=== PATIENT | female | born 1940 | race Caucasian/White ===

== ENCOUNTER 2016-09-09 12:39 | Inpatient (IN) | payer OTHER, MEDICARE ==
[~2016-09-09] VITALS: Ht 152.4 cm; Wt 80.2 kg
[~2016-09-09 12:39] MED LIST changes: -CARV25TA PO; -DEPA500T PO; -HYDR-3801 PO; -LABE200T2 PO; -LEVE500 PO; -MACR100C2 PO; -MEDR4PAK PO
[2016-09-09] MEDS ORDERED: DEPA500T PO (15:34)
[2016-09-09] MEDS ORDERED: LABE200T2 PO (15:34)
[2016-09-09] MEDS ORDERED: MEDR4PAK PO (20:55)
[2016-09-09] MEDS ORDERED: MACR100C2 PO (20:55)
[2016-09-11] VITALS (7 sets, daily range): BP systolic 98–167; BP diastolic 52–89; PULSE 62–70; RESP 17–18; TEMP 87.5–97.9; O2SAT 97–100
[2016-09-11] MEDS ORDERED: ceFAZolin 1,000 MG/NS 100 ML IV SCH ×2 (06:30)
[2016-09-11] MEDS ORDERED: METOPROLOL TARTRATE 25 MG TAB PO PRN (06:30)
[2016-09-11] MEDS ORDERED: POVIDONE IODINE 5% (ANTISEPSIS KIT) 4 APPLICATIONS EACH NARE PRN (06:30)
[2016-09-11] MEDS ORDERED: INSULIN HUMAN REGULAR 1,000 UNITS/10 ML VIAL SQ PRN (06:30)
[2016-09-11] MEDS ORDERED: CHLORHEXIDINE GLUCONATE 2 % 1 PACK (2 CLOTHS) TOPICAL PRN (06:30)
[2016-09-11] MEDS ORDERED: LACTATED RINGER'S 1000 ML IV PRN (06:30)
[2016-09-11] MEDS ORDERED: SODIUM CHLORID 0.9% 500 ML IV PRN (06:30)
[2016-09-11] MEDS ORDERED: LACTATED RINGER'S 1000 ML INJ 1,000 ML IV SCH (06:30)
[2016-09-11] MEDS ORDERED: CARV25TA PO (06:52)
[2016-09-11] MEDS ORDERED: GELFOAM SIZE 100 ONE ×3 (07:23→11:09)
[2016-09-11] MEDS ORDERED: THROMBIN (TOPICAL) 5,000 UNIT VIAL ONE ×3 (07:23→12:24)
[2016-09-11] MEDS ORDERED: LIDOCAINE 1%/EPINEPHrine 1:100,000 SOLN 20 ML VIAL ONE (07:23)
[2016-09-11] MEDS ORDERED: GENTAMICIN SULFATE 80 MG/2 ML VIAL ONE (07:23)
[2016-09-11] MEDS ORDERED: FUROSEMIDE 40 MG/4 ML VIAL ONE (07:31)
[2016-09-11] MEDS ORDERED: ALBUMIN HUMAN 5% 12.5 GM/250 ML BOTTLE IV ONE (07:32)
[2016-09-11] MEDS ORDERED: MANNITOL INJ 50 ML ONE (07:32)
[2016-09-11] MEDS ORDERED: NITROGLYCERIN-D5W 50 MG/250 ML 250 ML ONE (07:32)
[2016-09-11] MEDS ORDERED: GADODIAMIDE PF 287 MG/ML 5 ML VIAL (for RAD MRI) IV ONE (08:35)
--- NOTE | 2016-09-11 09:01 | RADRPT ---
EXAM DATE/TIME: 09/11/2016 08:13 [facility] COMPARISON: MRI BRAIN STEALTH W CONTRAST, March 08, 2012, 11:58. INDICATIONS : Brain mass. Preop. CONTRAST: 14 cc Omniscan (gadodiamide) IV MEDICAL HISTORY : Hypertension. Lupus SURGICAL HISTORY : Cholecystectomy. Tonsillectomy. lt ankle, rt hip, 5 brain surgeries. ENCOUNTER: [facility] ACUITY: > 1 year PAIN SCORE: 3/10 LOCATION: cranial TECHNIQUE: An MRI brain stealth procedure was performed. The information will be used in the OR for localizatio n. FINDINGS: There is chronic encephalomalacia in the frontal lobes bilaterally. Ventricles are normal in size. There is a left parafalcine lobulated enhancing mass measuring approximately 4.6 x 2.8 cm. This was i n a location of the previously seen mass measuring 8 x 5 mm. There is an adjacent dural based extra-a xial mass in the left frontotemporal mid convexity adjacent to area of prior surgery. This mass measu res 2.0 x 1.6 cm. It is not clear if this represents a portion of the previously described bilobed ma ss or represents a new mass. There is no significant midline shift or downward herniation. CONCLUSION: 1. 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 This mass has increased in size from the prior study. 2. There is a second extra-axial lateral dural based mass on the left measuring 2.0 x 1.6 cm. Minh Bell MD on September 11, 2016 at 8:50 Board Certified Radiologist. This report was verified electronically.
[2016-09-11] MEDS ORDERED: RESP: ALBUTEROL CONC 2.5 MG/0.5 ML NEB ONE (09:03)
[2016-09-11 10:15] LABS: BLOOD, URINE NEG (NEG); GLUCOSE,URINE NEG (NEG); KETONE, URINE NEG (NEG); NITRITE,URINE NEG (NEG); PH, URINE 6.5 (5.0-8.5); URINE COLOR YELLOW (YELLW/STRAW)
[2016-09-11 10:17] LABS: COMMENT (UR) CATH-CULT NOT IND; CULTURE IF INDICATED CATH CULTURE NOT IND
[2016-09-11] MEDS ORDERED: SODIUM CHLOR 0.9% 1000 ML INJ 2,000 ML IV ONE (12:00)
[2016-09-11] MEDS ORDERED: LACTATED RINGER'S 1000 ML INJ 2,000 ML IV ONE (12:00)
[2016-09-11] MEDS ORDERED: ceFAZolin INJ 1,000 MG VIAL IV ONE ×2 (12:00→13:00)
[2016-09-11] MEDS ORDERED: ONDANSETRON HCL 4 MG/2 ML VIAL IV PUSH ONE (12:00)
[2016-09-11] MEDS ORDERED: ePHEDrine/NS 25 MG/5 ML SYR IV ONE (12:00)
[2016-09-11] MEDS ORDERED: PROPOFOL 200 MG/20 ML AMP IV ONE (12:00)
[2016-09-11] MEDS ORDERED: PHENYLEPH/NS 1000 MCG/10 ML SYR IV ONE (12:00)
[2016-09-11] MEDS ORDERED: CALCIUM CHLORIDE 10% SOLN 1 GRAM/10 ML SYR IV ONE (12:00)
[2016-09-11 12:14] LABS: BLOOD GAS BASE EXCESS -1.9 mmol/L (-2-2); BLOOD GAS CARBOXYHEMOGLOBIN 1.5 % (0-4); BLOOD GAS HCO3 22 mmol/L (22-26); BLOOD GAS METHEMOGLOBIN 1.1 % (0-2); BLOOD GAS O2 HGB SATURATION 97 % (90-100); BLOOD GAS OXYGEN CONTENT 16.4 Vol % (12.0-20.0); BLOOD GAS PCO2 31 mmHg (38-42); BLOOD GAS PO2 257 mmHg (61-120); BLOOD GAS TOTAL HGB 11.6 G/DL (12.0-16.0); TEMP CORR TO 98.6
[2016-09-11 12:15] LABS: CRITICAL VALUE NO; OXYGEN DEVICE VENTILATOR
[2016-09-11 12:16] LABS: DRAW SITE CENTRAL LINE; FIO2 50 %; STAT YES; ULNAR PULSE Y; VENT SETTINGS AC/VT500/R8/P5
[2016-09-11 12:51] LABS: BLOOD GAS BASE EXCESS -3.2 mmol/L (-2-2); BLOOD GAS CARBOXYHEMOGLOBIN 1.3 % (0-4); BLOOD GAS HCO3 20 mmol/L (22-26); BLOOD GAS O2 HGB SATURATION 98 % (90-100); BLOOD GAS OXYGEN CONTENT 17.1 Vol % (12.0-20.0); BLOOD GAS PCO2 31 mmHg (38-42); BLOOD GAS PO2 275 mmHg (61-120); TEMP CORR TO 98.6
[2016-09-11 12:52] LABS: CRITICAL VALUE NO; DRAW SITE CL; OXYGEN DEVICE VENTILATOR; STAT YES; VENT SETTINGS AC/500/R8/P6
[2016-09-11] MEDS ORDERED: *RESP: ALBUTEROL 2.5 MG/3 ML NEB (PRN) PERIprocedural Use ONLY NEB ONE (14:57)
[2016-09-11] MEDS ORDERED: *LABETALOL HCL 100 MG/20 ML VIAL PERIprocedural Use ONLY ONE (14:59)
[2016-09-11] MEDS ORDERED: fentaNYL CITRATE 250 MCG/5 ML AMP ONE (15:13)
[2016-09-11] MEDS ORDERED: MORPHINE SULFATE 4 MG/ML INJ ONE (15:13)
[2016-09-11] MEDS ORDERED: LABETALOL HCL 100 MG/20 ML VIAL IV PRN (15:15)
[2016-09-11] MEDS ORDERED: BISACODYL 10 MG SUPP RECTAL PRN (15:15)
[2016-09-11] MEDS ORDERED: SODIUM CHLORIDE 0.9% FLUSH 10 ML FLUSH IV FLUSH PRN (15:15)
[2016-09-11] MEDS: DEXT 5%-NACL 0.9% 1000 ML INJ 1,000 ML IV SCH ×2 (15:15→20:02)
[2016-09-11] MEDS ORDERED: ONDANSETRON HCL 4 MG/2 ML VIAL IV PRN (15:15)
[2016-09-11] MEDS ORDERED: LORazepam 2 MG/ML VIAL ONE (15:39)
[2016-09-11] MEDS: LORazepam 2 MG/ML VIAL IV PRN (15:40)
[2016-09-11] MEDS ORDERED: FOSPHENYTOIN INJ 1,000 MGPE in SODIUM CHLORIDE 0.9% INJ 50 ML IV ONE (16:00)
--- NOTE | 2016-09-11 16:02 | PD.OP ---
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 Procedure: 1. Left frontotemporoparietal craniotomy, resection of recurrent left frontal parietal neoplasm and 2. Resection of recurrent left temporal neoplasm 3. Left frontotemporoparietal duraplasty Anesthesia: Gen. Surgeon: Michele Galeano Icu Rn(s): Sho Baxter Operation and Findings: Procedure in detail: The patient was brought into the operating room and general endotracheal anesthesia induced without difficulty. Lines were established by anesthesia MARY CARMEN hose and sequential compression devices were in place Guzman catheter was in place Appropriate timeout procedure was performed with all personal present and in agreement The patient was positioned in semilateral position with all extremities appropriately padded. The head was placed in the 3-point fixation device and secured to the operating room table with the neck slightly flexed and the head mildly rotated. The BrainLab system was registered with the laser facial registration system and landmarks verified. The BrainLab system was used to yudy the initial scalp flap and craniotomy opening, and was further used extensively during the procedure to guide the resection of the neoplasm. The hair overlying the scalp incision was shaved with clippers, and the operative site was sterilely prepped and draped. 1% Xylocaine with epinephrine was used for local infiltration over the incision site which was made in a curvilinear fashion over the previous left frontotemporoparietal incision and carried sharply down to the cranium. The scalp flap was elevated with the periosteal elevator and retracted with large scalp hooks. The previous titanium maxillofacial plates and screws were removed. The craniotome was used to re-incise the previous left frontotemporoparietal bone flap which was removed. 4-0 Nurolon dural tack up sutures placed through wire passing holes made along the edge of the craniotomy site were used as needed. The dura was mostly absent at the craniotomy site, with a small amount of residual dura densely adherent to the bone flap with dural tack up sutures in place. There was no significant brain edema noted upon opening the dura. The left temporal and the separate left frontoparietal neoplasms were delineated based on anatomic landmarks and the use of the intraoperative BrainLab navigation system. The left temporal neoplasm was resected first. This neoplasm came directly to the surface. It was moderately adherent to the surrounding brain parenchyma and extended down to the arachnoid covering the sylvian fissure. The neoplasm was circumferentially from the surrounding ring parenchyma and arachnoid using the microdissectors and the bipolar forceps. Care was taken to preserve any of the surrounding vascular structures. A enhancing portion of the dura extending towards the floor of the middle fossa from the main neoplasm and seen on the preoperative MRI imaging was carefully traced out and resected along with the neoplasm. Next attention was turned to resection of the left frontoparietal parafalcine neoplasm. The resection was started at the anterior portion of the neoplasm where there was no parenchyma covering the capsule over the neoplasm. The neoplasm was circumferentially from the surrounding tissue with the Edwards dissectors and the bipolar forceps with any bridging vessels coagulated with the bipolar forceps and incised with the microscissors. Any major vascular structures were carefully preserved. Cottonoid patties were used as needed to maintain the resection plane surrounding the tumor. Once the periphery of the tumor was delineated, the central portion was gradually debulked using the tissue biopsy forceps and the suction with bleeding controlled with bipolar forceps. The periphery of the tumor was then removed. A portion of the neoplasm invading the falx just above the corpus callosum was resected along with the involved portion of the falx. Great care was taken to avoid any injury to the corpus callosum or surrounding parenchyma. The tumor resection site was carefully examined and bleeding carefully controlled. There was no significant bleeding at the time of closure. The brain was soft and pulsatile at the time of closure The closure was performed a 7 mm Durepair graft which was used to perform the duraplasty with the dura graft secured through holes to the cranium made with the wire-passing drill. Titanium maxillofacial plates and screws were used to secure the bone flap, 2-0 Vicryl for the galeal closure, [place] for the skin closure. A dressing of sterile Telfa, 4 x 4's, and a head stockinette were placed. The patient was turned back into supine position on the operating room table The 3-point head fixation device was removed The patient was taken to recovery room in stable condition All counts were correct at the end of the case Estimated blood loss was 600 cc. Specimen of the neoplasm was sent to pathology for permanent section Michele Galeano MD Sep 11, 2016 16:02
[2016-09-11] MEDS ORDERED: DO NOT ADM ANY ANTICOAGULANT DRUGS PRN (16:15)
[2016-09-11] MEDS ORDERED: DIVALPROEX DR 500 MG TABEC PO SCH (18:00)
--- NOTE | 2016-09-11 19:04 | RADRPT ---
EXAM DATE/TIME: 09/11/2016 18:11 [facility] COMPARISON: MRI BRAIN STEALTH W CONTRAST, September 11, 2016, 8:13. CT BRAIN W/O CONTRAST, March 11, 2012, 4:20. INDICATIONS : Post operation craniotomy for neoplasm. RADIATION DOSE: 54.38 CTDIvol (mGy) ; Tabletop CT Head MEDICAL HISTORY : Seizures. Hypertension. SURGICAL HISTORY : Craniotomy. ENCOUNTER: Initial ACUITY: 1 day PAIN SCALE: Non-responsive LOCATION: cranial TECHNIQUE: Multiple contiguous axial images were obtained of the head. Using automated exposure control and adj ustment of the mA and/or kV according to patient size, radiation dose was kept as low as reasonably a chievable to obtain optimal diagnostic quality images. DICOM format image data is available electro nically for review and comparison. FINDINGS: Postoperative changes from craniotomy in the left frontal and parietal mid to high convexity. There is an extra cranial drain present, multiple skin musa, and multifocal areas of pneumocephalus pres ent both anterior and lateral and in both tumor sites. No evidence of midline shift. There is ex vacuo enlargement of the left frontal horn. No hemorrhage or extra-axial fluid in the right hemisphere are in the posterior fossa.. Multiple craniotomy defects from both the present and prior surgical procedures with good approximati on of all of the osseous fragments. CONCLUSION: Expected postoperative changes from surgical removal of left frontal and parietal tumors. There is s ome residual gas and hyperdensity at the surgical resection sites. No evidence of midline shift. No acute findings in the right supratentorial brain. Chris Douglas MD on September 11, 2016 at 18:54 Board Certified Radiologist. This report was verified electronically.
[2016-09-11] MEDS: MORPHINE SULFATE 4 MG/ML INJ IV PRN (19:58)
[2016-09-11] MEDS: SODIUM CHLORIDE 0.9% FLUSH 10 ML FLUSH IV FLUSH SCH (20:01)
[2016-09-11] MEDS ORDERED: NON-FORMULARY DRUG (Fluticasone-Salmeterol Inh (Advair Diskus Inh) 1 PUFF) INH SCH (21:00)
[2016-09-11] MEDS: CARVEDILOL 12.5 MG TAB PO SCH (21:00)
[2016-09-11] MEDS ORDERED: carBAMazepine 200 MG TAB PO SCH (21:00)
[2016-09-11] MEDS: DOCUSATE SODIUM 100 MG CAP PO SCH (21:00)
[2016-09-11] MEDS: BUDESONIDE-FORMOTEROL 160/4.5 MCG INHALER INH SCH (21:00)
[2016-09-11] MEDS ORDERED: SODIUM CHLOR 0.9% 250 ML INJ 250 ML ONE (22:47)
[2016-09-11] MEDS: FOSPHENYTOIN SODIUM 100 MG PE/2 ML VIAL IV SCH (22:50)
[2016-09-11] MEDS: RESP: ALBUTEROL 2.5 MG/IPRATROPIUM 0.5 MG NEB (SCH) INH (23:21)
[2016-09-12] VITALS (15 sets, daily range): BP systolic 112–178; BP diastolic 71–100; PULSE 62–83; RESP 14–18; TEMP 97.3–98.9; O2SAT 98–100
[2016-09-12 03:31] LABS: AUTOMATED NEUTROPHIL # 11.2 TH/MM3 (1.8-7.7); BASOPHIL # 0.1 TH/MM3 (0-0.2); BASOPHIL % 0.7 % (0.0-2.0); HEMATOCRIT 30.3 % (35.0-46.0); HEMO FLAGS DIFF FINAL; LYMPH % 13.8 % (9.0-44.0); MEAN CELL VOLUME 89.2 FL (80.0-100.0); MEAN CORPUSCULAR HEMOGLOBIN 29.8 PG (27.0-34.0); MEAN CORPUSCULAR HGB CONC 33.5 % (32.0-36.0); MONO % 6.6 % (0.0-8.0); NEUT % 78.9 % (16.0-70.0); PLATELET COUNT 246 TH/MM3 (150-450); WHITE BLOOD COUNT 14.2 TH/MM3 (4.0-11.0)
[2016-09-12 04:12] LABS: BICARBONATE 25.2 MEQ/L (21.0-32.0); POTASSIUM 4.6 MEQ/L (3.5-5.1)
[2016-09-12] MEDS: FOSPHENYTOIN SODIUM 100 MG PE/2 ML VIAL IV SCH ×2 (05:19→17:36)
[2016-09-12] MEDS: LORazepam 2 MG/ML VIAL IV PRN ×2 (05:48→23:55)
[2016-09-12] MEDS ORDERED: VALPROIC ACID SYRUP 250 MG/5 ML UDC NG SCH (06:34)
--- NOTE | 2016-09-12 07:27 | PD.CONS ---
[facility] Service Critical Care Medicine Consult Requested By Neurosurgical Service Reason for Consult Seizure, Encephalopathy Primary Care Physician Sharon Rogers MD History of Present Illness 76 y/o woman 1 day following left craniotomy and resection of temporal lobe tumor. Generalized seizure this morning at 0530 which ceased after ativan 1 mg iv. Initially very somnolent and concern about her ability to protect her airway. She is more alert now and will perform left hand grasp to command.No snoring or obstruction. No subsequent seizures. She has a history of seizures and has undergone several previous craniotomies for tumors. She takes tegretol and depakote chronically. In addition, she was loaded with cerebyx 1000 mg at 1600 yesterday and dilantin level is subsequesntly 7.9. Review of Systems ROS No chest pain or SOB. Quite lethargic, reliability is questionable. No family. Past Family Social History Allergies: Coded Allergies: Codeine (Verified Allergy, Severe, 09/09/16) nausea Lipitor (Verified Allergy, Severe, MUSCLE WEAKNESS, 09/09/16) Uncoded Allergies: NSAIDS (Allergy, Unknown, 03/09/12) Past Medical History Past Medical History Narrative Medical List of her past medical, surgical, social and family history was reviewed from the nursing note. Arthritis: Yes Asthma: Yes Autoimmune Disease: Yes (lupus) Cancer: Yes (skin, brain) Cardiovascular Problems: Yes High Cholesterol: Yes COPD: Yes Diabetes: No Endocrine: No Genitourinary: No Hepatitis: No Hiatal Hernia: No Immune Disorder: No Musculoskeletal: Yes (ARTHRITIS IN HANDS) Neurologic: Yes (PREVIOUS BRAIN TUMORS) Psychiatric: No Reproductive: No Respiratory: Yes (COPD) Seizures: Yes Sleep Apnea: Yes Thyroid Disease: No Past Surgical History Abdominal Surgery: Yes (cholecystectomy) Body Medical Devices: left ankle and right upper leg Joint Replacement: No Oral Surgery: Yes (t and a) Pacemaker: No Thoracic Surgery: Yes (bronch) Social History Substance Use: No Allergies-Medications Allergies-Medications (Allergen,Severity, Reaction): Coded Allergies: Codeine (Verified Allergy, Severe, 09/09/16) nausea Lipitor (Verified Allergy, Severe, MUSCLE WEAKNESS, 09/09/16) Uncoded Allergies: NSAIDS (Allergy, Unknown, 03/09/12) Comments List of her allergies reviewed from the nursing note. Reported Meds & Prescriptions Reported Meds & Active Scripts Active Reported Labetalol (Labetalol HCl) 200 Mg Tab 200 Mg PO BID Depakote DR (Divalproex Sodium) 500 Mg Tabdr 500 Mg PO TID Amlodipine (Amlodipine Besylate) 5 Mg Tab 5 Mg PO DAILY Carbamazepine 200 Mg Tab 200 Mg PO BID Carvedilol 12.5 Mg Tab 12.5 Mg PO BID Duoneb (Ipratropium-Albuterol Neb) 0.5-2.5 Mg/3 Ml Neb 1 Nebule INH Q8HR NEB Advair Diskus Inh (Fluticasone-Salmeterol Inh) 250-50 Mcg/Blist Aer 1 Puff INH BID Rinse mouth after use. Physical Exam Vital Signs Vital Signs Date Time Temp Pulse Resp B/P Pulse Ox O2 Delivery O2 Flow Rate FiO2 09/12/16 06:00 68 09/12/16 04:00 97.6 66 16 123/92 100 09/12/16 04:00 76 09/12/16 02:00 62 09/12/16 00:30 124/72 09/12/16 00:00 82 09/12/16 00:00 97.5 82 16 142/98 100 09/11/16 22:00 70 09/11/16 21:02 100 Nasal Cannula 2.00 09/11/16 20:30 98/52 09/11/16 20:00 97.6 70 18 154/76 97 09/11/16 20:00 70 09/11/16 19:00 100 Nasal Cannula 2.00 09/11/16 18:00 64 09/11/16 16:00 62 09/11/16 16:00 99 Nasal Cannula 3.00 09/11/16 16:00 96.4 65 17 111/72 97 09/11/16 15:45 97.6 60 16 115/56 98 Nasal Cannula 4 09/11/16 15:30 66 17 129/58 98 Nasal Cannula 4 09/11/16 15:15 61 17 222/101 100 Nasal Cannula 4 09/11/16 15:00 75 17 184/88 100 Simple Mask 6 09/11/16 14:53 97.6 86 16 202/90 100 Simple Mask 6 Physical Exam P 77, BP 124/80, R 13, Sats 97% Head: Wrapped in dry dressing. Neck: Supple, airway widely patent. No obstructive noises. Lungs: Clear, no wheezes or crackles. Heart: NL S1S2, no m,r.No JVD. Abdomen: Soft, no guarding, non-distended, BS present. Extremities: Warm, well perfused. Swelling and discoloration left great toe. Neuro: Pupils 3 mm, react to light. Sqeezes left hand to command. Withdraws both feet to stimulation. Positive gag reflex. Laboratory Laboratory Tests Test 09/11/16 09/11/16 09/11/16 09/11/16 09:45 10:05 11:55 12:35 Urine Color YELLOW Urine Turbidity CLEAR Urine pH 6.5 Urine Specific [place] 1.008 Urine Protein NEG Urine Glucose (UA) NEG Urine Ketones NEG Urine Occult Blood NEG Urine Nitrite NEG Urine Bilirubin NEG Urine Urobilinogen LESS THAN 2.0 Urine Leukocyte Esterase NEG Urine RBC LESS THAN 1 Microscopic Urinalysis Comment CATH-CULT NOT IND Blood Type A POSITIVE Antibody Screen NEGATIVE Crossmatch Leukocyte-Reduced Red Blood Cells Blood Bank Comment Blood Gas Puncture Site CENTRAL LINE CL Blood Gas Patient Temperature 98.6 98.6 Blood Gas HCO3 22 20 Blood Gas Base Excess -1.9 -3.2 Blood Gas Oxygen Saturation 97 98 Arterial Blood pH 7.45 7.44 Arterial Blood Partial 31 31 Pressure CO2 Arterial Blood Partial 257 275 Pressure O2 Arterial Blood Oxygen Content 16.4 17.1 Arterial Blood 1.5 1.3 Carboxyhemoglobin Arterial Blood Methemoglobin 1.1 1.0 Blood Gas Hemoglobin 11.6 12.0 Oxygen Delivery Device VENTILATOR VENTILATOR Blood Gas Ventilator Setting AC/VT500/R8/P5 AC/500/R8/P6 Blood Gas Inspired Oxygen 50 Test 09/11/16 09/12/16 16:20 03:20 Nasal Screen MRSA (PCR) MRSA NOT DETECTED White Blood Count 14.2 Red Blood Count 3.40 Hemoglobin 10.1 Hematocrit 30.3 Mean Corpuscular Volume 89.2 Mean Corpuscular Hemoglobin 29.8 Mean Corpuscular Hemoglobin 33.5 Concent Red Cell Distribution Width 15.0 Platelet Count 246 Mean Platelet Volume 8.3 Neutrophils (%) (Auto) 78.9 Lymphocytes (%) (Auto) 13.8 Monocytes (%) (Auto) 6.6 Eosinophils (%) (Auto) 0.0 Basophils (%) (Auto) 0.7 Neutrophils # (Auto) 11.2 Lymphocytes # (Auto) 2.0 Monocytes # (Auto) 0.9 Eosinophils # (Auto) 0.0 Basophils # (Auto) 0.1 CBC Comment DIFF FINAL Differential Comment Sodium Level 143 Potassium Level 4.6 Chloride Level 109 Carbon Dioxide Level 25.2 Anion Gap 9 Blood Urea Nitrogen 19 Creatinine 1.07 Estimat Glomerular Filtration 50 Rate Random Glucose 152 Calcium Level 7.8 Phenytoin (Dilantin) Level 7.8 Result Diagram: 09/12/16 03209/12/16 032 Assessment and Plan Assessment and Plan Assessment: 1. Seizures, active. 2. Encephalopathy. 3. s/p left craniotomy and temporal lobe tumor resection. Plan: 1. NG for oral AEDs. 2. Additional bolus cerebyx. 3. Strict NPO. 4. Ativan prn sustained seizures. 5. SCDs. 6. Hold chemical DVT prophylaxis. Overall impression: Moderately increased somnolence following 4 minute seizure. Protects airway well, moving air well. Continue AEDs as ordered, watch airway closely. Manny Keys MD Sep 12, 2016 07:27
[2016-09-12] MEDS ORDERED: POTASSIUM PHOSPHATE MONOBASIC 500 MG TAB PO/TUBE PRN (07:51)
[2016-09-12] MEDS ORDERED: POTASSIUM PHOSPHATE INJ 30 MMOL in SODIUM CHLOR 0.9% 250 ML INJ 250 ML IV PRN (07:51)
[2016-09-12] MEDS ORDERED: SODIUM PHOSPHATE INJ 30 MMOL in SODIUM CHLOR 0.9% 250 ML INJ 240 ML IV PRN (08:00)
[2016-09-12] MEDS ORDERED: POTASSIUM CHLORIDE 25 MEQ EFFERVESCENT TAB PO PRN (08:00)
[2016-09-12] MEDS ORDERED: FOSPHENYTOIN SODIUM 100 MG PE/2 ML VIAL IV ONE (08:00)
[2016-09-12] MEDS ORDERED: POTASSIUM CHLOR 20 MEQ PREMIX 100 ML IV PRN (08:00)
[2016-09-12] MEDS ORDERED: MAGNESIUM SULFATE INJ 4 GM in SODIUM CHLORIDE 0.9% INJ 92 ML IV PRN (08:00)
[2016-09-12] MEDS ORDERED: GLUCAGON 1 MG/ML VIAL OTHER PRN (08:00)
[2016-09-12] MEDS ORDERED: DEXTROSE 50% IN WATER 50 ML VIAL(D50) IV PRN (08:00)
[2016-09-12] MEDS ORDERED: POTASSIUM PHOSPHATE MONOBASIC 500 MG TAB PO PRN (08:00)
[2016-09-12] MEDS ORDERED: MAGNESIUM OXIDE 400 MG TAB PO PRN (08:00)
[2016-09-12] MEDS ORDERED: MAGNESIUM SULFATE INJ 2 GM in SODIUM CHLORIDE 0.9% INJ 96 ML IV PRN (08:00)
[2016-09-12] MEDS ORDERED: POTASSIUM CHLOR 40 MEQ PREMIX 100 ML IV PRN ×2 (08:00)
[2016-09-12] MEDS: SODIUM CHLORIDE 0.9% FLUSH 10 ML FLUSH IV FLUSH SCH ×2 (09:00→21:00)
[2016-09-12] MEDS ORDERED: carBAMazepine SUSP 200 MG/10 ML UDC NG SCH (09:00)
[2016-09-12] MEDS: BUDESONIDE-FORMOTEROL 160/4.5 MCG INHALER INH SCH ×2 (09:00→21:00)
--- NOTE | 2016-09-12 10:53 | RADRPT ---
EXAM DATE/TIME: 09/12/2016 09:25 [place] Corrected on: September 26, 2016; Removed Physician from Copy to section [facility] COMPARISON: MRI BRAIN STEALTH W CONTRAST, September 11, 2016, 8:13. CT BRAIN W/O CONTRAST, September 11, 2016, 18:11. INDICATIONS : Seizure post brain tumor surgery RADIATION DOSE: 56.45 CTDIvol (mGy) MEDICAL HISTORY : Hypertension. Chronic obstructive pulmonary disease. Asthma, Lupus SURGICAL HISTORY : Appendectomy. Cholecystectomy. ENCOUNTER: Subsequent ACUITY: 1 day PAIN SCALE: Non-responsive LOCATION: cranial TECHNIQUE: Multiple contiguous axial images were obtained of the head. Using automated exposure control and adj ustment of the mA and/or kV according to patient size, radiation dose was kept as low as reasonably a chievable to obtain optimal diagnostic quality images. DICOM format image data is available electro nically for review and comparison. FINDINGS: Overall relatively stable appearance when compared to the prior study. There has been a slight increa se in the subdural hemorrhage tracking along the falx near the vertex. The remaining subdural hemorrh age on the left is stable. Pneumocephaly is stable. A chronic appearing subdural fluid collection is seen on the right. Ventricles are unchanged in size. Overlying craniotomy defect is observed. No midl ine shift or herniation. CSF continues to fill the suprasellar cistern. CONCLUSION: 1. The only change relative to the prior study from yesterday has been a slight increase in the subdu ral blood along the falx near the vertex. Chris Hercules Jr., MD on September 12, 2016 at 10:26
[2016-09-12] MEDS: INSULIN ASPART SUPPLEMENTAL SCALE SQ SCH ×3 (11:00→23:00)
[2016-09-12] MEDS: VALPROIC ACID SYRUP 250 MG/5 ML UDC NG SCH ×3 (11:18→23:52)
[2016-09-12] MEDS: PANTOPRAZOLE SODIUM 40 MG VIAL IVP SCH (11:19)
[2016-09-12] MEDS: carBAMazepine SUSP 200 MG/10 ML UDC NG SCH ×2 (11:19→20:49)
[2016-09-12] MEDS: CARVEDILOL 12.5 MG TAB PO SCH ×2 (11:20→20:53)
[2016-09-12] MEDS: amLODIPine BESYLATE 5 MG TAB PO SCH (11:20)
[2016-09-12] MEDS: DOCUSATE SODIUM 100 MG CAP PO SCH ×2 (11:20→20:53)
[2016-09-12] MEDS: DEXT 5%-NACL 0.9% 1000 ML INJ 1,000 ML IV SCH ×2 (14:19→22:00)
[2016-09-12] MEDS: RESP: ALBUTEROL 2.5 MG/IPRATROPIUM 0.5 MG NEB (SCH) INH ×2 (15:38→15:39)
[2016-09-12] MEDS ORDERED: FOSPHENYTOIN SODIUM 500 MG PE/10 ML VIAL IV ONE (20:45)
--- NOTE | 2016-09-12 20:56 | HHI.NSPN ---
History Chief Complaint: no complaint Interval History 76-year-old female with history of multiple recurrent meningiomas. 09/11/2016: Left craniotomy for recurrent left temporal and left frontoparietal convexity meningiomas. 09/12/16: Positive seizure. Cerebyx started in addition to patient's usual Depakote and Tegretol Exam Results Vital Signs Date Time Temp Pulse Resp B/P Pulse Ox O2 Delivery O2 Flow Rate FiO2 09/12/16 19:38 100 Nasal Cannula 2.00 09/12/16 18:00 67 09/12/16 16:00 97.3 16 122/71 Intake and Output 09/11/16 09/11/16 09/12/16 08:00 16:00 00:00 Intake Total 3800 ml 484 ml Output Total 1480 ml 1090 ml Balance 2320 ml -606 ml Physical Examination A dressing in place dry and intact Moderate mostly CSF drain output Respirations clear Cardiac regular Abdomen soft nontender Moderate lethargy Moderate eye opening to voice Grasps left hand and his left leg moderate to command. Mild movement right lower extremity to command Withdraws right upper extremity mild to deep pain Lab, Micro, Other Results 09/12/2016 CT scan head images reviewed. Edema versus ischemia left frontotemporal region. Mild subcortical hemorrhage left temporal lobe without significant mass effect. Head CT 09/12/16 0800 Signed Impressions: Service Date/Time: Monday, September 12, 2016 09:25 - CONCLUSION: 1. The only change relative to the prior study from yesterday has been a slight increase in the subdural blood along the falx near the vertex. Chris Hercules Jr., MD Brain MRI 09/11/16 0717 Signed Impressions: Service Date/Time: September 08:13 - CONCLUSION: 1. 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 This mass has increased in size from the prior study. 2. There is a second extra-axial lateral dural based mass on the left measuring 2.0 x 1.6 cm. Minh Bell MD Laboratory Tests Test 09/12/16 03:20 White Blood Count 14.2 TH/MM3 Red Blood Count 3.40 MIL/MM3 Hemoglobin 10.1 GM/DL Hematocrit 30.3 % Mean Corpuscular Volume 89.2 FL Mean Corpuscular Hemoglobin 29.8 PG Mean Corpuscular Hemoglobin 33.5 % Concent Red Cell Distribution Width 15.0 % Platelet Count 246 TH/MM3 Mean Platelet Volume 8.3 FL Neutrophils (%) (Auto) 78.9 % Lymphocytes (%) (Auto) 13.8 % Monocytes (%) (Auto) 6.6 % Eosinophils (%) (Auto) 0.0 % Basophils (%) (Auto) 0.7 % Neutrophils # (Auto) 11.2 TH/MM3 Lymphocytes # (Auto) 2.0 TH/MM3 Monocytes # (Auto) 0.9 TH/MM3 Eosinophils # (Auto) 0.0 TH/MM3 Basophils # (Auto) 0.1 TH/MM3 CBC Comment DIFF FINAL Differential Comment Sodium Level 143 MEQ/L Potassium Level 4.6 MEQ/L Chloride Level 109 MEQ/L Carbon Dioxide Level 25.2 MEQ/L Anion Gap 9 MEQ/L Blood Urea Nitrogen 19 MG/DL Creatinine 1.07 MG/DL Estimat Glomerular Filtration 50 ML/MIN Rate Random Glucose 152 MG/DL Calcium Level 7.8 MG/DL Phenytoin (Dilantin) Level 7.8 MCG/ML Medical Decision Making Impression and Plan Impression: 1. Postoperative craniotomy resection of recurrent meningioma 2 on 09/11/16. 2. Positive postoperative seizure 3. Possible left frontoparietal region ischemia versus postoperative edema on CT scan head 09/12/16 Plan: Continue intensive surgical care unit where checks and vital signs Continue scalp drain Continue antiepileptic drugs. EEG Non-chemical DVT prophylaxis Ulcer prophylaxis Follow-up labs Speech therapy, PT evaluations Michele Galeano MD Sep 12, 2016 20:56
[2016-09-12] MEDS ORDERED: FOSPHENYTOIN INJ 500 MGPE in SODIUM CHLORIDE 0.9% INJ 50 ML IV ONE (21:30)
[2016-09-13] VITALS (14 sets, daily range): BP systolic 113–157; BP diastolic 53–68; PULSE 64–85; RESP 12–20; TEMP 97.6–98.6; O2SAT 94–99
[2016-09-13] MEDS: FOSPHENYTOIN SODIUM 100 MG PE/2 ML VIAL IV SCH ×4 (00:12→22:07)
[2016-09-13] MEDS: niCARdipine INJ 25 MG in SODIUM CHLOR 0.9% 250 ML INJ 250 ML IV SCH ×5 (01:48→12:17)
[2016-09-13] MEDS: MORPHINE SULFATE 4 MG/ML INJ IV PRN ×2 (03:01→12:30)
[2016-09-13] MEDS: INSULIN ASPART SUPPLEMENTAL SCALE SQ SCH ×4 (05:00→22:41)
[2016-09-13 06:45] LABS: HEMATOCRIT 27.3 % (35.0-46.0); MEAN CELL VOLUME 89.5 FL (80.0-100.0); MEAN CORPUSCULAR HEMOGLOBIN 29.6 PG (27.0-34.0); MEAN CORPUSCULAR HGB CONC 33.1 % (32.0-36.0); PLATELET COUNT 206 TH/MM3 (150-450); RED BLOOD COUNT 3.06 MIL/MM3 (4.00-5.30); RED CELL DISTRIBUTION WIDTH 14.6 % (11.6-17.2); REVIEW FLAG FINAL; WHITE BLOOD COUNT 11.9 TH/MM3 (4.0-11.0)
[2016-09-13 07:16] LABS: BICARBONATE 25.9 MEQ/L (21.0-32.0); POTASSIUM 3.4 MEQ/L (3.5-5.1)
[2016-09-13 07:36] LABS: CALCIUM-PROTEIN CORRECTED 8.5 MG/DL (8.5-10.1)
[2016-09-13] MEDS: RESP: ALBUTEROL 2.5 MG/IPRATROPIUM 0.5 MG NEB (SCH) INH ×2 (08:20→16:56)
[2016-09-13] MEDS: amLODIPine BESYLATE 5 MG TAB PO SCH (08:45)
[2016-09-13] MEDS: CARVEDILOL 12.5 MG TAB PO SCH ×2 (08:45→20:49)
[2016-09-13] MEDS: DOCUSATE SODIUM 100 MG CAP PO SCH ×2 (08:45→20:49)
[2016-09-13] MEDS: VALPROIC ACID SYRUP 250 MG/5 ML UDC NG SCH ×3 (08:45→23:21)
[2016-09-13] MEDS: SODIUM CHLORIDE 0.9% FLUSH 10 ML FLUSH IV FLUSH SCH ×2 (08:46→22:17)
[2016-09-13] MEDS: carBAMazepine SUSP 200 MG/10 ML UDC NG SCH ×2 (08:46→20:49)
[2016-09-13] MEDS: PANTOPRAZOLE SODIUM 40 MG VIAL IVP SCH (08:46)
[2016-09-13] MEDS: DEXT 5%-NACL 0.9% 1000 ML INJ 1,000 ML IV SCH (08:47)
[2016-09-13] MEDS: BUDESONIDE-FORMOTEROL 160/4.5 MCG INHALER INH SCH ×2 (09:00→20:49)
--- NOTE | 2016-09-13 10:13 | HHI.NSPN ---
(Nora Rankin) Note Status Status: Progress Note (Nora Rankin) Interval History Interval History 76-year-old female with history of multiple recurrent meningiomas. 09/11/2016: Left craniotomy for recurrent left temporal and left frontoparietal convexity meningiomas. 09/12/16: Positive seizure. Cerebyx started in addition to patient's usual Depakote and Tegretol 09/13/16: following commands, nonverbal. bp elevated, currently on max dose of Cardene (Nora Rankin) Labs, Micro, & Vital Signs Results Date Time Temp Pulse Resp B/P Pulse Ox O2 Delivery O2 Flow Rate FiO2 09/13/16 09:15 98 Room Air 09/13/16 08:20 98 21 09/13/16 07:00 97 Nasal Cannula 2.00 09/13/16 06:00 70 09/13/16 04:00 78 09/13/16 04:00 98.0 85 16 140/53 94 09/13/16 03:26 18 09/13/16 02:00 78 09/13/16 00:00 68 09/13/16 00:00 97.8 76 15 133/59 96 Arterial Line 09/12/16 22:00 76 09/12/16 20:00 98.0 72 18 178/100 100 09/12/16 20:00 82 09/12/16 19:38 100 Nasal Cannula 2.00 09/12/16 19:00 100 Nasal Cannula 2.00 09/12/16 18:00 67 09/12/16 16:00 73 09/12/16 16:00 97.3 73 16 122/71 100 09/12/16 15:42 100 Nasal Cannula 2.00 09/12/16 14:00 74 09/12/16 12:00 70 09/12/16 12:00 97.6 70 14 112/76 100 09/13/16 07:00 Intake Total 3084 ml Output Total 3790 ml Balance -706 ml Constitutional Vital Signs Date Time Temp Pulse Resp B/P Pulse Ox O2 Delivery O2 Flow Rate FiO2 09/13/16 09:15 98 Room Air 09/13/16 08:20 98 21 09/13/16 07:00 97 Nasal Cannula 2.00 09/13/16 06:00 70 09/13/16 04:00 78 09/13/16 04:00 98.0 85 16 140/53 94 09/13/16 03:26 18 09/13/16 02:00 78 09/13/16 00:00 68 09/13/16 00:00 97.8 76 15 133/59 96 Arterial Line 09/12/16 22:00 76 09/12/16 20:00 98.0 72 18 178/100 100 09/12/16 20:00 82 09/12/16 19:38 100 Nasal Cannula 2.00 09/12/16 19:00 100 Nasal Cannula 2.00 09/12/16 18:00 67 09/12/16 16:00 73 09/12/16 16:00 97.3 73 16 122/71 100 09/12/16 15:42 100 Nasal Cannula 2.00 09/12/16 14:00 74 09/12/16 12:00 70 09/12/16 12:00 97.6 70 14 112/76 100 09/13/16 07:00 Intake Total 3084 ml Output Total 3790 ml Balance -706 ml (Nora Rankin) Review of Systems/Exam Exam Opens eyes, focuses. Aphasic Followss simple commands Wound healing well. MARTINA drain in place with moderate serosanguineous drainage CN: pupils equal, facial motor symmetric at rest Neck; soft, supple Motor: moves x 4 extremities off bed to commands, weaker on the right (Nora Rankin) Medications Current Medications Current Medications Medications (Trade) Dose Ordered Sig/Gen Route PRN Reason Start Time Stop Time Status Last Admin Dose Admin Lactated Ringer's 1,000 ml @ 30 mls/hr Q24H PRN IV SEE LABEL COMMENTS 09/11/16 06:30 09/14/16 06:29 Sodium Chloride (NS 500 ml Inj) 500 ml @ 30 mls/hr [id number] PRN IV SEE LABEL COMMENTS 09/11/16 06:30 09/14/16 06:29 Sodium Chloride (NS Flush) 2 ml UNSCH PRN IV FLUSH FLUSH AFTER USING IV ACCESS 09/11/16 15:15 Sodium Chloride (NS Flush) 2 ml BID IV FLUSH 09/11/16 21:00 09/13/16 08:46 Bisacodyl (Dulcolax Supp) 10 mg DAILY PRN RECTAL CONSTIPATION 09/11/16 15:15 Docusate Sodium (Colace) 100 mg BID PO 09/11/16 21:00 09/13/16 08:45 Pantoprazole Sodium (Protonix Inj) 40 mg DAILY IVP 09/12/16 09:00 09/13/16 08:46 Ondansetron HCl (Zofran Inj) 4 mg Q6H PRN IV NAUSEA OR VOMITING 09/11/16 15:15 Morphine Sulfate (Morphine Inj) 2 mg Q2H PRN IV PAIN SCALE 1 TO 6 09/11/16 15:15 09/13/16 03:01 Morphine Sulfate (Morphine Inj) 4 mg Q2H PRN IV PAIN SCALE 7 TO 10 09/11/16 15:15 09/11/16 19:58 Labetalol HCl 10 mg 10 mg Q1H PRN IV SYS BP GREATER THAN 150 MMHG 09/11/16 15:15 09/13/16 03:00 Nicardipine HCl/ Sodium Chloride (Cardene Inj/NS 250 ml Inj) 260 ml @ 0 mls/hr TITRATE IV 09/11/16 15:15 09/13/16 09:17 Amlodipine Besylate (Norvasc) 5 mg DAILY PO 09/12/16 09:00 09/13/16 08:45 Carvedilol (Coreg) 25 mg BID PO 09/11/16 21:00 09/13/16 08:45 Nitrofurantoin Macrocrystals 100 mg 100 mg BID PO 09/11/16 21:00 UNV Dextrose/Sodium Chloride (D5W-NS 1000 ml Inj) 1,000 ml @ 100 mls/hr Q10H IV 09/11/16 16:00 09/13/16 08:47 Lorazepam (Ativan Inj) 1 mg Q6H PRN IV SEIZURES 09/11/16 15:45 09/12/16 23:55 Fosphenytoin Sodium (Cerebyx Inj) 100 mgpe Q8HR IV 09/11/16 22:00 09/13/16 05:29 Budesonide/ Formoterol Fumarate (Symbicort 160-4.5 Inh) 2 puff BID INH 09/11/16 21:00 Valproic Acid (Depakene Liq) 500 mg Q8H NG 09/12/16 08:00 09/13/16 08:45 Carbamazepine (TEGretol LIQ) 200 mg BID NG 09/12/16 09:00 09/13/16 08:46 Dextrose (D50w (Vial) Inj) 50 ml UNSCH PRN IV HYPOGLYCEMIA-SEE COMMENTS 09/12/16 08:00 Glucagon (Glucagon Inj) 1 mg UNSCH PRN OTHER HYPOGLYCEMIA-SEE COMMENTS 09/12/16 08:00 Insulin Aspart 1 1 Q6H SQ 09/12/16 11:00 09/12/16 23:00 Potassium Chloride 100 ml @ 50 mls/hr Q2H PRN IV For Potassium 2.8 - 3.2 mEq/L 09/12/16 08:00 Potassium Chloride (KCl 20 Meq Premix Inj) 100 ml @ 50 mls/hr Q2H PRN IV For Potassium 2.8 - 3.2 mEq/L 09/12/16 08:00 Potassium Bicarb/ Potassium Chloride 50 meq 50 meq UNSCH PRN PO For Potassium 3.3 - 3.5 mEq/L 09/12/16 08:00 09/13/16 08:46 Potassium Chloride 100 ml @ 25 mls/hr UNSCH PRN IV For Potassium 3.3 - 3.5 mEq/L 09/12/16 08:00 Potassium Chloride 100 ml @ 50 mls/hr Q2H PRN IV For Potassium 3.3 - 3.5 mEq/L 09/12/16 08:00 Magnesium Sulfate/ Sodium Chloride (Magnesium Sulfate Inj/NS Inj) 100 ml @ 50 mls/hr UNSCH PRN IV For Magnesium 0.9 - 1.1 mg/dL 09/12/16 08:00 Magnesium Oxide 800 mg 800 mg UNSCH PRN PO For Magnesium 1.2 - 1.6 mg/dL 09/12/16 08:00 Magnesium Sulfate/ Sodium Chloride (Magnesium Sulfate Inj/NS Inj) 100 ml @ 50 mls/hr UNSCH PRN IV For Magnesium 1.2 - 1.6 mg/dL 09/12/16 08:00 Potassium Phosphate 2000 mg 2,000 mg Q4H PRN PO For Phosphorus < 2.5 mg/dL 09/12/16 08:00 Sodium Phosphate/ Sodium Chloride (Sodium Phosphate Inj/NS 250 ml Inj) 250 ml @ 42 mls/hr UNSCH PRN IV For Phosphorus < 2.5 mg/dL 09/12/16 08:00 Potassium Phosphate 2000 mg 2,000 mg UNSCH PRN PO/TUBE SEE LABEL COMMENTS 09/12/16 07:51 Potassium Phosphate/Sodium Chloride (Potassium Phosphate Inj/NS 250 ml Inj) 260 ml @ 42 mls/hr UNSCH PRN IV SEE LABEL COMMENTS 09/12/16 07:51 (Nora Rankin) Medical Decision Making MDM Remarks 76-year-old female with history of multiple recurrent meningiomas, s/p craniotomy for recurrent left temporal meningioma 09/11/16 Seizures, controlled uncontrolled hypertension, currently controlled on Cardene drip (Nora Rankin) Plan Plan Remarks cont serial neuro checks, cont Cardene, will defer to critical care for further BP mgt, cont AED, Cerebyx, Depakote and Tegretol cont MARTINA draining (Nora Rankin) Attending Statement The exam, history, and the medical decision-making described in the above note were completed with the assistance of the mid-level provider. I reviewed and agree with the findings presented. I attest that I had a [id number] encounter with the patient on the same day, and personally performed and documented my assessment and findings in the medical record. (Jayy Watts MD) Nora Rankin Sep 13, 2016 10:13 Jayy Watts MD Sep 16, 2016 19:06
[2016-09-13] MEDS ORDERED: amLODIPine BESYLATE 5 MG TAB PO ONE (11:15)
--- NOTE | 2016-09-13 11:19 | HHI.CCPN ---
Subjective Remarks/Hospital Course Hospital Course: 76 y/o woman 1 day following left craniotomy and resection of temporal lobe tumor. Generalized seizure this morning at 0530 which ceased after ativan 1 mg iv. Initially very somnolent and concern about her ability to protect her airway. She is more alert now and will perform left hand grasp to command.No snoring or obstruction. No subsequent seizures. She has a history of seizures and has undergone several previous craniotomies for tumors. She takes tegretol and depakote chronically. In addition, she was loaded with cerebyx 1000 mg at 1600 yesterday and dilantin level is subsequesntly 7.9. Subjective: 09/13: mental status improved. remains hypertensive on nicardipine infusion. MELY resolving. no complaints. Objective Vital Signs Date Time Temp Pulse Resp B/P Pulse Ox O2 Delivery O2 Flow Rate FiO2 09/13/16 10:00 66 09/13/16 09:15 98 Room Air 09/13/16 08:20 21 09/13/16 08:00 98.6 15 138/54 Automatic Cuff 09/13/16 07:00 2.00 Intake and Output 09/12/16 09/12/16 09/13/16 08:00 16:00 00:00 Intake Total 792 ml 650 ml 1609 ml Output Total 1175 ml 740 ml 2050 ml Balance -383 ml -90 ml -441 ml Result Diagram: 09/13/1643909/13/16439 Objective Remarks Head: Wrapped in dry dressing. Neck: Supple, airway widely patent. No obstructive noises. Lungs: Clear, no wheezes or crackles. Heart: NL S1S2, no m,r.No JVD. Abdomen: Soft, no guarding, non-distended Extremities: Warm, well perfused. Swelling and discoloration left great toe. Neuro: Pupils 3 mm, react to light. Sqeezes left hand to command. Withdraws both feet to stimulation. Positive gag reflex. A/P Assessment and Plan Assessment: 76yF s/p left temporal crani for meningioma and s/p igor-op seizures , now mental status slowly improving. remains severely hypertensive. 1. Seizures, active. 2. Encephalopathy. 3. s/p left craniotomy and temporal lobe tumor resection. 4. Hypertensive Urgency Plan: 1. NG for oral AEDs. start TFs. 3. Strict NPO. Speech consult. 4. Ativan prn sustained seizures. 5. SCDs. 6. Hold chemical DVT prophylaxis. 7. increase amlodipine to 10mg daily 8. add hydralazine 100mg po q8h 9. continue carvedilol 25mg po bid 10. increase prn labetalol to 20mg iv q30min prn 11. wean nicardipine infusion Overall impression: Moderately increased somnolence following 4 minute seizure. Protects airway well, moving air well. Continue AEDs as ordered, watch airway closely. if weans off nicardipine, could transfer to floor. Lauri Gallo MD Sep 13, 2016 11:19
[2016-09-13] MEDS: hydrALAZINE HCL 100 MG TAB PO SCH ×2 (11:59→20:14)
[2016-09-13] MEDS: LABETALOL HCL 100 MG/20 ML VIAL IV PRN ×2 (16:45→18:32)
[2016-09-13] MEDS: LABETALOL HCL 200 MG TAB PO SCH ×2 (19:11→22:06)
[2016-09-13] MEDS: NITROFURANTOIN MONOHYD MACROCR 100 MG CAP PO SCH (22:57)
[2016-09-14] VITALS (11 sets, daily range): BP systolic 103–150; BP diastolic 54–68; PULSE 57–88; RESP 13–25; TEMP 97.7–100.8; O2SAT 97–99
[2016-09-14] MEDS: RESP: ALBUTEROL 2.5 MG/IPRATROPIUM 0.5 MG NEB (SCH) INH ×4 (00:15→22:44)
[2016-09-14] MEDS: MORPHINE SULFATE 4 MG/ML INJ IV PRN (03:00)
[2016-09-14] MEDS: hydrALAZINE HCL 100 MG TAB PO SCH ×3 (04:10→19:29)
--- NOTE | 2016-09-14 04:47 | RADRPT ---
EXAM DATE/TIME: 09/14/2016 04:23 [facility] COMPARISON: MRI BRAIN STEALTH W CONTRAST, September 11, 2016, 8:13. CT BRAIN W/O CONTRAST, September 12, 2016, 9:25. INDICATIONS : Follow up brain tumor; post craniotomy. RADIATION DOSE: 31.41 CTDIvol (mGy) MEDICAL HISTORY : Hypertension. Gastroesophageal reflux disease. Chronic obstructive pulmonary disease.seizures, lupus SURGICAL HISTORY : Craniotomy. ENCOUNTER: Subsequent ACUITY: 4 - 6 days PAIN SCALE: Non-responsive LOCATION: cranial TECHNIQUE: Multiple contiguous axial images were obtained of the head. Using automated exposure control and adj ustment of the mA and/or kV according to patient size, radiation dose was kept as low as reasonably a chievable to obtain optimal diagnostic quality images. DICOM format image data is available electro nically for review and comparison. FINDINGS: Expected postoperative changes are present. No acute hematoma is identified. 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 No extra-axial fluid collections are identified. Posterior fossa structures are unremarkable. CONCLUSION: 1. Expected postoperative changes following craniotomy. Quincy Pandya MD on September 14, 2016 at 4:43 Board Certified Radiologist. This report was verified electronically.
[2016-09-14] MEDS: INSULIN ASPART SUPPLEMENTAL SCALE SQ SCH ×4 (05:00→23:07)
[2016-09-14] MEDS: LABETALOL HCL 200 MG TAB PO SCH ×3 (06:00→21:39)
[2016-09-14] MEDS: FOSPHENYTOIN SODIUM 100 MG PE/2 ML VIAL IV SCH ×3 (06:06→21:39)
[2016-09-14 06:19] LABS: HEMATOCRIT 25.6 % (35.0-46.0); MEAN CELL VOLUME 90.7 FL (80.0-100.0); MEAN CORPUSCULAR HEMOGLOBIN 29.6 PG (27.0-34.0); MEAN CORPUSCULAR HGB CONC 32.7 % (32.0-36.0); PLATELET COUNT 213 TH/MM3 (150-450); RED BLOOD COUNT 2.83 MIL/MM3 (4.00-5.30); RED CELL DISTRIBUTION WIDTH 14.8 % (11.6-17.2); REVIEW FLAG FINAL; WHITE BLOOD COUNT 11.9 TH/MM3 (4.0-11.0)
[2016-09-14 06:32] LABS: POTASSIUM 4.2 MEQ/L (3.5-5.1)
[2016-09-14] MEDS: CARVEDILOL 12.5 MG TAB PO SCH ×2 (08:05→20:32)
[2016-09-14] MEDS: carBAMazepine SUSP 200 MG/10 ML UDC NG SCH ×2 (08:06→20:32)
[2016-09-14] MEDS: PANTOPRAZOLE SODIUM 40 MG VIAL IVP SCH (08:06)
[2016-09-14] MEDS: SODIUM CHLORIDE 0.9% FLUSH 10 ML FLUSH IV FLUSH SCH ×2 (08:06→20:32)
[2016-09-14] MEDS: DOCUSATE SODIUM 100 MG CAP PO SCH ×2 (08:06→20:32)
[2016-09-14] MEDS: NITROFURANTOIN MONOHYD MACROCR 100 MG CAP PO SCH ×2 (08:06→20:33)
[2016-09-14] MEDS: BUDESONIDE-FORMOTEROL 160/4.5 MCG INHALER INH SCH ×2 (08:07→20:32)
[2016-09-14] MEDS: VALPROIC ACID SYRUP 250 MG/5 ML UDC NG SCH ×2 (08:14→15:41)
--- NOTE | 2016-09-14 09:24 | HHI.CCPN ---
Subjective Remarks/Hospital Course Hospital Course: 76 y/o woman 1 day following left craniotomy and resection of temporal lobe tumor. Generalized seizure this morning at 0530 which ceased after ativan 1 mg iv. Initially very somnolent and concern about her ability to protect her airway. She is more alert now and will perform left hand grasp to command.No snoring or obstruction. No subsequent seizures. She has a history of seizures and has undergone several previous craniotomies for tumors. She takes tegretol and depakote chronically. In addition, she was loaded with cerebyx 1000 mg at 1600 yesterday and dilantin level is subsequesntly 7.9. Subjective: 09/13: mental status improved. remains hypertensive on nicardipine infusion. MELY resolving. no complaints. 09/14: mental status continues to improve. bp better. off cardene. mely improved. no complaints. Objective Vital Signs Date Time Temp Pulse Resp B/P Pulse Ox O2 Delivery O2 Flow Rate FiO2 09/14/16 08:00 67 09/14/16 08:00 99.0 17 132/60 99 09/14/16 07:00 Room Air 09/13/16 20:24 21 09/13/16 07:00 2.00 Intake and Output 09/13/16 09/13/16 09/13/16 07:59 15:59 23:59 Intake Total 825 ml 1894 ml 400 ml Output Total 1000 ml 625 ml 15 ml Balance -175 ml 1269 ml 385 ml Result Diagram: 09/14/16 0504 09/14/16 0504 Objective Remarks Head: Wrapped in dry dressing. Neck: Supple, airway widely patent. No obstructive noises. Lungs: Clear, no wheezes or crackles. Heart: NL S1S2, no m,r.No JVD. Abdomen: Soft, no guarding, non-distended Extremities: Warm, well perfused. Swelling and discoloration left great toe. Neuro: Pupils 3 mm, react to light. Sqeezes left hand to command. Withdraws both feet to stimulation. Positive gag reflex. A/P Assessment and Plan Assessment: 76yF s/p left temporal crani for meningioma and s/p igor-op seizures , now mental status improving. bp under better control. stable for transfer to floor. 1. Seizures, resolved. history of home seizures 2. Encephalopathy. 3. s/p left craniotomy and temporal lobe tumor resection. 4. Hypertensive Urgency- resolved. Plan: 1. NG for oral AEDs. start TFs. 3. Strict NPO. Speech consult. 4. Ativan prn sustained seizures. 5. SCDs. 6. will discuss with neurosurgery possibility of restarting DVT prophylaxis. 7. amlodipine 10mg daily 8. hydralazine 100mg po q8h 9. carvedilol 25mg po bid 10. labetalol 200mg po q8h. Overall impression: Clinically improving. stable for transfer to floor. Critical care medicine will sign off. Lauri Gallo MD Sep 14, 2016 09:24
--- NOTE | 2016-09-14 11:19 | HHI.NSPN ---
(Nora Rankin) Note Status Status: Progress Note (Nora Rankin) Interval History Interval History 76-year-old female with history of multiple recurrent meningiomas. 09/11/2016: Left craniotomy for recurrent left temporal and left frontoparietal convexity meningiomas. 09/12/16: Positive seizure. Cerebyx started in addition to patient's usual Depakote and Tegretol 09/13/16: following commands, nonverbal. bp elevated, currently on max dose of Cardene 09/14/16: no seizures overnight, bp improved off cardene. remains aphasic but follows commands. f/u CT Head this am completed (Nora Rankin) Labs, Micro, & Vital Signs Results Date Time Temp Pulse Resp B/P Pulse Ox O2 Delivery O2 Flow Rate FiO2 09/14/16 08:00 67 09/14/16 08:00 99.0 78 17 132/60 99 09/14/16 07:00 99 Room Air 09/14/16 06:00 68 09/14/16 04:00 57 09/14/16 04:00 97.7 57 18 141/65 98 09/14/16 02:00 68 09/14/16 00:00 67 09/14/16 00:00 99.1 67 21 103/54 98 Arterial Line 09/13/16 22:00 80 09/13/16 20:24 99 21 09/13/16 20:00 79 09/13/16 20:00 97.8 78 20 141/68 98 09/13/16 19:00 98 Room Air 09/13/16 18:00 71 09/13/16 16:00 64 09/13/16 16:00 97.7 64 12 113/57 98 09/13/16 14:00 66 09/13/16 12:00 97.6 82 17 157/60 99 09/13/16 12:00 82 09/14/16 07:00 Intake Total 2944 ml Output Total 655.0 ml Balance 2289.0 ml Constitutional Vital Signs Date Time Temp Pulse Resp B/P Pulse Ox O2 Delivery O2 Flow Rate FiO2 09/14/16 08:00 67 09/14/16 08:00 99.0 78 17 132/60 99 09/14/16 07:00 99 Room Air 09/14/16 06:00 68 09/14/16 04:00 57 09/14/16 04:00 97.7 57 18 141/65 98 09/14/16 02:00 68 09/14/16 00:00 67 09/14/16 00:00 99.1 67 21 103/54 98 Arterial Line 09/13/16 22:00 80 09/13/16 20:24 99 21 09/13/16 20:00 79 09/13/16 20:00 97.8 78 20 141/68 98 09/13/16 19:00 98 Room Air 09/13/16 18:00 71 09/13/16 16:00 64 09/13/16 16:00 97.7 64 12 113/57 98 09/13/16 14:00 66 09/13/16 12:00 97.6 82 17 157/60 99 09/13/16 12:00 82 09/14/16 07:00 Intake Total 2944 ml Output Total 655.0 ml Balance 2289.0 ml (Nora Rankin) Review of Systems/Exam Exam Opens eyes, focuses. Aphasic Follows commands CN: pupils equal, facial motor, protrude tongue to commands and is midline Neck; soft, supple Motor: moves x 4 extremities off bed to commands, weaker on the right NG tube feed in place Surgical wound healing well. MARTINA drain with minimal drainage. (Nora Rankin) Medications Current Medications Current Medications Medications (Trade) Dose Ordered Sig/Gen Route PRN Reason Start Time Stop Time Status Last Admin Dose Admin Sodium Chloride (NS Flush) 2 ml UNSCH PRN IV FLUSH FLUSH AFTER USING IV ACCESS 09/11/16 15:15 Sodium Chloride (NS Flush) 2 ml BID IV FLUSH 09/11/16 21:00 09/14/16 08:06 Bisacodyl (Dulcolax Supp) 10 mg DAILY PRN RECTAL CONSTIPATION 09/11/16 15:15 Docusate Sodium (Colace) 100 mg BID PO 09/11/16 21:00 09/14/16 08:06 Pantoprazole Sodium (Protonix Inj) 40 mg DAILY IVP 09/12/16 09:00 09/14/16 08:06 Ondansetron HCl (Zofran Inj) 4 mg Q6H PRN IV NAUSEA OR VOMITING 09/11/16 15:15 Morphine Sulfate (Morphine Inj) 2 mg Q2H PRN IV PAIN SCALE 1 TO 6 09/11/16 15:15 09/14/16 03:00 Morphine Sulfate (Morphine Inj) 4 mg Q2H PRN IV PAIN SCALE 7 TO 10 09/11/16 15:15 09/11/16 19:58 Carvedilol (Coreg) 25 mg BID PO 09/11/16 21:00 09/14/16 08:05 Nitrofurantoin Macrocrystals (Macrobid) 100 mg BID PO 09/11/16 21:00 09/14/16 08:06 Lorazepam (Ativan Inj) 1 mg Q6H PRN IV SEIZURES 09/11/16 15:45 09/12/16 23:55 Fosphenytoin Sodium (Cerebyx Inj) 100 mgpe Q8HR IV 09/11/16 22:00 09/14/16 06:06 Budesonide/ Formoterol Fumarate (Symbicort 160-4.5 Inh) 2 puff BID INH 09/11/16 21:00 Valproic Acid (Depakene Liq) 500 mg Q8H NG 09/12/16 08:00 09/14/16 08:14 Carbamazepine (TEGretol LIQ) 200 mg BID NG 09/12/16 09:00 09/14/16 08:06 Dextrose (D50w (Vial) Inj) 50 ml UNSCH PRN IV HYPOGLYCEMIA-SEE COMMENTS 09/12/16 08:00 Glucagon (Glucagon Inj) 1 mg UNSCH PRN OTHER HYPOGLYCEMIA-SEE COMMENTS 09/12/16 08:00 Insulin Aspart 1 1 Q6H SQ 09/12/16 11:00 09/12/16 23:00 Potassium Chloride 100 ml @ 50 mls/hr Q2H PRN IV For Potassium 2.8 - 3.2 mEq/L 09/12/16 08:00 Potassium Chloride (KCl 20 Meq Premix Inj) 100 ml @ 50 mls/hr Q2H PRN IV For Potassium 2.8 - 3.2 mEq/L 09/12/16 08:00 Potassium Bicarb/ Potassium Chloride 50 meq 50 meq UNSCH PRN PO For Potassium 3.3 - 3.5 mEq/L 09/12/16 08:00 09/13/16 08:46 Potassium Chloride 100 ml @ 25 mls/hr UNSCH PRN IV For Potassium 3.3 - 3.5 mEq/L 09/12/16 08:00 Potassium Chloride 100 ml @ 50 mls/hr Q2H PRN IV For Potassium 3.3 - 3.5 mEq/L 09/12/16 08:00 Magnesium Sulfate/ Sodium Chloride (Magnesium Sulfate Inj/NS Inj) 100 ml @ 50 mls/hr UNSCH PRN IV For Magnesium 0.9 - 1.1 mg/dL 09/12/16 08:00 Magnesium Oxide 800 mg 800 mg UNSCH PRN PO For Magnesium 1.2 - 1.6 mg/dL 09/12/16 08:00 Magnesium Sulfate/ Sodium Chloride (Magnesium Sulfate Inj/NS Inj) 100 ml @ 50 mls/hr UNSCH PRN IV For Magnesium 1.2 - 1.6 mg/dL 09/12/16 08:00 Potassium Phosphate 2000 mg 2,000 mg Q4H PRN PO For Phosphorus < 2.5 mg/dL 09/12/16 08:00 Sodium Phosphate/ Sodium Chloride (Sodium Phosphate Inj/NS 250 ml Inj) 250 ml @ 42 mls/hr UNSCH PRN IV For Phosphorus < 2.5 mg/dL 09/12/16 08:00 Potassium Phosphate 2000 mg 2,000 mg UNSCH PRN PO/TUBE SEE LABEL COMMENTS 09/12/16 07:51 Potassium Phosphate/Sodium Chloride (Potassium Phosphate Inj/NS 250 ml Inj) 260 ml @ 42 mls/hr UNSCH PRN IV SEE LABEL COMMENTS 09/12/16 07:51 Amlodipine Besylate (Norvasc) 10 mg DAILY PO 09/14/16 09:00 09/14/16 08:06 Hydralazine HCl (Apresoline) 100 mg Q8H PO 09/13/16 12:00 09/14/16 04:10 Hydralazine HCl (Apresoline Inj) 20 mg Q2H PRN IV PUSH sbp > 150 09/13/16 19:15 Labetalol HCl (Trandate) 200 mg Q8HR PO 09/13/16 19:11 09/13/16 22:06 (Nora Rankin) Medical Decision Making MDM Remarks 76-year-old female with history of multiple recurrent meningiomas, s/p craniotomy for recurrent left temporal meningioma 09/11/16 Seizures, controlled uncontrolled hypertension, improved aphasic f/u CT head 09/14/16 stable post-op changes, no acute pathology, no acute areas of ischemia seen (Nora Rankin) Plan Plan Remarks f/u CT Head reviewed, appreciate critical care mgt assistance, cont AED, Cerebyx, Depakote and Tegretol MARTINA drain dc'ed ok for lovenox cont neuro checks in [facility] cont therapy ST following, cont tube feeds and advance per ST recs (Nora Rankin) Attending Statement The exam, history, and the medical decision-making described in the above note were completed with the assistance of the mid-level provider. I reviewed and agree with the findings presented. I attest that I had a [id number] encounter with the patient on the same day, and personally performed and documented my assessment and findings in the medical record. (Jayy Watts MD) Nora Rankin Sep 14, 2016 11:19 Jayy Watts MD Sep 16, 2016 19:15
[2016-09-14] MEDS ORDERED: DEXAMETHASONE SOD PHOS 4 MG/ML VIAL ONE (23:18)
[2016-09-14] MEDS ORDERED: RESP: RACEPINEPHRINE 2.25% 0.5 ML NEB ONE ×3 (23:19→23:22)
--- NOTE | 2016-09-14 23:31 | RADRPT ---
EXAM DATE/TIME: 09/14/2016 23:21 [facility] COMPARISON: CHEST SINGLE AP, September 09, 2016, 15:38. INDICATIONS : Shortness of breath MEDICAL HISTORY : Hypertension. Gastroesophageal reflux disease. Chronic obstructive pulmonary disease. Lupus SURGICAL HISTORY : Craniotomy. ENCOUNTER: Subsequent ACUITY: 4 - 6 days PAIN SCORE: Non-responsive. LOCATION: Bilateral chest FINDINGS: Enteric tube is noted and the distal tip overlies the stomach. A single view of the chest demonstrates the lungs to be symmetrically aerated without evidence of mas s, infiltrate or effusion. The cardiomediastinal contours are unremarkable. Osseous structures are intact. CONCLUSION: No acute disease. Jose Torres MD on September 14, 2016 at 23:29 Board Certified Radiologist. This report was verified electronically.
[2016-09-14] MEDS ORDERED: RESP: RACEPINEPHRINE 2.25% 0.5 ML NEB NEB SCH ×2 (23:45)
[2016-09-14] MEDS ORDERED: DEXAMETHASONE SOD PHOS 4 MG/ML VIAL IV SCH (23:45)
[2016-09-15] VITALS (10 sets, daily range): BP systolic 97–164; BP diastolic 46–79; PULSE 0–77; RESP 22–28; TEMP 97.9–99.4; O2SAT 94–98
[2016-09-15] MEDS: VALPROIC ACID SYRUP 250 MG/5 ML UDC NG SCH ×4 (00:24→23:38)
--- NOTE | 2016-09-15 00:29 | HHI.CCPN ---
Subjective Remarks/Hospital Course Hospital Course: 76 y/o woman 1 day following left craniotomy and resection of temporal lobe tumor. Generalized seizure this morning at 0530 which ceased after ativan 1 mg iv. Initially very somnolent and concern about her ability to protect her airway. She is more alert now and will perform left hand grasp to command.No snoring or obstruction. No subsequent seizures. She has a history of seizures and has undergone several previous craniotomies for tumors. She takes tegretol and depakote chronically. In addition, she was loaded with cerebyx 1000 mg at 1600 yesterday and dilantin level is subsequesntly 7.9. Subjective: 09/13: mental status improved. remains hypertensive on nicardipine infusion. MELY resolving. no complaints. 09/14: mental status continues to improve. bp better. off cardene. mely improved. no complaints. 09/15: Called to bedside at 1115 PM for respiratory distress. On my evaluation patient has significant inspiratory stridor. Also difficulty clearing oral secretions which uptake. Chest x-ray is unremarkable. Stat racemic epinephrine 2 given, and Decadron 8 mg IV 1. Scheduled Decadron and when necessary racemic epi ordered. Reevaluation in one hour shows some improvement in inspiratory stridor, still unable to clear secretions. I have ordered removal of NG tube. We'll continue racemic epi. If there is no significant improvement in the next 2-3 hours patient may need endotracheal intubation Objective Vital Signs Date Time Temp Pulse Resp B/P Pulse Ox O2 Delivery O2 Flow Rate FiO2 09/14/16 22:40 97 21 09/14/16 20:00 98.5 88 25 150/68 09/14/16 19:00 Room Air 09/13/16 07:00 2.00 Intake and Output 09/14/16 09/14/16 09/15/16 08:00 16:00 00:00 Intake Total 650 ml 787 ml 630 ml Output Total 15 ml 15 ml Balance 635 ml 772 ml 630 ml Result Diagram: 09/14/16 0504 09/14/16 0504 Objective Remarks Head: Wrapped in dry dressing. Neck: Loud inspiratory stridor. Thick oral secretions Lungs: Conducted stridor, no wheezes or crackles. Heart: NL S1S2, no m,r.No JVD. Abdomen: Soft, no guarding, non-distended Extremities: Warm, well perfused. Swelling and discoloration left great toe. Neuro: Awake and shows spontaneously open, Pupils 3 mm, react to light. Sqeezes left hand to command. Withdraws both feet to stimulation. Positive gag reflex. Urinary Catheter: Yes Assessment to: Continue A/P Assessment and Plan Assessment: 76yF s/p left temporal crani for meningioma and s/p igor-op seizures , mental status improving. but developed inspiratory stridor acutely Assessment: Inspiratory stridor Respiratory insufficiency Seizures, resolved. history of seizures Encephalopathy. s/p left craniotomy and temporal lobe tumor resection. Hypertensive Urgency- resolved. Plan: - Stat racemic epinephrine neb x2 and q 2 hours PRN - Decadron 8 mg IV x1 and 4mg IV q6. If not improving will need endotracheal intubation - DC NGT for now to nasal breathing - May reinsert NG for oral AEDs, and other meds once stridor resolves - Keep nothing by mouth except meds - Ativan prn sustained seizures. - SCDs. - Defer to neurosurgery restarting of DVT prophylaxis. - PO meds amlodipine 10mg daily, hydralazine 100mg po q8h, carvedilol 25mg po bid, labetalol 200mg po q8h. on hold for now - Use Cardene if needed. Use PRN hydralazine and CCT 32 min. Continue ICU care, cancel transfer to floor. Patient has potential to decompensate, may need endotracheal intubation and mechanical ventilation Heather Wilkinson MD Sep 15, 2016 00:29
[2016-09-15] MEDS ORDERED: RESP: RACEPINEPHRINE 2.25% 0.5 ML NEB NEB PRN (00:30)
[2016-09-15] MEDS ORDERED: LABETALOL HCL 100 MG/20 ML VIAL IV PUSH PRN (00:45)
[2016-09-15] MEDS: hydrALAZINE HCL 20 MG/ML VIAL IV PUSH PRN (00:52)
[2016-09-15] MEDS: DEXAMETHASONE SOD PHOS 4 MG/ML VIAL IV PUSH SCH ×5 (01:54→23:39)
[2016-09-15] MEDS: hydrALAZINE HCL 100 MG TAB PO SCH ×3 (04:00→21:50)
[2016-09-15] MEDS: INSULIN ASPART SUPPLEMENTAL SCALE SQ SCH ×4 (04:44→23:00)
[2016-09-15 04:46] LABS: HEMATOCRIT 27.7 % (35.0-46.0); MEAN CELL VOLUME 89.4 FL (80.0-100.0); MEAN CORPUSCULAR HEMOGLOBIN 29.7 PG (27.0-34.0); MEAN CORPUSCULAR HGB CONC 33.2 % (32.0-36.0); PLATELET COUNT 206 TH/MM3 (150-450); RED BLOOD COUNT 3.09 MIL/MM3 (4.00-5.30); REVIEW FLAG FINAL; WHITE BLOOD COUNT 17.1 TH/MM3 (4.0-11.0)
[2016-09-15 05:32] LABS: BICARBONATE 25.3 MEQ/L (21.0-32.0)
[2016-09-15] MEDS: LABETALOL HCL 200 MG TAB PO SCH ×3 (05:50→22:00)
[2016-09-15] MEDS: FOSPHENYTOIN SODIUM 100 MG PE/2 ML VIAL IV SCH ×3 (06:03→21:54)
[2016-09-15] MEDS: RESP: ALBUTEROL 2.5 MG/IPRATROPIUM 0.5 MG NEB (SCH) INH ×2 (08:05→14:48)
[2016-09-15] MEDS: SODIUM CHLORIDE 0.9% FLUSH 10 ML FLUSH IV FLUSH SCH ×2 (09:00→21:51)
[2016-09-15] MEDS: BUDESONIDE-FORMOTEROL 160/4.5 MCG INHALER INH SCH ×2 (09:00→23:49)
--- NOTE | 2016-09-15 10:21 | HHI.NSPN ---
(Tyrell Shaw) History Chief Complaint: Unable to obtain due to patient's clinical condition. (Tyrell Shaw) Interval History 76-year-old female with history of multiple recurrent meningiomas. 09/11/2016: Left craniotomy for recurrent left temporal and left frontoparietal convexity meningiomas. 09/12/16: Positive seizure. Cerebyx started in addition to patient's usual Depakote and Tegretol 09/13/16: following commands, nonverbal. bp elevated, currently on max dose of Cardene 09/14/16: no seizures overnight, bp improved off cardene. remains aphasic but follows commands. f/u CT Head this am completed 09/15: The patient is awake & alert when seen this morning. She is breathing through her mouth with audible adventitious sounds. She is not in any distress. Nursing reports that she did move the toes of both feet to command. (Tyrell Shaw) System Review Comments Unable to obtain due to patient's clinical condition. (Tyrell Shaw) Exam Results Vital Signs Date Time Temp Pulse Resp B/P Pulse Ox O2 Delivery O2 Flow Rate FiO2 09/15/16 08:06 98 21 09/15/16 07:00 Room Air 09/15/16 04:00 98.7 68 22 97/46 09/13/16 07:00 2.00 Intake and Output 09/14/16 09/14/16 09/14/16 07:59 15:59 23:59 Intake Total 650 ml 787 ml 630 ml Output Total 15 ml 15 ml Balance 635 ml 772 ml 630 ml (Tyrell Shaw) Physical Examination General: Awake & alert, no apparent distress, interacts. Skin: Warm, dry & intact except for left craniotomy surgical incision which is well approximated w/musa & MARTINA drain insertion site, no evident drainage, erythema or streaking noted at either. Swelling and discoloration left great toe. HEENT: Normocephalic, atraumatic except for left craniotomy surgical incision & MARTINA drain insertion site. PERRLA. Tongue midline to protrusion. Neck: No JVD, trachea midline. With adventitious sounds from upper airway which are more likely due to her airway being dry due to mouth breathing. Respiratory: Slight adventitious referred breath sounds from upper airway, otherwise clear, equal excursion, appears slightly tachypneic, on RA. Cardiovascular: S1S2 w/RRR w/o M/G/R, cap refill < 2 sec, radial & pedal pulses 2+ bilaterally, cap refill < 2 sec, pedal edema 1+ bilaterally. Monitor is sinus rhythm w/o any ectopy noted. Gastrointestinal: Abdomen soft, nontender, positive bowel sounds. Musculoskeletal: Swelling and discoloration left great toe. Spontaneously moves LUE. Neuro: Awake & alert, limited verbalisation that is garbled, follows commands, GCS 13 ( E4 V3 M6). PERRLA, 3 mm brisk, symmetrical smile, tongue midline to protrusion. Will squeeze with left hand to command, no response to localised stimuli W/RUE but w/BLE she does moan and have facial grimacing. Nursing did report movement of toes to command earlier. It did appear that she did have slight movement of the toes to the left foot at one point during her evaluation. (Tyrell Shaw) Lab, Micro, Other Results Allergies Coded Allergies Type Severity Reaction Last Updated Verified Codeine Allergy Severe 09/09/16 Yes Lipitor Allergy Severe MUSCLE WEAKNESS 09/09/16 Yes Uncoded Allergies Type Severity Reaction Last Updated Verified NSAIDS Allergy Unknown 03/09/[address] 09/14/16 0000 Signed Impressions: Service Date/Time: Wednesday, September 14, 2016 04:23 - CONCLUSION: 1. Expected postoperative changes following craniotomy. Quincy Pandya MD Chest X-Ray 09/14/16 0000 Signed Impressions: Service Date/Time: Wednesday, September 14, 2016 23:21 - CONCLUSION: No acute disease. Jose Torres MD // 05:59 17:59 05:59 17:59 05:59 17:59 Intake Total 1609 ml 2719 ml 400 ml 1437 ml 630 ml 200 ml Output Total 2050 ml 1625 ml 15.0 ml 30 ml Balance -441 ml 1094 ml 385.0 ml 1407 ml 630 ml 200 ml Intake Oral 0 ml IV Total 1409 ml 2409 ml 66 ml 30 ml 30 ml Tube Feeding 200 ml 771 ml 400 ml 70 ml Tube Irrigant 250 ml Other 200 ml 60 ml 200 ml 600 ml 200 ml 100 ml Output Urine Total 2000 ml 1500 ml Stool Total 0 ml 0 ml Tube Feeding Residual Discard 0 ml Drainage Total 50 ml 125 ml 15 ml 30 ml # Voids 2 7 2 4 # Bowel Movements 0 0 0 0 Laboratory Tests Test 09/13/16 09/14/16 09/15/16 04:40 05:04 04:17 White Blood Count 11.9 TH/MM3 11.9 TH/MM3 17.1 TH/MM3 Red Blood Count 3.06 MIL/MM3 2.83 MIL/MM3 3.09 MIL/MM3 Hemoglobin 9.1 GM/DL 8.4 GM/DL 9.2 GM/DL Hematocrit 27.3 % 25.6 % 27.7 % Mean Corpuscular Volume 89.5 FL 90.7 FL 89.4 FL Mean Corpuscular Hemoglobin 29.6 PG 29.6 PG 29.7 PG Mean Corpuscular Hemoglobin 33.1 % 32.7 % 33.2 % Concent Red Cell Distribution Width 14.6 % 14.8 % 15.0 % Platelet Count 206 TH/MM3 213 TH/MM3 206 TH/MM3 Mean Platelet Volume 8.6 FL 9.1 FL 8.7 FL Sodium Level 144 MEQ/L 139 MEQ/L 137 MEQ/L Potassium Level 3.4 MEQ/L 4.2 MEQ/L 4.0 MEQ/L Chloride Level 111 MEQ/L 107 MEQ/L 103 MEQ/L Carbon Dioxide Level 25.9 MEQ/L 25.0 MEQ/L 25.3 MEQ/L Anion Gap 7 MEQ/L 7 MEQ/L 9 MEQ/L Blood Urea Nitrogen 9 MG/DL 12 MG/DL 18 MG/DL Creatinine 0.83 MG/DL 0.89 MG/DL 1.03 MG/DL Estimat Glomerular Filtration 67 ML/MIN 62 ML/MIN 52 ML/MIN Rate Random Glucose 123 MG/DL 118 MG/DL 128 MG/DL Calcium Level 7.4 MG/DL 7.6 MG/DL 8.4 MG/DL Protein Corrected Calcium 8.5 MG/DL Total Protein 5.1 GM/DL Phenytoin (Dilantin) Level 6.9 MCG/ML Vital Signs Date Time Temp Pulse Resp B/P Pulse Ox O2 Delivery O2 Flow Rate FiO2 09/15/16 08:06 98 21 09/15/16 07:00 93 Room Air 09/15/16 04:00 98.7 68 22 97/46 96 09/15/16 04:00 68 09/15/16 00:00 76 09/15/16 00:00 99.4 76 28 164/72 98 09/14/16 22:40 97 21 09/14/16 22:00 76 09/14/16 20:00 98.5 88 25 150/68 98 09/14/16 20:00 81 09/14/16 19:00 98 Room Air 09/14/16 16:30 147/66 09/14/16 16:00 100.8 74 13 109/58 99 09/14/16 16:00 74 09/14/16 12:00 98.6 68 13 109/58 98 09/14/16 12:00 68 09/14/16 08:00 67 09/14/16 08:00 99.0 78 17 132/60 99 09/14/16 07:00 99 Room Air 09/14/16 06:00 68 09/14/16 04:00 57 09/14/16 04:00 97.7 57 18 141/65 98 09/14/16 02:00 68 09/14/16 00:00 67 09/14/16 00:00 99.1 67 21 103/54 98 Arterial Line 09/13/16 22:00 80 09/13/16 20:24 99 21 09/13/16 20:00 79 09/13/16 20:00 97.8 78 20 141/68 98 09/13/16 19:00 98 Room Air 09/13/16 18:00 71 09/13/16 16:00 64 09/13/16 16:00 97.7 64 12 113/57 98 09/13/16 14:00 66 09/13/16 12:00 97.6 82 17 157/60 99 09/13/16 12:00 82 09/13/16 10:00 66 09/13/16 09:15 98 Room Air 09/13/16 08:20 98 21 09/13/16 08:00 68 09/13/16 08:00 98.6 68 15 138/54 95 Automatic Cuff 09/13/16 07:00 97 Nasal Cannula 2.00 09/13/16 06:00 70 09/13/16 04:00 78 09/13/16 04:00 98.0 85 16 140/53 94 09/13/16 03:26 18 09/13/16 02:00 78 09/13/16 00:00 68 09/13/16 00:00 97.8 76 15 133/59 96 Arterial Line 09/12/16 22:00 76 09/12/16 20:00 98.0 72 18 178/100 100 09/12/16 20:00 82 09/12/16 19:38 100 Nasal Cannula 2.00 09/12/16 19:00 100 Nasal Cannula 2.00 09/12/16 18:00 67 09/12/16 16:00 73 09/12/16 16:00 97.3 73 16 122/71 100 09/12/16 15:42 100 Nasal Cannula 2.00 09/12/16 14:00 74 09/12/16 12:00 70 09/12/16 12:00 97.6 70 14 112/76 100 (Tyrell Shaw) Medical Decision Making Impression and Plan Impression: (1) 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 1. Postoperative craniotomy resection of recurrent meningioma 2 on 09/11/16. 2. Positive postoperative seizure 3. Possible left frontoparietal region ischemia versus postoperative edema on CT scan head [facility]12[facility] demonstrated left parafalcine mass which had increased in size and a left extra-axial lateral dural mass. CT brain demonstrated expected postoperative changes s/p tumor resection w/o evidence of midline shift, some residual gas & hyperdensity at resection sites, no acute finding to the right supratentorial brain. CT brain demonstrated slight increase in subdural blood along the falx near the vertex. CT brain demonstrated expected postoperative changes. Essentially stable neurological exam today. POD #4 () s/p: 1. Left frontotemporoparietal craniotomy, resection of recurrent left frontal parietal neoplasm and 2. Resection of recurrent left temporal neoplasm 3. Left frontotemporoparietal duraplasty Plan: Critical care management per Surgical Instrument Mechanic. Frequent neuro checks. Continue antiepileptic drugs. Non-chemical DVT prophylaxis. Ulcer prophylaxis. Mobilise patient w/assistance. PT eval & tx. ST eval & tx. Okay for Lovenox. (Tyrell Shaw) Attending Statement I have personally seen and examined the patient on the date of this note. Pertinent documentation and study results have been reviewed by the undersigned. I have personally developed the treatment plan and performed medical decision making. Agree with findings, exam, and treatment plan as noted above. Patient more alert today versus 2-3 days ago. Now trying to verbalize and following some commands. Remains with moderate right hemiparesis. Significant difficulty clearing her secretions. NG tube removed per intensivists. Speech therapy following. Although her neurologic function appears to be slowly improving, she may require a tracheostomy and PEG tube if significant swallowing problems persist. (Michele Galeano MD) Tyrell Shaw Sep 15, 2016 10:21 Michele Galeano MD Sep 15, 2016 23:35
[2016-09-15] MEDS: NITROFURANTOIN MONOHYD MACROCR 100 MG CAP PO SCH ×2 (10:33→21:52)
[2016-09-15] MEDS: CARVEDILOL 12.5 MG TAB PO SCH ×2 (10:33→21:00)
[2016-09-15] MEDS: DOCUSATE SODIUM 100 MG CAP PO SCH ×2 (10:33→21:51)
[2016-09-15] MEDS: carBAMazepine SUSP 200 MG/10 ML UDC NG SCH ×2 (10:33→21:51)
[2016-09-15] MEDS: PANTOPRAZOLE SODIUM 40 MG VIAL IVP SCH (10:34)
--- NOTE | 2016-09-15 12:20 | RADRPT ---
EXAM DATE/TIME: 09/15/2016 11:33 [facility] COMPARISON: No previous studies available for comparison. INDICATIONS : Post Dobhoff placement. MEDICAL HISTORY : Chronic obstructive pulmonary disease. Lupus. Hypertension. Gastroesophageal reflux disease. SURGICAL HISTORY : Craniotomy. ENCOUNTER: Subsequent ACUITY: 4 - 6 days PAIN SCORE: 0/10 LOCATION: Abdomen. FINDINGS: Examination of the abdomen demonstrates a normal bowel gas pattern. Tip of the Dobbhoff catheter is i n the fundus of the stomach. No free air is identified. No organomegaly is evident. Osseous struct ures are intact. CONCLUSION: Tip of Dobbhoff is in the fundus of the stomach. Antoni Acevedo MD on September 15, 2016 at 12:18 Board Certified Radiologist. This report was verified electronically.
--- NOTE | 2016-09-15 12:21 | RADRPT ---
EXAM DATE/TIME: 09/15/2016 11:33 [facility] COMPARISON: ABDOMEN SINGLE VIEW, September 15, 2016, 11:33. INDICATIONS : Dobhoff adjustment. MEDICAL HISTORY : Chronic obstructive pulmonary disease. Hypertension Lupus. GERD. SURGICAL HISTORY : Craniotomy. ENCOUNTER: Subsequent ACUITY: 4 - 6 days PAIN SCORE: 0/10 LOCATION: Abdomen. FINDINGS: Dobbhoff catheter has been advanced and now is at the gastroduodenal junction. CONCLUSION: Dobbhoff catheter has been advanced into the distal antrum and proximal duodenum. Antoni Acevedo MD on September 15, 2016 at 12:19 Board Certified Radiologist. This report was verified electronically.
--- NOTE | 2016-09-15 13:47 | RADRPT ---
EXAM DATE/TIME: 09/15/2016 13:33 [facility] COMPARISON: ABDOMEN SINGLE VIEW, September 15, 2016, 11:33. INDICATIONS : NG tube placement. MEDICAL HISTORY : Chronic obstructive pulmonary disease. Hypertension Lupus. GERD. SURGICAL HISTORY : Craniotomy. ENCOUNTER: Subsequent ACUITY: 1 day PAIN SCORE: 0/10 LOCATION: Abdomen. FINDINGS: Tip of Dobbhoff catheter be within either the distal antrum or the duodenal bulb. CONCLUSION: Tip of Dobbhoff catheter is in either the antrum or the duodenal bulb. Antoni Acevedo MD on September 15, 2016 at 13:44 Board Certified Radiologist. This report was verified electronically.
[2016-09-16] VITALS (14 sets, daily range): BP systolic 122–204; BP diastolic 60–81; PULSE 0–78; RESP 15–24; TEMP 97.8–98.7; O2SAT 95–100
[2016-09-16] MEDS: INSULIN ASPART SUPPLEMENTAL SCALE SQ SCH ×4 (05:00→23:00)
[2016-09-16] MEDS: DEXAMETHASONE SOD PHOS 4 MG/ML VIAL IV PUSH SCH ×4 (05:04→23:33)
[2016-09-16] MEDS: hydrALAZINE HCL 100 MG TAB PO SCH ×3 (05:04→20:12)
[2016-09-16 05:05] LABS: HEMATOCRIT 24.4 % (35.0-46.0); MEAN CELL VOLUME 89.1 FL (80.0-100.0); MEAN CORPUSCULAR HEMOGLOBIN 30.9 PG (27.0-34.0); MEAN CORPUSCULAR HGB CONC 34.7 % (32.0-36.0); PLATELET COUNT 218 TH/MM3 (150-450); RED BLOOD COUNT 2.74 MIL/MM3 (4.00-5.30); RED CELL DISTRIBUTION WIDTH 14.9 % (11.6-17.2); REVIEW FLAG FINAL; WHITE BLOOD COUNT 10.6 TH/MM3 (4.0-11.0)
[2016-09-16 05:36] LABS: ANION GAP 7 MEQ/L (5-15); BICARBONATE 26.7 MEQ/L (21.0-32.0); BLOOD UREA NITROGEN 20 MG/DL (7-18); CHLORIDE 103 MEQ/L (98-107); GLOMERULAR FILTRATION RATE 52 ML/MIN (>89); POTASSIUM 3.6 MEQ/L (3.5-5.1); SODIUM (NA) 137 MEQ/L (136-145)
[2016-09-16 05:59] LABS: CREATINE KINASE 24 U/L (26-192)
[2016-09-16] MEDS: DOCUSATE SODIUM 100 MG CAP PO SCH ×2 (08:24→20:12)
[2016-09-16] MEDS: PANTOPRAZOLE SODIUM 40 MG VIAL IVP SCH (08:24)
[2016-09-16] MEDS: VALPROIC ACID SYRUP 250 MG/5 ML UDC NG SCH (08:24)
[2016-09-16] MEDS: SODIUM CHLORIDE 0.9% FLUSH 10 ML FLUSH IV FLUSH SCH ×2 (09:00→20:12)
[2016-09-16] MEDS: BUDESONIDE-FORMOTEROL 160/4.5 MCG INHALER INH SCH ×2 (09:00→20:12)
--- NOTE | 2016-09-16 12:01 | HHI.CCPN ---
Subjective Remarks/Hospital Course Hospital Course: 76 y/o woman 1 day following left craniotomy and resection of temporal lobe tumor. Generalized seizure this morning at 0530 which ceased after ativan 1 mg iv. Initially very somnolent and concern about her ability to protect her airway. She is more alert now and will perform left hand grasp to command.No snoring or obstruction. No subsequent seizures. She has a history of seizures and has undergone several previous craniotomies for tumors. She takes tegretol and depakote chronically. In addition, she was loaded with cerebyx 1000 mg at 1600 yesterday and dilantin level is subsequesntly 7.9. Subjective: 09/13: mental status improved. remains hypertensive on nicardipine infusion. MELY resolving. no complaints. 09/14: mental status continues to improve. bp better. off cardene. mely improved. no complaints. 09/15: Called to bedside at 1115 PM for respiratory distress. On my evaluation patient has significant inspiratory stridor. Also difficulty clearing oral secretions which uptake. Chest x-ray is unremarkable. Stat racemic epinephrine 2 given, and Decadron 8 mg IV 1. Scheduled Decadron and when necessary racemic epi ordered. Reevaluation in one hour shows some improvement in inspiratory stridor, still unable to clear secretions. I have ordered removal of NG tube. We'll continue racemic epi. If there is no significant improvement in the next 2-3 hours patient may need endotracheal intubation 09/16: multiple episodes of sinus pauses and sinus bradycardia overnight. phenytoin held. mental status stable, still somnolent but arousable. Objective Vital Signs Date Time Temp Pulse Resp B/P Pulse Ox O2 Delivery O2 Flow Rate FiO2 09/16/16 10:00 62 09/16/16 08:00 98.0 22 154/72 100 09/16/16 07:45 21 09/15/16 19:00 Room Air 09/13/16 07:00 2.00 Intake and Output 09/15/16 09/15/16 09/16/16 08:00 16:00 00:00 Intake Total 200 ml 260 ml 140 ml Balance 200 ml 260 ml 140 ml Result Diagram: 09/16/16 0402 09/16/16401 Objective Remarks Head: Wrapped in dry dressing. Neck: Loud inspiratory stridor. Thick oral secretions Lungs: improved upper airway sounds, no wheezes or crackles. Heart: NL S1S2, no m,r.No JVD. sinus bradycardia Abdomen: Soft, no guarding, non-distended Extremities: Warm, well perfused. Swelling and discoloration left great toe. Neuro: Awake and shows spontaneously open, Pupils 3 mm, react to light. Sqeezes left hand to command. Withdraws both feet to stimulation. Positive gag reflex. A/P Assessment and Plan Assessment: 76yF s/p left temporal crani for meningioma and s/p igor-op seizures , mental status improving. however, now with sinus pauses, sinus bradycardia Assessment: Inspiratory stridor- improved. Respiratory insufficiency- improved. Seizures, resolved. history of seizures Encephalopathy. s/p left craniotomy and temporal lobe tumor resection. Hypertensive Urgency- resolved. Sinus pause, sinus bradycardia Plan: - cardiology consult for the bradycardia, unclear etiology, could be the anti- epileptics, or possibly new hydrocephalus, although unlikely given area of surgery. - repeat head CT - hold valproate, consult neurology to see if there are alternatives with less cardiac activity. - Keep nothing by mouth except meds - Ativan prn sustained seizures. - SCDs. - Defer to neurosurgery restarting of DVT prophylaxis. - Use Cardene if needed. Use PRN hydralazine and Lauri Gallo MD Sep 16, 2016 12:01
--- NOTE | 2016-09-16 12:37 | RADRPT ---
EXAM DATE/TIME: 09/16/2016 12:04 [facility] COMPARISON: CT BRAIN W/O CONTRAST, September 14, 2016, 4:23. INDICATIONS : Altered mental status. Bradycardia post-op, evaluate for hydrocephalus. RADIATION DOSE: 56.35 CTDIvol (mGy) MEDICAL HISTORY : Seizures. Cardiovascular disease Hypertension.Brain tumors. Lupus. SURGICAL HISTORY : Brain tumors removed. ENCOUNTER: Initial ACUITY: 1 day PAIN SCALE: 0/10 LOCATION: cranial TECHNIQUE: Multiple contiguous axial images were obtained of the head. Using automated exposure control and adj ustment of the mA and/or kV according to patient size, radiation dose was kept as low as reasonably a chievable to obtain optimal diagnostic quality images. DICOM format image data is available electro nically for review and comparison. FINDINGS: Today's exam is compared to the prior study. There continues to be stable postoperative changes shoaib cteristic of a craniotomy. The focal areas of hemorrhage in the high left cerebral vertex is stable. The ventricles are stable. There continues to be some intracranial air which is improving. No change in the small left-sided temporal subdural collection measuring about 5 mm. No evidence of midline jyoti ft. The edema in the white matter tracts are stable. There is good position of the craniotomy flap. CONCLUSION: Stable followup CT scan of the brain compared to the prior examination. No new or significant changes . Hilario Vargas MD on September 16, 2016 at 12:32 Board Certified Radiologist. This report was verified electronically.
[2016-09-16] MEDS: levETIRAcetam INJ 500 MG in SODIUM CHLORIDE 0.9% INJ 100 ML IV SCH (14:39)
--- NOTE | 2016-09-16 15:00 | EKG ---
Date Performed: 09/16/2016 Time Performed: 07:13:44 PTAGE: 76 years EKG: Sinus bradycardia. Normal ECG except for rate PREVIOUS TRACING : 09/15/2016 16.49 DOCTOR: Peterson Mendoza Interpretating Date/Time 09/16/2016 14:55:35
--- NOTE | 2016-09-16 15:45 | EKG ---
Date Performed: 09/15/2016 Time Performed: 16:49:58 PTAGE: 76 years EKG: Sinus rhythm . Normal ECG PREVIOUS TRACING : 09/09/2016 16.00 DOCTOR: Peterson Mendoza Interpretating Date/Time 09/16/2016 15:41:01
--- NOTE | 2016-09-16 16:20 | MB ---
cc: YESI POTTER M.D. DATE OF CONSULTATION: 09/16/2016 REASON FOR CONSULTATION: Evaluation of multiple sinus pauses. HISTORY OF PRESENT ILLNESS Dorothy Ledesma is a 76-year-old female who underwent a craniotomy on September 11 for meningioma resection. She started developing profound intermittent bradycardia and pauses yesterday evening. She has a background history of hypertension, has been on carvedilol 25 mg p.o. b.i.d. and amlodipine 10 mg daily and was previously on carbamazepine prior to this admission. Postoperatively had some seizure issues. She was placed on Dilantin, currently is on Valproic acid 500 mg q.8 hours. Her last dose of carvedilol was yesterday morning. She got a dose of labetalol yesterday afternoon. She has had profound pauses always proceeded by a drop in sinus rate during the pauses, she has complete block and then she comes back, pauses last up to 12 seconds. She has had some lightheadedness. She had one pause apparently while I was rounding this morning and got a little fuzzy and then came right back out of it. I have just spoken to the er nurse, we are placing her beta-aminata and valproic acid on hold and getting a neuro consult to get their opinion as to the optimum medication strategy to use for seizures. If the bradycardia continues she may need a pacemaker. The patient has no previous history of heart disease that I could elicit. She is somewhat sleepy and her answers are short. PAST MEDICAL HISTORY Her chart lists a background history of: 1. COPD. 2. Sleep apnea. 3. Hypertension. 4. Hypercholesterolemia. 5. Lupus. 6. Gastroesophageal reflux disease. I cannot tell whether she has had a history of coronary artery disease or not. SOCIAL HISTORY She smoked very little as a child. PAST SURGICAL HISTORY 1. Appendectomy. 2. Cholecystectomy. 3. Recent craniotomy. PHYSICAL EXAMINATION GENERAL: A well-developed, well-nourished female. She is awake but sleepy. VITAL SIGNS: Vitals are charted. Her blood pressure is 149/63 at 04:00 a.m. HEENT: Exam notable for the craniotomy wound. NECK: Negative for bruits. CHEST: Her chest is clear anteriorly. CARDIAC: S1-S2. Regular rate and rhythm. Perhaps a 1/6 early systolic ejection murmur. ABDOMEN: Soft. EXTREMITIES: Show no peripheral edema. Peripheral pulses are intact. EKG Today is normal, previous EKG was normal as well. IMAGING STUDIES Her last chest x-ray was September 14 and showed no acute disease. MEDICATION Her medication list includes: 1. Codeine. 2. Lipitor. 3. Nonsteroidal anti-inflammatory drugs. IMPRESSION Recurrent pauses due to marked drop in sinus rate with transient complete block. This is probably related to a combination of factors. Her beta-blockers are contributing, the valproic acid is probably contributing, the recent brain surgery. I have spoken to Dr. Hercules and wants to do a scan to make sure she does not have hydrocephalous that could be contributing. So we are placing her beta-aminata and valproic acid on hold. If the pauses continue she may end up needing a pacemaker but I want to see how she does with medication adjustment first. Further therapy to be determined. MD ISHAN Green/JACKIE /7:38 AM /3:43 PM
--- NOTE | 2016-09-16 16:52 | HHI.NSPN ---
(Tyrell Shaw) History Chief Complaint: Unable to obtain due to patient's clinical condition. (Tyrell Shaw) Interval History 76-year-old female with history of multiple recurrent meningiomas. 09/11/2016: Left craniotomy for recurrent left temporal and left frontoparietal convexity meningiomas. 09/12/16: Positive seizure. Cerebyx started in addition to patient's usual Depakote and Tegretol 09/13/16: following commands, nonverbal. bp elevated, currently on max dose of Cardene 09/14/16: no seizures overnight, bp improved off cardene. remains aphasic but follows commands. f/u CT Head this am completed 09/15: The patient is awake & alert when seen this morning. She is breathing through her mouth with audible adventitious sounds. She is not in any distress. Nursing reports that she did move the toes of both feet to command. 09/16: This afternoon the patient is awake and alert. She attempts to ask a question but is unable to find the words to express her question. She does become slightly flustered by this. Nursing and the Technology Training Associate report that the patient has been having pauses on her EKG. A CT brain, EEG and Neurology consult were ordered by the Technology Training Associate. The CT brain was w/o any new or significant change. The EEG was done this afternoon when the patient was first seen and her evaluation was deferred until this time. (Tyrell Shaw) System Review Comments Unable to obtain due to patient's clinical condition. (Tyrell Shaw) Exam Results Vital Signs Date Time Temp Pulse Resp B/P Pulse Ox O2 Delivery O2 Flow Rate FiO2 09/16/16 16:00 69 09/16/16 16:00 98.0 15 159/70 95 09/16/16 07:45 21 09/15/16 19:00 Room Air 09/13/16 07:00 2.00 Intake and Output 09/15/16 09/15/16 09/15/16 07:59 15:59 23:59 Intake Total 200 ml 260 ml 140 ml Balance 200 ml 260 ml 140 ml (Tyrell Shaw) Physical Examination General: Awake & alert, no apparent distress, readily interacts. She does become frustrated when attempting to speak due to expressive aphasia. Skin: Warm, dry & intact except for left craniotomy surgical incision which is well approximated w/musa & MARTINA drain insertion site, no evident drainage, erythema or streaking noted at either. HEENT: Normocephalic, atraumatic except for left craniotomy surgical incision & MARTINA drain insertion site. PERRLA. Tongue midline to protrusion. Left nare feeding tube. Neck: No JVD, trachea midline. Respiratory: Slightly coarse breath sounds bilaterally, equal excursion, appears slightly tachypneic, on RA. Cardiovascular: S1S2 w/RRR w/o M/G/R, cap refill < 2 sec, radial & pedal pulses 2+ bilaterally, cap refill < 2 sec, pedal edema 1+ bilaterally. Monitor is sinus rhythm w/o any ectopy or pauses noted. Gastrointestinal: Abdomen soft, nontender, positive bowel sounds, left nare feeding tube clamped. Musculoskeletal: Spontaneously moves all extremities to varying degree. Neuro: Awake & alert, expressive aphasia, follows commands, GCS 14 (E4 V4 M6). PERRLA, 3 mm brisk, symmetrical smile, tongue midline to protrusion. Motor strength LUE 4 to 4+/5, LLE 4/5, RUE 3+ to 4/5 except hand squeeze 3/5, RLE 3 to 3+/5. (Tyrell Shaw) Lab, Micro, Other Results Allergies Coded Allergies Type Severity Reaction Last Updated Verified Codeine Allergy Severe 09/09/16 Yes Lipitor Allergy Severe MUSCLE WEAKNESS 09/09/16 Yes Uncoded Allergies Type Severity Reaction Last Updated Verified NSAIDS Allergy Unknown 03/09/[address] 09/16/16 0000 Signed Impressions: Service Date/Time: Friday, September 16, 2016 12:04 - CONCLUSION: Stable followup CT scan of the brain compared to the prior examination. No new or significant changes. Hilario Vargas MD Abdomen X-Ray 09/15/16 1320 Signed Impressions: Service Date/Time: Thursday, September 15, 2016 13:33 - CONCLUSION: Tip of Dobbhoff catheter is in either the antrum or the duodenal bulb. Antoni Acevedo MD Abdomen X-Ray 09/15/16 1130 Signed Impressions: Service Date/Time: Thursday, September 15, 2016 11:33 - CONCLUSION: Dobbhoff catheter has been advanced into the distal antrum and proximal duodenum. Antoni Acevedo MD Abdomen X-Ray 09/15/16 1117 Signed Impressions: Service Date/Time: Thursday, September 15, 2016 11:33 - CONCLUSION: Tip of Dobbhoff is in the fundus of the stomach. Antoni Acevedo MD Head CT 09/14/16 0000 Signed Impressions: Service Date/Time: Wednesday, September 14, 2016 04:23 - CONCLUSION: 1. Expected postoperative changes following craniotomy. Quincy Pandya MD Chest X-Ray 09/14/16 0000 Signed Impressions: Service Date/Time: Wednesday, September 14, 2016 23:21 - CONCLUSION: No acute disease. Jose Torres MD //// 05:59 17:59 05:59 17:59 05:59 17:59 Intake Total 400 ml 1437 ml 630 ml 460 ml 140 ml 80 ml Output Total 15.0 ml 30 ml Balance 385.0 ml 1407 ml 630 ml 460 ml 140 ml 80 ml IV Total 66 ml 30 ml 50 ml 20 ml 20 ml Tube Feeding 200 ml 771 ml 400 ml 70 ml Other 200 ml 600 ml 200 ml 340 ml 120 ml 60 ml Tube Feeding Residual Discard 0 ml Drainage Total 15 ml 30 ml # Voids 2 7 2 6 2 8 # Bowel Movements 0 0 0 0 0 5 Laboratory Tests Test 09/14/16 09/15/16 09/16/16 05:04 04:17 04:02 White Blood Count 11.9 TH/MM3 17.1 TH/MM3 10.6 TH/MM3 Red Blood Count 2.83 MIL/MM3 3.09 MIL/MM3 2.74 MIL/MM3 Hemoglobin 8.4 GM/DL 9.2 GM/DL 8.5 GM/DL Hematocrit 25.6 % 27.7 % 24.4 % Mean Corpuscular Volume 90.7 FL 89.4 FL 89.1 FL Mean Corpuscular Hemoglobin 29.6 PG 29.7 PG 30.9 PG Mean Corpuscular Hemoglobin 32.7 % 33.2 % 34.7 % Concent Red Cell Distribution Width 14.8 % 15.0 % 14.9 % Platelet Count 213 TH/MM3 206 TH/MM3 218 TH/MM3 Mean Platelet Volume 9.1 FL 8.7 FL 9.8 FL Sodium Level 139 MEQ/L 137 MEQ/L 137 MEQ/L Potassium Level 4.2 MEQ/L 4.0 MEQ/L 3.6 MEQ/L Chloride Level 107 MEQ/L 103 MEQ/L 103 MEQ/L Carbon Dioxide Level 25.0 MEQ/L 25.3 MEQ/L 26.7 MEQ/L Anion Gap 7 MEQ/L 9 MEQ/L 7 MEQ/L Blood Urea Nitrogen 12 MG/DL 18 MG/DL 20 MG/DL Creatinine 0.89 MG/DL 1.03 MG/DL 1.03 MG/DL Estimat Glomerular Filtration 62 ML/MIN 52 ML/MIN 52 ML/MIN Rate Random Glucose 118 MG/DL 128 MG/DL 117 MG/DL Calcium Level 7.6 MG/DL 8.4 MG/DL 8.1 MG/DL Phosphorus Level 3.3 MG/DL Magnesium Level 2.0 MG/DL Total Creatine Kinase 24 U/L Troponin I LESS THAN 0.02 NG/ML Thyroid Stimulating Hormone 1.160 uIU/ML 3rd Gen Vital Signs Date Time Temp Pulse Resp B/P Pulse Ox O2 Delivery O2 Flow Rate FiO2 09/16/16 16:00 69 09/16/16 16:00 98.0 78 15 159/70 95 09/16/16 14:00 57 09/16/16 12:00 98.0 69 20 139/64 98 09/16/16 12:00 68 09/16/16 10:00 62 09/16/16 08:00 6 09/16/16 08:00 98.0 62 22 154/72 100 09/16/16 07:45 97 21 09/16/16 06:00 66 09/16/16 04:58 97 09/16/16 04:00 97.9 58 18 149/63 95 09/16/16 04:00 51 09/16/16 00:20 0 09/16/16 00:00 98.7 70 22 122/60 96 09/15/16 21:11 94 09/15/16 20:00 74 09/15/16 20:00 98.0 74 26 136/64 94 09/15/16 19:00 94 Room Air 09/15/16 17:33 30 09/15/16 16:40 0 09/15/16 16:00 98.6 66 22 117/54 94 09/15/16 16:00 66 09/15/16 12:00 75 09/15/16 12:00 97.9 75 24 147/63 96 09/15/16 08:06 98 21 09/15/16 08:00 98.9 72 25 150/79 94 09/15/16 08:00 77 09/15/16 07:00 93 Room Air 09/15/16 04:00 98.7 68 22 97/46 96 09/15/16 04:00 68 09/15/16 00:00 76 09/15/16 00:00 99.4 76 28 164/72 98 09/14/16 22:40 97 21 09/14/16 22:00 76 09/14/16 20:00 98.5 88 25 150/68 98 09/14/16 20:00 81 09/14/16 19:00 98 Room Air 09/14/16 16:30 147/66 09/14/16 16:00 100.8 74 13 109/58 99 09/14/16 16:00 74 09/14/16 12:00 98.6 68 13 109/58 98 09/14/16 12:00 68 09/14/16 08:00 67 09/14/16 08:00 99.0 78 17 132/60 99 09/14/16 07:00 99 Room Air 09/14/16 06:00 68 09/14/16 04:00 57 09/14/16 04:00 97.7 57 18 141/65 98 09/14/16 02:00 68 09/14/16 00:00 67 09/14/16 00:00 99.1 67 21 103/54 98 Arterial Line 09/13/16 22:00 80 09/13/16 20:24 99 21 09/13/16 20:00 79 09/13/16 20:00 97.8 78 20 141/68 98 09/13/16 19:00 98 Room Air 09/13/16 18:00 71 (Tyrell Shaw) Medical Decision Making Impression and Plan Impression: (1) 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 1. Postoperative craniotomy resection of recurrent meningioma 2 on 09/11/16. 2. Positive postoperative seizure 3. Possible left frontoparietal region ischemia versus postoperative edema on CT scan head 09/12/16 MRI brain stealth (pre-op) demonstrated left parafalcine mass which had increased in size and a left extra-axial lateral dural mass. CT brain demonstrated expected postoperative changes s/p tumor resection w/o evidence of midline shift, some residual gas & hyperdensity at resection sites, no acute finding to the right supratentorial brain. CT brain demonstrated slight increase in subdural blood along the falx near the vertex. CT brain demonstrated expected postoperative changes. Patient doing well with improved neurological exam, with expressive aphasia, still with right-sided weakness. POD #5 () s/p: 1. Left frontotemporoparietal craniotomy, resection of recurrent left frontal parietal neoplasm and 2. Resection of recurrent left temporal neoplasm 3. Left frontotemporoparietal duraplasty Plan: Critical care management per Technology Training Associate. Frequent neuro checks. Continue antiepileptic drugs. Non-chemical DVT prophylaxis. Ulcer prophylaxis. Mobilise patient w/assistance. PT eval & tx. ST eval & tx. Okay for Lovenox. (Tyrell Shaw) Attending Statement I have personally seen and examined the patient on 09/16/16. Pertinent documentation and study results have been reviewed by the undersigned. I have personally developed the treatment plan and performed medical decision making. Agree with findings, exam, and treatment plan as noted above. Patient with less respiratory distress this evening. While coarse upper airway sounds. Secretions improved compared to 09/15/16. She had a couple episodes of bradycardia with several second asystole. Anticonvulsant medications temporarily suspended. She has also been on increased beta blockers for control of hypertension postoperatively. Neurology recommendations noted. She is now being maintained on Keppra and Depakote will be restarted per neurology recommendations. Cardiology notes reviewed. 09/16/16 CT scan head images reviewed. Stable study without evidence of significant new edema, hydrocephalus, mass effect. Remains on Decadron per intensivists. Continue ISC monitoring of vital signs and cardiac monitoring. (Michele Galeano MD) Tyrell Shaw Sep 16, 2016 16:52 Michele Galeano MD Sep 16, 2016 21:21
--- NOTE | 2016-09-16 16:53 | ECHRPT ---
Indication: sinus pause CONCLUSIONS BP: / HR: Rhythm: MEASUREMENTS (Male / Female) Normal Values Technical Quality:Technically difficult study 2D ECHO LV Diastolic Diameter PLAX 4.1 cm 4.2 - 5.9 / 3.9 - 5.3 cm LV Systolic Diameter PLAX 2.9 cm IVS Diastolic Thickness 1.5 cm 0.6 - 1.0 / 0.6 - 0.9 cm LVPW Diastolic Thickness 1.3 cm 0.6 - 1.0 / 0.6 - 0.9 cm LV Relative Wall Thickness 0.7 RV Internal Dim ED PLAX 2.5 cm M-MODE Aortic Root Diameter MM 2.9 cm LA Systolic Diameter MM 3.5 cm LA Ao Ratio MM 1.2 AV Cusp Separation MM 1.7 cm DOPPLER LV E' Lateral Velocity 5.4 cm/s LV E' Septal Velocity 5.1 cm/s FINDINGS LEFT VENTRICLE The left ventricular systolic function is normal with an estimated ejection fraction in the range of 60-65%. Mild concentric left ventricular hypertrophy. Normal left ventricular size. No regional wall motion abnormalities are present. RIGHT VENTRICLE Normal right ventricular size and systolic function. LEFT ATRIUM The left atrial size is normal. RIGHT ATRIUM The right atrial size is normal. ATRIAL SEPTUM Normal atrial septal thickness without atrial level shunting by limited color doppler interrogation. AORTA The aortic root and proximal ascending aorta are normal in size on limited imaging. MITRAL VALVE Structurally normal mitral valve. Mild mitral valve regurgitation. AORTIC VALVE Trileaflet aortic valve. No aortic valve regurgitation. No aortic valve stenosis. TRICUSPID VALVE Structurally normal tricuspid valve. There is trace tricuspid valve regurgitation. PULMONARY VALVE The pulmonary valve is not well visualized. VESSELS The inferior vena cava is normal in size. PERICARDIUM No pericardial effusion. Morro Pascal MD, FACC (Electronically Signed) Final Date:16 September 2016 16:53
--- NOTE | 2016-09-16 19:39 | MB ---
cc: URBANO LEONG M.D. DATE OF CONSULTATION 09/16/2016 DATE OF 1940, 76 REASON FOR CONSULTATION The patient is status post a meningioma resection, postoperative seizures now with bradycardia, want assistance in finding an alternate antiepileptic with less likelihood to foster bradycardia. The patient now is postop day number three or four. She had some seizures. She came in to have the left craniotomy for recurrent left temporal and frontal parietal meningiomas. Apparently on 09/12 she developed a seizure episode on Cerebyx and her usual Depakote and Tegretol that she had been on. She was on some Cardene as well. Then apparently had some bradycardic episodes. Antiepileptics have been stopped. PHYSICAL EXAMINATION VITAL SIGNS: On exam her vitals currently temperature is 98, heart rates , pulse of 69, respiratory rate 20, blood pressure 139/64. NEUROLOGIC: She is awake and alert. Is somewhat dysarthric. Follows commands. Squeezes with her left hand. Wiggles her toes on commands. Gait cannot be assessed. LABORATORY DATA Labs are reviewed. Her white count today is 10.6, hemoglobin 8.5, platelets are 218,000. Her chemistries, BUN 20, creatinine 1.03, GFR 52, glucose 117, calcium 8.1. CK 24. Toxicology, her last Dilantin on 09/13 was 6.9. Urine was unremarkable. IMAGING Head CT on 09/16 shows stable followup suspected, postoperative followup no new changes. She not had an EEG. Her echo was ordered on 09/16 so that is still pending. IMPRESSION A 76-year-old woman with multiple meningioma resections with a history of epilepsy, unable now to tolerate her Depakote, Tegretol and loaded with Cerebyx due to bradycardia. I am not sure which drug it might have been. Certainly the Cerebyx that caused the bradycardia. However, I think at this point in time instead of her being off all of her medications, go ahead and put her on Keppra 500 mg q.12, can be either NG or IV and does not cause any cardiac dysrhythmia. Her Depakote should not be causing her any issues as well. Now Tegretol can cause arrhythmia so most definitely would stay off of Tegretol. But her home Depakote dose can be reinitiated. I will go ahead and put an order for an EEG and start her on Keppra here. Further recommendations will be made accordingly. MD YANDY Mariano/JADE /2:04 PM /7:22 PM
--- NOTE | 2016-09-16 21:30 | MG ---
cc: ANDRESSA THOMPSON M.D. Lab No: Date: 09/16/2016 Age: Sex: F Race: REQUESTING PHYSICIAN Dr. Mcintyre. An EEG was obtained on this 76-year-old patient being evaluated for possible seizures. MEDICATIONS 1. Decadron. 2. Protonix. 3. Valproate. DESCRIPTION The EEG is showing continuous left hemisphere slower activity with some frequent sharp discharges in the left temporal occipital head region. There are beta rhythms bilaterally and overall lack of alpha activity. There is artifact eventually. INTERPRETATION Abnormal EEG because of continuous left hemisphere slowing maximum posteriorly with associated frequent sharp / epileptiform discharge. These discharges at times are almost rhythmic but not a definitive ictal pattern and they remain focal throughout. Clinical correlation. Andressa Thompson MD OFC/KK /8:00 PM /9:20 PM
[2016-09-16] MEDS: hydrALAZINE HCL 20 MG/ML VIAL IV PUSH PRN (23:33)
[2016-09-17] VITALS (14 sets, daily range): BP systolic 110–170; BP diastolic 63–75; PULSE 55–100; RESP 16–30; TEMP 97.9–98.5; O2SAT 95–100
[2016-09-17] MEDS: hydrALAZINE HCL 100 MG TAB PO SCH ×3 (03:27→20:08)
[2016-09-17] MEDS: levETIRAcetam INJ 500 MG in SODIUM CHLORIDE 0.9% INJ 100 ML IV SCH ×2 (03:27→15:58)
[2016-09-17 04:41] LABS: HEMATOCRIT 28.5 % (35.0-46.0); MEAN CELL VOLUME 90.4 FL (80.0-100.0); MEAN CORPUSCULAR HEMOGLOBIN 29.9 PG (27.0-34.0); MEAN CORPUSCULAR HGB CONC 33.1 % (32.0-36.0); PLATELET COUNT 287 TH/MM3 (150-450); RED BLOOD COUNT 3.15 MIL/MM3 (4.00-5.30); RED CELL DISTRIBUTION WIDTH 14.9 % (11.6-17.2); REVIEW FLAG FINAL
[2016-09-17] MEDS: INSULIN ASPART SUPPLEMENTAL SCALE SQ SCH ×4 (05:00→23:00)
[2016-09-17 05:06] LABS: BICARBONATE 24.9 MEQ/L (21.0-32.0); POTASSIUM 3.7 MEQ/L (3.5-5.1)
[2016-09-17] MEDS: hydrALAZINE HCL 20 MG/ML VIAL IV PUSH PRN ×2 (08:01→18:10)
[2016-09-17] MEDS: SODIUM CHLORIDE 0.9% FLUSH 10 ML FLUSH IV FLUSH SCH ×2 (08:03→20:08)
[2016-09-17] MEDS: PANTOPRAZOLE SODIUM 40 MG VIAL IVP SCH (08:03)
[2016-09-17] MEDS: DOCUSATE SODIUM 100 MG CAP PO SCH ×2 (08:03→20:08)
[2016-09-17] MEDS: VALPROIC ACID SYRUP 250 MG/5 ML UDC NG SCH ×3 (08:11→23:07)
[2016-09-17] MEDS: BUDESONIDE-FORMOTEROL 160/4.5 MCG INHALER INH SCH ×2 (08:13→21:00)
--- NOTE | 2016-09-17 08:51 | PD.CARD.PN ---
Subjective Subjective Remarks No CV complaints Objective Medications Current Medications Medications (Trade) Dose Ordered Sig/Gen Route Start Time Stop Time Status Last Admin (NS Flush) 2 ml UNSCH PRN IV FLUSH 09/11/16 15:15 (NS Flush) 2 ml BID IV FLUSH 09/11/16 21:00 09/17/16 08:03 (Dulcolax Supp) 10 mg DAILY PRN RECTAL 09/11/16 15:15 09/16/16 05:23 (Colace) 100 mg BID PO 09/11/16 21:00 09/16/16 20:12 (Protonix Inj) 40 mg DAILY IVP 09/12/16 09:00 09/17/16 08:03 (Zofran Inj) 4 mg Q6H PRN IV 09/11/16 15:15 (Morphine Inj) 2 mg Q2H PRN IV 09/11/16 15:15 09/14/16 03:00 (Morphine Inj) 4 mg Q2H PRN IV 09/11/16 15:15 09/11/16 19:58 (Ativan Inj) 1 mg Q6H PRN IV 09/11/16 15:45 09/12/16 23:55 (Cerebyx Inj) 100 mgpe Q8HR IV 09/11/16 22:00 Hold 09/15/16 21:54 (Symbicort 160-4.5 Inh) 2 puff BID INH 09/11/16 21:00 09/17/16 08:13 (Depakene Liq) 500 mg Q8H NG 09/12/16 08:00 09/17/16 08:11 (TEGretol LIQ) 200 mg BID NG 09/12/16 09:00 Hold 09/15/16 21:51 (D50w (Vial) Inj) 50 ml UNSCH PRN IV 09/12/16 08:00 (Glucagon Inj) 1 mg UNSCH PRN OTHER 09/12/16 08:00 Insulin Aspart 1 1 Q6H SQ 09/12/16 11:00 09/14/16 23:07 Potassium Chloride 100 ml @ 50 mls/hr Q2H PRN IV 09/12/16 08:00 (KCl 20 Meq Premix Inj) 100 ml @ 50 mls/hr Q2H PRN IV 09/12/16 08:00 Potassium Bicarb/ Potassium Chloride 50 meq 50 meq UNSCH PRN PO 09/12/16 08:00 09/13/16 08:46 Potassium Chloride 100 ml @ 25 mls/hr UNSCH PRN IV 09/12/16 08:00 Potassium Chloride 100 ml @ 50 mls/hr Q2H PRN IV 09/12/16 08:00 (Magnesium Sulfate Inj/NS Inj) 100 ml @ 50 mls/hr UNSCH PRN IV 09/12/16 08:00 Magnesium Oxide 800 mg 800 mg UNSCH PRN PO 09/12/16 08:00 (Magnesium Sulfate Inj/NS Inj) 100 ml @ 50 mls/hr UNSCH PRN IV 09/12/16 08:00 Potassium Phosphate 2000 mg 2,000 mg Q4H PRN PO 09/12/16 08:00 (Sodium Phosphate Inj/NS 250 ml Inj) 250 ml @ 42 mls/hr UNSCH PRN IV 09/12/16 08:00 Potassium Phosphate 2000 mg 2,000 mg UNSCH PRN PO/TUBE 09/12/16 07:51 (Potassium Phosphate Inj/NS 250 ml Inj) 260 ml @ 42 mls/hr UNSCH PRN IV 09/12/16 07:51 (Norvasc) 10 mg DAILY PO 09/14/16 09:00 09/17/16 08:03 (Apresoline) 100 mg Q8H PO 09/13/16 12:00 09/17/16 03:27 (Apresoline Inj) 20 mg Q2H PRN IV PUSH 09/13/16 19:15 09/17/16 08:01 (Trandate) 200 mg Q8HR PO 09/13/16 19:11 Hold 09/15/16 15:30 Labetalol HCl 20 mg 20 mg Q4H PRN IV PUSH 09/15/16 00:45 (Keppra Inj/NS Inj) 105 ml @ 420 mls/hr Q12H IV 09/16/16 15:00 09/17/16 03:27 Vital Signs / I&O Vital Signs Date Time Temp Pulse Resp B/P Pulse Ox O2 Delivery O2 Flow Rate FiO2 09/17/16 07:34 98 21 09/17/16 06:00 56 09/17/16 04:00 98.4 68 18 144/66 97 09/17/16 04:00 68 09/17/16 02:00 60 09/17/16 00:00 97.9 81 21 143/63 97 09/17/16 00:00 66 09/16/16 22:00 56 09/16/16 20:00 97.8 72 24 204/81 96 09/16/16 18:00 54 09/16/16 16:00 69 09/16/16 16:00 98.0 78 15 159/70 95 09/16/16 14:00 57 09/16/16 12:00 98.0 69 20 139/64 98 09/16/16 12:00 68 09/16/16 10:00 62 I/O 09/16/16 09/16/16 09/16/16 09/17/16 09/17/16 09/17/16 07:00 15:00 23:00 07:00 15:00 23:00 Intake Total 80 ml 159 ml 176 ml Balance 80 ml 159 ml 176 ml IV Total 20 ml 159 ml 176 ml Other 60 ml # Voids 2 6 2 1 # Bowel Movements 1 4 0 0 Physical Exam Awake Chest clear CV S1 S2 regular, No further asystole with med changes. Mehdi into 40's during sleep. no edema Laboratory Laboratory Tests Test 09/17/16 03:52 White Blood Count 9.0 TH/MM3 Red Blood Count 3.15 MIL/MM3 Hemoglobin 9.4 GM/DL Hematocrit 28.5 % Mean Corpuscular Volume 90.4 FL Mean Corpuscular Hemoglobin 29.9 PG Mean Corpuscular Hemoglobin 33.1 % Concent Red Cell Distribution Width 14.9 % Platelet Count 287 TH/MM3 Mean Platelet Volume 9.1 FL Sodium Level 138 MEQ/L Potassium Level 3.7 MEQ/L Chloride Level 104 MEQ/L Carbon Dioxide Level 24.9 MEQ/L Anion Gap 9 MEQ/L Blood Urea Nitrogen 23 MG/DL Creatinine 1.03 MG/DL Estimat Glomerular Filtration 52 ML/MIN Rate Random Glucose 102 MG/DL Calcium Level 8.6 MG/DL Assessment and Plan Problem List: (1) Asystole Assessment and Plan: No further occurrences. Appears to be combination of meds , vagal. Ferny Arauz MD Sep 17, 2016 08:51
--- NOTE | 2016-09-17 09:50 | HHI.CCPN ---
Subjective Remarks/Hospital Course Hospital Course: 76 y/o woman 1 day following left craniotomy and resection of temporal lobe tumor. Generalized seizure this morning at 0530 which ceased after ativan 1 mg iv. Initially very somnolent and concern about her ability to protect her airway. She is more alert now and will perform left hand grasp to command.No snoring or obstruction. No subsequent seizures. She has a history of seizures and has undergone several previous craniotomies for tumors. She takes tegretol and depakote chronically. In addition, she was loaded with cerebyx 1000 mg at 1600 yesterday and dilantin level is subsequesntly 7.9. Subjective: 09/13: mental status improved. remains hypertensive on nicardipine infusion. MELY resolving. no complaints. 09/14: mental status continues to improve. bp better. off cardene. mely improved. no complaints. 09/15: Called to bedside at 1115 PM for respiratory distress. On my evaluation patient has significant inspiratory stridor. Also difficulty clearing oral secretions which uptake. Chest x-ray is unremarkable. Stat racemic epinephrine 2 given, and Decadron 8 mg IV 1. Scheduled Decadron and when necessary racemic epi ordered. Reevaluation in one hour shows some improvement in inspiratory stridor, still unable to clear secretions. I have ordered removal of NG tube. We'll continue racemic epi. If there is no significant improvement in the next 2-3 hours patient may need endotracheal intubation 09/16: multiple episodes of sinus pauses and sinus bradycardia overnight. phenytoin held. mental status stable, still somnolent but arousable. 09/17: Bradycardia episodes improved after beta blockers stopped. No seizures overnight. Objective Vital Signs Date Time Temp Pulse Resp B/P Pulse Ox O2 Delivery O2 Flow Rate FiO2 09/17/16 07:34 98 21 09/17/16 06:00 56 09/17/16 04:00 98.4 18 144/66 09/15/16 19:00 Room Air 09/13/16 07:00 2.00 Intake and Output 09/16/16 09/16/16 09/16/16 07:59 15:59 23:59 Intake Total 80 ml 159 ml Balance 80 ml 159 ml Result Diagram: 09/17/16 0352 09/17/16 0352 Objective Remarks Head: Wrapped in dry dressing. Neck: Loud inspiratory stridor. Thick oral secretions Lungs: improved upper airway sounds, no wheezes or crackles. Heart: NL S1S2, no m,r.No JVD. sinus bradycardia Abdomen: Soft, no guarding, non-distended Extremities: Warm, well perfused. Swelling and discoloration left great toe. Neuro: Awake and shows spontaneously open, Pupils 3 mm, react to light. Sqeezes left hand to command. Withdraws both feet to stimulation. Positive gag reflex. A/P Assessment and Plan Assessment: 76yF s/p left temporal crani for meningioma and s/p igor-op seizures , mental status improving. however, now with sinus pauses, sinus bradycardia Assessment: Inspiratory stridor- improved. Respiratory insufficiency- improved. Seizures, resolved. history of seizures Encephalopathy. s/p left craniotomy and temporal lobe tumor resection. Hypertensive Urgency- resolved. Sinus pause, sinus bradycardia Plan: - cardiology consult for the bradycardia, unclear etiology, could be the anti- epileptics, or possibly new hydrocephalus, although unlikely given area of surgery. - repeat head CT - hold valproate, consult neurology to see if there are alternatives with less cardiac activity. - Keep nothing by mouth except meds - Ativan prn sustained seizures. - SCDs. - Defer to neurosurgery restarting of DVT prophylaxis. - Use Cardene if needed. Use PRN hydralazine. Overall impression: Improving hemodynamics. Manny Keys MD Sep 17, 2016 09:50
--- NOTE | 2016-09-17 13:36 | HHI.NSPN ---
(Tyrell Shaw) History Chief Complaint: The feeding tube is bothering her. (Tyrell Shaw) Interval History 76-year-old female with history of multiple recurrent meningiomas. 09/11/2016: Left craniotomy for recurrent left temporal and left frontoparietal convexity meningiomas. 09/12/16: Positive seizure. Cerebyx started in addition to patient's usual Depakote and Tegretol 09/13/16: following commands, nonverbal. bp elevated, currently on max dose of Cardene 09/14/16: no seizures overnight, bp improved off cardene. remains aphasic but follows commands. f/u CT Head this am completed 09/15: The patient is awake & alert when seen this morning. She is breathing through her mouth with audible adventitious sounds. She is not in any distress. Nursing reports that she did move the toes of both feet to command. 09/16: This afternoon the patient is awake and alert. She attempts to ask a question but is unable to find the words to express her question. She does become slightly flustered by this. Nursing and the Child Psychologist report that the patient has been having pauses on her EKG. A CT brain, EEG and Neurology consult were ordered by the Child Psychologist. The CT brain was w/o any new or significant change. The EEG was done this afternoon when the patient was first seen and her evaluation was deferred until this time. 09/17: The patient is awake and alert when seen this afternoon. She had difficulty but was finally able to say that the feeding tube was bothering her. She was evaluated by Cardiology yesterday who felt that her pauses/bradycardia was medication induced with a vagal component. Neurology also evaluated her and made adjustments/recommendations to the patients antiepileptic medications. The EEG demonstrated some continuous left hemisphere slowing with associated frequent sharp/epileptiform discharge which were almost rhythmic but not a definitive ictal pattern and remained focal throughout. (Tyrell Shaw) System Review Comments ROS difficulty to obtain due to patient's expressive aphasia but she did deny any headache, dizziness, numbness, chest pain or shortness of breath. She did complain of the nasally inserted feeding tube bothering her. (Tyrell Shaw) Exam Results Vital Signs Date Time Temp Pulse Resp B/P Pulse Ox O2 Delivery O2 Flow Rate FiO2 09/17/16 13:00 98.1 62 22 143/66 97 09/17/16 07:34 21 09/15/16 19:00 Room Air 09/13/16 07:00 2.00 Intake and Output 09/16/16 09/16/16 09/17/16 08:00 16:00 00:00 Intake Total 80 ml 159 ml Balance 80 ml 159 ml (Tyrell Shaw) Physical Examination General: Awake & alert, no apparent distress, readily interacts. She is frustrated with finding words due to her expressive aphasia. Skin: Warm, dry & intact except for left craniotomy surgical incision which is well approximated w/musa & MARTINA drain insertion site, no evident drainage, erythema or streaking noted at either. HEENT: Normocephalic, atraumatic except for left craniotomy surgical incision & MARTINA drain insertion site. PERRLA. Tongue midline to protrusion. Left nare feeding tube. Neck: No JVD, trachea midline. Respiratory: Slightly coarse breath sounds bilaterally, equal excursion, appears slightly tachypneic, on RA. Cardiovascular: S1S2 w/RRR w/o M/G/R, cap refill < 2 sec, radial & pedal pulses 2+ bilaterally, cap refill < 2 sec, pedal edema 1+ bilaterally. Monitor is sinus rhythm w/o any ectopy or pauses noted. Gastrointestinal: Abdomen soft, nontender, positive bowel sounds, left nare feeding tube clamped. Musculoskeletal: Spontaneously moves all extremities to varying degree. Neuro: Awake & alert, expressive aphasia, follows commands, GCS 14 (E4 V4 M6). The patient has difficulty finding some words but is able to complete some thoughts and verbally express them appropriately. PERRLA, 3 mm brisk, symmetrical smile, tongue midline to protrusion. Motor strength LUE 4 to 5/5, LLE 4 to 4+/5, RUE 3+ to 4+/5 except hand squeeze 3 /5, RLE 4 to 4+/5. (Tyrell Shaw) Lab, Micro, Other Results Allergies Coded Allergies Type Severity Reaction Last Updated Verified Codeine Allergy Severe 09/09/16 Yes Lipitor Allergy Severe MUSCLE WEAKNESS 09/09/16 Yes Uncoded Allergies Type Severity Reaction Last Updated Verified NSAIDS Allergy Unknown 03/09/[address] 09/16/16 0000 Signed Impressions: Service Date/Time: Friday, September 16, 2016 12:04 - CONCLUSION: Stable followup CT scan of the brain compared to the prior examination. No new or significant changes. Hilario Vargas MD Abdomen X-Ray 09/15/16 1320 Signed Impressions: Service Date/Time: Thursday, September 15, 2016 13:33 - CONCLUSION: Tip of Dobbhoff catheter is in either the antrum or the duodenal bulb. Antoni Acevedo MD Abdomen X-Ray 09/15/16 1130 Signed Impressions: Service Date/Time: Thursday, September 15, 2016 11:33 - CONCLUSION: Dobbhoff catheter has been advanced into the distal antrum and proximal duodenum. Antoni Acevedo MD Abdomen X-Ray 09/15/16 1117 Signed Impressions: Service Date/Time: Thursday, September 15, 2016 11:33 - CONCLUSION: Tip of Dobbhoff is in the fundus of the stomach. Antoni Acevedo MD // 06:00 18:00 06:00 18:00 06:00 18:00 Intake Total 830 ml 260 ml 220 ml 335 ml Balance 830 ml 260 ml 220 ml 335 ml IV Total 60 ml 20 ml 40 ml 335 ml Tube Feeding 470 ml Other 300 ml 240 ml 180 ml # Voids 6 2 4 6 3 # Bowel Movements 0 0 1 4 0 Laboratory Tests Test 09/15/16 09/16/16 09/17/16 04:17 04:02 03:52 White Blood Count 17.1 TH/MM3 10.6 TH/MM3 9.0 TH/MM3 Red Blood Count 3.09 MIL/MM3 2.74 MIL/MM3 3.15 MIL/MM3 Hemoglobin 9.2 GM/DL 8.5 GM/DL 9.4 GM/DL Hematocrit 27.7 % 24.4 % 28.5 % Mean Corpuscular Volume 89.4 FL 89.1 FL 90.4 FL Mean Corpuscular Hemoglobin 29.7 PG 30.9 PG 29.9 PG Mean Corpuscular Hemoglobin 33.2 % 34.7 % 33.1 % Concent Red Cell Distribution Width 15.0 % 14.9 % 14.9 % Platelet Count 206 TH/MM3 218 TH/MM3 287 TH/MM3 Mean Platelet Volume 8.7 FL 9.8 FL 9.1 FL Sodium Level 137 MEQ/L 137 MEQ/L 138 MEQ/L Potassium Level 4.0 MEQ/L 3.6 MEQ/L 3.7 MEQ/L Chloride Level 103 MEQ/L 103 MEQ/L 104 MEQ/L Carbon Dioxide Level 25.3 MEQ/L 26.7 MEQ/L 24.9 MEQ/L Anion Gap 9 MEQ/L 7 MEQ/L 9 MEQ/L Blood Urea Nitrogen 18 MG/DL 20 MG/DL 23 MG/DL Creatinine 1.03 MG/DL 1.03 MG/DL 1.03 MG/DL Estimat Glomerular Filtration 52 ML/MIN 52 ML/MIN 52 ML/MIN Rate Random Glucose 128 MG/DL 117 MG/DL 102 MG/DL Calcium Level 8.4 MG/DL 8.1 MG/DL 8.6 MG/DL Phosphorus Level 3.3 MG/DL Magnesium Level 2.0 MG/DL Total Creatine Kinase 24 U/L Troponin I LESS THAN 0.02 NG/ML Thyroid Stimulating Hormone 1.160 uIU/ML 3rd Gen Vital Signs Date Time Temp Pulse Resp B/P Pulse Ox O2 Delivery O2 Flow Rate FiO2 09/17/16 13:00 98.1 62 22 143/66 97 09/17/16 12:00 67 09/17/16 10:00 69 09/17/16 08:00 98.0 68 16 110/64 100 09/17/16 08:00 68 09/17/16 07:34 98 21 09/17/16 06:00 56 09/17/16 04:00 98.4 68 18 144/66 97 09/17/16 04:00 68 09/17/16 02:00 60 09/17/16 00:00 97.9 81 21 143/63 97 09/17/16 00:00 66 09/16/16 22:00 56 09/16/16 20:00 97.8 72 24 204/81 96 8/8/17 18:00 54 09/16/16 16:00 69 09/16/16 16:00 98.0 78 15 159/70 95 09/16/16 14:00 57 09/16/16 12:00 98.0 69 20 139/64 98 09/16/16 12:00 68 09/16/16 10:00 62 09/16/16 08:00 6 09/16/16 08:00 98.0 62 22 154/72 100 09/16/16 07:45 97 21 09/16/16 06:00 66 09/16/16 04:58 97 09/16/16 04:00 97.9 58 18 149/63 95 09/16/16 04:00 51 09/16/16 00:20 0 09/16/16 00:00 98.7 70 22 122/60 96 09/15/16 21:11 94 09/15/16 20:00 74 09/15/16 20:00 98.0 74 26 136/64 94 09/15/16 19:00 94 Room Air 09/15/16 17:33 30 09/15/16 16:40 0 09/15/16 16:00 98.6 66 22 117/54 94 09/15/16 16:00 66 09/15/16 12:00 75 09/15/16 12:00 97.9 75 24 147/63 96 09/15/16 08:06 98 21 09/15/16 08:00 98.9 72 25 150/79 94 09/15/16 08:00 77 09/15/16 07:00 93 Room Air 09/15/16 04:00 98.7 68 22 97/46 96 09/15/16 04:00 68 09/15/16 00:00 76 09/15/16 00:00 99.4 76 28 164/72 98 09/14/16 22:40 97 21 09/14/16 22:00 76 09/14/16 20:00 98.5 88 25 150/68 98 09/14/16 20:00 81 09/14/16 19:00 98 Room Air 09/14/16 16:30 147/66 09/14/16 16:00 100.8 74 13 109/58 99 09/14/16 16:00 74 (Tyrell Shaw) Medical Decision Making Impression and Plan Impression: (1) 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 1. Postoperative craniotomy resection of recurrent meningioma 2 on 09/11/16. 2. Positive postoperative seizure 3. Possible left frontoparietal region ischemia versus postoperative edema on CT scan [facility] demonstrated left parafalcine mass which had increased in size and a left extra-axial lateral dural mass. CT brain demonstrated expected postoperative changes s/p tumor resection w/o evidence of midline shift, some residual gas & hyperdensity at resection sites, no acute finding to the right supratentorial brain. CT brain demonstrated slight increase in subdural blood along the falx near the vertex. CT brain demonstrated expected postoperative changes. CT brain stable exam compared to w/o new or significant changes. EEG demonstrated some continuous left hemisphere slowing with associated frequent sharp/epileptiform discharge which were almost rhythmic but not a definitive ictal pattern and remained focal throughout. Patient continues to do well with improved neurological exam, improving expressive aphasia & right-sided weakness. POD #6 () s/p: 1. Left frontotemporoparietal craniotomy, resection of recurrent left frontal parietal neoplasm and 2. Resection of recurrent left temporal neoplasm 3. Left frontotemporoparietal duraplasty Plan: Critical care management per Child Psychologist. Frequent neuro checks. Antiepileptic drugs per Neurology. Non-chemical DVT prophylaxis. Ulcer prophylaxis. Mobilise patient w/assistance. PT eval & tx. ST eval & tx. Okay for Lovenox. (Tyrell Shaw) Attending Statement I have personally seen and examined the patient on the date of this note. Pertinent documentation and study results have been reviewed by the undersigned. I have personally developed the treatment plan and performed medical decision making. Agree with findings, exam, and treatment plan as noted above. On examination today, the patient is actually having a little more expressive speech deficit than she did on 09/16/16. She is able to say a few words with hesitation. She indicates that she can think of the words that she wants to say, but cannot perform the words. She has moderate upper lung congestion with wheezing on exam. Frequent cough with difficulty clearing her secretions. Cardiac exam reveals regular rhythm without murmur. However she is reported to have another several second cardiac pause earlier today despite being off of the beta blockers. Her right upper extremity motor function continues to improve, now mostly 4/5. No facial paresis. I discussed the findings with the patient and her family in the room today. Continue speech therapy Continue feeding tube She may require a pacemaker placement and I discussed this at length with the patient. (Michele Galeano MD) Tyrell Shaw Sep 17, 2016 13:36 Michele Galeano MD Sep 17, 2016 19:32
[2016-09-17] MEDS: RESP: ALBUTEROL 2.5 MG/IPRATROPIUM 0.5 MG NEB (PRN) NEB (21:59)
[2016-09-18] VITALS (14 sets, daily range): BP systolic 129–188; BP diastolic 60–86; PULSE 56–106; RESP 14–24; TEMP 97.6–98.4; O2SAT 95–98
[2016-09-18] MEDS: levETIRAcetam INJ 500 MG in SODIUM CHLORIDE 0.9% INJ 100 ML IV SCH ×2 (03:50→15:45)
[2016-09-18] MEDS: hydrALAZINE HCL 100 MG TAB PO SCH ×3 (03:50→20:37)
[2016-09-18] MEDS: INSULIN ASPART SUPPLEMENTAL SCALE SQ SCH ×4 (05:00→23:00)
[2016-09-18] MEDS: hydrALAZINE HCL 20 MG/ML VIAL IV PUSH PRN ×2 (05:10→18:00)
[2016-09-18 07:17] LABS: BICARBONATE 24.6 MEQ/L (21.0-32.0); POTASSIUM 3.3 MEQ/L (3.5-5.1)
[2016-09-18 07:28] LABS: HEMATOCRIT 29.5 % (35.0-46.0); MEAN CELL VOLUME 89.2 FL (80.0-100.0); MEAN CORPUSCULAR HEMOGLOBIN 30.8 PG (27.0-34.0); MEAN CORPUSCULAR HGB CONC 34.5 % (32.0-36.0); PLATELET COUNT 273 TH/MM3 (150-450); RED BLOOD COUNT 3.31 MIL/MM3 (4.00-5.30); RED CELL DISTRIBUTION WIDTH 14.8 % (11.6-17.2); REVIEW FLAG FINAL; WHITE BLOOD COUNT 9.1 TH/MM3 (4.0-11.0)
[2016-09-18] MEDS ORDERED: SODIUM BICARBONATE 8.4% INJ 50 MEQ/50 ML SYR ONE (08:17)
[2016-09-18] MEDS: DOCUSATE SODIUM 100 MG CAP PO SCH ×2 (09:00→20:37)
[2016-09-18] MEDS: BUDESONIDE-FORMOTEROL 160/4.5 MCG INHALER INH SCH ×2 (09:14→20:38)
[2016-09-18] MEDS: VALPROIC ACID SYRUP 250 MG/5 ML UDC NG SCH ×3 (09:14→23:45)
[2016-09-18] MEDS: SODIUM CHLORIDE 0.9% FLUSH 10 ML FLUSH IV FLUSH SCH ×2 (09:15→20:38)
[2016-09-18] MEDS: PANTOPRAZOLE SODIUM 40 MG VIAL IVP SCH (09:15)
--- NOTE | 2016-09-18 09:53 | HHI.NSPN ---
(ColinTyrell) History Chief Complaint: Unable to express herself and feeding tube is bothering her. (Abiodun Shawjermaine SHAHID) Interval History 76-year-old female with history of multiple recurrent meningiomas. 09/11/2016: Left craniotomy for recurrent left temporal and left frontoparietal convexity meningiomas. 09/12/16: Positive seizure. Cerebyx started in addition to patient's usual Depakote and Tegretol 09/13/16: following commands, nonverbal. bp elevated, currently on max dose of Cardene 09/14/16: no seizures overnight, bp improved off cardene. remains aphasic but follows commands. f/u CT Head this am completed 09/15: The patient is awake & alert when seen this morning. She is breathing through her mouth with audible adventitious sounds. She is not in any distress. Nursing reports that she did move the toes of both feet to command. 09/16: This afternoon the patient is awake and alert. She attempts to ask a question but is unable to find the words to express her question. She does become slightly flustered by this. Nursing and the Pilot Plant Technician report that the patient has been having pauses on her EKG. A CT brain, EEG and Neurology consult were ordered by the Pilot Plant Technician. The CT brain was w/o any new or significant change. The EEG was done this afternoon when the patient was first seen and her evaluation was deferred until this time. 09/17: The patient is awake and alert when seen this afternoon. She had difficulty but was finally able to say that the feeding tube was bothering her. She was evaluated by Cardiology yesterday who felt that her pauses/bradycardia was medication induced with a vagal component. Neurology also evaluated her and made adjustments/recommendations to the patients antiepileptic medications. The EEG demonstrated some continuous left hemisphere slowing with associated frequent sharp/epileptiform discharge which were almost rhythmic but not a definitive ictal pattern and remained focal throughout. 09/18: This morning the patient is awake and alert. It is evident she is frustrated when attempting to ask something and then says "Never mind." Physical Therapy was at the bedside to evaluate the patient. (Tyrell hSaw) System Review Comments ROS difficulty to obtain due to patient's expressive aphasia but she did deny any headache, dizziness, numbness, chest pain or shortness of breath. She was able to indicate the nasal feeding tube was bothering her but couldn't verbalise it. (Tyrell Shaw) Exam Results Vital Signs Date Time Temp Pulse Resp B/P Pulse Ox O2 Delivery O2 Flow Rate FiO2 09/18/16 08:58 98 21 09/18/16 08:00 65 09/18/16 04:00 98.4 18 188/86 09/15/16 19:00 Room Air Intake and Output 09/17/16 09/17/16 09/18/16 08:00 16:00 00:00 Intake Total 176 ml 90 ml 176 ml Balance 176 ml 90 ml 176 ml (Tyrell Shaw) Physical Examination General: Awake & alert, readily interacts, no apparent distress but she is visibly frustrated with finding words due to her expressive aphasia. Skin: Warm, dry & intact except for left craniotomy surgical incision which is well approximated w/musa & MARTINA drain insertion site, no evident drainage, erythema or streaking noted at either. HEENT: Normocephalic, atraumatic except for left craniotomy surgical incision & MARTINA drain insertion site. PERRLA. Tongue midline to protrusion. Left nare feeding tube. Neck: No JVD, trachea midline. Respiratory: Slightly coarse breath sounds bilaterally, equal excursion, nonlaboured, with cough but feeding tube was being manipulated, on RA. Cardiovascular: S1S2 w/RRR w/o M/G/R, cap refill < 2 sec, radial & pedal pulses 2+ bilaterally, cap refill < 2 sec, pedal edema 1+ bilaterally. Monitor is sinus rhythm w/o any ectopy or pauses noted. Gastrointestinal: Abdomen soft, nontender, positive bowel sounds, left nare feeding tube initially clamped but enteral feeds resumed while being examined. Musculoskeletal: Spontaneously moves all extremities to varying degree. Neuro: Awake & alert, expressive aphasia, follows commands, GCS 14 (E4 V4 M6). The patient has difficulty finding some words but is able to complete some thoughts and verbally express them appropriately. PERRLA, 3 mm brisk, symmetrical smile, tongue midline to protrusion. Motor strength LUE 4 to 5/5, LLE 4 to 4+/5, RUE 3+ to 4+/5 except hand squeeze 3 /5, RLE 4 to 4+/5. (Tyrell Shaw) Lab, Micro, Other Results Allergies Coded Allergies Type Severity Reaction Last Updated Verified Codeine Allergy Severe 09/09/16 Yes Lipitor Allergy Severe MUSCLE WEAKNESS 09/09/16 Yes Uncoded Allergies Type Severity Reaction Last Updated Verified NSAIDS Allergy Unknown 03/09/[address] 09/16/16 0000 Signed Impressions: Service Date/Time: Friday, September 16, 2016 12:04 - CONCLUSION: Stable followup CT scan of the brain compared to the prior examination. No new or significant changes. Hilario Vargas MD Abdomen X-Ray 09/15/16 1320 Signed Impressions: Service Date/Time: Thursday, September 15, 2016 13:33 - CONCLUSION: Tip of Dobbhoff catheter is in either the antrum or the duodenal bulb. Antoni Acevedo MD Abdomen X-Ray 09/15/16 1130 Signed Impressions: Service Date/Time: Thursday, September 15, 2016 11:33 - CONCLUSION: Dobbhoff catheter has been advanced into the distal antrum and proximal duodenum. Antoni Acevedo MD Abdomen X-Ray 09/15/16 1117 Signed Impressions: Service Date/Time: Thursday, September 15, 2016 11:33 - CONCLUSION: Tip of Dobbhoff is in the fundus of the stomach. Antoni Acevedo MD 06:00 18:00 06:00 18:00 06:00 18:00 Intake Total 220 ml 335 ml 90 ml 355 ml Balance 220 ml 335 ml 90 ml 355 ml Intake Oral 0 ml 0 ml IV Total 40 ml 335 ml 90 ml 355 ml Other 180 ml # Voids 4 6 3 3 5 # Bowel Movements 1 4 0 0 1 Laboratory Tests Test 09/16/16 09/17/16 09/18/16 04:02 03:52 04:42 White Blood Count 10.6 TH/MM3 9.0 TH/MM3 9.1 TH/MM3 Red Blood Count 2.74 MIL/MM3 3.15 MIL/MM3 3.31 MIL/MM3 Hemoglobin 8.5 GM/DL 9.4 GM/DL 10.2 GM/DL Hematocrit 24.4 % 28.5 % 29.5 % Mean Corpuscular Volume 89.1 FL 90.4 FL 89.2 FL Mean Corpuscular Hemoglobin 30.9 PG 29.9 PG 30.8 PG Mean Corpuscular Hemoglobin 34.7 % 33.1 % 34.5 % Concent Red Cell Distribution Width 14.9 % 14.9 % 14.8 % Platelet Count 218 TH/MM3 287 TH/MM3 273 TH/MM3 Mean Platelet Volume 9.8 FL 9.1 FL 9.6 FL Sodium Level 137 MEQ/L 138 MEQ/L 140 MEQ/L Potassium Level 3.6 MEQ/L 3.7 MEQ/L 3.3 MEQ/L Chloride Level 103 MEQ/L 104 MEQ/L 105 MEQ/L Carbon Dioxide Level 26.7 MEQ/L 24.9 MEQ/L 24.6 MEQ/L Anion Gap 7 MEQ/L 9 MEQ/L 10 MEQ/L Blood Urea Nitrogen 20 MG/DL 23 MG/DL 20 MG/DL Creatinine 1.03 MG/DL 1.03 MG/DL 1.03 MG/DL Estimat Glomerular Filtration 52 ML/MIN 52 ML/MIN 52 ML/MIN Rate Random Glucose 117 MG/DL 102 MG/DL 77 MG/DL Calcium Level 8.1 MG/DL 8.6 MG/DL 8.4 MG/DL Phosphorus Level 3.3 MG/DL Magnesium Level 2.0 MG/DL Total Creatine Kinase 24 U/L Troponin I LESS THAN 0.02 NG/ML Thyroid Stimulating Hormone 1.160 uIU/ML 3rd Gen Vital Signs Date Time Temp Pulse Resp B/P Pulse Ox O2 Delivery O2 Flow Rate FiO2 09/18/16 08:58 98 21 09/18/16 08:00 65 09/18/16 06:00 70 09/18/16 04:00 68 09/18/16 04:00 98.4 68 18 188/86 98 09/18/16 02:00 56 09/18/16 01:09 95 09/18/16 00:00 97.6 60 14 129/60 95 09/18/16 00:00 60 09/17/16 22:00 60 09/17/16 20:00 98.5 68 24 170/75 95 09/17/16 20:00 55 09/17/16 18:00 70 09/17/16 16:00 98.1 64 30 167/74 96 09/17/16 16:00 100 09/17/16 14:00 80 09/17/16 13:00 98.1 62 22 143/66 97 09/17/16 12:00 67 09/17/16 10:00 69 09/17/16 08:00 98.0 68 16 110/64 100 09/17/16 08:00 68 09/17/16 07:34 98 21 09/17/16 06:00 56 09/17/16 04:00 98.4 68 18 144/66 97 09/17/16 04:00 68 09/17/16 02:00 60 09/17/16 00:00 97.9 81 21 143/63 97 09/17/16 00:00 66 09/16/16 22:00 56 09/16/16 20:00 97.8 72 24 204/81 96 09/16/16 18:00 54 09/16/16 16:00 69 09/16/16 16:00 98.0 78 15 159/70 95 09/16/16 14:00 57 09/16/16 12:00 98.0 69 20 139/64 98 09/16/16 12:00 68 09/16/16 10:00 62 09/16/16 08:00 6 09/16/16 08:00 98.0 62 22 154/72 100 09/16/16 07:45 97 21 09/16/16 06:00 66 09/16/16 04:58 97 09/16/16 04:00 97.9 58 18 149/63 95 09/16/16 04:00 51 09/16/16 00:20 0 09/16/16 00:00 98.7 70 22 122/60 96 09/15/16 21:11 94 09/15/16 20:00 74 09/15/16 20:00 98.0 74 26 136/64 94 09/15/16 19:00 94 Room Air 09/15/16 17:33 30 09/15/16 16:40 0 09/15/16 16:00 98.6 66 22 117/54 94 09/15/16 16:00 66 09/15/16 12:00 75 09/15/16 12:00 97.9 75 24 147/63 96 (Tyrell Shaw) Medical Decision Making Impression and Plan Impression: (1) 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 1. Postoperative craniotomy resection of recurrent meningioma 2 on 09/11/16. 2. Positive postoperative seizure 3. Possible left frontoparietal region ischemia versus postoperative edema on CT [facility] demonstrated left parafalcine mass which had increased in size and a left extra-axial lateral dural mass. CT brain demonstrated expected postoperative changes s/p tumor resection w/o evidence of midline shift, some residual gas & hyperdensity at resection sites, no acute finding to the right supratentorial brain. CT brain demonstrated slight increase in subdural blood along the falx near the vertex. CT brain demonstrated expected postoperative changes. CT brain stable exam compared to w/o new or significant changes. EEG demonstrated some continuous left hemisphere slowing with associated frequent sharp/epileptiform discharge which were almost rhythmic but not a definitive ictal pattern and remained focal throughout. Patient is doing well and her neurological exam is stable, expressive aphasia & right-sided weakness continue. POD #7 () s/p: 1. Left frontotemporoparietal craniotomy, resection of recurrent left frontal parietal neoplasm and 2. Resection of recurrent left temporal neoplasm 3. Left frontotemporoparietal duraplasty Plan: Critical care management per Pilot Plant Technician. Frequent neuro checks. Antiepileptic drugs per Neurology. Non-chemical DVT prophylaxis. Ulcer prophylaxis. Mobilise patient w/assistance. PT eval & tx. ST eval & tx. Okay for Lovenox. (Tyrell Shaw) Attending Statement The exam, history, and the medical decision-making described in the above note were completed with the assistance of the mid-level provider. I reviewed and agree with the findings presented. I attest that I had a [id number] encounter with the patient on the same day, and personally performed and documented my assessment and findings in the medical record. On my examination today, respirations auscultation reveal minimal left ventricular wheeze. Mild upper congestion. Frequent nonproductive cough. Cardiac regular without murmur Abdomen soft nontender awake and alert Speech is improved today compared to 09/17/16. She is now on thickened liquids per speech therapy. Remains with significant aspiration risk Continue intensive surgical care observation. She will need inpatient rehabilitation when her swallowing and respiratory function improves sufficiently. (Michele Galeano MD) Tyrell ShawP Sep 18, 2016 09:53 Michele Galeano MD Sep 18, 2016 13:58
--- NOTE | 2016-09-18 12:18 | HHI.CCPN ---
Subjective Remarks/Hospital Course Hospital Course: 76 y/o woman 1 day following left craniotomy and resection of temporal lobe tumor. Generalized seizure this morning at 0530 which ceased after ativan 1 mg iv. Initially very somnolent and concern about her ability to protect her airway. She is more alert now and will perform left hand grasp to command.No snoring or obstruction. No subsequent seizures. She has a history of seizures and has undergone several previous craniotomies for tumors. She takes tegretol and depakote chronically. In addition, she was loaded with cerebyx 1000 mg at 1600 yesterday and dilantin level is subsequesntly 7.9. Subjective: 09/13: mental status improved. remains hypertensive on nicardipine infusion. MELY resolving. no complaints. 09/14: mental status continues to improve. bp better. off cardene. mely improved. no complaints. 09/15: Called to bedside at 1115 PM for respiratory distress. On my evaluation patient has significant inspiratory stridor. Also difficulty clearing oral secretions which uptake. Chest x-ray is unremarkable. Stat racemic epinephrine 2 given, and Decadron 8 mg IV 1. Scheduled Decadron and when necessary racemic epi ordered. Reevaluation in one hour shows some improvement in inspiratory stridor, still unable to clear secretions. I have ordered removal of NG tube. We'll continue racemic epi. If there is no significant improvement in the next 2-3 hours patient may need endotracheal intubation 09/16: multiple episodes of sinus pauses and sinus bradycardia overnight. phenytoin held. mental status stable, still somnolent but arousable. 09/17: Bradycardia episodes improved after beta blockers stopped. No seizures overnight. 09/18: Heart rate acceptable now. Objective Vital Signs Date Time Temp Pulse Resp B/P Pulse Ox O2 Delivery O2 Flow Rate FiO2 09/18/16 10:00 60 09/18/16 08:58 98 21 09/18/16 08:00 98.1 18 173/73 09/15/16 19:00 Room Air Intake and Output 09/17/16 09/17/16 09/17/16 07:59 15:59 23:59 Intake Total 176 ml 90 ml 176 ml Balance 176 ml 90 ml 176 ml Result Diagram: 09/18/16 0442 09/18/16 0442 Objective Remarks Head: Wrapped in dry dressing. Neck: Thick oral secretions Lungs: improved upper airway sounds, no wheezes or crackles. Heart: NL S1S2, no m,r.No JVD. sinus bradycardia Abdomen: Soft, no guarding, non-distended Extremities: Warm, well perfused. Swelling and discoloration left great toe. Neuro: Awake and shows spontaneously open, Pupils 3 mm, react to light. Squeezes left hand to command. Withdraws both feet to stimulation. Positive gag reflex. A/P Assessment and Plan Assessment: 76yF s/p left temporal crani for meningioma and s/p igor-op seizures , mental status improving. however, now with sinus pauses, sinus bradycardia Assessment: Inspiratory stridor- improved. Respiratory insufficiency- improved. Seizures, resolved. history of seizures Encephalopathy. s/p left craniotomy and temporal lobe tumor resection. Hypertensive Urgency- resolved. Sinus pause, sinus bradycardia Plan: - cardiology consult for the bradycardia, unclear etiology, could be the anti- epileptics, or possibly new hydrocephalus, although unlikely given area of surgery. - repeat head CT - hold valproate, consult neurology to see if there are alternatives with less cardiac activity. - Keep nothing by mouth except meds - Ativan prn sustained seizures. - SCDs. - Defer to neurosurgery restarting of DVT prophylaxis. - Use Cardene if needed. Use PRN hydralazine. Overall impression: Improving hemodynamics. Respiratory status acceptable. Manny Keys MD Sep 18, 2016 12:18
--- NOTE | 2016-09-18 15:15 | HHI.PR ---
Subjective Remarks oK Objective Vital Signs Date Time Temp Pulse Resp B/P Pulse Ox O2 Delivery O2 Flow Rate FiO2 09/18/16 12:00 68 09/18/16 12:00 98.0 68 24 172/77 96 09/18/16 10:00 60 09/18/16 08:58 98 21 09/18/16 08:00 98.1 56 18 173/73 96 09/18/16 08:00 65 09/18/16 06:00 70 09/18/16 04:00 68 09/18/16 04:00 98.4 68 18 188/86 98 09/18/16 02:00 56 09/18/16 01:09 95 09/18/16 00:00 97.6 60 14 129/60 95 09/18/16 00:00 60 09/17/16 22:00 60 09/17/16 20:00 98.5 68 24 170/75 95 09/17/16 20:00 55 09/17/16 18:00 70 09/17/16 16:00 98.1 64 30 167/74 96 09/17/16 16:00 100 I/O 09/17/16 09/17/16 09/17/16 09/18/16 09/18/16 09/18/16 07:00 15:00 23:00 07:00 15:00 23:00 Intake Total 176 ml 90 ml 176 ml 179 ml Balance 176 ml 90 ml 176 ml 179 ml Intake Oral 0 ml 0 ml IV Total 176 ml 90 ml 176 ml 179 ml # Voids 1 3 4 1 # Bowel Movements 0 0 1 0 Result Diagram: 09/18/16 0442 09/18/16 0442 Imaging Alert, oriented Lungs: ventilated Heart: s1, S2 regular, no gallop Abdomen: soft, no mass Ext: no edema Last Impressions Head CT 09/16/16 0000 Signed Impressions: Service Date/Time: Friday, September 16, 2016 12:04 - CONCLUSION: Stable followup CT scan of the brain compared to the prior examination. No new or significant changes. Hilario Vargas MD Abdomen X-Ray 09/15/16 1320 Signed Impressions: Service Date/Time: Thursday, September 15, 2016 13:33 - CONCLUSION: Tip of Dobbhoff catheter is in either the antrum or the duodenal bulb. Antoni Acevedo MD Chest X-Ray 09/14/16 0000 Signed Impressions: Service Date/Time: Wednesday, September 14, 2016 23:21 - CONCLUSION: No acute disease. Jose Torres MD Brain MRI 09/11/16 0717 Signed Impressions: Service Date/Time: September 08:13 - CONCLUSION: 1. 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 This mass has increased in size from the prior study. 2. There is a second extra-axial lateral dural based mass on the left measuring 2.0 x 1.6 cm. Minh Bell MD Current Medications Medications (Trade) Dose Ordered Sig/Gen Route Start Time Stop Time Status Last Admin (NS Flush) 2 ml UNSCH PRN IV FLUSH 09/11/16 15:15 (NS Flush) 2 ml BID IV FLUSH 09/11/16 21:00 09/18/16 09:15 (Dulcolax Supp) 10 mg DAILY PRN RECTAL 09/11/16 15:15 09/16/16 05:23 (Colace) 100 mg BID PO 09/11/16 21:00 09/17/16 20:08 (Protonix Inj) 40 mg DAILY IVP 09/12/16 09:00 09/18/16 09:15 (Zofran Inj) 4 mg Q6H PRN IV 09/11/16 15:15 (Morphine Inj) 2 mg Q2H PRN IV 09/11/16 15:15 09/14/16 03:00 (Morphine Inj) 4 mg Q2H PRN IV 09/11/16 15:15 09/11/16 19:58 (Ativan Inj) 1 mg Q6H PRN IV 09/11/16 15:45 09/12/16 23:55 (Cerebyx Inj) 100 mgpe Q8HR IV 09/11/16 22:00 Hold 09/15/16 21:54 (Symbicort 160-4.5 Inh) 2 puff BID INH 09/11/16 21:00 09/18/16 09:14 (Depakene Liq) 500 mg Q8H NG 09/12/16 08:00 09/18/16 09:14 (TEGretol LIQ) 200 mg BID NG 09/12/16 09:00 Hold 09/15/16 21:51 (D50w (Vial) Inj) 50 ml UNSCH PRN IV 09/12/16 08:00 (Glucagon Inj) 1 mg UNSCH PRN OTHER 09/12/16 08:00 Insulin Aspart 1 1 Q6H SQ 09/12/16 11:00 09/14/16 23:07 Potassium Chloride 100 ml @ 50 mls/hr Q2H PRN IV 09/12/16 08:00 (KCl 20 Meq Premix Inj) 100 ml @ 50 mls/hr Q2H PRN IV 09/12/16 08:00 Potassium Bicarb/ Potassium Chloride 50 meq 50 meq UNSCH PRN PO 09/12/16 08:00 09/13/16 08:46 Potassium Chloride 100 ml @ 25 mls/hr UNSCH PRN IV 09/12/16 08:00 09/18/16 09:19 Potassium Chloride 100 ml @ 50 mls/hr Q2H PRN IV 09/12/16 08:00 (Magnesium Sulfate Inj/NS Inj) 100 ml @ 50 mls/hr UNSCH PRN IV 09/12/16 08:00 Magnesium Oxide 800 mg 800 mg UNSCH PRN PO 09/12/16 08:00 (Magnesium Sulfate Inj/NS Inj) 100 ml @ 50 mls/hr UNSCH PRN IV 09/12/16 08:00 Potassium Phosphate 2000 mg 2,000 mg Q4H PRN PO 09/12/16 08:00 (Sodium Phosphate Inj/NS 250 ml Inj) 250 ml @ 42 mls/hr UNSCH PRN IV 09/12/16 08:00 Potassium Phosphate 2000 mg 2,000 mg UNSCH PRN PO/TUBE 09/12/16 07:51 (Potassium Phosphate Inj/NS 250 ml Inj) 260 ml @ 42 mls/hr UNSCH PRN IV 09/12/16 07:51 (Norvasc) 10 mg DAILY PO 09/14/16 09:00 09/18/16 09:15 (Apresoline) 100 mg Q8H PO 09/13/16 12:00 09/18/16 12:01 (Apresoline Inj) 20 mg Q2H PRN IV PUSH 09/13/16 19:15 09/18/16 05:10 (Trandate) 200 mg Q8HR PO 09/13/16 19:11 Hold 09/15/16 15:30 Labetalol HCl 20 mg 20 mg Q4H PRN IV PUSH 09/15/16 00:45 (Keppra Inj/NS Inj) 105 ml @ 420 mls/hr Q12H IV 09/16/16 15:00 09/18/16 03:50 Assessment and Plan Problem List: (1) Asystole Status: Acute Plan: No new episode observed since BB DC No need for pacer for now Continue with current management. I will be available on a PRN basis Peterson Mendoza MD Sep 18, 2016 15:15
[2016-09-18] MEDS: POTASSIUM CHLOR 20 MEQ PREMIX 100 ML IV PRN (23:46)
[2016-09-18] MEDS: RESP: ALBUTEROL 2.5 MG/IPRATROPIUM 0.5 MG NEB (PRN) NEB (23:59)
[2016-09-19] VITALS (12 sets, daily range): BP systolic 131–196; BP diastolic 62–84; PULSE 60–101; RESP 19–25; TEMP 97.8–98.9; O2SAT 96–98
[2016-09-19] MEDS: levETIRAcetam INJ 500 MG in SODIUM CHLORIDE 0.9% INJ 100 ML IV SCH ×2 (04:06→15:27)
[2016-09-19] MEDS: hydrALAZINE HCL 100 MG TAB PO SCH ×3 (04:06→21:07)
[2016-09-19] MEDS: POTASSIUM CHLOR 20 MEQ PREMIX 100 ML IV PRN (04:18)
[2016-09-19] MEDS: INSULIN ASPART SUPPLEMENTAL SCALE SQ SCH ×4 (05:00→23:00)
[2016-09-19 05:24] LABS: BICARBONATE 24.6 MEQ/L (21.0-32.0); POTASSIUM 4.2 MEQ/L (3.5-5.1)
[2016-09-19 05:38] LABS: HEMATOCRIT 28.1 % (35.0-46.0); MEAN CELL VOLUME 89.5 FL (80.0-100.0); MEAN CORPUSCULAR HEMOGLOBIN 30.6 PG (27.0-34.0); MEAN CORPUSCULAR HGB CONC 34.2 % (32.0-36.0); PLATELET COUNT 297 TH/MM3 (150-450); RED BLOOD COUNT 3.15 MIL/MM3 (4.00-5.30); RED CELL DISTRIBUTION WIDTH 14.7 % (11.6-17.2); REVIEW FLAG FINAL; WHITE BLOOD COUNT 11.6 TH/MM3 (4.0-11.0)
[2016-09-19] MEDS: VALPROIC ACID SYRUP 250 MG/5 ML UDC NG SCH ×3 (08:42→23:31)
[2016-09-19] MEDS: BUDESONIDE-FORMOTEROL 160/4.5 MCG INHALER INH SCH ×2 (08:43→23:31)
[2016-09-19] MEDS: SODIUM CHLORIDE 0.9% FLUSH 10 ML FLUSH IV FLUSH SCH ×2 (08:43→21:00)
[2016-09-19] MEDS: PANTOPRAZOLE SODIUM 40 MG VIAL IVP SCH (08:43)
[2016-09-19] MEDS: DOCUSATE SODIUM 100 MG CAP PO SCH ×2 (08:43→21:07)
--- NOTE | 2016-09-19 09:00 | HHI.CCPN ---
Subjective Remarks/Hospital Course Hospital Course: 76 y/o woman 1 day following left craniotomy and resection of temporal lobe tumor. Generalized seizure this morning at 0530 which ceased after ativan 1 mg iv. Initially very somnolent and concern about her ability to protect her airway. She is more alert now and will perform left hand grasp to command.No snoring or obstruction. No subsequent seizures. She has a history of seizures and has undergone several previous craniotomies for tumors. She takes tegretol and depakote chronically. In addition, she was loaded with cerebyx 1000 mg at 1600 yesterday and dilantin level is subsequesntly 7.9. Subjective: 09/13: mental status improved. remains hypertensive on nicardipine infusion. MELY resolving. no complaints. 09/14: mental status continues to improve. bp better. off cardene. mely improved. no complaints. 09/15: Called to bedside at 1115 PM for respiratory distress. On my evaluation patient has significant inspiratory stridor. Also difficulty clearing oral secretions which uptake. Chest x-ray is unremarkable. Stat racemic epinephrine 2 given, and Decadron 8 mg IV 1. Scheduled Decadron and when necessary racemic epi ordered. Reevaluation in one hour shows some improvement in inspiratory stridor, still unable to clear secretions. I have ordered removal of NG tube. We'll continue racemic epi. If there is no significant improvement in the next 2-3 hours patient may need endotracheal intubation 09/16: multiple episodes of sinus pauses and sinus bradycardia overnight. phenytoin held. mental status stable, still somnolent but arousable. 09/17: Bradycardia episodes improved after beta blockers stopped. No seizures overnight. 09/18: Heart rate acceptable now. 09/19: Stable hemodynamics. To floor with telemetry. Objective Vital Signs Date Time Temp Pulse Resp B/P Pulse Ox O2 Delivery O2 Flow Rate FiO2 09/19/16 08:00 60 09/19/16 04:00 98.9 19 157/70 98 09/18/16 08:58 21 09/15/16 19:00 Room Air Intake and Output 09/18/16 09/18/16 09/19/16 08:00 16:00 00:00 Intake Total 179 ml 242 ml 503 ml Balance 179 ml 242 ml 503 ml Result Diagram: 09/19/16 0455 09/19/16 0455 Objective Remarks Head: Wrapped in dry dressing. Neck: Airway widely patent. Lungs: improved upper airway sounds, no wheezes or crackles. Heart: NL S1S2, no m,r.No JVD. sinus bradycardia Abdomen: Soft, no guarding, non-distended Extremities: Warm, well perfused. Swelling and discoloration left great toe. Neuro: Awake and spontaneously open, Pupils 2 mm, react to light. Squeezes left hand to command. Withdraws both feet to stimulation. Positive gag reflex. A/P Assessment and Plan Assessment: 76yF s/p left temporal crani for meningioma and s/p igor-op seizures , mental status improving. however, now with sinus pauses, sinus bradycardia Assessment: Inspiratory stridor- improved. Respiratory insufficiency- improved. Seizures, resolved. history of seizures Encephalopathy. s/p left craniotomy and temporal lobe tumor resection. Hypertensive Urgency- resolved. Sinus pause, sinus bradycardia Plan: - cardiology consult for the bradycardia, unclear etiology, could be the anti- epileptics, or possibly new hydrocephalus, although unlikely given area of surgery. - repeat head CT - hold valproate, consult neurology to see if there are alternatives with less cardiac activity. - Keep nothing by mouth except meds - Ativan prn sustained seizures. - SCDs. - Defer to neurosurgery restarting of DVT prophylaxis. - Use Cardene if needed. Use PRN hydralazine. Overall impression: Stable hemodynamics. Respiratory status acceptable. Manny Keys MD Sep 19, 2016 09:00
[2016-09-19] MEDS: RESP: ALBUTEROL 2.5 MG/IPRATROPIUM 0.5 MG NEB (PRN) NEB (09:01)
--- NOTE | 2016-09-19 11:14 | MB ---
cc: CHANEL ENCARNACION M.D. DATE OF CONSULTATION 09/17/2016 REASON FOR CONSULTATION Severe pause and bradycardia at 13 beats per minute, pause over six to eight seconds. Mrs. Ledesma is a 76 year-old female status post meningioma resection, seizure, bradycardia. There was some pause about 8-10 seconds. The patient previously seen by Dr. Arauz. I was consulted for further evaluation and management. The chart was reviewed. The patient was evaluated. Most of the information obtained from the medical record and talking to the nurse. ALLERGIES CODEINE, LIPITOR AND NSAID's. SOCIAL HISTORY Negative for smoking and drinking. FAMILY HISTORY Noncontributory to her current medical condition. MEDICATIONS Currently the patient is on: 1. Keppra 500 mg 2. magnesium 3. Potassium 4. Amlodipine 10 mg daily 5. Tegretol 200 mg twice a day 6. Colace 100 mg twice a day 7. Apresoline 100 mg q8h 8. Labetalol 200 mg q8h 9. Magnesium sulfa 10. Protonix 11. IV potassium 12. Valproic acid 500 mg q8h via NG tube REVIEW OF SYSTEMS The patient refers no dizziness. PHYSICAL EXAMINATION GENERAL: Alert with breaking in speech with an NG tube. LUNGS: Ventilated. CARDIOVASCULAR: S1, S2 regular. HEAD: The left parietal area is shaved. ABDOMEN: Soft. No mass, no bruit. EXTREMITIES: No edema. Electrocardiogram indicated sinus talisha. No acute ST and T-wave changes. LABS Hemoglobin 9.4, white blood cells 9.0. Potassium 3.3, creatinine 1.03. ASSESSMENT AND RECOMMENDATION Mrs. Ledesma is stable. She was on multiple medications. She was on beta blockers. She is on Depakote. She is on Tegretol. Altogether can lead to severe bradycardia and pauses. At this point, my recommendation is DC beta aminata. Observe the patient. We could establish anti-seizure medication. If despite beta aminata she is still having pauses and symptomatic, then permanent pacemaker will be considered. The case discussed with the patient. I will follow the patient in the morning. MD KAMRAN Hernandez/KENROY /3:08 PM /10:59 AM
--- NOTE | 2016-09-19 17:05 | HHI.NSPN ---
(Tyrell Shaw) History Chief Complaint: Frustration with not being able to express herself. (Tyrell Shaw) Interval History 76-year-old female with history of multiple recurrent meningiomas. 09/11/2016: Left craniotomy for recurrent left temporal and left frontoparietal convexity meningiomas. 09/12/16: Positive seizure. Cerebyx started in addition to patient's usual Depakote and Tegretol 09/13/16: following commands, nonverbal. bp elevated, currently on max dose of Cardene 09/14/16: no seizures overnight, bp improved off cardene. remains aphasic but follows commands. f/u CT Head this am completed 09/15: The patient is awake & alert when seen this morning. She is breathing through her mouth with audible adventitious sounds. She is not in any distress. Nursing reports that she did move the toes of both feet to command. 09/16: This afternoon the patient is awake and alert. She attempts to ask a question but is unable to find the words to express her question. She does become slightly flustered by this. Nursing and the Cleaning Crew Member report that the patient has been having pauses on her EKG. A CT brain, EEG and Neurology consult were ordered by the Cleaning Crew Member. The CT brain was w/o any new or significant change. The EEG was done this afternoon when the patient was first seen and her evaluation was deferred until this time. 09/17: The patient is awake and alert when seen this afternoon. She had difficulty but was finally able to say that the feeding tube was bothering her. She was evaluated by Cardiology yesterday who felt that her pauses/bradycardia was medication induced with a vagal component. Neurology also evaluated her and made adjustments/recommendations to the patients antiepileptic medications. The EEG demonstrated some continuous left hemisphere slowing with associated frequent sharp/epileptiform discharge which were almost rhythmic but not a definitive ictal pattern and remained focal throughout. 09/18: This morning the patient is awake and alert. It is evident she is frustrated when attempting to ask something and then says "Never mind." Physical Therapy was at the bedside to evaluate the patient. 09/19: The patient is awake and alert this afternoon when seen. She readily interacts and works at saying she sat up in the chair, but was unable to find the word chair. Her sister reports she was up for from about 10 AM to 4 PM. She still has enteral feeds through the feeding tube but has been started on thickened liquids. (Tyrell Shaw) System Review Comments ROS difficulty to obtain due to patient's expressive aphasia but she did deny any headache, dizziness, numbness, chest pain, shortness of breath, abdominal pain, nausea or extremity pain. (Tyrell Shaw) Exam Results Vital Signs Date Time Temp Pulse Resp B/P Pulse Ox O2 Delivery O2 Flow Rate FiO2 09/19/16 16:00 98.2 88 24 150/67 98 09/18/16 08:58 21 09/15/16 19:00 Room Air Intake and Output 09/18/16 09/18/16 09/19/16 08:00 16:00 00:00 Intake Total 179 ml 242 ml 503 ml Balance 179 ml 242 ml 503 ml (Tyrell Shaw) Physical Examination General: Awake & alert, readily interacts, no apparent distress, evident frustration at times with trying to find a word due to her expressive aphasia. Skin: Warm, dry & intact except for left craniotomy surgical incision which is well approximated w/musa & MARTINA drain insertion site, no evident drainage, erythema or streaking noted at either. HEENT: Normocephalic, atraumatic except for left craniotomy surgical incision & MARTINA drain insertion site. PERRLA. Tongue midline to protrusion. Left nare feeding tube. She is still having trouble handling her secretions. Neck: No JVD, trachea midline. Respiratory: Slightly coarse breath sounds bilaterally with scattered wheeze, equal excursion, nonlaboured but slightly fast respiratory rate, with cough, on RA. Cardiovascular: S1S2 w/RRR w/o M/G/R, cap refill < 2 sec, radial & pedal pulses 2+ bilaterally, cap refill < 2 sec, pedal edema 1+ bilaterally. Monitor is sinus rhythm w/o any ectopy or pauses noted. Gastrointestinal: Abdomen soft, nontender, positive bowel sounds, left nare feeding tube with enteral feeds. Musculoskeletal: Spontaneously moves all extremities to varying degree. Neuro: Awake & alert, expressive aphasia, follows commands, GCS 14 (E4 V4 M6). The patient has difficulty finding some words but is able to complete some thoughts and verbally express them appropriately. PERRLA, 3 mm brisk, symmetrical smile, tongue midline to protrusion. Motor strength LUE 4+ to 5/5, LLE 4+ to 5/5, RUE 4 to 4+/5 except hand squeeze 3 /5, RLE 4+ to 5/5. (Tyrell Shaw) Lab, Micro, Other Results Allergies Coded Allergies Type Severity Reaction Last Updated Verified Codeine Allergy Severe 09/09/16 Yes Lipitor Allergy Severe MUSCLE WEAKNESS 09/09/16 Yes Uncoded Allergies Type Severity Reaction Last Updated Verified NSAIDS Allergy Unknown 03/09/12 / 06:00 18:00 06:00 18:00 06:00 18:00 Intake Total 335 ml 90 ml 355 ml 242 ml 503 ml 1402 ml Output Total 10 ml Balance 335 ml 90 ml 355 ml 242 ml 503 ml 1392 ml Intake Oral 0 ml 0 ml 50 ml 50 ml IV Total 335 ml 90 ml 355 ml 192 ml 184 ml 688 ml Tube Feeding 319 ml 639 ml Tube Irrigant 25 ml Stool Total 10 ml # Voids 3 3 5 4 4 8 # Bowel Movements 0 0 1 1 3 1 Laboratory Tests Test 09/17/16 09/18/16 09/18/16 09/19/16 03:52 04:42 21:17 04:55 White Blood Count 9.0 TH/MM3 9.1 TH/MM3 11.6 TH/MM3 Red Blood Count 3.15 MIL/MM3 3.31 MIL/MM3 3.15 MIL/MM3 Hemoglobin 9.4 GM/DL 10.2 GM/DL 9.6 GM/DL Hematocrit 28.5 % 29.5 % 28.1 % Mean Corpuscular Volume 90.4 FL 89.2 FL 89.5 FL Mean Corpuscular Hemoglobin 29.9 PG 30.8 PG 30.6 PG Mean Corpuscular Hemoglobin 33.1 % 34.5 % 34.2 % Concent Red Cell Distribution Width 14.9 % 14.8 % 14.7 % Platelet Count 287 TH/MM3 273 TH/MM3 297 TH/MM3 Mean Platelet Volume 9.1 FL 9.6 FL 9.2 FL Sodium Level 138 MEQ/L 140 MEQ/L 140 MEQ/L Potassium Level 3.7 MEQ/L 3.3 MEQ/L 3.5 MEQ/L 4.2 MEQ/L Chloride Level 104 MEQ/L 105 MEQ/L 107 MEQ/L Carbon Dioxide Level 24.9 MEQ/L 24.6 MEQ/L 24.6 MEQ/L Anion Gap 9 MEQ/L 10 MEQ/L 8 MEQ/L Blood Urea Nitrogen 23 MG/DL 20 MG/DL 19 MG/DL Creatinine 1.03 MG/DL 1.03 MG/DL 1.12 MG/DL Estimat Glomerular Filtration 52 ML/MIN 52 ML/MIN 47 ML/MIN Rate Random Glucose 102 MG/DL 77 MG/DL 123 MG/DL Calcium Level 8.6 MG/DL 8.4 MG/DL 8.0 MG/DL Vital Signs Date Time Temp Pulse Resp B/P Pulse Ox O2 Delivery O2 Flow Rate FiO2 09/19/16 16:00 98.2 88 24 150/67 98 09/19/16 16:00 67 09/19/16 14:00 85 09/19/16 12:00 72 09/19/16 12:00 98.2 72 25 131/62 97 09/19/16 10:00 75 09/19/16 08:00 60 09/19/16 08:00 98.0 74 22 163/70 96 09/19/16 06:00 78 09/19/16 04:00 98.9 66 19 157/70 98 09/19/16 04:00 78 09/19/16 02:00 78 09/19/16 00:00 78 09/19/16 00:00 98.6 66 25 144/65 97 09/18/16 22:00 78 09/18/16 20:00 98.3 80 22 141/66 97 09/18/16 20:00 82 09/18/16 18:00 106 09/18/16 16:00 98.4 68 24 164/74 98 09/18/16 16:00 78 09/18/16 14:00 66 09/18/16 12:00 68 09/18/16 12:00 98.0 68 24 172/77 96 09/18/16 10:00 60 8/10/17 08:58 98 21 09/18/16 08:00 98.1 56 18 173/73 96 09/18/16 08:00 65 09/18/16 06:00 70 09/18/16 04:00 68 09/18/16 04:00 98.4 68 18 188/86 98 09/18/16 02:00 56 09/18/16 01:09 95 09/18/16 00:00 97.6 60 14 129/60 95 09/18/16 00:00 60 09/17/16 22:00 60 09/17/16 20:00 98.5 68 24 170/75 95 09/17/16 20:00 55 09/17/16 18:00 70 09/17/16 16:00 98.1 64 30 167/74 96 09/17/16 16:00 100 09/17/16 14:00 80 09/17/16 13:00 98.1 62 22 143/66 97 09/17/16 12:00 67 09/17/16 10:00 69 09/17/16 08:00 98.0 68 16 110/64 100 09/17/16 08:00 68 09/17/16 07:34 98 21 09/17/16 06:00 56 09/17/16 04:00 98.4 68 18 144/66 97 09/17/16 04:00 68 09/17/16 02:00 60 09/17/16 00:00 97.9 81 21 143/63 97 09/17/16 00:00 66 09/16/16 22:00 56 09/16/16 20:00 97.8 72 24 204/81 96 09/16/16 18:00 54 (Tyrell Shaw) Medical Decision Making Impression and Plan Impression: (1) 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 1. Postoperative craniotomy resection of recurrent meningioma 2 on 09/11/16. 2. Positive postoperative seizure 3. Possible left frontoparietal region ischemia versus postoperative edema on CT scan head 09/12/16 MRI brain [facility] (pre-op) demonstrated left parafalcine mass which had increased in size and a left extra-axial lateral dural mass. CT brain demonstrated expected postoperative changes s/p tumor resection w/o evidence of midline shift, some residual gas & hyperdensity at resection sites, no acute finding to the right supratentorial brain. CT brain demonstrated slight increase in subdural blood along the falx near the vertex. CT brain demonstrated expected postoperative changes. CT brain stable exam compared to w/o new or significant changes. EEG demonstrated some continuous left hemisphere slowing with associated frequent sharp/epileptiform discharge which were almost rhythmic but not a definitive ictal pattern and remained focal throughout. Mild leukocytosis (11.6) Patient is doing well and her neurological exam is stable, appears to have slight improvement in weakness, expressive aphasia persists but improved. POD #8 () s/p: 1. Left frontotemporoparietal craniotomy, resection of recurrent left frontal parietal neoplasm and 2. Resection of recurrent left temporal neoplasm 3. Left frontotemporoparietal duraplasty Plan: Critical care management per Cleaning Crew Member. Frequent neuro checks. Antiepileptic drugs per Neurology. Non-chemical DVT prophylaxis. Ulcer prophylaxis. Mobilise patient w/assistance. PT eval & tx. ST eval & tx. Okay for Lovenox. (Tyrell Shaw) Attending Statement I have personally seen and examined the patient on the date of this note. Pertinent documentation and study results have been reviewed by the undersigned. I have personally developed the treatment plan and performed medical decision making. Agree with findings, exam, and treatment plan as noted above. Patient remains awake and alert on my examination today Still a significant expressive speech deficit. Quite a bit of coughing but seems to be able to clear her secretions. She has a suction at bedside for her to use. Right upper and lower extremity strength, mostly 4/5 Speech therapy notes reviewed. She is doing better with her speech and sentence completion. Also seems to be improving with swallowing capability despite persistent cough, now advanced to. Diet with honey thickened liquids. Continuing physical and speech therapy. The benefit from inpatient rehabilitation Stable for floor with telemetry from neurosurgery standpoint (Michele Galeano MD ) Tyrell Shaw Sep 19, 2016 17:05 Michele Galeano MD Sep 19, 2016 20:14
[2016-09-19] MEDS: ENOXAPARIN SODIUM 30 MG/0.3 ML SYRINGE SQ SCH (21:08)
[2016-09-20] VITALS (8 sets, daily range): BP systolic 134–174; BP diastolic 70–80; PULSE 80–100; RESP 20–28; TEMP 97.7–99.8; O2SAT 93–96
[2016-09-20] MEDS: hydrALAZINE HCL 100 MG TAB PO SCH ×3 (03:00→21:18)
[2016-09-20] MEDS: levETIRAcetam INJ 500 MG in SODIUM CHLORIDE 0.9% INJ 100 ML IV SCH ×2 (03:01→15:35)
[2016-09-20 04:34] LABS: MEAN CELL VOLUME 91.6 FL (80.0-100.0); MEAN CORPUSCULAR HEMOGLOBIN 30.1 PG (27.0-34.0); MEAN CORPUSCULAR HGB CONC 32.8 % (32.0-36.0); PLATELET COUNT 301 TH/MM3 (150-450); RED BLOOD COUNT 2.95 MIL/MM3 (4.00-5.30); RED CELL DISTRIBUTION WIDTH 15.3 % (11.6-17.2); REVIEW FLAG FINAL; WHITE BLOOD COUNT 11.3 TH/MM3 (4.0-11.0)
[2016-09-20] MEDS: INSULIN ASPART SUPPLEMENTAL SCALE SQ SCH ×4 (05:00→23:00)
[2016-09-20 05:03] LABS: BICARBONATE 24.7 MEQ/L (21.0-32.0); POTASSIUM 3.9 MEQ/L (3.5-5.1)
[2016-09-20] MEDS: VALPROIC ACID SYRUP 250 MG/5 ML UDC NG SCH ×3 (09:30→23:29)
[2016-09-20] MEDS: ENOXAPARIN SODIUM 30 MG/0.3 ML SYRINGE SQ SCH ×2 (09:31→21:17)
[2016-09-20] MEDS: DOCUSATE SODIUM 100 MG CAP PO SCH ×2 (09:31→21:17)
[2016-09-20] MEDS: PANTOPRAZOLE SODIUM 40 MG VIAL IVP SCH (09:31)
[2016-09-20] MEDS: BUDESONIDE-FORMOTEROL 160/4.5 MCG INHALER INH SCH ×2 (09:31→21:18)
[2016-09-20] MEDS: SODIUM CHLORIDE 0.9% FLUSH 10 ML FLUSH IV FLUSH SCH ×2 (09:31→21:21)
--- NOTE | 2016-09-20 13:12 | HHI.PR ---
Subjective Remarks Patient reports she is feeling okay. Reports the nasogastric feeding tube is uncomfortable. Not eating much. Pain is controlled. Still has a productive cough, she is using the suction at bedside. Objective Vitals Vital Signs Date Time Temp Pulse Resp B/P Pulse Ox O2 Delivery O2 Flow Rate FiO2 09/20/16 12:00 99.8 84 28 151/70 95 09/20/16 08:00 98.3 89 28 134/80 96 09/20/16 06:05 96 09/20/16 04:00 98.2 86 20 163/72 96 09/20/16 00:00 98.2 98 20 172/78 96 09/19/16 21:07 79 09/19/16 20:00 98.7 101 20 175/76 96 09/19/16 18:15 97.8 88 22 196/84 96 09/19/16 16:00 98.2 88 24 150/67 98 09/19/16 16:00 67 09/19/16 14:00 85 I/O 09/19/16 09/19/16 09/19/16 09/20/16 09/20/16 09/20/16 07:00 15:00 23:00 07:00 15:00 23:00 Intake Total 1000 ml 402 ml Output Total 10 ml 0 ml Balance 990 ml 402 ml 0 ml Intake Oral 50 ml IV Total 616 ml 72 ml Tube Feeding 384 ml 255 ml Tube Irrigant 25 ml Stool Total 10 ml Tube Feeding Residual Discard 0 ml # Voids 5 3 # Bowel Movements 1 Result Diagram: 09/20/16 0412 09/20/16 0412 Imaging Last Impressions Head CT 09/16/16 0000 Signed Impressions: Service Date/Time: Friday, September 16, 2016 12:04 - CONCLUSION: Stable followup CT scan of the brain compared to the prior examination. No new or significant changes. Hilario Vargas MD Abdomen X-Ray 09/15/16 1320 Signed Impressions: Service Date/Time: Thursday, September 15, 2016 13:33 - CONCLUSION: Tip of Dobbhoff catheter is in either the antrum or the duodenal bulb. Antoni Acevedo MD Chest X-Ray 09/14/16 0000 Signed Impressions: Service Date/Time: Wednesday, September 14, 2016 23:21 - CONCLUSION: No acute disease. Jose A. Brian, MD Brain MRI 09/11/16 0717 Signed Impressions: Service Date/Time: September 08:13 - CONCLUSION: 1. 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 This mass has increased in size from the prior study. 2. There is a second extra-axial lateral dural based mass on the left measuring 2.0 x 1.6 cm. Minh Bell MD Objective Remarks GENERAL: Patient is status post craniotomy. In no acute distress.. CARDIOVASCULAR: Normal rate and regular rhythm without murmurs, gallops, or rubs. RESPIRATORY: Some upper airway transmission sound. Good respiratory efforts. Breath sounds equal and clear to auscultation bilaterally. GASTROINTESTINAL: Abdomen soft, non-tender, non-distended. Normal active bowel sounds MUSCULOSKELETAL: Extremities without cyanosis, or edema. NEURO: Alert & Oriented x4 to person, place, time, situation. Moves all ext x4 PSYCH: Appropriate mood and affect. A/P Assessment and Plan 76-year-old female status post left temporal craniotomy for meningioma. Patient had perioperative seizures. Some episodes of sinus pauses and bradycardia. She is clinically improving status post ICU course. s/p left craniotomy and temporal lobe tumor resection. Seizures, resolved. history of seizures -Patient is currently on Keppra and valproic acid. Tegretol discontinued. No new seizure activities. Neurosurgery following. Ativan as needed. - Patient has some expressive aphasia. Speech therapy following. Diet advanced. If she starts eating more, consider discontinuing the Dobbhoff. Advance diet per speech as tolerated. Sinus bradycardia and pause: Patient seen by cardiology. Likely related to medication side effect. Her beta blockers discontinued. Anti-seizure medications being adjusted. Rate is now normal. Continue to monitor on telemetry. Hypertension: Continue amlodipine COPD: Continue Symbicort and breathing treatments. Supplemental oxygen as needed. GI prophylaxis: Stool softener PRN constipation. DVT PPx: Lovenox Discharge Planning DC planning per neurosurgery/primary. Sayra Linda MD Sep 20, 2016 13:12
--- NOTE | 2016-09-20 15:20 | HHI.NSPN ---
History Chief Complaint: Frustration with not being able to express herself. Interval History 76-year-old female with history of multiple recurrent meningiomas. 09/11/2016: Left craniotomy for recurrent left temporal and left frontoparietal convexity meningiomas. 09/12/16: Positive seizure. Cerebyx started in addition to patient's usual Depakote and Tegretol Exam Results Vital Signs Date Time Temp Pulse Resp B/P Pulse Ox O2 Delivery O2 Flow Rate FiO2 09/20/16 14:06 90 09/20/16 12:00 99.8 28 151/70 95 09/18/16 08:58 21 Intake and Output 09/19/16 09/19/16 09/20/16 08:00 16:00 00:00 Intake Total 1000 ml 402 ml Output Total 10 ml 0 ml Balance 990 ml 402 ml 0 ml Physical Examination General: Awake & alert, readily interacts, no apparent distress, evident frustration at times with trying to find a word due to her expressive aphasia. Skin: Warm, dry & intact except for left craniotomy surgical incision which is well approximated w/musa & MARTINA drain insertion site, no evident drainage, erythema or streaking noted at either. HEENT: Normocephalic, atraumatic except for left craniotomy surgical incision & MARTINA drain insertion site. PERRLA. Tongue midline to protrusion. Left nare feeding tube. She is still having trouble handling her secretions. Neck: No JVD, trachea midline. Respiratory: Slightly coarse breath sounds bilaterally . Continued frequent cough with at least moderate increased secretions. No significant wheezing Cardiovascular: S1S2 w/RRR w/o M/G/R, cap refill < 2 sec, radial & pedal pulses 2+ bilaterally, cap refill < 2 sec, pedal edema 1+ bilaterally. Monitor is sinus rhythm w/o any ectopy or pauses noted. Gastrointestinal: Abdomen soft, nontender, positive bowel sounds, left nare feeding tube with enteral feeds. Musculoskeletal: Spontaneously moves all extremities to varying degree. Neuro: Awake & alert, expressive aphasia, follows commands, GCS 14 (E4 V4 M6). The patient has difficulty finding some words but is able to complete some thoughts and verbally express them appropriately. PERRLA, 3 mm brisk, symmetrical smile, tongue midline to protrusion. Motor strength LUE 4+ to 5/5, LLE 4+ to 5/5, RUE 4 to 4+/5 except hand squeeze 3 /5, RLE 4+ to 5/5. Lab, Micro, Other Results Laboratory Tests Test 09/20/16 04:12 White Blood Count 11.3 TH/MM3 Red Blood Count 2.95 MIL/MM3 Hemoglobin 8.9 GM/DL Hematocrit 27.0 % Mean Corpuscular Volume 91.6 FL Mean Corpuscular Hemoglobin 30.1 PG Mean Corpuscular Hemoglobin 32.8 % Concent Red Cell Distribution Width 15.3 % Platelet Count 301 TH/MM3 Mean Platelet Volume 8.2 FL Sodium Level 141 MEQ/L Potassium Level 3.9 MEQ/L Chloride Level 106 MEQ/L Carbon Dioxide Level 24.7 MEQ/L Anion Gap 10 MEQ/L Blood Urea Nitrogen 20 MG/DL Creatinine 1.07 MG/DL Estimat Glomerular Filtration 50 ML/MIN Rate Random Glucose 124 MG/DL Calcium Level 8.1 MG/DL Medical Decision Making Impression and Plan Impression: 1. Postoperative craniotomy resection of recurrent meningioma 2 on 09/11/16. 2. Positive postoperative seizure 3. Possible left frontoparietal region ischemia versus postoperative edema on CT scan head 09/12/16 Plan: Findings were discussed with the patient and her family. Add Levsin for increased fixation. Continue frequent suctioning as needed. Continue speech therapy. She may have a tracheoesophageal injury contributing to her speech deficit. May need to have ENT evaluate next week if swallowing deficit persists. Continuing tube feedings Continuing antiepileptic medications. On Lovenox for DVT prophylaxis Michele Galeano MD Sep 20, 2016 15:20
[2016-09-20] MEDS: HYOSCYAMINE 0.125 MG TAB PO PRN ×2 (16:54→21:17)
[2016-09-21] VITALS (9 sets, daily range): BP systolic 133–188; BP diastolic 61–90; PULSE 68–97; RESP 20–28; TEMP 98.1–98.9; O2SAT 94–97
[2016-09-21] MEDS: RESP: ALBUTEROL 2.5 MG/IPRATROPIUM 0.5 MG NEB (PRN) NEB ×2 (01:23→17:01)
[2016-09-21] MEDS: hydrALAZINE HCL 100 MG TAB PO SCH ×3 (04:25→22:49)
[2016-09-21] MEDS: levETIRAcetam INJ 500 MG in SODIUM CHLORIDE 0.9% INJ 100 ML IV SCH ×2 (04:26→15:53)
[2016-09-21] MEDS: INSULIN ASPART SUPPLEMENTAL SCALE SQ SCH ×4 (04:27→22:50)
[2016-09-21] MEDS: HYOSCYAMINE 0.125 MG TAB PO PRN ×2 (05:46→15:52)
[2016-09-21] MEDS: VALPROIC ACID SYRUP 250 MG/5 ML UDC NG SCH ×2 (08:50→16:44)
[2016-09-21] MEDS: ENOXAPARIN SODIUM 30 MG/0.3 ML SYRINGE SQ SCH ×2 (08:50→22:50)
[2016-09-21] MEDS: SODIUM CHLORIDE 0.9% FLUSH 10 ML FLUSH IV FLUSH SCH ×2 (08:51→22:50)
[2016-09-21] MEDS: DOCUSATE SODIUM 100 MG CAP PO SCH ×2 (08:51→21:00)
[2016-09-21] MEDS: PANTOPRAZOLE SODIUM 40 MG VIAL IVP SCH (08:51)
[2016-09-21] MEDS: BUDESONIDE-FORMOTEROL 160/4.5 MCG INHALER INH SCH ×2 (08:54→22:51)
[2016-09-21 09:09] LABS: HEMATOCRIT 25.1 % (35.0-46.0); MEAN CELL VOLUME 91.4 FL (80.0-100.0); MEAN CORPUSCULAR HEMOGLOBIN 30.4 PG (27.0-34.0); MEAN CORPUSCULAR HGB CONC 33.2 % (32.0-36.0); PLATELET COUNT 244 TH/MM3 (150-450); RED BLOOD COUNT 2.74 MIL/MM3 (4.00-5.30); RED CELL DISTRIBUTION WIDTH 14.9 % (11.6-17.2); REVIEW FLAG FINAL
[2016-09-21 09:25] LABS: BICARBONATE 28.2 MEQ/L (21.0-32.0); POTASSIUM 3.8 MEQ/L (3.5-5.1)
--- NOTE | 2016-09-21 11:18 | HHI.PR ---
Subjective Remarks No acute events overnight. Hypertensive to 188/90. Denies headache or pain. Continues to have chronic productive cough and aphasia. States her by mouth intake is poor. Request Dobbhoff tube be removed. Objective Vitals Vital Signs Date Time Temp Pulse Resp B/P Pulse Ox O2 Delivery O2 Flow Rate FiO2 09/21/16 08:00 98.1 81 28 159/67 96 09/21/16 05:30 98.9 84 22 188/90 96 09/21/16 01:23 95 09/21/16 00:15 98.1 80 21 146/80 96 09/20/16 21:30 97.7 80 21 174/73 95 09/20/16 16:00 98.6 100 24 159/77 93 09/20/16 14:06 90 09/20/16 12:00 99.8 84 28 151/70 95 I/O 09/20/16 09/20/16 09/20/16 09/21/16 09/21/16 09/21/16 06:59 14:59 22:59 06:59 14:59 22:59 Intake Total 440 ml 205 ml 577 ml Balance 440 ml 205 ml 577 ml Intake Oral 0 ml 0 ml IV Total 111 ml Tube Feeding 400 ml 150 ml 466 ml Tube Irrigant 40 ml 55 ml # Voids 1 2 # Bowel Movements 2 0 1 Result Diagram: 09/21/1671609/21/16716 Objective Remarks GENERAL: Patient is status post craniotomy. In no acute distress.. CARDIOVASCULAR: Normal rate and regular rhythm without murmurs, gallops, or rubs. RESPIRATORY: Some upper airway transmission sound. Good respiratory efforts. Breath sounds equal and clear to auscultation bilaterally. GASTROINTESTINAL: Abdomen soft, non-tender, non-distended. Normal active bowel sounds MUSCULOSKELETAL: Extremities without cyanosis, or edema. NEURO: Alert & Oriented x4 to person, place, time, situation. Moves all ext x4 PSYCH: Appropriate mood and affect. A/P Assessment and Plan 76-year-old female status post left temporal craniotomy for meningioma. Patient had perioperative seizures. Some episodes of sinus pauses and bradycardia. She is clinically improving status post ICU course. s/p left craniotomy and temporal lobe tumor resection. Seizures, resolved. history of seizures -Patient is currently on Keppra and valproic acid. Tegretol discontinued. No new seizure activities. Neurosurgery following. - Ativan as needed. - Patient has some expressive aphasia. Speech therapy following. Diet advanced. - If she starts eating more, consider discontinuing the Dobbhoff. Advance diet per speech as tolerated. Swallowing deficit - May need ENT evaluation, per neurosurgery if deficit persists - Poor by mouth intake, continue Dobbhoff at this time Sinus bradycardia and pause: Patient seen by cardiology. Likely related to medication side effect. Her beta blockers discontinued. Anti-seizure medications being adjusted. Rate is now normal. Continue to monitor on telemetry. Hypertension: Continue amlodipine. BP is labile. If remains persistently hypertensive may need to add second agent. COPD: Continue Symbicort and breathing treatments. Supplemental oxygen as needed. GI prophylaxis: Stool softener PRN constipation. DVT PPx: Lovenox Discharge Planning DC planning per neurosurgery Josephine Calvillo MD R3 Sep 21, 2016 11:18
--- NOTE | 2016-09-21 13:06 | HHI.NSPN ---
(Tyrell Shaw) History Chief Complaint: No complaints. (Tyrell Shaw) Interval History 76-year-old female with history of multiple recurrent meningiomas. 09/11/2016: Left craniotomy for recurrent left temporal and left frontoparietal convexity meningiomas. 09/12/16: Positive seizure. Cerebyx started in addition to patient's usual Depakote and Tegretol 09/13/16: following commands, nonverbal. bp elevated, currently on max dose of Cardene 09/14/16: no seizures overnight, bp improved off cardene. remains aphasic but follows commands. f/u CT Head this am completed 09/15: The patient is awake & alert when seen this morning. She is breathing through her mouth with audible adventitious sounds. She is not in any distress. Nursing reports that she did move the toes of both feet to command. 09/16: This afternoon the patient is awake and alert. She attempts to ask a question but is unable to find the words to express her question. She does become slightly flustered by this. Nursing and the Marketing Information Analyst report that the patient has been having pauses on her EKG. A CT brain, EEG and Neurology consult were ordered by the Marketing Information Analyst. The CT brain was w/o any new or significant change. The EEG was done this afternoon when the patient was first seen and her evaluation was deferred until this time. 09/17: The patient is awake and alert when seen this afternoon. She had difficulty but was finally able to say that the feeding tube was bothering her. She was evaluated by Cardiology yesterday who felt that her pauses/bradycardia was medication induced with a vagal component. Neurology also evaluated her and made adjustments/recommendations to the patients antiepileptic medications. The EEG demonstrated some continuous left hemisphere slowing with associated frequent sharp/epileptiform discharge which were almost rhythmic but not a definitive ictal pattern and remained focal throughout. 09/18: This morning the patient is awake and alert. It is evident she is frustrated when attempting to ask something and then says "Never mind." Physical Therapy was at the bedside to evaluate the patient. 8/11: The patient is awake and alert this afternoon when seen. She readily interacts and works at saying she sat up in the chair, but was unable to find the word chair. Her sister reports she was up for from about 10 AM to 4 PM. She still has enteral feeds through the feeding tube but has been started on thickened liquids. 09/21: This morning when seen the patient was doing well. She had no complaints. She was noted to have the gown off and a towel over her chest and was able to state that she was getting ready to be cleaned up. (Tyrell Shaw) System Review Comments ROS difficulty to obtain due to patient's expressive aphasia but she did deny any headache, dizziness, numbness, chest pain, shortness of breath, abdominal pain, nausea or extremity pain. (Tyrell Shaw) Exam Results Vital Signs Date Time Temp Pulse Resp B/P Pulse Ox O2 Delivery O2 Flow Rate FiO2 09/21/16 12:00 98.8 86 26 171/74 94 09/18/16 08:58 21 Intake and Output 09/20/16 09/20/16 09/20/16 07:59 15:59 23:59 Intake Total 50 ml 465 ml 130 ml Balance 50 ml 465 ml 130 ml (Tyrell Shaw) Physical Examination General: Awake & alert, readily interacts, no apparent distress, some frustration at times with trying to find a word due to her expressive aphasia. Skin: Warm, dry & intact except for left craniotomy surgical incision which is well approximated w/musa & MARTINA drain insertion site, no evident drainage, erythema or streaking noted at either. HEENT: Normocephalic, atraumatic except for left craniotomy surgical incision & MARTINA drain insertion site. PERRLA. Tongue midline to protrusion. Left nare feeding tube. She is still having trouble handling her secretions. Neck: No JVD, trachea midline. Respiratory: Slightly coarse breath sounds bilaterally . Continued frequent cough with at least moderate increased secretions. No significant wheezing Cardiovascular: S1S2 w/RRR w/o M/G/R, cap refill < 2 sec, radial & pedal pulses 2+ bilaterally, cap refill < 2 sec, pedal edema 1+ bilaterally. Gastrointestinal: Abdomen soft, nontender, positive bowel sounds, left nare feeding tube clamped. Musculoskeletal: Spontaneously moves all extremities to varying degree. Neuro: Awake & alert, expressive aphasia, follows commands, GCS 14 (E4 V4 M6). The patient has difficulty finding some words but is able to complete some thoughts and verbally express them appropriately. She calls a pen a pencil and is able to state it is for writing. PERRLA, 3 mm brisk, symmetrical smile, tongue midline to protrusion. Motor strength LUE 4+ to 5/5, LLE 4+ to 5/5, RUE 4 to 4+/5 except hand squeeze 3 /5, RLE 4+ to 5/5. (Tyrell Shaw) Lab, Micro, Other Results Allergies Coded Allergies Type Severity Reaction Last Updated Verified Codeine Allergy Severe 09/09/16 Yes Lipitor Allergy Severe MUSCLE WEAKNESS 09/09/16 Yes Uncoded Allergies Type Severity Reaction Last Updated Verified NSAIDS Allergy Unknown 03/09/12 / 05:59 17:59 05:59 17:59 05:59 17:59 Intake Total 503 ml 1402 ml 645 ml 577 ml Output Total 10 ml 0 ml Balance 503 ml 1392 ml 0 ml 645 ml 577 ml Intake Oral 50 ml 0 ml IV Total 184 ml 688 ml 111 ml Tube Feeding 319 ml 639 ml 550 ml 466 ml Tube Irrigant 25 ml 95 ml Stool Total 10 ml Tube Feeding Residual Discard 0 ml # Voids 4 8 3 # Bowel Movements 3 1 2 1 Laboratory Tests Test 09/18/16 09/19/16 09/20/16 09/21/16 21:17 04:55 04:12 07:17 Potassium Level 3.5 MEQ/L 4.2 MEQ/L 3.9 MEQ/L 3.8 MEQ/L White Blood Count 11.6 TH/MM3 11.3 TH/MM3 9.0 TH/MM3 Red Blood Count 3.15 MIL/MM3 2.95 MIL/MM3 2.74 MIL/MM3 Hemoglobin 9.6 GM/DL 8.9 GM/DL 8.3 GM/DL Hematocrit 28.1 % 27.0 % 25.1 % Mean Corpuscular Volume 89.5 FL 91.6 FL 91.4 FL Mean Corpuscular Hemoglobin 30.6 PG 30.1 PG 30.4 PG Mean Corpuscular Hemoglobin 34.2 % 32.8 % 33.2 % Concent Red Cell Distribution Width 14.7 % 15.3 % 14.9 % Platelet Count 297 TH/MM3 301 TH/MM3 244 TH/MM3 Mean Platelet Volume 9.2 FL 8.2 FL 8.5 FL Sodium Level 140 MEQ/L 141 MEQ/L 142 MEQ/L Chloride Level 107 MEQ/L 106 MEQ/L 106 MEQ/L Carbon Dioxide Level 24.6 MEQ/L 24.7 MEQ/L 28.2 MEQ/L Anion Gap 8 MEQ/L 10 MEQ/L 8 MEQ/L Blood Urea Nitrogen 19 MG/DL 20 MG/DL 22 MG/DL Creatinine 1.12 MG/DL 1.07 MG/DL 0.93 MG/DL Estimat Glomerular Filtration 47 ML/MIN 50 ML/MIN 59 ML/MIN Rate Random Glucose 123 MG/DL 124 MG/DL 115 MG/DL Calcium Level 8.0 MG/DL 8.1 MG/DL 7.6 MG/DL Vital Signs Date Time Temp Pulse Resp B/P Pulse Ox O2 Delivery O2 Flow Rate FiO2 09/21/16 12:00 98.8 86 26 171/74 94 09/21/16 08:00 98.1 81 28 159/67 96 09/21/16 05:30 98.9 84 22 188/90 96 09/21/16 01:23 95 09/21/16 00:15 98.1 80 21 146/80 96 09/20/16 21:30 97.7 80 21 174/73 95 09/20/16 16:00 98.6 100 24 159/77 93 09/20/16 14:06 90 09/20/16 12:00 99.8 84 28 151/70 95 09/20/16 08:00 98.3 89 28 134/80 96 09/20/16 06:05 96 09/20/16 04:00 98.2 86 20 163/72 96 09/20/16 00:00 98.2 98 20 172/78 96 09/19/16 21:07 79 09/19/16 20:00 98.7 101 20 175/76 96 09/19/16 18:15 97.8 88 22 196/84 96 09/19/16 16:00 98.2 88 24 150/67 98 09/19/16 16:00 67 09/19/16 14:00 85 09/19/16 12:00 72 09/19/16 12:00 98.2 72 25 131/62 97 09/19/16 10:00 75 09/19/16 08:00 60 09/19/16 08:00 98.0 74 22 163/70 96 09/19/16 06:00 78 09/19/16 04:00 98.9 66 19 157/70 98 09/19/16 04:00 78 09/19/16 02:00 78 09/19/16 00:00 78 09/19/16 00:00 98.6 66 25 144/65 97 09/18/16 22:00 78 09/18/16 20:00 98.3 80 22 141/66 97 09/18/16 20:00 82 09/18/16 18:00 106 09/18/16 16:00 98.4 68 24 164/74 98 09/18/16 16:00 78 09/18/16 14:00 66 (Tyrell Shaw) Medical Decision Making Impression and Plan Impression: (1) 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 1. Postoperative craniotomy resection of recurrent meningioma 2 on 09/11/16. 2. Positive postoperative seizure 3. Possible left frontoparietal region ischemia versus postoperative edema on CT scan head 09/12/16 [facility] (pre[facility] demonstrated left parafalcine mass which had increased in size and a left extra-axial lateral dural mass. CT brain demonstrated expected postoperative changes s/p tumor resection w/o evidence of midline shift, some residual gas & hyperdensity at resection sites, no acute finding to the right supratentorial brain. CT brain demonstrated slight increase in subdural blood along the falx near the vertex. CT brain demonstrated expected postoperative changes. CT brain stable exam compared to w/o new or significant changes. EEG demonstrated some continuous left hemisphere slowing with associated frequent sharp/epileptiform discharge which were almost rhythmic but not a definitive ictal pattern and remained focal throughout. Leukocytosis resolved. Slow downward drift in haemoglobin level. Patient continues to do well and exhibits slowly improving neurological function. POD #10 () s/p: 1. Left frontotemporoparietal craniotomy, resection of recurrent left frontal parietal neoplasm and 2. Resection of recurrent left temporal neoplasm 3. Left frontotemporoparietal duraplasty Plan: Continue neuro checks. Antiepileptic drugs per Neurology. Non-chemical DVT prophylaxis. Ulcer prophylaxis. Mobilise patient w/assistance. PT eval & tx. ST eval & tx. Okay for Lovenox. CBC in AM. D/C musa to craniotomy incision. Consider ENT for persistent difficulty w/throat. (Tyrell Shaw) Attending Statement I have personally seen and examined the patient on the date of this note. Pertinent documentation and study results have been reviewed by the undersigned. I have personally developed the treatment plan and performed medical decision making. Agree with findings, exam, and treatment plan as noted above. Patient continues to be awake and alert. She is able to name objects relatively well today. Still moderate expressive speech deficit. Incision is healing well without significant erythema, edema or tenderness. Motor function on the right upper and lower extremity is nearly back to normal. Continues to have significant difficulty with swallowing and managing upper airway secretions, although seems somewhat better today on Levsin. Question whether she has a tracheoesophageal injury, given that her motor function otherwise is intact and the swallowing deficit would be rather unusual as a result of cerebral injury in this situation. May need ENT evaluation. Continuing speech therapy. (Michele Galeano MD) Tyrell Shaw Sep 21, 2016 13:06 Michele Galeano MD Sep 21, 2016 13:22
[2016-09-21] MEDS: MORPHINE SULFATE 4 MG/ML INJ IV PRN (18:33)
[2016-09-22] VITALS (7 sets, daily range): BP systolic 128–145; BP diastolic 62–76; PULSE 83–98; RESP 16–21; TEMP 97–99.3; O2SAT 94–98
[2016-09-22] MEDS: VALPROIC ACID SYRUP 250 MG/5 ML UDC NG SCH ×3 (00:26→16:40)
[2016-09-22] MEDS: RESP: ALBUTEROL 2.5 MG/IPRATROPIUM 0.5 MG NEB (PRN) NEB ×3 (00:28→15:39)
[2016-09-22] MEDS: INSULIN ASPART SUPPLEMENTAL SCALE SQ SCH ×4 (05:00→22:45)
[2016-09-22] MEDS: levETIRAcetam INJ 500 MG in SODIUM CHLORIDE 0.9% INJ 100 ML IV SCH ×2 (05:14→15:19)
[2016-09-22] MEDS: hydrALAZINE HCL 100 MG TAB PO SCH ×3 (05:16→20:39)
[2016-09-22] MEDS: BUDESONIDE-FORMOTEROL 160/4.5 MCG INHALER INH SCH ×2 (08:11→20:36)
[2016-09-22] MEDS: PANTOPRAZOLE SODIUM 40 MG VIAL IVP SCH (08:11)
[2016-09-22] MEDS: DOCUSATE SODIUM 100 MG CAP PO SCH ×2 (08:11→20:38)
[2016-09-22] MEDS: ENOXAPARIN SODIUM 30 MG/0.3 ML SYRINGE SQ SCH ×2 (08:11→20:38)
[2016-09-22] MEDS: SODIUM CHLORIDE 0.9% FLUSH 10 ML FLUSH IV FLUSH SCH ×2 (08:11→20:37)
--- NOTE | 2016-09-22 09:16 | HHI.PR ---
Subjective Remarks Still has Dobbhoff tube in place Having lots of coughing while in the room Denies any pain or shortness of breath Objective Vitals Vital Signs Date Time Temp Pulse Resp B/P Pulse Ox O2 Delivery O2 Flow Rate FiO2 09/22/16 05:15 97.0 89 20 128/62 96 09/22/16 00:30 97.7 89 21 135/65 96 09/21/16 23:00 92 09/21/16 20:30 98.9 96 20 133/63 97 09/21/16 16:00 98.7 97 26 141/61 96 09/21/16 14:42 68 09/21/16 12:00 98.8 86 26 171/74 94 I/O 09/21/16 09/21/16 09/21/16 09/22/16 09/22/16 09/22/16 07:00 15:00 23:00 07:00 15:00 23:00 Intake Total 577 ml 440 ml 738 ml 0 ml 1060 ml Balance 577 ml 440 ml 738 ml 0 ml 1060 ml Intake Oral 0 ml 240 ml 0 ml 0 ml IV Total 111 ml 100 ml 100 ml Tube Feeding 466 ml 538 ml 660 ml Other 200 ml 100 ml 300 ml # Voids 2 1 1 2 # Bowel Movements 0 2 0 0 Result Diagram: [id number]/21/1671609/21/16716 Imaging Last Impressions Head CT 09/16/16 0000 Signed Impressions: Service Date/Time: Friday, September 16, 2016 12:04 - CONCLUSION: Stable followup CT scan of the brain compared to the prior examination. No new or significant changes. Hilario Vargas MD Abdomen X-Ray 09/15/16 1320 Signed Impressions: Service Date/Time: Thursday, September 15, 2016 13:33 - CONCLUSION: Tip of Dobbhoff catheter is in either the antrum or the duodenal bulb. Antoni Acevedo MD Chest X-Ray 09/14/16 0000 Signed Impressions: Service Date/Time: Wednesday, September 14, 2016 23:21 - CONCLUSION: No acute disease. Jose Torres MD Brain MRI 09/11/16 0717 Signed Impressions: Service Date/Time: September 08:13 - CONCLUSION: 1. 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 This mass has increased in size from the prior study. 2. There is a second extra-axial lateral dural based mass on the left measuring 2.0 x 1.6 cm. Minh Bell MD Objective Remarks GENERAL: As Dobbhoff tube in place is aphasic to some degree SKIN: Warm and dry. HEAD: Atraumatic. Normocephalic. EYES: Pupils equal and round. No scleral icterus. No injection or drainage. extraocular muscles intact ENT: No nasal bleeding or discharge. Mucous membranes pink and moist. Has Dobbhoff tube in place tongue protrudes midline NECK: Trachea midline. No JVD. CARDIOVASCULAR: Regular rate and rhythm. S1-S2 no S3 or S4 no heave or thrill or rub or gallop RESPIRATORY: No accessory muscle use. Breath sounds equal bilaterally. Few scattered rhonchi and coarse GASTROINTESTINAL: Abdomen soft, non-tender, nondistended. Hepatic and splenic margins not palpable. MUSCULOSKELETAL: Extremities without clubbing, cyanosis, or edema. No obvious deformities. NEUROLOGICAL: Awake and alert. Aphasic.No obvious cranial nerve deficits. Motor grossly within normal limits. Five out of 5 muscle strength in the arms and legs. Aphasic speech. PSYCHIATRIC: Appropriate mood and affect; insight and judgment normal. Hard to assess completely due to aphasia Procedures 76-year-old female with history of multiple recurrent meningiomas. 09/11/2016: Left craniotomy for recurrent left temporal and left frontoparietal convexity meningiomas. Medications and IVs Current Medications Lactated Ringer's 1,000 ml @ 0 mls/hr Q24H IV Last administered on 09/11/16 06 :30; Start 09/11/16 at 06:30; Stop 09/11/16 at 15:38; Status DC Cefazolin Sodium 1000 mg/Sodium Chloride 100 ml @ 200 mls/hr [employer]IST IV Last administered on 09/11/16 08:55; Start 09/11/16 at 06:30; Stop 09/14/16 at 06:29; Status DC Lactated Ringer's 1,000 ml @ 30 mls/hr Q24H PRN IV SEE LABEL COMMENTS; Start at 06:30; Stop 09/14/16 at 06:29; Status DC Sodium Chloride (NS 500 ml Inj) 500 ml @ 30 mls/hr [id number] PRN IV SEE LABEL COMMENTS; Start 09/11/16 at 06:30; Stop 09/14/16 at 06:29; Status DC Metoprolol Tartrate (Lopressor) 25 mg [employer] SCI[employer]IST PRN PO SEE LABEL COMMENTS; Start 09/11/16 at 06:30; Stop 09/14/16 at 06:29; Status DC Povidone Iodine (Betadine 5% Antisepsis Kit) 1 applic [employer] SCI[employer]IST PRN EACH NARE SEE LABEL COMMENTS Last administered on 09/11/16 06:30; Start 09/11/16 at 06:30; Stop 09/14/16 at 06:29; Status DC Chlorhexidine Gluconate (Chlorhexidine 2% Cloth) 3 pack [employer] SCI[employer]IST PRN TOPICAL SEE LABEL COMMENTS Last administered on 09/11/16 06:20; Start 09/11/16 at 06:30; Stop 09/14/16 at 06:29; Status DC Insulin Human Regular (NovoLIN R INJ) See Protocol Table ... WE[employer] SCIENTIST PRN SQ SEE PROTOCOL TABLE; Start 09/11/16 at 06:30; Stop 09/14/16 at 06:29; Status DC Thrombin (Thrombin Top Soln) 10,000 units STK-MED ONCE .ROUTE Last administered on 09/11/16 10:47; Start 09/11/16 at 07:23; Stop 09/11/16 at 07:24; Status DC Gelatin (Gelfoam 100 Top) 1 foam STK-MED ONCE .ROUTE ; Start 09/11/16 at 07:23; Stop 09/11/16 at 07:24; Status DC Gentamicin Sulfate (Gentamicin Inj) 240 mg STK-MED ONCE .ROUTE Last administered on 09/11/16 10:47; Start 09/11/16 at 07:23; Stop 09/11/16 at 07:24; Status DC Lidocaine/ Epinephrine (Xylocaine-Epi 1%-1:100,000 Inj) 40 ml STK-MED ONCE .ROUTE Last administered on 09/11/16 10:47; Start 09/11/16 at 07:23; Stop at 07:24; Status DC Furosemide (Lasix Inj) 40 mg STK-MED ONCE .ROUTE ; Start 09/11/16 at 07:31; Stop 09/11/16 at 07:32; Status DC Albumin Human 12.5 gm 12.5 gm STK-MED ONCE IV ; Start 09/11/16 at 07:32; Stop 09/11/16 at 07:33; Status DC Nitroglycerin/ Dextrose 250 ml @ As Directed STK-MED ONCE .ROUTE ; Start at 07:32; Stop 09/11/16 at 07:33; Status DC Mannitol (Mannitol Inj) 50 ml @ As Directed STK-MED ONCE .ROUTE ; Start 09/11/16 at 07:32; Stop 09/11/16 at 07:33; Status DC Gadodiamide (Omniscan Pf Inj) 14 ml STK-MED ONCE IV Last administered on 08:35; Start 09/11/16 at 08:35; Stop 09/11/16 at 08:36; Status DC Albuterol Sulfate (Albuterol Concentrated Neb) 2.5 mg STK-MED ONCE .ROUTE ; Start 09/11/16 at 09:03; Stop 09/11/16 at 09:04; Status DC Gelatin (Gelfoam 100 Top) 1 foam STK-MED ONCE .ROUTE Last administered on 10:47; Start 09/11/16 at 09:14; Stop 09/11/16 at 09:15; Status DC Thrombin (Thrombin Top Soln) 10,000 units STK-MED ONCE .ROUTE Last administered on 09/11/16 11:10; Start 09/11/16 at 11:09; Stop 09/11/16 at 11:10; Status DC Gelatin (Gelfoam 100 Top) 1 foam STK-MED ONCE .ROUTE Last administered on 11:10; Start 09/11/16 at 11:09; Stop 09/11/16 at 11:10; Status DC Thrombin (Thrombin Top Soln) 10,000 units STK-MED ONCE .ROUTE Last administered on 09/11/16 12:26; Start 09/11/16 at 12:24; Stop 09/11/16 at 12:25; Status DC Cefazolin Sodium (Ancef Inj) 1,000 mg STK-MED ONCE IV Last administered on 13:00; Start 09/11/16 at 13:00; Stop 09/11/16 at 13:13; Status DC Albuterol Sulfate (*ALBUTEROL NEB PERIprocedure ONLY) 2.5 mg STK-MED ONCE NEB Last administered on 09/11/16 14:57; Start 09/11/16 at 14:57; Stop 09/11/16 at 14: 58; Status DC Labetalol HCl (*TRANDATE INJ PERIprocedural Use ONLY) 100 mg STK-MED ONCE .ROUTE Last administered on 09/11/16 14:59; Start 09/11/16 at 14:59; Stop at 15:00; Status DC Nicardipine HCl (Cardene Inj) 25 mg STK-MED ONCE .ROUTE Last administered on 15:15; Start 09/11/16 at 15:07; Stop 09/11/16 at 15:08; Status DC Fentanyl Citrate (fentaNYL INJ) 250 mcg STK-MED ONCE .ROUTE ; Start 09/11/16 at 15:13; Stop 09/11/16 at 15:14; Status DC Morphine Sulfate (Morphine Inj) 4 mg STK-MED ONCE .ROUTE ; Start 09/11/16 at 15: 13; Stop 09/11/16 at 15:14; Status DC Sodium Chloride (NS Flush) 2 ml UNSCH PRN IV FLUSH FLUSH AFTER USING IV ACCESS ; Start 09/11/16 at 15:15 Sodium Chloride (NS Flush) 2 ml BID IV FLUSH Last administered on 09/22/16 08: 11; Start 09/11/16 at 21:00 Bisacodyl (Dulcolax Supp) 10 mg DAILY PRN RECTAL CONSTIPATION Last administered on 09/16/16 05:23; Start 09/11/16 at 15:15 Docusate Sodium (Colace) 100 mg BID PO Last administered on 09/20/16 21:17; Start 09/11/16 at 21:00 Pantoprazole Sodium (Protonix Inj) 40 mg DAILY IVP Last administered on 08:11; Start 09/12/16 at 09:00 Ondansetron HCl (Zofran Inj) 4 mg Q6H PRN IV NAUSEA OR VOMITING; Start 09/11/16 at 15:15 Morphine Sulfate (Morphine Inj) 2 mg Q2H PRN IV PAIN SCALE 1 TO 6 Last administered on 09/14/16 03:00; Start 09/11/16 at 15:15 Morphine Sulfate (Morphine Inj) 4 mg Q2H PRN IV PAIN SCALE 7 TO 10 Last administered on 09/21/16 18:33; Start 09/11/16 at 15:15 Labetalol HCl 10 mg 10 mg Q1H PRN IV SYS BP GREATER THAN 150 MMHG Last administered on 09/13/16 03:00; Start 09/11/16 at 15:15; Stop 09/13/16 at 11:16; Status DC Nicardipine HCl/ Sodium Chloride (Cardene Inj/NS 250 ml Inj) 260 ml @ 0 mls/hr TITRATE IV Last administered on 09/13/16 12:17; Start 09/11/16 at 15:15; Stop at 09:21; Status DC Amlodipine Besylate (Norvasc) 5 mg DAILY PO Last administered on 09/13/16 08:45 ; Start 09/12/16 at 09:00; Stop 09/13/16 at 11:16; Status DC Carbamazepine (TEGretol) 200 mg BID PO ; Start 09/11/16 at 21:00; Stop 09/12/16 at 06:36; Status DC Carvedilol (Coreg) 25 mg BID PO Last administered on 09/15/16 10:33; Start 09/11 at 21:00; Stop 09/16/16 at 07:20; Status DC Divalproex Sodium (Depakote Dr) 500 mg TID PO ; Start 09/11/16 at 18:00; Stop 09/12/16 at 06:34; Status DC Albuterol/ Ipratropium (Duoneb Neb) 1 ampule Q8HR NEB INH Last administered on 09/15/16 14:48; Start 09/11/16 at 16:00; Stop 09/15/16 at 16:00; Status DC Nitrofurantoin Macrocrystals (Macrobid) 100 mg BID PO Last administered on 10:33; Start 09/11/16 at 21:00; Stop 09/15/16 at 22:33; Status DC Non-Formulary Medication 1 puff 1 puff BID INH ; Start 09/11/16 at 21:00; Status UNV Dextrose/Sodium Chloride (D5W-NS 1000 ml Inj) 1,000 ml @ 100 mls/hr Q10H IV Last administered on 09/13/16 08:47; Start 09/11/16 at 16:00; Stop 09/13/16 at 11: 19; Status DC Lorazepam (Ativan Inj) 2 mg STK-MED ONCE .ROUTE ; Start 09/11/16 at 15:39; Stop 09/11/16 at 15:40; Status DC Lorazepam 1 mg 1 mg Q6H PRN IV SEIZURES Last administered on 09/12/16 23:55; Start 09/11/16 at 15:45 Fosphenytoin Sodium/Sodium Chloride (Cerebyx Inj/NS Inj) 70 ml @ 280 mls/hr ONCE ONCE IV Last administered on 09/11/16 16:59; Start 09/11/16 at 16:00; Stop 09/11/16 at 16:14; Status DC Fosphenytoin Sodium (Cerebyx Inj) 100 mgpe Q8HR IV Last administered on 21:54; Start 09/11/16 at 22:00; Status Hold Budesonide/ Formoterol Fumarate (Symbicort 160-4.5 Inh) 2 puff BID INH Last administered on 09/22/16 08:11; Start 09/11/16 at 21:00 Miscellaneous Information ALL NURSING DEPARTME... UNSCH PRN .XX SEE LABEL COMMENTS; Start 09/11/16 at 16:15; Stop 09/12/16 at 16:29; Status DC Nicardipine HCl 25 mg 25 mg STK-MED ONCE .ROUTE ; Start 09/11/16 at 22:47; Stop 09/11/16 at 22:48; Status DC Sodium Chloride (NS 250 ml Inj) 250 ml @ As Directed STK-MED ONCE .ROUTE ; Start 09/11/16 at 22:47; Stop 09/11/16 at 22:48; Status DC Valproic Acid (Depakene Liq) 500 mg Q8H NG ; Start 09/12/16 at 06:34; Stop at 06:35; Status DC Valproic Acid (Depakene Liq) 500 mg Q8H NG Last administered on 09/22/16 08:10 ; Start 09/12/16 at 08:00 Carbamazepine (TEGretol LIQ) 200 mg BID NG ; Start 09/12/16 at 09:00; Stop at 09:00; Status DC Carbamazepine (TEGretol LIQ) 200 mg BID NG Last administered on 09/15/16 21:51 ; Start 09/12/16 at 09:00; Status Hold Fosphenytoin Sodium (Cerebyx Inj) 200 mgpe ONCE ONCE IV Last administered on 11:17; Start 09/12/16 at 08:00; Stop 09/12/16 at 08:03; Status DC Dextrose (D50w (Vial) Inj) 50 ml UNSCH PRN IV HYPOGLYCEMIA-SEE COMMENTS; Start 09/12/16 at 08:00 Glucagon (Glucagon Inj) 1 mg UNSCH PRN OTHER HYPOGLYCEMIA-SEE COMMENTS; Start 09/12/16 at 08:00 Insulin Aspart 1 1 Q6H SQ Last administered on 09/14/16 23:07; Start 09/12/16 at 11:00 Potassium Chloride 100 ml @ 50 mls/hr Q2H PRN IV For Potassium 2.8 - 3.2 mEq/L ; Start 09/12/16 at 08:00; Stop 09/20/16 at 07:24; Status DC Potassium Chloride (KCl 20 Meq Premix Inj) 100 ml @ 50 mls/hr Q2H PRN IV For Potassium 2.8 - 3.2 mEq/L; Start 09/12/16 at 08:00; Stop 09/20/16 at 07:24; Status DC Potassium Bicarb/ Potassium Chloride 50 meq 50 meq UNSCH PRN PO For Potassium 3.3 - 3.5 mEq/L Last administered on 09/13/16 08:46; Start 09/12/16 at 08:00; Stop 09/20/16 at 07:24; Status DC Potassium Chloride 100 ml @ 25 mls/hr UNSCH PRN IV For Potassium 3.3 - 3.5 mEq /L Last administered on 09/18/16 09:19; Start 09/12/16 at 08:00; Stop 09/20/16 at 07:24; Status DC Potassium Chloride 100 ml @ 50 mls/hr Q2H PRN IV For Potassium 3.3 - 3.5 mEq/ L Last administered on 09/19/16t 04:18; Start 09/12/16 at 08:00; Stop 09/20/16 at 07:24; Status DC Magnesium Sulfate/ Sodium Chloride (Magnesium Sulfate Inj/NS Inj) 100 ml @ 50 mls/hr UNSCH PRN IV For Magnesium 0.9 - 1.1 mg/dL; Start 09/12/16 at 08:00; Stop 09/20/16 at 07:24; Status DC Magnesium Oxide 800 mg 800 mg UNSCH PRN PO For Magnesium 1.2 - 1.6 mg/dL; Start 09/12/16 at 08:00; Stop 09/20/16 at 07:24; Status DC Magnesium Sulfate/ Sodium Chloride (Magnesium Sulfate Inj/NS Inj) 100 ml @ 50 mls/hr UNSCH PRN IV For Magnesium 1.2 - 1.6 mg/dL; Start 09/12/16 at 08:00; Stop 09/20/16 at 07:23; Status DC Potassium Phosphate 2000 mg 2,000 mg Q4H PRN PO For Phosphorus < 2.5 mg/dL; Start 09/12/16 at 08:00; Stop 09/20/16 at 07:24; Status DC Sodium Phosphate/ Sodium Chloride (Sodium Phosphate Inj/NS 250 ml Inj) 250 ml @ 42 mls/hr UNSCH PRN IV For Phosphorus < 2.5 mg/dL; Start 09/12/16 at 08:00; Stop 09/20/16 at 07:24; Status DC Potassium Phosphate 2000 mg 2,000 mg UNSCH PRN PO/TUBE SEE LABEL COMMENTS; Start 09/12/16 at 07:51; Stop 09/20/16 at 07:24; Status DC Potassium Phosphate/Sodium Chloride (Potassium Phosphate Inj/NS 250 ml Inj) 260 ml @ 42 mls/hr UNSCH PRN IV SEE LABEL COMMENTS; Start 09/12/16 at 07:51; Stop 09/20/16 at 07:24; Status DC Fosphenytoin Sodium 500 mgpe 500 mgpe ONCE ONCE IV ; Start 09/12/16 at 20:45; Stop 09/12/16 at 20:46; Status UNV Fosphenytoin Sodium/Sodium Chloride (Cerebyx Inj/NS Inj) 60 ml @ 240 mls/hr ONCE ONCE IV Last administered on 09/13/16 00:29; Start 09/12/16 at 21:30; Stop 09/12/16 at 21:44; Status DC Amlodipine Besylate (Norvasc) 10 mg DAILY PO Last administered on 09/22/16 08: 11; Start 09/14/16 at 09:00 Labetalol HCl (Trandate Inj) 20 mg Q1H PRN IV SYS BP GREATER THAN 150 MMHG Last administered on 09/13/16 18:32; Start 09/13/16 at 12:15; Stop 09/14/16 at 09: 21; Status DC Amlodipine Besylate (Norvasc) 5 mg ONCE ONCE PO Last administered on 09/13/16 11:59; Start 09/13/16 at 11:15; Stop 09/13/16 at 11:43; Status DC Hydralazine HCl (Apresoline) 100 mg Q8H PO Last administered on 09/22/16 05:16 ; Start 09/13/16 at 12:00 Hydralazine HCl (Apresoline Inj) 20 mg Q2H PRN IV PUSH sbp > 150 Last administered on 09/18/16 18:00; Start 09/13/16 at 19:15 Labetalol HCl (Trandate) 200 mg Q8HR PO Last administered on 09/15/16 15:30; Start 09/13/16 at 19:11; Status Hold Dexamethasone Sodium Phosphate (Decadron Inj) 8 mg STK-MED ONCE .ROUTE Last administered on 09/14/16 23:20; Start 09/14/16 at 23:18; Stop 09/14/16 at 23:19; Status DC Racepinephrine (Racepinephrine 2.25% Neb) 0.5 ml STK-MED ONCE .ROUTE Last administered on 09/14/16 23:28; Start 09/14/16 at 23:19; Stop 09/14/16 at 23:20; Status DC Racepinephrine (Racepinephrine 2.25% Neb) 0.5 ml STK-MED ONCE .ROUTE ; Start 09/14/16 at 23:21; Stop 09/14/16 at 23:22; Status DC Racepinephrine (Racepinephrine 2.25% Neb) 0.5 ml STK-MED ONCE .ROUTE ; Start 09/14/16 at 23:22; Stop 09/14/16 at 23:23; Status DC Dexamethasone Sodium Phosphate (Decadron Inj) 8 mg STAT IV ; Start 09/14/16 at 23 :45; Stop 09/15/16 at 02:00; Status DC Racepinephrine (Racepinephrine 2.25% Neb) 0.5 ml UNSCH X1 NEB ; Start 09/14/16 at 23:45; Stop 09/15/16 at 02:00; Status DC Racepinephrine (Racepinephrine 2.25% Neb) 0.5 ml UNSCH X1 NEB ; Start 09/14/16 at 23:45; Stop 09/15/16 at 02:00; Status DC Dexamethasone Sodium Phosphate (Decadron Inj) 4 mg Q6HR IV PUSH Last administered on 09/16/16 23:33; Start 09/15/16 at 02:00; Stop 09/17/16 at 01:59; Status DC Racepinephrine (Racepinephrine 2.25% Neb) 0.5 ml Q2HR NEB PRN NEB stridor; Start 09/15/16 at 00:30 Labetalol HCl 20 mg 20 mg Q4H PRN IV PUSH SYS BP GREATER THAN 160 MMHG; Start 09/15/16 at 00:45 Levetriacetam/ Sodium Chloride (Keppra Inj/NS Inj) 105 ml @ 420 mls/hr Q12H IV Last administered on 09/22/16 05:14; Start 09/16/16 at 15:00 Albuterol/ Ipratropium (Duoneb Neb) 1 ampule Q8HR NEB PRN NEB WHEEZING Last administered on 09/22/16 00:28; Start 09/17/16 at 20:00 Sodium Bicarbonate (Sodium Bicarbonate 8.4% Inj) 50 meq STK-MED ONCE .ROUTE ; Start 09/18/16 at 08:17; Stop 09/18/16 at 08:18; Status DC Enoxaparin Sodium (Lovenox Inj) 30 mg Q12H SQ Last administered on 09/22/16 08 :11; Start 09/19/16 at 21:00 Hyoscyamine Sulfate (Levsin) 0.125 mg Q4H PRN PO SECRETIONS Last administered on 09/21/16 15:52; Start 09/20/16 at 15:15 Vascular Central Line Catheter: No A/P Problem List: (1) COPD exacerbation ICD Code: J44.1 Status: Acute (2) Urinary tract infection ICD Code: N39.0 Status: Acute (3) 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 Patient had perioperative seizures. Some episodes of sinus pauses and bradycardia. She is clinically improving status post ICU course. s/p left craniotomy and temporal lobe tumor resection. Seizures, resolved. history of seizures -Patient is currently on Keppra and valproic acid. Tegretol discontinued. No new seizure activities. Neurosurgery following. - Ativan as needed. - Patient has some expressive aphasia. Speech therapy following. Diet advanced. - If she starts eating more, consider discontinuing the Dobbhoff. Advance diet per speech as tolerated. Swallowing deficit - May need ENT evaluation, per neurosurgery if deficit persists - Poor by mouth intake, continue Dobbhoff at this time Sinus bradycardia and pause: Patient seen by cardiology. Likely related to medication side effect. Her beta blockers discontinued. Anti-seizure medications being adjusted. Rate is now normal. Continue to monitor on telemetry. Hypertension: Continue amlodipine. BP is labile. If remains persistently hypertensive may need to add second agent. COPD: Continue Symbicort and breathing treatments. Supplemental oxygen as needed. GI prophylaxis: Stool softener PRN constipation. DVT PPx: Lovenox Discharge Planning DC planning per neurosurgery Discharge Planning Will need SNF at discharge Yinka Walsh DO Sep 22, 2016 09:16
[2016-09-22 10:55] LABS: HEMATOCRIT 24.9 % (35.0-46.0); MEAN CELL VOLUME 90.9 FL (80.0-100.0); MEAN CORPUSCULAR HEMOGLOBIN 31.2 PG (27.0-34.0); MEAN CORPUSCULAR HGB CONC 34.3 % (32.0-36.0); PLATELET COUNT 248 TH/MM3 (150-450); RED BLOOD COUNT 2.74 MIL/MM3 (4.00-5.30); RED CELL DISTRIBUTION WIDTH 15.5 % (11.6-17.2); REVIEW FLAG FINAL; WHITE BLOOD COUNT 10.9 TH/MM3 (4.0-11.0)
--- NOTE | 2016-09-22 11:40 | HHI.NSPN ---
(Tyrell Shaw) History Chief Complaint: No complaints. (Tyrell Shaw) Interval History 76-year-old female with history of multiple recurrent meningiomas. 09/11/2016: Left craniotomy for recurrent left temporal and left frontoparietal convexity meningiomas. 09/12/16: Positive seizure. Cerebyx started in addition to patient's usual Depakote and Tegretol 09/13/16: following commands, nonverbal. bp elevated, currently on max dose of Cardene 09/14/16: no seizures overnight, bp improved off cardene. remains aphasic but follows commands. f/u CT Head this am completed 09/15: The patient is awake & alert when seen this morning. She is breathing through her mouth with audible adventitious sounds. She is not in any distress. Nursing reports that she did move the toes of both feet to command. 09/16: This afternoon the patient is awake and alert. She attempts to ask a question but is unable to find the words to express her question. She does become slightly flustered by this. Nursing and the Rental Car Deliverer report that the patient has been having pauses on her EKG. A CT brain, EEG and Neurology consult were ordered by the Rental Car Deliverer. The CT brain was w/o any new or significant change. The EEG was done this afternoon when the patient was first seen and her evaluation was deferred until this time. 09/17: The patient is awake and alert when seen this afternoon. She had difficulty but was finally able to say that the feeding tube was bothering her. She was evaluated by Cardiology yesterday who felt that her pauses/bradycardia was medication induced with a vagal component. Neurology also evaluated her and made adjustments/recommendations to the patients antiepileptic medications. The EEG demonstrated some continuous left hemisphere slowing with associated frequent sharp/epileptiform discharge which were almost rhythmic but not a definitive ictal pattern and remained focal throughout. 09/18: This morning the patient is awake and alert. It is evident she is frustrated when attempting to ask something and then says "Never mind." Physical Therapy was at the bedside to evaluate the patient. 8/11: The patient is awake and alert this afternoon when seen. She readily interacts and works at saying she sat up in the chair, but was unable to find the word chair. Her sister reports she was up for from about 10 AM to 4 PM. She still has enteral feeds through the feeding tube but has been started on thickened liquids. 09/21: This morning when seen the patient was doing well. She had no complaints. She was noted to have the gown off and a towel over her chest and was able to state that she was getting ready to be cleaned up. 09/22: The patient is watching TV this morning and was doing well. She voiced no complaints but does become frustrated as she tries to find the word she wants. (Tyrell Shaw) System Review Comments Constitutional: Patient denies any fever or chills. HEENT: Patient denies any visual or hearing problems. Neck: Patient denies any neck pain. Respiratory: Patient denies any shortness of breath or productive cough. Cardiovascular: Patient denies any chest pain, palpitations or irregular heartbeat. Gastrointestinal: Patient denies any abdominal pain, nausea, vomiting or incontinence of stool. Genitourinary: Patient denies any incontinence of urine. Musculoskeletal: Patient denies any pain or weakness to the extremities. Neurologic: Patient with difficulty talking. She denies any headache, dizziness , numbness or tingling. (Tyrell Shaw) Exam Results Vital Signs Date Time Temp Pulse Resp B/P Pulse Ox O2 Delivery O2 Flow Rate FiO2 09/22/16 08:00 99.2 91 16 134/68 98 09/18/16 08:58 21 Intake and Output 09/21/16 09/21/16 09/22/16 08:00 16:00 00:00 Intake Total 577 ml 440 ml 738 ml Balance 577 ml 440 ml 738 ml (Tyrell Shaw) Physical Examination General: Awake & alert, readily interacts, no apparent distress, frustration at times with trying to find a word due to her expressive aphasia. Skin: Warm, dry & intact except for left craniotomy surgical incision which is well approximated & MARTINA drain insertion site, no evident drainage, erythema or streaking noted at either. HEENT: Normocephalic, atraumatic except for left craniotomy surgical incision & MARTINA drain insertion site. PERRLA. Tongue midline to protrusion. Left nare feeding tube. Decreased secretions heard but still w/persistent cough. Neck: No JVD, trachea midline. Respiratory: Slightly coarse breath sounds bilaterally . Continued frequent cough with decreased secretions noted. Cardiovascular: S1S2 w/RRR w/o M/G/R, cap refill < 2 sec, radial & pedal pulses 2+ bilaterally, cap refill < 2 sec, pedal edema 1+ bilaterally. Gastrointestinal: Abdomen soft, nontender, positive bowel sounds, left nare feeding tube w/enteral feeds. Musculoskeletal: Spontaneously moves all extremities, no deformity or clubbing. Neuro: AAOx3, expressive aphasia, follows commands, GCS 14 (E4 V4 M6). The patient has difficulty finding some words but is able to complete some thoughts and verbally express them appropriately. PERRLA, 3 mm brisk, symmetrical smile, tongue midline to protrusion. Motor strength LUE 4+ to 5/5, LLE 4+ to 5/5, RUE 4 to 4+/5 except hand squeeze 3 +/5, RLE 4+ to 5/5. (Tyrell Shaw) Lab, Micro, Other Results Allergies Coded Allergies Type Severity Reaction Last Updated Verified Codeine Allergy Severe 09/09/16 Yes Lipitor Allergy Severe MUSCLE WEAKNESS 09/09/16 Yes Uncoded Allergies Type Severity Reaction Last Updated Verified NSAIDS Allergy Unknown 03/09/12 //// 06:00 18:00 06:00 18:00 06:00 18:00 Intake Total 645 ml 577 ml 1178 ml 0 ml 1060 ml Output Total 0 ml Balance 0 ml 645 ml 577 ml 1178 ml 0 ml 1060 ml Intake Oral 0 ml 240 ml 0 ml IV Total 111 ml 100 ml 100 ml Tube Feeding 550 ml 466 ml 538 ml 660 ml Tube Irrigant 95 ml Other 300 ml 300 ml Tube Feeding Residual Discard 0 ml # Voids 3 1 3 # Bowel Movements 2 2 0 Laboratory Tests Test 09/20/16 09/21/16 09/22/16 04:12 07:17 09:10 White Blood Count 11.3 TH/MM3 9.0 TH/MM3 10.9 TH/MM3 Red Blood Count 2.95 MIL/MM3 2.74 MIL/MM3 2.74 MIL/MM3 Hemoglobin 8.9 GM/DL 8.3 GM/DL 8.5 GM/DL Hematocrit 27.0 % 25.1 % 24.9 % Mean Corpuscular Volume 91.6 FL 91.4 FL 90.9 FL Mean Corpuscular Hemoglobin 30.1 PG 30.4 PG 31.2 PG Mean Corpuscular Hemoglobin 32.8 % 33.2 % 34.3 % Concent Red Cell Distribution Width 15.3 % 14.9 % 15.5 % Platelet Count 301 TH/MM3 244 TH/MM3 248 TH/MM3 Mean Platelet Volume 8.2 FL 8.5 FL 9.3 FL Sodium Level 141 MEQ/L 142 MEQ/L Potassium Level 3.9 MEQ/L 3.8 MEQ/L Chloride Level 106 MEQ/L 106 MEQ/L Carbon Dioxide Level 24.7 MEQ/L 28.2 MEQ/L Anion Gap 10 MEQ/L 8 MEQ/L Blood Urea Nitrogen 20 MG/DL 22 MG/DL Creatinine 1.07 MG/DL 0.93 MG/DL Estimat Glomerular Filtration 50 ML/MIN 59 ML/MIN Rate Random Glucose 124 MG/DL 115 MG/DL Calcium Level 8.1 MG/DL 7.6 MG/DL Vital Signs Date Time Temp Pulse Resp B/P Pulse Ox O2 Delivery O2 Flow Rate FiO2 09/22/16 08:00 99.2 91 16 134/68 98 09/22/16 05:15 97.0 89 20 128/62 96 09/22/16 00:30 97.7 89 21 135/65 96 09/21/16 23:00 92 09/21/16 20:30 98.9 96 20 133/63 97 09/21/16 16:00 98.7 97 26 141/61 96 09/21/16 14:42 68 09/21/16 12:00 98.8 86 26 171/74 94 09/21/16 08:00 98.1 81 28 159/67 96 09/21/16 05:30 98.9 84 22 188/90 96 09/21/16 01:23 95 09/21/16 00:15 98.1 80 21 146/80 96 09/20/16 21:30 97.7 80 21 174/73 95 09/20/16 16:00 98.6 100 24 159/77 93 09/20/16 14:06 90 09/20/16 12:00 99.8 84 28 151/70 95 09/20/16 08:00 98.3 89 28 134/80 96 09/20/16 06:05 96 09/20/16 04:00 98.2 86 20 163/72 96 09/20/16 00:00 98.2 98 20 172/78 96 09/19/16 21:07 79 09/19/16 20:00 98.7 101 20 175/76 96 09/19/16 18:15 97.8 88 22 196/84 96 09/19/16 16:00 98.2 88 24 150/67 98 09/19/16 16:00 67 09/19/16 14:00 85 09/19/16 12:00 72 09/19/16 12:00 98.2 72 25 131/62 97 (Tyrell Shaw) Medical Decision Making Impression and Plan Impression: (1) 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 1. Postoperative craniotomy resection of recurrent meningioma 2 on 09/11/16. 2. Positive postoperative seizure 3. Possible left frontoparietal region ischemia versus postoperative edema on CT scan head 09/12/16 MRI brain stealth (pre-op) demonstrated left parafalcine mass which had increased in size and a left extra-axial lateral dural mass. CT brain demonstrated expected postoperative changes s/p tumor resection w/o evidence of midline shift, some residual gas & hyperdensity at resection sites, no acute finding to the right supratentorial brain. CT brain demonstrated slight increase in subdural blood along the falx near the vertex. CT brain demonstrated expected postoperative changes. CT brain stable exam compared to w/o new or significant changes. EEG demonstrated some continuous left hemisphere slowing with associated frequent sharp/epileptiform discharge which were almost rhythmic but not a definitive ictal pattern and remained focal throughout. Leukocytosis resolved . Haemoglobin level stable this morning (8.3=>8.5). Patient continues to do well and exhibits slowly improving neurological function. POD #10 () s/p: 1. Left frontotemporoparietal craniotomy, resection of recurrent left frontal parietal neoplasm and 2. Resection of recurrent left temporal neoplasm 3. Left frontotemporoparietal duraplasty Plan: Discussed plan of care with patient. Discussed plan of care with Speech Therapy. Discussed plan of care with Case Management. Continue neuro checks. Antiepileptic drugs per Neurology. Non-chemical DVT prophylaxis. Ulcer prophylaxis. Mobilise patient w/assistance. PT eval & tx. ST eval & tx. Okay for Lovenox. Consider ENT for persistent difficulty w/throat. Modiefied barium swallow evaluation. (Tyrell Shaw) Attending Statement I have personally seen and examined the patient on the date of this note. Pertinent documentation and study results have been reviewed by the undersigned. I have personally developed the treatment plan and performed medical decision making. Agree with findings, exam, and treatment plan as noted above. Remains awake and alert. Right hemiparesis improving Continued moderately severe expressive speech deficit. Can name some objects correctly. Continue tube feedings Speech therapy notes reviewed Possible barium swallow (Michele Galeano MD) Tyrell Shaw Sep 22, 2016 11:40 Michele Galeano MD Sep 25, 2016 18:30
[2016-09-22] MEDS: HYOSCYAMINE 0.125 MG TAB PO PRN (12:49)
[2016-09-23] VITALS (7 sets, daily range): BP systolic 140–165; BP diastolic 66–77; PULSE 80–94; RESP 18–22; TEMP 97.9–99.1; O2SAT 94–97
[2016-09-23] MEDS: VALPROIC ACID SYRUP 250 MG/5 ML UDC NG SCH ×4 (00:15→23:28)
[2016-09-23] MEDS: levETIRAcetam INJ 500 MG in SODIUM CHLORIDE 0.9% INJ 100 ML IV SCH ×2 (02:42→14:04)
[2016-09-23] MEDS: RESP: ALBUTEROL 2.5 MG/IPRATROPIUM 0.5 MG NEB (PRN) NEB ×2 (03:33→15:32)
[2016-09-23] MEDS: INSULIN ASPART SUPPLEMENTAL SCALE SQ SCH ×4 (05:00→23:00)
[2016-09-23] MEDS: hydrALAZINE HCL 100 MG TAB PO SCH ×3 (05:18→21:28)
[2016-09-23] MEDS: DOCUSATE SODIUM 100 MG CAP PO SCH ×2 (08:58→21:28)
[2016-09-23] MEDS: ENOXAPARIN SODIUM 30 MG/0.3 ML SYRINGE SQ SCH ×2 (08:58→21:28)
[2016-09-23] MEDS: PANTOPRAZOLE SODIUM 40 MG VIAL IVP SCH (08:58)
[2016-09-23] MEDS: SODIUM CHLORIDE 0.9% FLUSH 10 ML FLUSH IV FLUSH SCH ×2 (08:58→21:28)
[2016-09-23] MEDS: BUDESONIDE-FORMOTEROL 160/4.5 MCG INHALER INH SCH ×2 (08:58→21:29)
--- NOTE | 2016-09-23 09:02 | HHI.PR ---
Subjective Remarks -14 Still has Dobbhoff tube in place Having lots of coughing while in the room Denies any pain or shortness of breath -15 to go for MODIFIED BARIUM SWALLOW TODAY STILL HAVING DIFFICULT EXPRESSING HERSELF AND APHASIA DHT IN PLACE DW PT AND RN Objective Vitals Vital Signs Date Time Temp Pulse Resp B/P Pulse Ox O2 Delivery O2 Flow Rate FiO2 09/23/16 08:18 99.1 92 20 162/70 94 09/23/16 06:00 98.1 90 21 158/67 97 09/23/16 03:33 97 09/23/16 00:30 97.9 80 20 140/67 97 09/22/16 21:56 98 09/22/16 20:40 98.5 83 19 145/69 97 09/22/16 16:00 98.1 90 16 139/76 97 09/22/16 12:00 99.3 88 16 130/64 94 I/O 09/22/16 09/22/16 09/22/16 09/23/16 09/23/16 09/23/16 06:59 14:59 22:59 06:59 14:59 22:59 Intake Total 0 ml 1160 ml 667 ml 1725 ml Balance 0 ml 1160 ml 667 ml 1725 ml Intake Oral 0 ml 675 ml IV Total 100 ml 100 ml Tube Feeding 660 ml 567 ml 650 ml Tube Irrigant 100 ml Other 300 ml 100 ml 300 ml # Voids 2 5 # Bowel Movements 0 2 Result Diagram: 09/22/16 0910 09/21/16 0717 Other Results Laboratory Tests Test 09/22/16 09:10 White Blood Count 10.9 TH/MM3 Red Blood Count 2.74 MIL/MM3 Hemoglobin 8.5 GM/DL Hematocrit 24.9 % Mean Corpuscular Volume 90.9 FL Mean Corpuscular Hemoglobin 31.2 PG Mean Corpuscular Hemoglobin 34.3 % Concent Red Cell Distribution Width 15.5 % Platelet Count 248 TH/MM3 Mean Platelet Volume 9.3 FL Imaging Last Impressions Head CT 09/16/16 0000 Signed Impressions: Service Date/Time: Friday, September 16, 2016 12:04 - CONCLUSION: Stable followup CT scan of the brain compared to the prior examination. No new or significant changes. Hilario Vargas MD Abdomen X-Ray 09/15/16 1320 Signed Impressions: Service Date/Time: Thursday, September 15, 2016 13:33 - CONCLUSION: Tip of Dobbhoff catheter is in either the antrum or the duodenal bulb. Antoni Acevedo MD Chest X-Ray 09/14/16 0000 Signed Impressions: Service Date/Time: Wednesday, September 14, 2016 23:21 - CONCLUSION: No acute disease. Jose Torres MD Brain MRI 09/11/16 0717 Signed Impressions: Service Date/Time: September 08:13 - CONCLUSION: 1. 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 This mass has increased in size from the prior study. 2. There is a second extra-axial lateral dural based mass on the left measuring 2.0 x 1.6 cm. Minh Bell MD Objective Remarks GENERAL: HAs Dobbhoff tube in place is aphasic to some degree SKIN: Warm and dry. HEAD: Atraumatic. Normocephalic. EYES: Pupils equal and round. No scleral icterus. No injection or drainage. extraocular muscles intact ENT: No nasal bleeding or discharge. Mucous membranes pink and moist. Has Dobbhoff tube in place tongue protrudes midline NECK: Trachea midline. No JVD. CARDIOVASCULAR: Regular rate and rhythm. S1-S2 no S3 or S4 no heave or thrill or rub or gallop RESPIRATORY: No accessory muscle use. Breath sounds equal bilaterally. Few scattered rhonchi and coarse GASTROINTESTINAL: Abdomen soft, non-tender, nondistended. Hepatic and splenic margins not palpable. MUSCULOSKELETAL: Extremities without clubbing, cyanosis, or edema. No obvious deformities. NEUROLOGICAL: Awake and alert. Aphasic.No obvious cranial nerve deficits. Motor grossly within normal limits. Five out of 5 muscle strength in the arms and legs. Aphasic speech. PSYCHIATRIC: Appropriate mood and affect; insight and judgment normal. Hard to assess THIS completely due to aphasia Procedures 76-year-old female with history of multiple recurrent meningiomas. 09/11/2016: Left craniotomy for recurrent left temporal and left frontoparietal convexity meningiomas. Urinary Catheter: No Vascular Central Line Catheter: No A/P Problem List: (1) COPD exacerbation ICD Code: J44.1 Status: Acute (2) Urinary tract infection ICD Code: N39.0 Status: Acute (3) 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 Patient had perioperative seizures. Some episodes of sinus pauses and bradycardia. She is clinically improving status post ICU course. s/p left craniotomy and temporal lobe tumor resection. Seizures, resolved. history of seizures -Patient is currently on Keppra and valproic acid. Tegretol discontinued. No new seizure activities. Neurosurgery following. - Ativan as needed. - Patient has some expressive aphasia. Speech therapy following. Diet advanced. - If she starts eating more, consider discontinuing the Dobbhoff. Advance diet per speech as tolerated. Swallowing deficit - May need ENT evaluation, per neurosurgery if deficit persists - Poor by mouth intake, continue Dobbhoff at this time FOR SWALLOW EVALUATION TODAY- BARIUM SWALLOW Sinus bradycardia and pause: Patient seen by cardiology. Likely related to medication side effect. Her beta blockers discontinued. Anti-seizure medications being adjusted. Rate is now normal. Continue to monitor on telemetry. Hypertension: Continue amlodipine. BP is labile. If remains persistently hypertensive may need to add second agent. INCREASE HYDRALAZINE TO 125MG PO TID COPD: Continue Symbicort and breathing treatments. Supplemental oxygen as needed. GI prophylaxis: Stool softener PRN constipation. DVT PPx: Lovenox Discharge Planning DC planning per neurosurgery Discharge Planning Will need SNF at discharge Yinka Walsh DO Sep 23, 2016 09:02
[2016-09-23] MEDS ORDERED: PILL SPLITTER OTHER PRN (09:30)
--- NOTE | 2016-09-23 10:01 | RADRPT ---
EXAM DATE/TIME: 09/23/2016 09:33 [facility] COMPARISON: No previous studies available for comparison. INDICATIONS : Dysphasia FLUORO TIME: 1.3 minutes IMAGE COUNT: 1 CONTRAST: Dose as prescribed by speech pathologist. MEDICAL HISTORY : Cardiovascular disease. Lupus. Hypertension. Seizures. Brain tumor. SURGICAL HISTORY : Brain tumor removal. ENCOUNTER: Initial ACUITY: 1 day PAIN SCORE: 0/10 LOCATION: Esophagus FINDINGS: A modified barium swallow was performed with speech pathology. Patient was given a variety of liquids to swallow. No aspiration or penetration was seen. There was some mild pooling within the vallecula which did zach ar. For a full detailed report, see report by the speech pathologist. CONCLUSION: No aspiration or penetration is seen. Minh Donovan MD on September 23, 2016 at 9:54 Board Certified Radiologist. This report was verified electronically.
[2016-09-23 12:40] LABS: AUTOMATED NEUTROPHIL # 7.2 TH/MM3 (1.8-7.7); BASOPHIL # 0.1 TH/MM3 (0-0.2); BASOPHIL % 0.6 % (0.0-2.0); EOSINOPHIL # 0.3 TH/MM3 (0-0.4); EOSINOPHIL % 2.4 % (0.0-4.0); HEMATOCRIT 27.2 % (35.0-46.0); HEMO FLAGS DIFF FINAL; LYMPH % 17.1 % (9.0-44.0); LYMPHOCYTE # 1.8 TH/MM3 (1.0-4.8); MEAN CELL VOLUME 90.9 FL (80.0-100.0); MEAN CORPUSCULAR HEMOGLOBIN 29.9 PG (27.0-34.0); MEAN CORPUSCULAR HGB CONC 32.9 % (32.0-36.0); MONO % 13.2 % (0.0-8.0); NEUT % 66.7 % (16.0-70.0); PLATELET COUNT 300 TH/MM3 (150-450); RED BLOOD COUNT 2.99 MIL/MM3 (4.00-5.30); RED CELL DISTRIBUTION WIDTH 14.8 % (11.6-17.2); WHITE BLOOD COUNT 10.8 TH/MM3 (4.0-11.0)
[2016-09-23 13:19] LABS: ANION GAP 7 MEQ/L (5-15); AST (GOT) 12 U/L (15-37); BICARBONATE 29.5 MEQ/L (21.0-32.0); BLOOD UREA NITROGEN 23 MG/DL (7-18); CHLORIDE 100 MEQ/L (98-107); GLOMERULAR FILTRATION RATE 52 ML/MIN (>89); MAGNESIUM 2.2 MG/DL (1.5-2.5); SODIUM (NA) 136 MEQ/L (136-145)
[2016-09-23 13:25] LABS: ALKALINE PHOSPHATASE 87 U/L (45-117); ALT (GPT) 19 U/L (10-53); FREE T4 1.21 NG/DL (0.76-1.46); TOTAL BILIRUBIN ADULT 0.3 MG/DL (0.2-1.0)
--- NOTE | 2016-09-23 15:27 | HHI.NSPN ---
(Tyrell Shaw) History Chief Complaint: No complaints. (Tyrell Shaw) Interval History 76-year-old female with history of multiple recurrent meningiomas. 09/11/2016: Left craniotomy for recurrent left temporal and left frontoparietal convexity meningiomas. 09/12/16: Positive seizure. Cerebyx started in addition to patient's usual Depakote and Tegretol 09/13/16: following commands, nonverbal. bp elevated, currently on max dose of Cardene 09/14/16: no seizures overnight, bp improved off cardene. remains aphasic but follows commands. f/u CT Head this am completed 09/15: The patient is awake & alert when seen this morning. She is breathing through her mouth with audible adventitious sounds. She is not in any distress. Nursing reports that she did move the toes of both feet to command. 09/16: This afternoon the patient is awake and alert. She attempts to ask a question but is unable to find the words to express her question. She does become slightly flustered by this. Nursing and the Software Application Tester report that the patient has been having pauses on her EKG. A CT brain, EEG and Neurology consult were ordered by the Software Application Tester. The CT brain was w/o any new or significant change. The EEG was done this afternoon when the patient was first seen and her evaluation was deferred until this time. 09/17: The patient is awake and alert when seen this afternoon. She had difficulty but was finally able to say that the feeding tube was bothering her. She was evaluated by Cardiology yesterday who felt that her pauses/bradycardia was medication induced with a vagal component. Neurology also evaluated her and made adjustments/recommendations to the patients antiepileptic medications. The EEG demonstrated some continuous left hemisphere slowing with associated frequent sharp/epileptiform discharge which were almost rhythmic but not a definitive ictal pattern and remained focal throughout. 09/18: This morning the patient is awake and alert. It is evident she is frustrated when attempting to ask something and then says "Never mind." Physical Therapy was at the bedside to evaluate the patient. 8/11: The patient is awake and alert this afternoon when seen. She readily interacts and works at saying she sat up in the chair, but was unable to find the word chair. Her sister reports she was up for from about 10 AM to 4 PM. She still has enteral feeds through the feeding tube but has been started on thickened liquids. 09/21: This morning when seen the patient was doing well. She had no complaints. She was noted to have the gown off and a towel over her chest and was able to state that she was getting ready to be cleaned up. 09/22: The patient is watching TV this morning and was doing well. She voiced no complaints but does become frustrated as she tries to find the word she wants. 09/23: The patient continues to do well and had no complaints when seen this afternoon. She went for a MBSS this morning and no aspiration or penetration was noted. Speech Therapy stated that the patient is able to be on a soft diet with regular thin liquids. After the patient was seen the [place] citrix architect notified me that [facility] acute re[facility]. (Tyrell Shaw) System Review Comments Constitutional: Patient denies any fever or chills. HEENT: Patient denies any visual or hearing problems. Neck: Patient denies any neck pain. Respiratory: Patient denies any shortness of breath or productive cough. Cardiovascular: Patient denies any chest pain, palpitations or irregular heartbeat. Gastrointestinal: Patient denies any abdominal pain, nausea, vomiting or incontinence of stool. Genitourinary: Patient denies any incontinence of urine. Musculoskeletal: Patient denies any pain or weakness to the extremities. Neurologic: Patient with difficulty talking. She denies any headache, dizziness , numbness or tingling. (Tyrell Shaw) Exam Results Vital Signs Date Time Temp Pulse Resp B/P Pulse Ox O2 Delivery O2 Flow Rate FiO2 09/23/16 12:27 98.7 94 20 141/66 96 Intake and Output 09/22/16 09/22/16 09/23/16 08:00 16:00 00:00 Intake Total 1060 ml 100 ml 667 ml Balance 1060 ml 100 ml 667 ml (Tyrell Shaw) Physical Examination General: Awake & alert, readily interacts, no apparent distress, still with some frustration at not finding the right word. Skin: Warm, dry & intact except for left craniotomy surgical incision which is well approximated & MARTINA drain insertion site, no evident drainage, erythema or streaking noted at either. HEENT: Normocephalic, atraumatic except for left craniotomy surgical incision & MARTINA drain insertion site. PERRLA. Tongue midline to protrusion. Left nare feeding tube. Neck: No JVD, trachea midline. Respiratory: Slightly coarse breath sounds bilaterally . Intermittent cough. Cardiovascular: S1S2 w/RRR w/o M/G/R, cap refill < 2 sec, radial & pedal pulses 2+ bilaterally, cap refill < 2 sec, pedal edema 1+ bilaterally. Gastrointestinal: Abdomen soft, nontender, positive bowel sounds, left nare feeding tube w/enteral feeds. Musculoskeletal: Spontaneously moves all extremities, no deformity or clubbing. Neuro: AAOx3, expressive aphasia, follows commands, GCS 14 (E4 V4 M6). The patient has difficulty finding some words but is able to complete some thoughts and verbally express them appropriately. PERRLA, 3 mm brisk, symmetrical smile, tongue midline to protrusion. Motor strength LUE 4+ to 5/5, LLE 4+ to 5/5, RUE 4 to 4+/5 except hand squeeze 3 +/5, RLE 4+ to 5/5. (Tyrell Shaw) Lab, Micro, Other Results Recent Impressions Modified Barium Swallow 09/23/16 0000 Signed Impressions: Service Date/Time: Friday, September 23, 2016 09:33 - CONCLUSION: No aspiration or penetration is seen. Minh Donovan MD /// 06:00 18:00 06:00 18:00 06:00 18:00 Intake Total 577 ml 1178 ml 0 ml 1827 ml 675 ml 1410 ml Balance 577 ml 1178 ml 0 ml 1827 ml 675 ml 1410 ml Intake Oral 0 ml 240 ml 0 ml 675 ml 360 ml IV Total 111 ml 100 ml 100 ml 100 ml Tube Feeding 466 ml 538 ml 1227 ml 650 ml Tube Irrigant 100 ml Other 300 ml 400 ml 300 ml # Voids 3 1 3 5 3 # Bowel Movements 2 2 0 2 1 Laboratory Tests Test 09/21/16 09/22/16 09/23/16 07:17 09:10 12:20 White Blood Count 9.0 TH/MM3 10.9 TH/MM3 10.8 TH/MM3 Red Blood Count 2.74 MIL/MM3 2.74 MIL/MM3 2.99 MIL/MM3 Hemoglobin 8.3 GM/DL 8.5 GM/DL 9.0 GM/DL Hematocrit 25.1 % 24.9 % 27.2 % Mean Corpuscular Volume 91.4 FL 90.9 FL 90.9 FL Mean Corpuscular Hemoglobin 30.4 PG 31.2 PG 29.9 PG Mean Corpuscular Hemoglobin 33.2 % 34.3 % 32.9 % Concent Red Cell Distribution Width 14.9 % 15.5 % 14.8 % Platelet Count 244 TH/MM3 248 TH/MM3 300 TH/MM3 Mean Platelet Volume 8.5 FL 9.3 FL 8.3 FL Sodium Level 142 MEQ/L 136 MEQ/L Potassium Level 3.8 MEQ/L 4.0 MEQ/L Chloride Level 106 MEQ/L 100 MEQ/L Carbon Dioxide Level 28.2 MEQ/L 29.5 MEQ/L Anion Gap 8 MEQ/L 7 MEQ/L Blood Urea Nitrogen 22 MG/DL 23 MG/DL Creatinine 0.93 MG/DL 1.03 MG/DL Estimat Glomerular Filtration 59 ML/MIN 52 ML/MIN Rate Random Glucose 115 MG/DL 126 MG/DL Calcium Level 7.6 MG/DL 8.5 MG/DL Neutrophils (%) (Auto) 66.7 % Lymphocytes (%) (Auto) 17.1 % Monocytes (%) (Auto) 13.2 % Eosinophils (%) (Auto) 2.4 % Basophils (%) (Auto) 0.6 % Neutrophils # (Auto) 7.2 TH/MM3 Lymphocytes # (Auto) 1.8 TH/MM3 Monocytes # (Auto) 1.4 TH/MM3 Eosinophils # (Auto) 0.3 TH/MM3 Basophils # (Auto) 0.1 TH/MM3 CBC Comment DIFF FINAL Differential Comment Phosphorus Level 2.8 MG/DL Magnesium Level 2.2 MG/DL Total Bilirubin 0.3 MG/DL Aspartate Amino Transf 12 U/L (AST/SGOT) Alanine Aminotransferase 19 U/L (ALT/SGPT) Alkaline Phosphatase 87 U/L Total Protein 6.3 GM/DL Albumin 2.6 GM/DL Free Thyroxine 1.21 NG/DL Thyroid Stimulating Hormone 3.220 uIU/ML 3rd Gen Vital Signs Date Time Temp Pulse Resp B/P Pulse Ox O2 Delivery O2 Flow Rate FiO2 09/23/16 12:27 98.7 94 20 141/66 96 09/23/16 08:18 99.1 92 20 162/70 94 09/23/16 06:00 98.1 90 21 158/67 97 09/23/16 03:33 97 09/23/16 00:30 97.9 80 20 140/67 97 09/22/16 21:56 98 09/22/16 20:40 98.5 83 19 145/69 97 09/22/16 16:00 98.1 90 16 139/76 97 09/22/16 12:00 99.3 88 16 130/64 94 09/22/16 08:00 99.2 91 16 134/68 98 09/22/16 05:15 97.0 89 20 128/62 96 09/22/16 00:30 97.7 89 21 135/65 96 09/21/16 23:00 92 09/21/16 20:30 98.9 96 20 133/63 97 09/21/16 16:00 98.7 97 26 141/61 96 09/21/16 14:42 68 09/21/16 12:00 98.8 86 26 171/74 94 09/21/16 08:00 98.1 81 28 159/67 96 09/21/16 05:30 98.9 84 22 188/90 96 09/21/16 01:23 95 09/21/16 00:15 98.1 80 21 146/80 96 09/20/16 21:30 97.7 80 21 174/73 95 09/20/16 16:00 98.6 100 24 159/77 93 (Tyrell Shaw) Medical Decision Making Impression and Plan Impression: (1) 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 1. Postoperative craniotomy resection of recurrent meningioma 2 on 09/11/16. 2. Positive postoperative seizure 3. Possible left frontoparietal region ischemia versus postoperative edema on CT scan head 8/4/17 MRI brain [facility] (pre-op) demonstrated left parafalcine mass which had increased in size and a left extra-axial lateral dural mass. CT brain demonstrated expected postoperative changes s/p tumor resection w/o evidence of midline shift, some residual gas & hyperdensity at resection sites, no acute finding to the right supratentorial brain. CT brain demonstrated slight increase in subdural blood along the falx near the vertex. CT brain demonstrated expected postoperative changes. CT brain stable exam compared to w/o new or significant changes. EEG demonstrated some continuous left hemisphere slowing with associated frequent sharp/epileptiform discharge which were almost rhythmic but not a definitive ictal pattern and remained focal throughout. Leukocytosis resolved . Haemoglobin level stable this morning (8.5=>9.0). MBSS w/o any aspiration or penetration seen. Patient continues to do well and exhibits slowly improving neurological function. POD #10 () s/p: 1. Left frontotemporoparietal craniotomy, resection of recurrent left frontal parietal neoplasm and 2. Resection of recurrent left temporal neoplasm 3. Left frontotemporoparietal duraplasty Plan: Discussed plan of care with patient. Discussed plan of care with Speech Therapy. Continue neuro checks. Antiepileptic drugs per Neurology. Non-chemical DVT prophylaxis. Ulcer prophylaxis. Mobilise patient w/assistance. PT eval & tx. ST eval & tx. Okay for Lovenox. Soft diet w/thin liquids. Mighty Shake supplement w/meals. D/C feeding tube. Will change Keppra from IV to PO. (Tyrell Shaw) Attending Statement I have personally seen and examined the patient on the date of this note. Pertinent documentation and study results have been reviewed by the undersigned. I have personally developed the treatment plan and performed medical decision making. Agree with findings, exam, and treatment plan as noted above. No significant improvement in speech and swallowing over the past few days. Continue speech therapy Continue feeding tube Possible ENT evaluation (Michele Galeano MD) Tyrell Shaw Sep 23, 2016 15:27 Michele Galeano MD Sep 25, 2016 18:31
[2016-09-23 15:58] LABS: HEMOGLOBIN A1a 0.9 %; HEMOGLOBIN A1b 1.7 %; HEMOGLOBIN Ao 85.4 %; HEMOGLOBIN LA1C 2.1 %; HEMOGLOBIN P3 5.4 %
[2016-09-23] MEDS: HYOSCYAMINE 0.125 MG TAB PO PRN ×2 (17:10→21:28)
[2016-09-23] MEDS: RESP: ALBUTEROL 2.5 MG/IPRATROPIUM 0.5 MG NEB (SCH) NEB (21:01)
[2016-09-23] MEDS: levETIRAcetam 500 MG TAB PO SCH (21:28)
[2016-09-24] VITALS (9 sets, daily range): BP systolic 138–176; BP diastolic 65–82; PULSE 78–136; RESP 18–20; TEMP 97.2–98.3; O2SAT 96–100
[2016-09-24] MEDS: INSULIN ASPART SUPPLEMENTAL SCALE SQ SCH ×4 (05:00→23:00)
[2016-09-24] MEDS: hydrALAZINE HCL 100 MG TAB PO SCH ×3 (05:23→22:35)
[2016-09-24] MEDS: RESP: ALBUTEROL 2.5 MG/IPRATROPIUM 0.5 MG NEB (SCH) NEB ×4 (07:52→19:50)
[2016-09-24] MEDS: VALPROIC ACID SYRUP 250 MG/5 ML UDC NG SCH ×3 (09:46→23:25)
[2016-09-24] MEDS: SODIUM CHLORIDE 0.9% FLUSH 10 ML FLUSH IV FLUSH SCH ×2 (09:46→22:36)
[2016-09-24] MEDS: levETIRAcetam 500 MG TAB PO SCH ×2 (09:46→22:35)
[2016-09-24] MEDS: PANTOPRAZOLE SODIUM 40 MG VIAL IVP SCH (09:46)
[2016-09-24] MEDS: BUDESONIDE-FORMOTEROL 160/4.5 MCG INHALER INH SCH ×2 (09:46→22:37)
[2016-09-24] MEDS: ENOXAPARIN SODIUM 30 MG/0.3 ML SYRINGE SQ SCH ×2 (09:47→22:37)
[2016-09-24] MEDS: DOCUSATE SODIUM 100 MG CAP PO SCH ×2 (09:47→21:00)
--- NOTE | 2016-09-24 09:52 | HHI.PR ---
Subjective Remarks 8-14 Still has Dobbhoff tube in place Having lots of coughing while in the room Denies any pain or shortness of breath 8-15 to go for MODIFIED BARIUM SWALLOW TODAY STILL HAVING DIFFICULT EXPRESSING HERSELF AND APHASIA DHT IN PLACE DW PT AND RN -16 PATIENT PASSED SWALLOW EVALUATION YESTERDAY PATIENT PULLED HER OWN DHT HOPEFULLY BETTER APPETITE NOT APPROVED FOR SANTO BY RON GOLD PATIENT AND RN NO NEW COMPLAINTS Objective Vitals Vital Signs Date Time Temp Pulse Resp B/P Pulse Ox O2 Delivery O2 Flow Rate FiO2 09/24/16 08:11 97.8 78 18 176/79 98 09/24/16 04:30 98.1 87 18 159/79 96 09/24/16 00:00 98.1 89 18 146/65 96 09/23/16 20:00 99.1 94 18 165/77 96 09/23/16 16:06 98.0 93 22 164/72 97 09/23/16 12:27 98.7 94 20 141/66 96 I/O 09/23/16 09/23/16 09/23/16 09/24/16 09/24/16 09/24/16 06:59 14:59 22:59 06:59 14:59 22:59 Intake Total 1725 ml 360 ml 240 ml Balance 1725 ml 360 ml 240 ml Intake Oral 675 ml 360 ml 240 ml IV Total 100 ml Tube Feeding 650 ml Other 300 ml # Voids 5 3 1 2 # Bowel Movements 2 1 1 Result Diagram: 09/23/16 1220 09/23/16 1220 Other Results Laboratory Tests Test 09/23/16 12:20 White Blood Count 10.8 TH/MM3 Red Blood Count 2.99 MIL/MM3 Hemoglobin 9.0 GM/DL Hematocrit 27.2 % Mean Corpuscular Volume 90.9 FL Mean Corpuscular Hemoglobin 29.9 PG Mean Corpuscular Hemoglobin 32.9 % Concent Red Cell Distribution Width 14.8 % Platelet Count 300 TH/MM3 Mean Platelet Volume 8.3 FL Neutrophils (%) (Auto) 66.7 % Lymphocytes (%) (Auto) 17.1 % Monocytes (%) (Auto) 13.2 % Eosinophils (%) (Auto) 2.4 % Basophils (%) (Auto) 0.6 % Neutrophils # (Auto) 7.2 TH/MM3 Lymphocytes # (Auto) 1.8 TH/MM3 Monocytes # (Auto) 1.4 TH/MM3 Eosinophils # (Auto) 0.3 TH/MM3 Basophils # (Auto) 0.1 TH/MM3 CBC Comment DIFF FINAL Differential Comment Sodium Level 136 MEQ/L Potassium Level 4.0 MEQ/L Chloride Level 100 MEQ/L Carbon Dioxide Level 29.5 MEQ/L Anion Gap 7 MEQ/L Blood Urea Nitrogen 23 MG/DL Creatinine 1.03 MG/DL Estimat Glomerular Filtration 52 ML/MIN Rate Random Glucose 126 MG/DL Hemoglobin A1c 5.2 % Calcium Level 8.5 MG/DL Phosphorus Level 2.8 MG/DL Magnesium Level 2.2 MG/DL Total Bilirubin 0.3 MG/DL Aspartate Amino Transf 12 U/L (AST/SGOT) Alanine Aminotransferase 19 U/L (ALT/SGPT) Alkaline Phosphatase 87 U/L Total Protein 6.3 GM/DL Albumin 2.6 GM/DL Free Thyroxine 1.21 NG/DL Thyroid Stimulating Hormone 3.220 uIU/ML 3rd Gen Imaging Last Impressions Modified Barium Swallow 09/23/16 0000 Signed Impressions: Service Date/Time: Friday, September 23, 2016 09:33 - CONCLUSION: No aspiration or penetration is seen. Minh Donovan MD Head CT 09/16/16 0000 Signed Impressions: Service Date/Time: Friday, September 16, 2016 12:04 - CONCLUSION: Stable followup CT scan of the brain compared to the prior examination. No new or significant changes. Hilario Vargas MD Abdomen X-Ray 09/15/16 1320 Signed Impressions: Service Date/Time: Thursday, September 15, 2016 13:33 - CONCLUSION: Tip of Dobbhoff catheter is in either the antrum or the duodenal bulb. Antoni Acevedo MD Chest X-Ray 09/14/16 0000 Signed Impressions: Service Date/Time: Wednesday, September 14, 2016 23:21 - CONCLUSION: No acute disease. Jose Torres MD Brain MRI 09/11/16 0717 Signed Impressions: Service Date/Time: September 08:13 - CONCLUSION: 1. 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 This mass has increased in size from the prior study. 2. There is a second extra-axial lateral dural based mass on the left measuring 2.0 x 1.6 cm. Minh Bell MD Objective Remarks GENERAL: PULLED OUT HER OWN DOBBHOFF TUBE TODAY is aphasic to some degree SKIN: Warm and dry. HEAD: Atraumatic. Normocephalic. EYES: Pupils equal and round. No scleral icterus. No injection or drainage. extraocular muscles intact ENT: No nasal bleeding or discharge. Mucous membranes pink and moist. tongue protrudes midline NECK: Trachea midline. No JVD. CARDIOVASCULAR: Regular rate and rhythm. S1-S2 no S3 or S4 no heave or thrill or rub or gallop RESPIRATORY: No accessory muscle use. Breath sounds equal bilaterally. Few scattered rhonchi and coarse GASTROINTESTINAL: Abdomen soft, non-tender, nondistended. Hepatic and splenic margins not palpable. MUSCULOSKELETAL: Extremities without clubbing, cyanosis, or edema. No obvious deformities. NEUROLOGICAL: Awake and alert. Aphasic.No obvious cranial nerve deficits. Motor grossly within normal limits. Five out of 5 muscle strength in the arms and legs. Aphasic speech. PSYCHIATRIC: Appropriate mood and affect; insight and judgment ABnormal. Hard to assess THIS completely due to aphasia Procedures 76-year-old female with history of multiple recurrent meningiomas. 09/11/2016: Left craniotomy for recurrent left temporal and left frontoparietal convexity meningiomas. Medications and IVs Current Medications Lactated Ringer's 1,000 ml @ 0 mls/hr Q24H IV Last administered on 09/11/16 06 :30; Start 09/11/16 at 06:30; Stop 09/11/16 at 15:38; Status DC Cefazolin Sodium 1000 mg/Sodium Chloride 100 ml @ 200 mls/hr [employer] IV Last administered on 09/11/16 08:55; Start 09/11/16 at 06:30; Stop 09/14/16 at 06:29; Status DC Lactated Ringer's 1,000 ml @ 30 mls/hr Q24H PRN IV SEE LABEL COMMENTS; Start at 06:30; Stop 09/14/16 at 06:29; Status DC Sodium Chloride (NS 500 ml Inj) 500 ml @ 30 mls/hr [id number] PRN IV SEE LABEL COMMENTS; Start 09/11/16 at 06:30; Stop 09/14/16 at 06:29; Status DC Metoprolol Tartrate (Lopressor) 25 mg [employer] PRN PO SEE LABEL COMMENTS; Start 09/11/16 at 06:30; Stop 09/14/16 at 06:29; Status DC Povidone Iodine (Betadine 5% Antisepsis Kit) 1 applic [employer] PRN EACH NARE SEE LABEL COMMENTS Last administered on 09/11/16 06:30; Start 09/11/16 at 06:30; Stop 09/14/16 at 06:29; Status DC Chlorhexidine Gluconate (Chlorhexidine 2% Cloth) 3 pack [employer] PRN TOPICAL SEE LABEL COMMENTS Last administered on 09/11/16 06:20; Start 09/11/16 at 06:30; Stop 09/14/16 at 06:29; Status DC Insulin Human Regular (NovoLIN R INJ) See Protocol Table ... [employer] PRN SQ SEE PROTOCOL TABLE; Start 09/11/16 at 06:30; Stop 09/14/16 at 06:29; Status DC Thrombin (Thrombin Top Soln) 10,000 units STK-MED ONCE .ROUTE Last administered on 09/11/16 10:47; Start 09/11/16 at 07:23; Stop 09/11/16 at 07:24; Status DC Gelatin (Gelfoam 100 Top) 1 foam STK-MED ONCE .ROUTE ; Start 09/11/16 at 07:23; Stop 09/11/16 at 07:24; Status DC Gentamicin Sulfate (Gentamicin Inj) 240 mg STK-MED ONCE .ROUTE Last administered on 09/11/16 10:47; Start 09/11/16 at 07:23; Stop 09/11/16 at 07:24; Status DC Lidocaine/ Epinephrine (Xylocaine-Epi 1%-1:100,000 Inj) 40 ml STK-MED ONCE .ROUTE Last administered on 09/11/16 10:47; Start 09/11/16 at 07:23; Stop at 07:24; Status DC Furosemide (Lasix Inj) 40 mg STK-MED ONCE .ROUTE ; Start 09/11/16 at 07:31; Stop 09/11/16 at 07:32; Status DC Albumin Human 12.5 gm 12.5 gm STK-MED ONCE IV ; Start 09/11/16 at 07:32; Stop 09/11/16 at 07:33; Status DC Nitroglycerin/ Dextrose 250 ml @ As Directed STK-MED ONCE .ROUTE ; Start at 07:32; Stop 09/11/16 at 07:33; Status DC Mannitol (Mannitol Inj) 50 ml @ As Directed STK-MED ONCE .ROUTE ; Start 09/11/16 at 07:32; Stop 09/11/16 at 07:33; Status DC Gadodiamide (Omniscan Pf Inj) 14 ml STK-MED ONCE IV Last administered on 08:35; Start 09/11/16 at 08:35; Stop 09/11/16 at 08:36; Status DC Albuterol Sulfate (Albuterol Concentrated Neb) 2.5 mg STK-MED ONCE .ROUTE ; Start 09/11/16 at 09:03; Stop 09/11/16 at 09:04; Status DC Gelatin (Gelfoam 100 Top) 1 foam STK-MED ONCE .ROUTE Last administered on 10:47; Start 09/11/16 at 09:14; Stop 09/11/16 at 09:15; Status DC Thrombin (Thrombin Top Soln) 10,000 units STK-MED ONCE .ROUTE Last administered on 09/11/16 11:10; Start 09/11/16 at 11:09; Stop 09/11/16 at 11:10; Status DC Gelatin (Gelfoam 100 Top) 1 foam STK-MED ONCE .ROUTE Last administered on 11:10; Start 09/11/16 at 11:09; Stop 09/11/16 at 11:10; Status DC Thrombin (Thrombin Top Soln) 10,000 units STK-MED ONCE .ROUTE Last administered on 09/11/16 12:26; Start 09/11/16 at 12:24; Stop 09/11/16 at 12:25; Status DC Cefazolin Sodium (Ancef Inj) 1,000 mg STK-MED ONCE IV Last administered on 13:00; Start 09/11/16 at 13:00; Stop 09/11/16 at 13:13; Status DC Albuterol Sulfate (*ALBUTEROL NEB PERIprocedure ONLY) 2.5 mg STK-MED ONCE NEB Last administered on 09/11/16 14:57; Start 09/11/16 at 14:57; Stop 09/11/16 at 14: 58; Status DC Labetalol HCl (*TRANDATE INJ PERIprocedural Use ONLY) 100 mg STK-MED ONCE .ROUTE Last administered on 09/11/16 14:59; Start 09/11/16 at 14:59; Stop at 15:00; Status DC Nicardipine HCl (Cardene Inj) 25 mg STK-MED ONCE .ROUTE Last administered on 15:15; Start 09/11/16 at 15:07; Stop 09/11/16 at 15:08; Status DC Fentanyl Citrate (fentaNYL INJ) 250 mcg STK-MED ONCE .ROUTE ; Start 09/11/16 at 15:13; Stop 09/11/16 at 15:14; Status DC Morphine Sulfate (Morphine Inj) 4 mg STK-MED ONCE .ROUTE ; Start 09/11/16 at 15: 13; Stop 09/11/16 at 15:14; Status DC Sodium Chloride (NS Flush) 2 ml UNSCH PRN IV FLUSH FLUSH AFTER USING IV ACCESS ; Start 09/11/16 at 15:15 Sodium Chloride (NS Flush) 2 ml BID IV FLUSH Last administered on 09/23/16 21: 28; Start 09/11/16 at 21:00 Bisacodyl (Dulcolax Supp) 10 mg DAILY PRN RECTAL CONSTIPATION Last administered on 09/16/16 05:23; Start 09/11/16 at 15:15 Docusate Sodium (Colace) 100 mg BID PO Last administered on 09/23/16 21:28; Start 09/11/16 at 21:00 Pantoprazole Sodium (Protonix Inj) 40 mg DAILY IVP Last administered on 08:58; Start 09/12/16 at 09:00 Ondansetron HCl (Zofran Inj) 4 mg Q6H PRN IV NAUSEA OR VOMITING; Start 09/11/16 at 15:15 Morphine Sulfate (Morphine Inj) 2 mg Q2H PRN IV PAIN SCALE 1 TO 6 Last administered on 09/14/16 03:00; Start 09/11/16 at 15:15 Morphine Sulfate (Morphine Inj) 4 mg Q2H PRN IV PAIN SCALE 7 TO 10 Last administered on 09/21/16 18:33; Start 09/11/16 at 15:15 Labetalol HCl 10 mg 10 mg Q1H PRN IV SYS BP GREATER THAN 150 MMHG Last administered on 09/13/16 03:00; Start 09/11/16 at 15:15; Stop 09/13/16 at 11:16; Status DC Nicardipine HCl/ Sodium Chloride (Cardene Inj/NS 250 ml Inj) 260 ml @ 0 mls/hr TITRATE IV Last administered on 09/13/16 12:17; Start 09/11/16 at 15:15; Stop at 09:21; Status DC Amlodipine Besylate (Norvasc) 5 mg DAILY PO Last administered on 09/13/16 08:45 ; Start 09/12/16 at 09:00; Stop 09/13/16 at 11:16; Status DC Carbamazepine (TEGretol) 200 mg BID PO ; Start 09/11/16 at 21:00; Stop 09/12/16 at 06:36; Status DC Carvedilol (Coreg) 25 mg BID PO Last administered on 09/15/16 10:33; Start 09/11 at 21:00; Stop 09/16/16 at 07:20; Status DC Divalproex Sodium (Depakote Dr) 500 mg TID PO ; Start 09/11/16 at 18:00; Stop 09/12/16 at 06:34; Status DC Albuterol/ Ipratropium (Duoneb Neb) 1 ampule Q8HR NEB INH Last administered on 09/15/16 14:48; Start 09/11/16 at 16:00; Stop 09/15/16 at 16:00; Status DC Nitrofurantoin Macrocrystals (Macrobid) 100 mg BID PO Last administered on 10:33; Start 09/11/16 at 21:00; Stop 09/15/16 at 22:33; Status DC Non-Formulary Medication 1 puff 1 puff BID INH ; Start 09/11/16 at 21:00; Status UNV Dextrose/Sodium Chloride (D5W-NS 1000 ml Inj) 1,000 ml @ 100 mls/hr Q10H IV Last administered on 09/13/16 08:47; Start 09/11/16 at 16:00; Stop 09/13/16 at 11: 19; Status DC Lorazepam (Ativan Inj) 2 mg STK-MED ONCE .ROUTE ; Start 09/11/16 at 15:39; Stop 09/11/16 at 15:40; Status DC Lorazepam 1 mg 1 mg Q6H PRN IV SEIZURES Last administered on 09/12/16 23:55; Start 09/11/16 at 15:45 Fosphenytoin Sodium/Sodium Chloride (Cerebyx Inj/NS Inj) 70 ml @ 280 mls/hr ONCE ONCE IV Last administered on 09/11/16 16:59; Start 09/11/16 at 16:00; Stop 09/11/16 at 16:14; Status DC Fosphenytoin Sodium (Cerebyx Inj) 100 mgpe Q8HR IV Last administered on 21:54; Start 09/11/16 at 22:00; Status Hold Budesonide/ Formoterol Fumarate (Symbicort 160-4.5 Inh) 2 puff BID INH Last administered on 09/23/16 21:29; Start 09/11/16 at 21:00 Miscellaneous Information ALL NURSING DEPARTME... UNSCH PRN .XX SEE LABEL COMMENTS; Start 09/11/16 at 16:15; Stop 09/12/16 at 16:29; Status DC Nicardipine HCl 25 mg 25 mg STK-MED ONCE .ROUTE ; Start 09/11/16 at 22:47; Stop 09/11/16 at 22:48; Status DC Sodium Chloride (NS 250 ml Inj) 250 ml @ As Directed STK-MED ONCE .ROUTE ; Start 09/11/16 at 22:47; Stop 09/11/16 at 22:48; Status DC Valproic Acid (Depakene Liq) 500 mg Q8H NG ; Start 09/12/16 at 06:34; Stop at 06:35; Status DC Valproic Acid (Depakene Liq) 500 mg Q8H NG Last administered on 09/23/16 23:28 ; Start 09/12/16 at 08:00 Carbamazepine (TEGretol LIQ) 200 mg BID NG ; Start 09/12/16 at 09:00; Stop at 09:00; Status DC Carbamazepine (TEGretol LIQ) 200 mg BID NG Last administered on 09/15/16 21:51 ; Start 09/12/16 at 09:00; Status Hold Fosphenytoin Sodium (Cerebyx Inj) 200 mgpe ONCE ONCE IV Last administered on 11:17; Start 09/12/16 at 08:00; Stop 09/12/16 at 08:03; Status DC Dextrose (D50w (Vial) Inj) 50 ml UNSCH PRN IV HYPOGLYCEMIA-SEE COMMENTS; Start 09/12/16 at 08:00 Glucagon (Glucagon Inj) 1 mg UNSCH PRN OTHER HYPOGLYCEMIA-SEE COMMENTS; Start 09/12/16 at 08:00 Insulin Aspart 1 1 Q6H SQ Last administered on 09/14/16 23:07; Start 09/12/16 at 11:00 Potassium Chloride 100 ml @ 50 mls/hr Q2H PRN IV For Potassium 2.8 - 3.2 mEq/L ; Start 09/12/16 at 08:00; Stop 09/20/16 at 07:24; Status DC Potassium Chloride (KCl 20 Meq Premix Inj) 100 ml @ 50 mls/hr Q2H PRN IV For Potassium 2.8 - 3.2 mEq/L; Start 09/12/16 at 08:00; Stop 09/20/16 at 07:24; Status DC Potassium Bicarb/ Potassium Chloride 50 meq 50 meq UNSCH PRN PO For Potassium 3.3 - 3.5 mEq/L Last administered on 09/13/16 08:46; Start 09/12/16 at 08:00; Stop 09/20/16 at 07:24; Status DC Potassium Chloride 100 ml @ 25 mls/hr UNSCH PRN IV For Potassium 3.3 - 3.5 mEq /L Last administered on 09/18/16 09:19; Start 09/12/16 at 08:00; Stop 09/20/16 at 07:24; Status DC Potassium Chloride 100 ml @ 50 mls/hr Q2H PRN IV For Potassium 3.3 - 3.5 mEq/ L Last administered on 09/19/16 04:18; Start 09/12/16 at 08:00; Stop 09/20/16 at 07:24; Status DC Magnesium Sulfate/ Sodium Chloride (Magnesium Sulfate Inj/NS Inj) 100 ml @ 50 mls/hr UNSCH PRN IV For Magnesium 0.9 - 1.1 mg/dL; Start 09/12/16 at 08:00; Stop 09/20/16 at 07:24; Status DC Magnesium Oxide 800 mg 800 mg UNSCH PRN PO For Magnesium 1.2 - 1.6 mg/dL; Start 09/12/16 at 08:00; Stop 09/20/16 at 07:24; Status DC Magnesium Sulfate/ Sodium Chloride (Magnesium Sulfate Inj/NS Inj) 100 ml @ 50 mls/hr UNSCH PRN IV For Magnesium 1.2 - 1.6 mg/dL; Start 09/12/16 at 08:00; Stop 09/20/16 at 07:23; Status DC Potassium Phosphate 2000 mg 2,000 mg Q4H PRN PO For Phosphorus < 2.5 mg/dL; Start 09/12/16 at 08:00; Stop 09/20/16 at 07:24; Status DC Sodium Phosphate/ Sodium Chloride (Sodium Phosphate Inj/NS 250 ml Inj) 250 ml @ 42 mls/hr UNSCH PRN IV For Phosphorus < 2.5 mg/dL; Start 09/12/16 at 08:00; Stop 09/20/16 at 07:24; Status DC Potassium Phosphate 2000 mg 2,000 mg UNSCH PRN PO/TUBE SEE LABEL COMMENTS; Start 09/12/16 at 07:51; Stop 09/20/16 at 07:24; Status DC Potassium Phosphate/Sodium Chloride (Potassium Phosphate Inj/NS 250 ml Inj) 260 ml @ 42 mls/hr UNSCH PRN IV SEE LABEL COMMENTS; Start 09/12/16 at 07:51; Stop 09/20/16 at 07:24; Status DC Fosphenytoin Sodium 500 mgpe 500 mgpe ONCE ONCE IV ; Start 09/12/16 at 20:45; Stop 09/12/16 at 20:46; Status UNV Fosphenytoin Sodium/Sodium Chloride (Cerebyx Inj/NS Inj) 60 ml @ 240 mls/hr ONCE ONCE IV Last administered on 09/13/16t 00:29; Start 09/12/16 at 21:30; Stop 09/12/16 at 21:44; Status DC Amlodipine Besylate (Norvasc) 10 mg DAILY PO Last administered on 09/23/16 08: 57; Start 09/14/16 at 09:00 Labetalol HCl (Trandate Inj) 20 mg Q1H PRN IV SYS BP GREATER THAN 150 MMHG Last administered on 09/13/16 18:32; Start 09/13/16 at 12:15; Stop 09/14/16 at 09: 21; Status DC Amlodipine Besylate (Norvasc) 5 mg ONCE ONCE PO Last administered on 09/13/16 11:59; Start 09/13/16 at 11:15; Stop 09/13/16 at 11:43; Status DC Hydralazine HCl (Apresoline) 100 mg Q8H PO Last administered on 09/23/16 05:18 ; Start 09/13/16 at 12:00; Stop 09/23/16 at 09:01; Status DC Hydralazine HCl (Apresoline Inj) 20 mg Q2H PRN IV PUSH sbp > 150 Last administered on 09/18/16 18:00; Start 09/13/16 at 19:15 Labetalol HCl (Trandate) 200 mg Q8HR PO Last administered on 09/15/16 15:30; Start 09/13/16 at 19:11; Status Hold Dexamethasone Sodium Phosphate (Decadron Inj) 8 mg STK-MED ONCE .ROUTE Last administered on 09/14/16 23:20; Start 09/14/16 at 23:18; Stop 09/14/16 at 23:19; Status DC Racepinephrine (Racepinephrine 2.25% Neb) 0.5 ml STK-MED ONCE .ROUTE Last administered on 09/14/16 23:28; Start 09/14/16 at 23:19; Stop 09/14/16 at 23:20; Status DC Racepinephrine (Racepinephrine 2.25% Neb) 0.5 ml STK-MED ONCE .ROUTE ; Start 09/14/16 at 23:21; Stop 09/14/16 at 23:22; Status DC Racepinephrine (Racepinephrine 2.25% Neb) 0.5 ml STK-MED ONCE .ROUTE ; Start 09/14/16 at 23:22; Stop 09/14/16 at 23:23; Status DC Dexamethasone Sodium Phosphate (Decadron Inj) 8 mg STAT IV ; Start 09/14/16 at 23 :45; Stop 09/15/16 at 02:00; Status DC Racepinephrine (Racepinephrine 2.25% Neb) 0.5 ml UNSCH X1 NEB ; Start 09/14/16 at 23:45; Stop 09/15/16 at 02:00; Status DC Racepinephrine (Racepinephrine 2.25% Neb) 0.5 ml UNSCH X1 NEB ; Start 09/14/16 at 23:45; Stop 09/15/16 at 02:00; Status DC Dexamethasone Sodium Phosphate (Decadron Inj) 4 mg Q6HR IV PUSH Last administered on 09/16/16 23:33; Start 09/15/16 at 02:00; Stop 09/17/16 at 01:59; Status DC Racepinephrine (Racepinephrine 2.25% Neb) 0.5 ml Q2HR NEB PRN NEB stridor; Start 09/15/16 at 00:30 Labetalol HCl 20 mg 20 mg Q4H PRN IV PUSH SYS BP GREATER THAN 160 MMHG; Start 09/15/16 at 00:45 Levetriacetam/ Sodium Chloride (Keppra Inj/NS Inj) 105 ml @ 420 mls/hr Q12H IV Last administered on 09/23/16 14:04; Start 09/16/16 at 15:00; Stop 09/23/16 at 15:27; Status DC Albuterol/ Ipratropium (Duoneb Neb) 1 ampule Q8HR NEB PRN NEB WHEEZING Last administered on 09/23/16 15:32; Start 09/17/16 at 20:00; Stop 09/23/16 at 16:00 ; Status DC Sodium Bicarbonate (Sodium Bicarbonate 8.4% Inj) 50 meq STK-MED ONCE .ROUTE ; Start 09/18/16 at 08:17; Stop 09/18/16 at 08:18; Status DC Enoxaparin Sodium (Lovenox Inj) 30 mg Q12H SQ Last administered on 09/23/16 21 :28; Start 09/19/16 at 21:00 Hyoscyamine Sulfate (Levsin) 0.125 mg Q4H PRN PO SECRETIONS Last administered on 09/23/16 21:28; Start 09/20/16 at 15:15 Hydralazine HCl (Apresoline) 100 mg Q8H PO Last administered on 09/24/16 05:23 ; Start 09/23/16 at 13:00 Miscellaneous (Pill Splitter) 1 ea UNSCH PRN OTHER SEE LABEL COMMENTS; Start at 09:30 Levetriacetam (Keppra) 500 mg Q12HR PO Last administered on 09/23/16 21:28; Start 09/23/16 at 21:00 Albuterol/ Ipratropium (Duoneb Neb) 1 ampule Q4HR WHILE AWAKE NEB NEB Last administered on 09/24/16 07:52; Start 09/23/16 at 20:00 Urinary Catheter: No A/P Problem List: (1) COPD exacerbation ICD Code: J44.1 Status: Acute (2) Urinary tract infection ICD Code: N39.0 Status: Acute (3) 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 Patient had perioperative seizures. Some episodes of sinus pauses and bradycardia. She is clinically improving status post ICU course. s/p left craniotomy and temporal lobe tumor resection. Seizures, resolved. history of seizures -Patient is currently on Keppra and valproic acid. Tegretol discontinued. No new seizure activities. Neurosurgery following. - Ativan as needed. - Patient has some expressive aphasia. Speech therapy following. Diet advanced. PASSED SWALLOW EVALUATION PULLED HER OWN DOBBHOFF TUBE TODAY Advance diet per speech as tolerated. Swallowing deficit - PASSED SWALLOW EVALUATION WITH SPEECH PULLED HER OWN DOBBHOFF TUBE TODAY 09-24 Sinus bradycardia and pause: Patient seen by cardiology. Likely related to medication side effect. Her beta blockers discontinued. Anti-seizure medications being adjusted. Rate is now normal. Continue to monitor on telemetry. Hypertension: Continue amlodipine. BP is labile. If remains persistently hypertensive may need to add second agent. HYDRALAZINE TO 100MG PO TID COPD: Continue Symbicort and breathing treatments. Supplemental oxygen as needed. GI prophylaxis: Stool softener PRN constipation. DVT PPx: Lovenox Discharge Planning DC planning per neurosurgery NEEDS SAFE DC PROBABLY NEEDS A SNF Discharge Planning Will need SNF at discharge GrYinka juan DO Sep 24, 2016 09:52
--- NOTE | 2016-09-24 13:23 | HHI.NSPN ---
(Tyrell Shaw) History Chief Complaint: No complaints. (Tyrell Shaw) Interval History 76-year-old female with history of multiple recurrent meningiomas. 09/11/2016: Left craniotomy for recurrent left temporal and left frontoparietal convexity meningiomas. 09/12/16: Positive seizure. Cerebyx started in addition to patient's usual Depakote and Tegretol 09/13/16: following commands, nonverbal. bp elevated, currently on max dose of Cardene 09/14/16: no seizures overnight, bp improved off cardene. remains aphasic but follows commands. f/u CT Head this am completed 09/15: The patient is awake & alert when seen this morning. She is breathing through her mouth with audible adventitious sounds. She is not in any distress. Nursing reports that she did move the toes of both feet to command. 09/16: This afternoon the patient is awake and alert. She attempts to ask a question but is unable to find the words to express her question. She does become slightly flustered by this. Nursing and the Furnace Cleaner report that the patient has been having pauses on her EKG. A CT brain, EEG and Neurology consult were ordered by the Furnace Cleaner. The CT brain was w/o any new or significant change. The EEG was done this afternoon when the patient was first seen and her evaluation was deferred until this time. 09/17: The patient is awake and alert when seen this afternoon. She had difficulty but was finally able to say that the feeding tube was bothering her. She was evaluated by Cardiology yesterday who felt that her pauses/bradycardia was medication induced with a vagal component. Neurology also evaluated her and made adjustments/recommendations to the patients antiepileptic medications. The EEG demonstrated some continuous left hemisphere slowing with associated frequent sharp/epileptiform discharge which were almost rhythmic but not a definitive ictal pattern and remained focal throughout. 09/18: This morning the patient is awake and alert. It is evident she is frustrated when attempting to ask something and then says "Never mind." Physical Therapy was at the bedside to evaluate the patient. 8/11: The patient is awake and alert this afternoon when seen. She readily interacts and works at saying she sat up in the chair, but was unable to find the word chair. Her sister reports she was up for from about 10 AM to 4 PM. She still has enteral feeds through the feeding tube but has been started on thickened liquids. 09/21: This morning when seen the patient was doing well. She had no complaints. She was noted to have the gown off and a towel over her chest and was able to state that she was getting ready to be cleaned up. 09/22: The patient is watching TV this morning and was doing well. She voiced no complaints but does become frustrated as she tries to find the word she wants. 09/23: The patient continues to do well and had no complaints when seen this afternoon. She went for a MBSS this morning and no aspiration or penetration was noted. Speech Therapy stated that the patient is able to be on a soft diet with regular thin liquids. After the patient was seen the [facility] bit welder notified me that [facility] denied acute rehab. 09/24: The patient is asleep when seen this afternoon but awakens to verbal stimuli. After that she is alert and readily interacts. She states "I am doing good." After being assessed she asks "Did you miss anything?" When I looked at her puzzled and repeated the question she smiles and pointed to her nose to show the feeding tube had been removed. (Tyrell Shaw) System Review Comments Constitutional: Patient denies any fever or chills. HEENT: Patient denies any visual or hearing problems. Neck: Patient denies any neck pain. Respiratory: Patient denies any shortness of breath or productive cough. Cardiovascular: Patient denies any chest pain, palpitations or irregular heartbeat. Gastrointestinal: Patient denies any abdominal pain, nausea, vomiting or incontinence of stool. Genitourinary: Patient denies any incontinence of urine. Musculoskeletal: Patient denies any pain or weakness to the extremities. Neurologic: Patient denies any headache, dizziness, numbness or tingling. ( Tyrell Shaw) Exam Results Vital Signs Date Time Temp Pulse Resp B/P Pulse Ox O2 Delivery O2 Flow Rate FiO2 09/24/16 12:37 93 09/24/16 12:09 97.2 20 151/71 100 Intake and Output 09/23/16 09/23/16 09/23/16 07:59 15:59 23:59 Intake Total 1725 ml 360 ml Balance 1725 ml 360 ml (Tyrell Shaw) Physical Examination General: Asleep but awakens to verbal stimuli. After that she is alert and readily interacts. No apparent distress. No evident frustration with speaking. Skin: Warm, dry & intact except for left craniotomy surgical incision which is well healed & MARTINA drain insertion site, both w/o any signs of infection. HEENT: Normocephalic, atraumatic except for left craniotomy surgical incision & MARTINA drain insertion site. PERRLA. Tongue midline to protrusion. Neck: No JVD, trachea midline. Respiratory: Slightly coarse breath sounds bilaterally . Intermittent cough, some audible secretions to the back of the throat. Cardiovascular: S1S2 w/RRR w/o M/G/R, cap refill < 2 sec, radial & pedal pulses 2+ bilaterally, cap refill < 2 sec, pedal edema 1+ bilaterally. Gastrointestinal: Abdomen soft, nontender, positive bowel sounds. Musculoskeletal: Spontaneously moves all extremities, no deformity or clubbing. Neuro: AAOx3, improvement in expressive aphasia, follows commands, GCS 14 (E4 V5 M6). The patient is able to speak a couple 4 to 5 words sentences without any hesitation. PERRLA, 3 mm brisk, symmetrical smile, tongue midline to protrusion. Motor strength LUE 4+ to 5/5, LLE 4+ to 5/5, RUE 4 to 4+/5 except hand squeeze 3 +/5, RLE 4+ to 5/5. (Tyrell Shaw) Lab, Micro, Other Results Recent Impressions Modified Barium Swallow 09/23/16 0000 Signed Impressions: Service Date/Time: Friday, September 23, 2016 09:33 - CONCLUSION: No aspiration or penetration is seen. Minh Donovan MD 05:59 17:59 05:59 17:59 05:59 17:59 Intake Total 0 ml 1827 ml 2085 ml 240 ml Balance 0 ml 1827 ml 2085 ml 240 ml Intake Oral 0 ml 1035 ml 240 ml IV Total 100 ml 100 ml Tube Feeding 1227 ml 650 ml Tube Irrigant 100 ml Other 400 ml 300 ml # Voids 3 2 6 3 # Bowel Movements 0 1 2 1 Laboratory Tests Test 09/22/16 09/23/16 09:10 12:20 White Blood Count 10.9 TH/MM3 10.8 TH/MM3 Red Blood Count 2.74 MIL/MM3 2.99 MIL/MM3 Hemoglobin 8.5 GM/DL 9.0 GM/DL Hematocrit 24.9 % 27.2 % Mean Corpuscular Volume 90.9 FL 90.9 FL Mean Corpuscular Hemoglobin 31.2 PG 29.9 PG Mean Corpuscular Hemoglobin 34.3 % 32.9 % Concent Red Cell Distribution Width 15.5 % 14.8 % Platelet Count 248 TH/MM3 300 TH/MM3 Mean Platelet Volume 9.3 FL 8.3 FL Neutrophils (%) (Auto) 66.7 % Lymphocytes (%) (Auto) 17.1 % Monocytes (%) (Auto) 13.2 % Eosinophils (%) (Auto) 2.4 % Basophils (%) (Auto) 0.6 % Neutrophils # (Auto) 7.2 TH/MM3 Lymphocytes # (Auto) 1.8 TH/MM3 Monocytes # (Auto) 1.4 TH/MM3 Eosinophils # (Auto) 0.3 TH/MM3 Basophils # (Auto) 0.1 TH/MM3 CBC Comment DIFF FINAL Differential Comment Sodium Level 136 MEQ/L Potassium Level 4.0 MEQ/L Chloride Level 100 MEQ/L Carbon Dioxide Level 29.5 MEQ/L Anion Gap 7 MEQ/L Blood Urea Nitrogen 23 MG/DL Creatinine 1.03 MG/DL Estimat Glomerular Filtration 52 ML/MIN Rate Random Glucose 126 MG/DL Hemoglobin A1c 5.2 % Calcium Level 8.5 MG/DL Phosphorus Level 2.8 MG/DL Magnesium Level 2.2 MG/DL Total Bilirubin 0.3 MG/DL Aspartate Amino Transf 12 U/L (AST/SGOT) Alanine Aminotransferase 19 U/L (ALT/SGPT) Alkaline Phosphatase 87 U/L Total Protein 6.3 GM/DL Albumin 2.6 GM/DL Free Thyroxine 1.21 NG/DL Thyroid Stimulating Hormone 3.220 uIU/ML 3rd Gen Vital Signs Date Time Temp Pulse Resp B/P Pulse Ox O2 Delivery O2 Flow Rate FiO2 09/24/16 12:37 93 09/24/16 12:09 97.2 86 20 151/71 100 09/24/16 08:11 97.8 78 18 176/79 98 09/24/16 04:30 98.1 87 18 159/79 96 09/24/16 00:00 98.1 89 18 146/65 96 09/23/16 20:00 99.1 94 18 165/77 96 09/23/16 16:06 98.0 93 22 164/72 97 09/23/16 12:27 98.7 94 20 141/66 96 09/23/16 08:18 99.1 92 20 162/70 94 09/23/16 06:00 98.1 90 21 158/67 97 09/23/16 03:33 97 09/23/16 00:30 97.9 80 20 140/67 97 09/22/16 21:56 98 09/22/16 20:40 98.5 83 19 145/69 97 09/22/16 16:00 98.1 90 16 139/76 97 09/22/16 12:00 99.3 88 16 130/64 94 09/22/16 08:00 99.2 91 16 134/68 98 09/22/16 05:15 97.0 89 20 128/62 96 09/22/16 00:30 97.7 89 21 135/65 96 09/21/16 23:00 92 09/21/16 20:30 98.9 96 20 133/63 97 09/21/16 16:00 98.7 97 26 141/61 96 09/21/16 14:42 68 (Tyrell Shaw) Medical Decision Making Impression and Plan Impression: (1) 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 1. Postoperative craniotomy resection of recurrent meningioma 2 on 09/11/16. 2. Positive postoperative seizure 3. Possible left frontoparietal region ischemia versus postoperative edema on CT scan head 09/12/16 MRI brain [facility] (pre-op) demonstrated left parafalcine mass which had increased in size and a left extra-axial lateral dural mass. CT brain demonstrated expected postoperative changes s/p tumor resection w/o evidence of midline shift, some residual gas & hyperdensity at resection sites, no acute finding to the right supratentorial brain. CT brain demonstrated slight increase in subdural blood along the falx near the vertex. CT brain demonstrated expected postoperative changes. CT brain stable exam compared to w/o new or significant changes. EEG demonstrated some continuous left hemisphere slowing with associated frequent sharp/epileptiform discharge which were almost rhythmic but not a definitive ictal pattern and remained focal throughout. Leukocytosis resolved . Haemoglobin level essentially stable (8.5=>9.0). MBSS w/o any aspiration or penetration seen. Patient is doing well and her speech is improved. POD #13 () s/p: 1. Left frontotemporoparietal craniotomy, resection of recurrent left frontal parietal neoplasm and 2. Resection of recurrent left temporal neoplasm 3. Left frontotemporoparietal duraplasty Plan: Discussed plan of care with patient. Discussed plan of care with [facility] bit welder. Continue neuro checks. Antiepileptic drugs per Neurology. Non-chemical DVT prophylaxis. Ulcer prophylaxis. Mobilise patient w/assistance. PT eval & tx. ST eval & tx. Okay for Lovenox. Soft diet w/thin liquids. Mighty Shake supplement w/meals. ENT consult to evaluate for tracheolaryngeal injury. Accepted at [facility] and plan is to discharge to that facility for further rehab after ENT eval. (Tyrell Shaw) Attending Statement I have personally seen and examined the patient on the date of this note. Pertinent documentation and study results have been reviewed by the undersigned. I have personally developed the treatment plan and performed medical decision making. Agree with findings, exam, and treatment plan as noted above. Remains awake and alert At least moderate expressive speech deficit Follow simple commands Require significant assistance to mobilize out of bed ENT evaluation-patient seen, report pending Discussed with case management (Michele Galeano MD) Tyrell Shaw Sep 24, 2016 13:23 Michele Galeano MD Sep 25, 2016 18:33
[2016-09-25] VITALS (8 sets, daily range): BP systolic 126–173; BP diastolic 64–80; PULSE 75–98; RESP 18–20; TEMP 97.4–98.4; O2SAT 92–99
[2016-09-25] MEDS: hydrALAZINE HCL 100 MG TAB PO SCH ×3 (04:19→21:02)
[2016-09-25] MEDS: INSULIN ASPART SUPPLEMENTAL SCALE SQ SCH (04:29)
[2016-09-25] MEDS: RESP: ALBUTEROL 2.5 MG/IPRATROPIUM 0.5 MG NEB (SCH) NEB ×4 (07:48→19:56)
--- NOTE | 2016-09-25 09:23 | HHI.NSPN ---
(Tyrell Shaw) History Chief Complaint: No complaints. (Tyrell Shaw) Interval History 76-year-old female with history of multiple recurrent meningiomas. 09/11/2016: Left craniotomy for recurrent left temporal and left frontoparietal convexity meningiomas. 09/12/16: Positive seizure. Cerebyx started in addition to patient's usual Depakote and Tegretol 09/13/16: following commands, nonverbal. bp elevated, currently on max dose of Cardene 09/14/16: no seizures overnight, bp improved off cardene. remains aphasic but follows commands. f/u CT Head this am completed 09/15: The patient is awake & alert when seen this morning. She is breathing through her mouth with audible adventitious sounds. She is not in any distress. Nursing reports that she did move the toes of both feet to command. 09/16: This afternoon the patient is awake and alert. She attempts to ask a question but is unable to find the words to express her question. She does become slightly flustered by this. Nursing and the Mule Operator report that the patient has been having pauses on her EKG. A CT brain, EEG and Neurology consult were ordered by the Mule Operator. The CT brain was w/o any new or significant change. The EEG was done this afternoon when the patient was first seen and her evaluation was deferred until this time. 09/17: The patient is awake and alert when seen this afternoon. She had difficulty but was finally able to say that the feeding tube was bothering her. She was evaluated by Cardiology yesterday who felt that her pauses/bradycardia was medication induced with a vagal component. Neurology also evaluated her and made adjustments/recommendations to the patients antiepileptic medications. The EEG demonstrated some continuous left hemisphere slowing with associated frequent sharp/epileptiform discharge which were almost rhythmic but not a definitive ictal pattern and remained focal throughout. 09/18: This morning the patient is awake and alert. It is evident she is frustrated when attempting to ask something and then says "Never mind." Physical Therapy was at the bedside to evaluate the patient. 8/11: The patient is awake and alert this afternoon when seen. She readily interacts and works at saying she sat up in the chair, but was unable to find the word chair. Her sister reports she was up for from about 10 AM to 4 PM. She still has enteral feeds through the feeding tube but has been started on thickened liquids. 09/21: This morning when seen the patient was doing well. She had no complaints. She was noted to have the gown off and a towel over her chest and was able to state that she was getting ready to be cleaned up. 09/22: The patient is watching TV this morning and was doing well. She voiced no complaints but does become frustrated as she tries to find the word she wants. 09/23: The patient continues to do well and had no complaints when seen this afternoon. She went for a MBSS this morning and no aspiration or penetration was noted. Speech Therapy stated that the patient is able to be on a soft diet with regular thin liquids. After the patient was seen the [facility] business support liaison notified me that [facility] denied acute rehab. 09/24: The patient is asleep when seen this afternoon but awakens to verbal stimuli. After that she is alert and readily interacts. She states "I am doing good." After being assessed she asks "Did you miss anything?" When I looked at her puzzled and repeated the question she smiles and pointed to her nose to show the feeding tube had been removed. 09/25: The patient is awake and alert when seen this morning. She says she is "comfortable" and had more difficulty with finding words than yesterday. She reports that she is wet because she couldn't get someone to help her to the bathroom but she knew she had to go. She reports that the ENT saw her this morning and said she did have an injury and she then indicated three weeks. The consult note is not in the system yet. (Tyrell Shaw) System Review Comments Constitutional: Patient denies any fever or chills. HEENT: Patient says she has a throat injury per ENT. She denies any visual or hearing problems. Neck: Patient denies any neck pain. Respiratory: Patient denies any shortness of breath or productive cough. Cardiovascular: Patient denies any chest pain, palpitations or irregular heartbeat. Gastrointestinal: Patient denies any abdominal pain, nausea, vomiting or incontinence of stool. Genitourinary: Patient denies any incontinence of urine. Musculoskeletal: Patient denies any pain or weakness to the extremities. Neurologic: Patient denies any headache, dizziness, numbness or tingling. ( Tyrell Shaw) Exam Results Vital Signs Date Time Temp Pulse Resp B/P Pulse Ox O2 Delivery O2 Flow Rate FiO2 09/25/16 08:36 98.1 87 18 162/75 97 09/25/16 07:50 21 Intake and Output 09/24/16 09/24/16 09/24/16 07:59 15:59 23:59 Intake Total 240 ml 480 ml Balance 240 ml 480 ml (Tyrell Shaw) Physical Examination General: Awake & alert. She readily interacts and becomes slightly flustered trying to find the right word. No apparent distress. Skin: Warm, dry & intact except for left craniotomy surgical incision which is well healed & MARTINA drain insertion site, both w/o any signs of infection. HEENT: Normocephalic, atraumatic except for left craniotomy surgical incision & MARTINA drain insertion site. PERRLA. Tongue midline to protrusion. Neck: No JVD, trachea midline. Respiratory: Slightly coarse breath sounds bilaterally . Intermittent cough, no audible secretions to the back of the throat. Cardiovascular: S1S2 w/RRR w/o M/G/R, cap refill < 2 sec, radial & pedal pulses 2+ bilaterally, cap refill < 2 sec, pedal edema 1+ bilaterally. Gastrointestinal: Abdomen soft, nontender, positive bowel sounds. Musculoskeletal: Spontaneously moves all extremities, no deformity or clubbing. Neuro: AAOx3, expressive aphasia w/more difficulty w/finding words, follows commands, GCS 14 (E4 V5 M6). The patient is speaking in a couple words sentences. PERRLA, 3 mm brisk, symmetrical smile, tongue midline to protrusion. Motor strength LUE 4+ to 5/5, LLE 4+ to 5/5, RUE 4 to 4+/5 except hand squeeze 3 +/5, RLE 4+ to 5/5. (Tyrell Shaw) Medical Decision Making Impression and Plan Impression: (1) 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 1. Postoperative craniotomy resection of recurrent meningioma 2 on 09/11/16. 2. Positive postoperative seizure 3. Possible left frontoparietal region ischemia versus postoperative edema on CT scan head 09/12/16 [facility]pre[facility]) demonstrated left parafalcine mass which had increased in size and a left extra-axial lateral dural mass. CT brain demonstrated expected postoperative changes s/p tumor resection w/o evidence of midline shift, some residual gas & hyperdensity at resection sites, no acute finding to the right supratentorial brain. CT brain demonstrated slight increase in subdural blood along the falx near the vertex. CT brain demonstrated expected postoperative changes. CT brain stable exam compared to w/o new or significant changes. EEG demonstrated some continuous left hemisphere slowing with associated frequent sharp/epileptiform discharge which were almost rhythmic but not a definitive ictal pattern and remained focal throughout. Leukocytosis resolved . Haemoglobin level essentially stable (8.5=>9.0). MBSS w/o any aspiration or penetration seen. Patient is doing well but w/more speech difficulty today. POD #14 () s/p: 1. Left frontotemporoparietal craniotomy, resection of recurrent left frontal parietal neoplasm and 2. Resection of recurrent left temporal neoplasm 3. Left frontotemporoparietal duraplasty Plan: Discussed plan of care with patient. Discussed plan of care with [facility] business support liaison. Continue neuro checks. Antiepileptic drugs per Neurology. Non-chemical DVT prophylaxis. Ulcer prophylaxis. Mobilise patient w/assistance. PT eval & tx. ST eval & tx. Okay for Lovenox. Soft diet w/thin liquids. Mighty Shake supplement w/meals. Accepted at [facility] and plan is to discharge to that facility after ENT consult note available for review. (Tyrell Shaw) Attending Statement I have personally seen and examined the patient on the date of this note. Pertinent documentation and study results have been reviewed by the undersigned. I have personally developed the treatment plan and performed medical decision making. Agree with findings, exam, and treatment plan as noted above. Continue observation. ENT Discussed with case management Cleared for proximal rehabilitation pending insurance authorization Continues to require close suctioning. Persistent upper airway congestion (Michele Galeano MD) Tyrell Shaw Sep 25, 2016 09:23 Michele Galeano MD Sep 25, 2016 18:36
--- NOTE | 2016-09-25 09:51 | HHI.PR ---
Subjective Remarks 8-14 Still has Dobbhoff tube in place Having lots of coughing while in the room Denies any pain or shortness of breath 8-15 to go for MODIFIED BARIUM SWALLOW TODAY STILL HAVING DIFFICULT EXPRESSING HERSELF AND APHASIA DHT IN PLACE DW PT AND RN 8-16 PATIENT PASSED SWALLOW EVALUATION YESTERDAY PATIENT PULLED HER OWN DHT HOPEFULLY BETTER APPETITE NOT APPROVED FOR SANTO BY RON GOLD PATIENT AND RN NO NEW COMPLAINTS - "I feel lousy" NO SOB, NO CHEST PAIN, NO PALPITATIONS NEEDS INPATIENT REHAB FOR AGGRESSIVE CARE Objective Vitals Vital Signs Date Time Temp Pulse Resp B/P Pulse Ox O2 Delivery O2 Flow Rate FiO2 09/25/16 08:36 98.1 87 18 162/75 97 09/25/16 07:50 98 21 09/25/16 04:36 97.7 75 18 166/75 99 09/25/16 00:15 98.2 78 20 151/73 99 09/24/16 20:29 98.2 85 20 138/75 100 09/24/16 18:00 136 09/24/16 16:02 99 09/24/16 15:55 98.3 85 20 165/82 99 09/24/16 12:37 93 09/24/16 12:09 97.2 86 20 151/71 100 I/O 09/24/16 09/24/16 09/24/16 09/25/16 09/25/16 09/25/16 07:00 15:00 23:00 07:00 15:00 23:00 Intake Total 240 ml 480 ml Balance 240 ml 480 ml Intake Oral 240 ml 480 ml # Voids 2 3 1 1 # Bowel Movements 1 1 0 Result Diagram: 09/23/16 1220 09/23/16 1220 Imaging Last Impressions Modified Barium Swallow 09/23/16 0000 Signed Impressions: Service Date/Time: Friday, September 23, 2016 09:33 - CONCLUSION: No aspiration or penetration is seen. Minh Donovan MD Head CT 09/16/16 0000 Signed Impressions: Service Date/Time: Friday, September 16, 2016 12:04 - CONCLUSION: Stable followup CT scan of the brain compared to the prior examination. No new or significant changes. Hilario Vargas MD Abdomen X-Ray 09/15/16 1320 Signed Impressions: Service Date/Time: Thursday, September 15, 2016 13:33 - CONCLUSION: Tip of Dobbhoff catheter is in either the antrum or the duodenal bulb. Antoni Acevedo MD Chest X-Ray 09/14/16 0000 Signed Impressions: Service Date/Time: Wednesday, September 14, 2016 23:21 - CONCLUSION: No acute disease. Jose Torres MD Brain MRI 09/11/16 0717 Signed Impressions: Service Date/Time: September 08:13 - CONCLUSION: 1. 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 This mass has increased in size from the prior study. 2. There is a second extra-axial lateral dural based mass on the left measuring 2.0 x 1.6 cm. Minh Bell MD Objective Remarks GENERAL:is aphasic to some degree SKIN: Warm and dry. HEAD: Atraumatic. Normocephalic. Scars that are obvious on her scalp EYES: Pupils equal and round. No scleral icterus. No injection or drainage. extraocular muscles intact ENT: No nasal bleeding or discharge. Mucous membranes pink and moist. tongue protrudes midline NECK: Trachea midline. No JVD. CARDIOVASCULAR: Regular rate and rhythm. S1-S2 no S3 or S4 no heave or thrill or rub or gallop RESPIRATORY: No accessory muscle use. Breath sounds equal bilaterally. Few scattered rhonchi and coarse GASTROINTESTINAL: Abdomen soft, non-tender, nondistended. Hepatic and splenic margins not palpable. MUSCULOSKELETAL: Extremities without clubbing, cyanosis, or edema. No obvious deformities. NEUROLOGICAL: Awake and alert. Aphasic.No obvious cranial nerve deficits. Motor grossly within normal limits. Five out of 5 muscle strength in the arms and legs. Aphasic speech. PSYCHIATRIC: Appropriate mood and affect; insight and judgment ABnormal. Hard to assess THIS completely due to aphasia Procedures 76-year-old female with history of multiple recurrent meningiomas. 09/11/2016: Left craniotomy for recurrent left temporal and left frontoparietal convexity meningiomas. Medications and IVs Current Medications Lactated Ringer's 1,000 ml @ 0 mls/hr Q24H IV Last administered on 09/11/16t 06 :30; Start 09/11/16 at 06:30; Stop 09/11/16 at 15:38; Status DC Cefazolin Sodium 1000 mg/Sodium Chloride 100 ml @ 200 mls/hr NEUROPSYCHOLOGIST IV Last administered on 09/11/16 08:55; Start 09/11/16 at 06:30; Stop 09/14/16 at 06:29; Status DC Lactated Ringer's 1,000 ml @ 30 mls/hr Q24H PRN IV SEE LABEL COMMENTS; Start at 06:30; Stop 09/14/16 at 06:29; Status DC Sodium Chloride (NS 500 ml Inj) 500 ml @ 30 mls/hr [id number] PRN IV SEE LABEL COMMENTS; Start 09/11/16 at 06:30; Stop 09/14/16 at 06:29; Status DC Metoprolol Tartrate (Lopressor) 25 mg NEUROPSYCHOLOGIST PRN PO SEE LABEL COMMENTS; Start 09/11/16 at 06:30; Stop 09/14/16 at 06:29; Status DC Povidone Iodine (Betadine 5% Antisepsis Kit) 1 applic NEUROPSYCHOLOGIST PRN EACH NARE SEE LABEL COMMENTS Last administered on 09/11/16 06:30; Start 09/11/16 at 06:30; Stop 09/14/16 at 06:29; Status DC Chlorhexidine Gluconate (Chlorhexidine 2% Cloth) 3 pack NEUROPSYCHOLOGIST PRN TOPICAL SEE LABEL COMMENTS Last administered on 09/11/16 06:20; Start 09/11/16 at 06:30; Stop 09/14/16 at 06:29; Status DC Insulin Human Regular (NovoLIN R INJ) See Protocol Table ... NEUROPSYCHOLOGIST PRN SQ SEE PROTOCOL TABLE; Start 09/11/16 at 06:30; Stop 09/14/16 at 06:29; Status DC Thrombin (Thrombin Top Soln) 10,000 units STK-MED ONCE .ROUTE Last administered on 09/11/16 10:47; Start 09/11/16 at 07:23; Stop 09/11/16 at 07:24; Status DC Gelatin (Gelfoam 100 Top) 1 foam STK-MED ONCE .ROUTE ; Start 09/11/16 at 07:23; Stop 09/11/16 at 07:24; Status DC Gentamicin Sulfate (Gentamicin Inj) 240 mg STK-MED ONCE .ROUTE Last administered on 09/11/16 10:47; Start 09/11/16 at 07:23; Stop 09/11/16 at 07:24; Status DC Lidocaine/ Epinephrine (Xylocaine-Epi 1%-1:100,000 Inj) 40 ml STK-MED ONCE .ROUTE Last administered on 09/11/16 10:47; Start 09/11/16 at 07:23; Stop at 07:24; Status DC Furosemide (Lasix Inj) 40 mg STK-MED ONCE .ROUTE ; Start 09/11/16 at 07:31; Stop 09/11/16 at 07:32; Status DC Albumin Human 12.5 gm 12.5 gm STK-MED ONCE IV ; Start 09/11/16 at 07:32; Stop 09/11/16 at 07:33; Status DC Nitroglycerin/ Dextrose 250 ml @ As Directed STK-MED ONCE .ROUTE ; Start at 07:32; Stop 09/11/16 at 07:33; Status DC Mannitol (Mannitol Inj) 50 ml @ As Directed STK-MED ONCE .ROUTE ; Start 09/11/16 at 07:32; Stop 09/11/16 at 07:33; Status DC Gadodiamide (Omniscan Pf Inj) 14 ml STK-MED ONCE IV Last administered on 08:35; Start 09/11/16 at 08:35; Stop 09/11/16 at 08:36; Status DC Albuterol Sulfate (Albuterol Concentrated Neb) 2.5 mg STK-MED ONCE .ROUTE ; Start 09/11/16 at 09:03; Stop 09/11/16 at 09:04; Status DC Gelatin (Gelfoam 100 Top) 1 foam STK-MED ONCE .ROUTE Last administered on 10:47; Start 09/11/16 at 09:14; Stop 09/11/16 at 09:15; Status DC Thrombin (Thrombin Top Soln) 10,000 units STK-MED ONCE .ROUTE Last administered on 09/11/16 11:10; Start 09/11/16 at 11:09; Stop 09/11/16 at 11:10; Status DC Gelatin (Gelfoam 100 Top) 1 foam STK-MED ONCE .ROUTE Last administered on 11:10; Start 09/11/16 at 11:09; Stop 09/11/16 at 11:10; Status DC Thrombin (Thrombin Top Soln) 10,000 units STK-MED ONCE .ROUTE Last administered on 09/11/16 12:26; Start 09/11/16 at 12:24; Stop 09/11/16 at 12:25; Status DC Cefazolin Sodium (Ancef Inj) 1,000 mg STK-MED ONCE IV Last administered on 13:00; Start 09/11/16 at 13:00; Stop 09/11/16 at 13:13; Status DC Albuterol Sulfate (*ALBUTEROL NEB PERIprocedure ONLY) 2.5 mg STK-MED ONCE NEB Last administered on 09/11/16 14:57; Start 09/11/16 at 14:57; Stop 09/11/16 at 14: 58; Status DC Labetalol HCl (*TRANDATE INJ PERIprocedural Use ONLY) 100 mg STK-MED ONCE .ROUTE Last administered on 09/11/16 14:59; Start 09/11/16 at 14:59; Stop at 15:00; Status DC Nicardipine HCl (Cardene Inj) 25 mg STK-MED ONCE .ROUTE Last administered on 15:15; Start 09/11/16 at 15:07; Stop 09/11/16 at 15:08; Status DC Fentanyl Citrate (fentaNYL INJ) 250 mcg STK-MED ONCE .ROUTE ; Start 09/11/16 at 15:13; Stop 09/11/16 at 15:14; Status DC Morphine Sulfate (Morphine Inj) 4 mg STK-MED ONCE .ROUTE ; Start 09/11/16 at 15: 13; Stop 09/11/16 at 15:14; Status DC Sodium Chloride (NS Flush) 2 ml UNSCH PRN IV FLUSH FLUSH AFTER USING IV ACCESS ; Start 09/11/16 at 15:15 Sodium Chloride (NS Flush) 2 ml BID IV FLUSH Last administered on 09/24/16 22: 36; Start 09/11/16 at 21:00 Bisacodyl (Dulcolax Supp) 10 mg DAILY PRN RECTAL CONSTIPATION Last administered on 09/16/16 05:23; Start 09/11/16 at 15:15 Docusate Sodium (Colace) 100 mg BID PO Last administered on 09/24/16 09:47; Start 09/11/16 at 21:00 Pantoprazole Sodium (Protonix Inj) 40 mg DAILY IVP Last administered on 09:46; Start 09/12/16 at 09:00 Ondansetron HCl (Zofran Inj) 4 mg Q6H PRN IV NAUSEA OR VOMITING; Start 09/11/16 at 15:15 Morphine Sulfate (Morphine Inj) 2 mg Q2H PRN IV PAIN SCALE 1 TO 6 Last administered on 09/14/16 03:00; Start 09/11/16 at 15:15 Morphine Sulfate (Morphine Inj) 4 mg Q2H PRN IV PAIN SCALE 7 TO 10 Last administered on 09/21/16 18:33; Start 09/11/16 at 15:15 Labetalol HCl 10 mg 10 mg Q1H PRN IV SYS BP GREATER THAN 150 MMHG Last administered on 09/13/16 03:00; Start 09/11/16 at 15:15; Stop 09/13/16 at 11:16; Status DC Nicardipine HCl/ Sodium Chloride (Cardene Inj/NS 250 ml Inj) 260 ml @ 0 mls/hr TITRATE IV Last administered on 09/13/16 12:17; Start 09/11/16 at 15:15; Stop at 09:21; Status DC Amlodipine Besylate (Norvasc) 5 mg DAILY PO Last administered on 09/13/16 08:45 ; Start 09/12/16 at 09:00; Stop 09/13/16 at 11:16; Status DC Carbamazepine (TEGretol) 200 mg BID PO ; Start 09/11/16 at 21:00; Stop 09/12/16 at 06:36; Status DC Carvedilol (Coreg) 25 mg BID PO Last administered on 09/15/16 10:33; Start 09/11 at 21:00; Stop 09/16/16 at 07:20; Status DC Divalproex Sodium (Depakote Dr) 500 mg TID PO ; Start 09/11/16 at 18:00; Stop 09/12/16 at 06:34; Status DC Albuterol/ Ipratropium (Duoneb Neb) 1 ampule Q8HR NEB INH Last administered on 09/15/16 14:48; Start 09/11/16 at 16:00; Stop 09/15/16 at 16:00; Status DC Nitrofurantoin Macrocrystals (Macrobid) 100 mg BID PO Last administered on 10:33; Start 09/11/16 at 21:00; Stop 09/15/16 at 22:33; Status DC Non-Formulary Medication 1 puff 1 puff BID INH ; Start 09/11/16 at 21:00; Status UNV Dextrose/Sodium Chloride (D5W-NS 1000 ml Inj) 1,000 ml @ 100 mls/hr Q10H IV Last administered on 09/13/16 08:47; Start 09/11/16 at 16:00; Stop 09/13/16 at 11: 19; Status DC Lorazepam (Ativan Inj) 2 mg STK-MED ONCE .ROUTE ; Start 09/11/16 at 15:39; Stop 09/11/16 at 15:40; Status DC Lorazepam 1 mg 1 mg Q6H PRN IV SEIZURES Last administered on 09/12/16 23:55; Start 09/11/16 at 15:45 Fosphenytoin Sodium/Sodium Chloride (Cerebyx Inj/NS Inj) 70 ml @ 280 mls/hr ONCE ONCE IV Last administered on 09/11/16 16:59; Start 09/11/16 at 16:00; Stop 09/11/16 at 16:14; Status DC Fosphenytoin Sodium (Cerebyx Inj) 100 mgpe Q8HR IV Last administered on 21:54; Start 09/11/16 at 22:00; Status Hold Budesonide/ Formoterol Fumarate (Symbicort 160-4.5 Inh) 2 puff BID INH Last administered on 09/24/16 22:37; Start 09/11/16 at 21:00 Miscellaneous Information ALL NURSING DEPARTME... UNSCH PRN .XX SEE LABEL COMMENTS; Start 09/11/16 at 16:15; Stop 09/12/16 at 16:29; Status DC Nicardipine HCl 25 mg 25 mg STK-MED ONCE .ROUTE ; Start 09/11/16 at 22:47; Stop 09/11/16 at 22:48; Status DC Sodium Chloride (NS 250 ml Inj) 250 ml @ As Directed STK-MED ONCE .ROUTE ; Start 09/11/16 at 22:47; Stop 09/11/16 at 22:48; Status DC Valproic Acid (Depakene Liq) 500 mg Q8H NG ; Start 09/12/16 at 06:34; Stop at 06:35; Status DC Valproic Acid (Depakene Liq) 500 mg Q8H NG Last administered on 09/24/16 23:25 ; Start 09/12/16 at 08:00 Carbamazepine (TEGretol LIQ) 200 mg BID NG ; Start 09/12/16 at 09:00; Stop at 09:00; Status DC Carbamazepine (TEGretol LIQ) 200 mg BID NG Last administered on 09/15/16 21:51 ; Start 09/12/16 at 09:00; Status Hold Fosphenytoin Sodium (Cerebyx Inj) 200 mgpe ONCE ONCE IV Last administered on 11:17; Start 09/12/16 at 08:00; Stop 09/12/16 at 08:03; Status DC Dextrose (D50w (Vial) Inj) 50 ml UNSCH PRN IV HYPOGLYCEMIA-SEE COMMENTS; Start 09/12/16 at 08:00 Glucagon (Glucagon Inj) 1 mg UNSCH PRN OTHER HYPOGLYCEMIA-SEE COMMENTS; Start 09/12/16 at 08:00 Insulin Aspart 1 1 Q6H SQ Last administered on 09/14/16 23:07; Start 09/12/16 at 11:00 Potassium Chloride 100 ml @ 50 mls/hr Q2H PRN IV For Potassium 2.8 - 3.2 mEq/L ; Start 09/12/16 at 08:00; Stop 09/20/16 at 07:24; Status DC Potassium Chloride (KCl 20 Meq Premix Inj) 100 ml @ 50 mls/hr Q2H PRN IV For Potassium 2.8 - 3.2 mEq/L; Start 09/12/16 at 08:00; Stop 09/20/16 at 07:24; Status DC Potassium Bicarb/ Potassium Chloride 50 meq 50 meq UNSCH PRN PO For Potassium 3.3 - 3.5 mEq/L Last administered on 09/13/16 08:46; Start 09/12/16 at 08:00; Stop 09/20/16 at 07:24; Status DC Potassium Chloride 100 ml @ 25 mls/hr UNSCH PRN IV For Potassium 3.3 - 3.5 mEq /L Last administered on 09/18/16 09:19; Start 09/12/16 at 08:00; Stop 09/20/16 at 07:24; Status DC Potassium Chloride 100 ml @ 50 mls/hr Q2H PRN IV For Potassium 3.3 - 3.5 mEq/ L Last administered on 09/19/16 04:18; Start 09/12/16 at 08:00; Stop 09/20/16 at 07:24; Status DC Magnesium Sulfate/ Sodium Chloride (Magnesium Sulfate Inj/NS Inj) 100 ml @ 50 mls/hr UNSCH PRN IV For Magnesium 0.9 - 1.1 mg/dL; Start 09/12/16 at 08:00; Stop 09/20/16 at 07:24; Status DC Magnesium Oxide 800 mg 800 mg UNSCH PRN PO For Magnesium 1.2 - 1.6 mg/dL; Start 09/12/16 at 08:00; Stop 09/20/16 at 07:24; Status DC Magnesium Sulfate/ Sodium Chloride (Magnesium Sulfate Inj/NS Inj) 100 ml @ 50 mls/hr UNSCH PRN IV For Magnesium 1.2 - 1.6 mg/dL; Start 09/12/16 at 08:00; Stop 09/20/16 at 07:23; Status DC Potassium Phosphate 2000 mg 2,000 mg Q4H PRN PO For Phosphorus < 2.5 mg/dL; Start 09/12/16 at 08:00; Stop 09/20/16 at 07:24; Status DC Sodium Phosphate/ Sodium Chloride (Sodium Phosphate Inj/NS 250 ml Inj) 250 ml @ 42 mls/hr UNSCH PRN IV For Phosphorus < 2.5 mg/dL; Start 09/12/16 at 08:00; Stop 09/20/16 at 07:24; Status DC Potassium Phosphate 2000 mg 2,000 mg UNSCH PRN PO/TUBE SEE LABEL COMMENTS; Start 09/12/16 at 07:51; Stop 09/20/16 at 07:24; Status DC Potassium Phosphate/Sodium Chloride (Potassium Phosphate Inj/NS 250 ml Inj) 260 ml @ 42 mls/hr UNSCH PRN IV SEE LABEL COMMENTS; Start 09/12/16 at 07:51; Stop 09/20/16 at 07:24; Status DC Fosphenytoin Sodium 500 mgpe 500 mgpe ONCE ONCE IV ; Start 09/12/16 at 20:45; Stop 09/12/16 at 20:46; Status UNV Fosphenytoin Sodium/Sodium Chloride (Cerebyx Inj/NS Inj) 60 ml @ 240 mls/hr ONCE ONCE IV Last administered on 09/13/16 00:29; Start 09/12/16 at 21:30; Stop 09/12/16 at 21:44; Status DC Amlodipine Besylate (Norvasc) 10 mg DAILY PO Last administered on 09/24/16 09: 46; Start 09/14/16 at 09:00 Labetalol HCl (Trandate Inj) 20 mg Q1H PRN IV SYS BP GREATER THAN 150 MMHG Last administered on 09/13/16 18:32; Start 09/13/16 at 12:15; Stop 09/14/16 at 09: 21; Status DC Amlodipine Besylate (Norvasc) 5 mg ONCE ONCE PO Last administered on 09/13/16 11:59; Start 09/13/16 at 11:15; Stop 09/13/16 at 11:43; Status DC Hydralazine HCl (Apresoline) 100 mg Q8H PO Last administered on 09/23/16 05:18 ; Start 09/13/16 at 12:00; Stop 09/23/16 at 09:01; Status DC Hydralazine HCl (Apresoline Inj) 20 mg Q2H PRN IV PUSH sbp > 150 Last administered on 09/18/16 18:00; Start 09/13/16 at 19:15 Labetalol HCl (Trandate) 200 mg Q8HR PO Last administered on 09/15/16 15:30; Start 09/13/16 at 19:11; Status Hold Dexamethasone Sodium Phosphate (Decadron Inj) 8 mg STK-MED ONCE .ROUTE Last administered on 09/14/16 23:20; Start 09/14/16 at 23:18; Stop 09/14/16 at 23:19; Status DC Racepinephrine (Racepinephrine 2.25% Neb) 0.5 ml STK-MED ONCE .ROUTE Last administered on 09/14/16 23:28; Start 09/14/16 at 23:19; Stop 09/14/16 at 23:20; Status DC Racepinephrine (Racepinephrine 2.25% Neb) 0.5 ml STK-MED ONCE .ROUTE ; Start 09/14/16 at 23:21; Stop 09/14/16 at 23:22; Status DC Racepinephrine (Racepinephrine 2.25% Neb) 0.5 ml STK-MED ONCE .ROUTE ; Start 09/14/16 at 23:22; Stop 09/14/16 at 23:23; Status DC Dexamethasone Sodium Phosphate (Decadron Inj) 8 mg STAT IV ; Start 09/14/16 at 23 :45; Stop 09/15/16 at 02:00; Status DC Racepinephrine (Racepinephrine 2.25% Neb) 0.5 ml UNSCH X1 NEB ; Start 09/14/16 at 23:45; Stop 09/15/16 at 02:00; Status DC Racepinephrine (Racepinephrine 2.25% Neb) 0.5 ml UNSCH X1 NEB ; Start 09/14/16 at 23:45; Stop 09/15/16 at 02:00; Status DC Dexamethasone Sodium Phosphate (Decadron Inj) 4 mg Q6HR IV PUSH Last administered on 09/16/16 23:33; Start 09/15/16 at 02:00; Stop 09/17/16 at 01:59; Status DC Racepinephrine (Racepinephrine 2.25% Neb) 0.5 ml Q2HR NEB PRN NEB stridor; Start 09/15/16 at 00:30 Labetalol HCl 20 mg 20 mg Q4H PRN IV PUSH SYS BP GREATER THAN 160 MMHG; Start 09/15/16 at 00:45 Levetriacetam/ Sodium Chloride (Keppra Inj/NS Inj) 105 ml @ 420 mls/hr Q12H IV Last administered on 09/23/16 14:04; Start 09/16/16 at 15:00; Stop 09/23/16 at 15:27; Status DC Albuterol/ Ipratropium (Duoneb Neb) 1 ampule Q8HR NEB PRN NEB WHEEZING Last administered on 09/23/16 15:32; Start 09/17/16 at 20:00; Stop 09/23/16 at 16:00 ; Status DC Sodium Bicarbonate (Sodium Bicarbonate 8.4% Inj) 50 meq STK-MED ONCE .ROUTE ; Start 09/18/16 at 08:17; Stop 09/18/16 at 08:18; Status DC Enoxaparin Sodium (Lovenox Inj) 30 mg Q12H SQ Last administered on 09/24/16 22 :37; Start 09/19/16 at 21:00 Hyoscyamine Sulfate (Levsin) 0.125 mg Q4H PRN PO SECRETIONS Last administered on 09/23/16 21:28; Start 09/20/16 at 15:15 Hydralazine HCl (Apresoline) 100 mg Q8H PO Last administered on 09/25/16 04:19 ; Start 09/23/16 at 13:00 Miscellaneous (Pill Splitter) 1 ea UNSCH PRN OTHER SEE LABEL COMMENTS; Start at 09:30 Levetriacetam (Keppra) 500 mg Q12HR PO Last administered on 09/24/16 22:35; Start 09/23/16 at 21:00 Albuterol/ Ipratropium (Duoneb Neb) 1 ampule Q4HR WHILE AWAKE NEB NEB Last administered on 09/25/16 07:48; Start 09/23/16 at 20:00 Urinary Catheter: No Vascular Central Line Catheter: No A/P Problem List: (1) COPD exacerbation ICD Code: J44.1 Status: Acute (2) Urinary tract infection ICD Code: N39.0 Status: Acute (3) 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 Patient had perioperative seizures. Some episodes of sinus pauses and bradycardia. She is clinically improving status post ICU course. s/p left craniotomy and temporal lobe tumor resection. Seizures, resolved. history of seizures -Patient is currently on Keppra and valproic acid. Tegretol discontinued. No new seizure activities. Neurosurgery following. - Ativan as needed. - Patient has some expressive aphasia. Speech therapy following. Diet advanced. Advance diet per speech as tolerated. Swallowing deficit - PASSED SWALLOW EVALUATION WITH SPEECH PULLED HER OWN DOBBHOFF TUBE TODAY 8-16 Sinus bradycardia and pause: Patient seen by cardiology. Likely related to medication side effect. Her beta blockers discontinued. Anti-seizure medications being adjusted. Rate is now normal. Continue to monitor on telemetry. Hypertension: Continue amlodipine. BP is labile. If remains persistently hypertensive may need to add second agent. HYDRALAZINE TO 100MG PO TID COPD: Continue Symbicort and breathing treatments. Supplemental oxygen as needed. GI prophylaxis: Stool softener PRN constipation. DVT PPx: Lovenox Discharge Planning DC planning per neurosurgery NEEDS SAFE DC PROBABLY NEEDS inpatient rehabilitation if insurance will authorize Patient needs inpatient rehabilitation for aggressive physical therapy occupational therapy and speech therapy Discharge Planning Will need inpatient rehabilitation at discharge for aggressive physical therapy occupational therapy and speech therapy Yinka Walsh DO Sep 25, 2016 09:51
[2016-09-25] MEDS: ENOXAPARIN SODIUM 30 MG/0.3 ML SYRINGE SQ SCH ×2 (10:11→21:02)
[2016-09-25] MEDS: VALPROIC ACID SYRUP 250 MG/5 ML UDC NG SCH ×2 (10:12→17:17)
[2016-09-25] MEDS: PANTOPRAZOLE SODIUM 40 MG VIAL IVP SCH (10:12)
[2016-09-25] MEDS: DOCUSATE SODIUM 100 MG CAP PO SCH ×2 (10:12→21:02)
[2016-09-25] MEDS: levETIRAcetam 500 MG TAB PO SCH ×2 (10:12→21:02)
[2016-09-25] MEDS: SODIUM CHLORIDE 0.9% FLUSH 10 ML FLUSH IV FLUSH SCH ×2 (10:13→21:00)
[2016-09-25] MEDS: BUDESONIDE-FORMOTEROL 160/4.5 MCG INHALER INH SCH ×2 (10:13→21:00)
[2016-09-25] MEDS: PANTOPRAZOLE SOD 40 MG DELAYED RELEASE TAB PO SCH (10:55)
[2016-09-26] VITALS (10 sets, daily range): BP systolic 128–148; BP diastolic 59–72; PULSE 78–94; RESP 18; TEMP 97.6–98.6; O2SAT 95–100
[2016-09-26] MEDS: VALPROIC ACID SYRUP 250 MG/5 ML UDC NG SCH ×4 (00:08→23:12)
[2016-09-26] MEDS: hydrALAZINE HCL 100 MG TAB PO SCH ×3 (05:02→20:38)
[2016-09-26] MEDS: RESP: ALBUTEROL 2.5 MG/IPRATROPIUM 0.5 MG NEB (SCH) NEB ×4 (07:41→20:00)
--- NOTE | 2016-09-26 08:22 | HHI.PR ---
Subjective Remarks 8-14 Still has Dobbhoff tube in place Having lots of coughing while in the room Denies any pain or shortness of breath 8-15 to go for MODIFIED BARIUM SWALLOW TODAY STILL HAVING DIFFICULT EXPRESSING HERSELF AND APHASIA DHT IN PLACE DW PT AND RN 8-16 PATIENT PASSED SWALLOW EVALUATION YESTERDAY PATIENT PULLED HER OWN DHT HOPEFULLY BETTER APPETITE NOT APPROVED FOR SANTO BY RON GOLD PATIENT AND RN NO NEW COMPLAINTS 09-25 "I feel lousy" NO SOB, NO CHEST PAIN, NO PALPITATIONS NEEDS INPATIENT REHAB FOR AGGRESSIVE CARE 18 AWAIT SNF/INPATIENT REHAB APPROVAL- [facility] PATIENT AND RN NO SOB, NO CHEST NO PALPITATIONS Objective Vitals Vital Signs Date Time Temp Pulse Resp B/P Pulse Ox O2 Delivery O2 Flow Rate FiO2 09/26/16 07:42 96 09/26/16 04:58 98.1 80 18 147/68 97 09/26/16 00:00 98.3 85 18 148/72 95 09/25/16 21:05 84 09/25/16 20:00 98.4 98 18 150/71 92 09/25/16 16:13 97.4 97 18 126/64 97 09/25/16 12:32 97.7 87 18 173/80 98 09/25/16 08:36 98.1 87 18 162/75 97 I/O 09/25/16 09/25/16 09/25/16 09/26/16 09/26/16 09/26/16 07:00 15:00 23:00 07:00 15:00 23:00 Intake Total 120 ml Output Total 1400 ml Balance 120 ml -1400 ml Intake Oral 120 ml Output Urine Total 1400 ml # Voids 1 3 1 # Bowel Movements 0 Result Diagram: 09/23/16 1220 09/23/16 1220 Other Results Laboratory Tests Test 09/23/16 12:20 White Blood Count 10.8 TH/MM3 Red Blood Count 2.99 MIL/MM3 Hemoglobin 9.0 GM/DL Hematocrit 27.2 % Mean Corpuscular Volume 90.9 FL Mean Corpuscular Hemoglobin 29.9 PG Mean Corpuscular Hemoglobin 32.9 % Concent Red Cell Distribution Width 14.8 % Platelet Count 300 TH/MM3 Mean Platelet Volume 8.3 FL Neutrophils (%) (Auto) 66.7 % Lymphocytes (%) (Auto) 17.1 % Monocytes (%) (Auto) 13.2 % Eosinophils (%) (Auto) 2.4 % Basophils (%) (Auto) 0.6 % Neutrophils # (Auto) 7.2 TH/MM3 Lymphocytes # (Auto) 1.8 TH/MM3 Monocytes # (Auto) 1.4 TH/MM3 Eosinophils # (Auto) 0.3 TH/MM3 Basophils # (Auto) 0.1 TH/MM3 CBC Comment DIFF FINAL Differential Comment Sodium Level 136 MEQ/L Potassium Level 4.0 MEQ/L Chloride Level 100 MEQ/L Carbon Dioxide Level 29.5 MEQ/L Anion Gap 7 MEQ/L Blood Urea Nitrogen 23 MG/DL Creatinine 1.03 MG/DL Estimat Glomerular Filtration 52 ML/MIN Rate Random Glucose 126 MG/DL Hemoglobin A1c 5.2 % Calcium Level 8.5 MG/DL Phosphorus Level 2.8 MG/DL Magnesium Level 2.2 MG/DL Total Bilirubin 0.3 MG/DL Aspartate Amino Transf 12 U/L (AST/SGOT) Alanine Aminotransferase 19 U/L (ALT/SGPT) Alkaline Phosphatase 87 U/L Total Protein 6.3 GM/DL Albumin 2.6 GM/DL Free Thyroxine 1.21 NG/DL Thyroid Stimulating Hormone 3.220 uIU/ML 3rd Gen Imaging Last Impressions Modified Barium Swallow 09/23/16 0000 Signed Impressions: Service Date/Time: Friday, September 23, 2016 09:33 - CONCLUSION: No aspiration or penetration is seen. Minh Donovan MD Head CT 09/16/16 0000 Signed Impressions: Service Date/Time: Friday, September 16, 2016 12:04 - CONCLUSION: Stable followup CT scan of the brain compared to the prior examination. No new or significant changes. Hilario Vargas MD Abdomen X-Ray 09/15/16 1320 Signed Impressions: Service Date/Time: Thursday, September 15, 2016 13:33 - CONCLUSION: Tip of Dobbhoff catheter is in either the antrum or the duodenal bulb. Antoni Acevedo MD Chest X-Ray 09/14/16 0000 Signed Impressions: Service Date/Time: Wednesday, September 14, 2016 23:21 - CONCLUSION: No acute disease. Jose Torres MD Brain MRI 09/11/16 0717 Signed Impressions: Service Date/Time: September 08:13 - CONCLUSION: 1. 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 This mass has increased in size from the prior study. 2. There is a second extra-axial lateral dural based mass on the left measuring 2.0 x 1.6 cm. Minh Bell MD Objective Remarks GENERAL:is aphasic to some degree SKIN: Warm and dry. HEAD: Atraumatic. Normocephalic. Scars that are obvious on her scalp EYES: Pupils equal and round. No scleral icterus. No injection or drainage. extraocular muscles intact ENT: No nasal bleeding or discharge. Mucous membranes pink and moist. tongue protrudes midline NECK: Trachea midline. No JVD. CARDIOVASCULAR: Regular rate and rhythm. S1-S2 no S3 or S4 no heave or thrill or rub or gallop RESPIRATORY: No accessory muscle use. Breath sounds equal bilaterally. Few scattered rhonchi and coarse GASTROINTESTINAL: Abdomen soft, non-tender, nondistended. Hepatic and splenic margins not palpable. MUSCULOSKELETAL: Extremities without clubbing, cyanosis, or edema. No obvious deformities. NEUROLOGICAL: Awake and alert. Aphasic.No obvious cranial nerve deficits. Motor grossly within normal limits. Five out of 5 muscle strength in the arms and legs. Aphasic speech. PSYCHIATRIC: Appropriate mood and affect; insight and judgment ABnormal. Hard to assess THIS completely due to aphasia Procedures 76-year-old female with history of multiple recurrent meningiomas. 09/11/2016: Left craniotomy for recurrent left temporal and left frontoparietal convexity meningiomas. Medications and IVs Current Medications Lactated Ringer's 1,000 ml @ 0 mls/hr Q24H IV Last administered on 09/11/16 06 :30; Start 09/11/16 at 06:30; Stop 09/11/16 at 15:38; Status DC Cefazolin Sodium 1000 mg/Sodium Chloride 100 ml @ 200 mls/hr PHYSICIAN COMPENSATION ANALYST IV Last administered on 09/11/16 08:55; Start 09/11/16 at 06:30; Stop 09/14/16 at 06:29; Status DC Lactated Ringer's 1,000 ml @ 30 mls/hr Q24H PRN IV SEE LABEL COMMENTS; Start at 06:30; Stop 09/14/16 at 06:29; Status DC Sodium Chloride (NS 500 ml Inj) 500 ml @ 30 mls/hr [id number] PRN IV SEE LABEL COMMENTS; Start 09/11/16 at 06:30; Stop 09/14/16 at 06:29; Status DC Metoprolol Tartrate (Lopressor) 25 mg PHYSICIAN COMPENSATION ANALYST PRN PO SEE LABEL COMMENTS; Start 09/11/16 at 06:30; Stop 09/14/16 at 06:29; Status DC Povidone Iodine (Betadine 5% Antisepsis Kit) 1 applic PHYSICIAN COMPENSATION ANALYST PRN EACH NARE SEE LABEL COMMENTS Last administered on 09/11/16 06:30; Start 09/11/16 at 06:30; Stop 09/14/16 at 06:29; Status DC Chlorhexidine Gluconate (Chlorhexidine 2% Cloth) 3 pack PHYSICIAN COMPENSATION ANALYST PRN TOPICAL SEE LABEL COMMENTS Last administered on 09/11/16 06:20; Start 09/11/16 at 06:30; Stop 09/14/16 at 06:29; Status DC Insulin Human Regular (NovoLIN R INJ) See Protocol Table ... PHYSICIAN COMPENSATION ANALYST PRN SQ SEE PROTOCOL TABLE; Start 09/11/16 at 06:30; Stop 09/14/16 at 06:29; Status DC Thrombin (Thrombin Top Soln) 10,000 units STK-MED ONCE .ROUTE Last administered on 09/11/16 10:47; Start 09/11/16 at 07:23; Stop 09/11/16 at 07:24; Status DC Gelatin (Gelfoam 100 Top) 1 foam STK-MED ONCE .ROUTE ; Start 09/11/16 at 07:23; Stop 09/11/16 at 07:24; Status DC Gentamicin Sulfate (Gentamicin Inj) 240 mg STK-MED ONCE .ROUTE Last administered on 09/11/16 10:47; Start 09/11/16 at 07:23; Stop 09/11/16 at 07:24; Status DC Lidocaine/ Epinephrine (Xylocaine-Epi 1%-1:100,000 Inj) 40 ml STK-MED ONCE .ROUTE Last administered on 09/11/16 10:47; Start 09/11/16 at 07:23; Stop at 07:24; Status DC Furosemide (Lasix Inj) 40 mg STK-MED ONCE .ROUTE ; Start 09/11/16 at 07:31; Stop 09/11/16 at 07:32; Status DC Albumin Human 12.5 gm 12.5 gm STK-MED ONCE IV ; Start 09/11/16 at 07:32; Stop 09/11/16 at 07:33; Status DC Nitroglycerin/ Dextrose 250 ml @ As Directed STK-MED ONCE .ROUTE ; Start at 07:32; Stop 09/11/16 at 07:33; Status DC Mannitol (Mannitol Inj) 50 ml @ As Directed STK-MED ONCE .ROUTE ; Start 09/11/16 at 07:32; Stop 09/11/16 at 07:33; Status DC Gadodiamide (Omniscan Pf Inj) 14 ml STK-MED ONCE IV Last administered on 08:35; Start 09/11/16 at 08:35; Stop 09/11/16 at 08:36; Status DC Albuterol Sulfate (Albuterol Concentrated Neb) 2.5 mg STK-MED ONCE .ROUTE ; Start 09/11/16 at 09:03; Stop 09/11/16 at 09:04; Status DC Gelatin (Gelfoam 100 Top) 1 foam STK-MED ONCE .ROUTE Last administered on 10:47; Start 09/11/16 at 09:14; Stop 09/11/16 at 09:15; Status DC Thrombin (Thrombin Top Soln) 10,000 units STK-MED ONCE .ROUTE Last administered on 09/11/16 11:10; Start 09/11/16 at 11:09; Stop 09/11/16 at 11:10; Status DC Gelatin (Gelfoam 100 Top) 1 foam STK-MED ONCE .ROUTE Last administered on 11:10; Start 09/11/16 at 11:09; Stop 09/11/16 at 11:10; Status DC Thrombin (Thrombin Top Soln) 10,000 units STK-MED ONCE .ROUTE Last administered on 09/11/16 12:26; Start 09/11/16 at 12:24; Stop 09/11/16 at 12:25; Status DC Cefazolin Sodium (Ancef Inj) 1,000 mg STK-MED ONCE IV Last administered on 13:00; Start 09/11/16 at 13:00; Stop 09/11/16 at 13:13; Status DC Albuterol Sulfate (*ALBUTEROL NEB PERIprocedure ONLY) 2.5 mg STK-MED ONCE NEB Last administered on 09/11/16 14:57; Start 09/11/16 at 14:57; Stop 09/11/16 at 14: 58; Status DC Labetalol HCl (*TRANDATE INJ PERIprocedural Use ONLY) 100 mg STK-MED ONCE .ROUTE Last administered on 09/11/16 14:59; Start 09/11/16 at 14:59; Stop at 15:00; Status DC Nicardipine HCl (Cardene Inj) 25 mg STK-MED ONCE .ROUTE Last administered on 15:15; Start 09/11/16 at 15:07; Stop 09/11/16 at 15:08; Status DC Fentanyl Citrate (fentaNYL INJ) 250 mcg STK-MED ONCE .ROUTE ; Start 09/11/16 at 15:13; Stop 09/11/16 at 15:14; Status DC Morphine Sulfate (Morphine Inj) 4 mg STK-MED ONCE .ROUTE ; Start 09/11/16 at 15: 13; Stop 09/11/16 at 15:14; Status DC Sodium Chloride (NS Flush) 2 ml UNSCH PRN IV FLUSH FLUSH AFTER USING IV ACCESS ; Start 09/11/16 at 15:15 Sodium Chloride (NS Flush) 2 ml BID IV FLUSH Last administered on 09/25/16 21: 00; Start 09/11/16 at 21:00 Bisacodyl (Dulcolax Supp) 10 mg DAILY PRN RECTAL CONSTIPATION Last administered on 09/16/16 05:23; Start 09/11/16 at 15:15 Docusate Sodium (Colace) 100 mg BID PO Last administered on 09/25/16 21:02; Start 09/11/16 at 21:00 Pantoprazole Sodium (Protonix Inj) 40 mg DAILY IVP Last administered on 10:12; Start 09/12/16 at 09:00; Stop 09/25/16 at 10:40; Status DC Ondansetron HCl (Zofran Inj) 4 mg Q6H PRN IV NAUSEA OR VOMITING; Start 09/11/16 at 15:15 Morphine Sulfate (Morphine Inj) 2 mg Q2H PRN IV PAIN SCALE 1 TO 6 Last administered on 09/14/16 03:00; Start 09/11/16 at 15:15 Morphine Sulfate (Morphine Inj) 4 mg Q2H PRN IV PAIN SCALE 7 TO 10 Last administered on 09/21/16 18:33; Start 09/11/16 at 15:15 Labetalol HCl 10 mg 10 mg Q1H PRN IV SYS BP GREATER THAN 150 MMHG Last administered on 09/13/16 03:00; Start 09/11/16 at 15:15; Stop 09/13/16 at 11:16; Status DC Nicardipine HCl/ Sodium Chloride (Cardene Inj/NS 250 ml Inj) 260 ml @ 0 mls/hr TITRATE IV Last administered on 09/13/16 12:17; Start 09/11/16 at 15:15; Stop at 09:21; Status DC Amlodipine Besylate (Norvasc) 5 mg DAILY PO Last administered on 09/13/16 08:45 ; Start 09/12/16 at 09:00; Stop 09/13/16 at 11:16; Status DC Carbamazepine (TEGretol) 200 mg BID PO ; Start 09/11/16 at 21:00; Stop 09/12/16 at 06:36; Status DC Carvedilol (Coreg) 25 mg BID PO Last administered on 09/15/16 10:33; Start 09/11 at 21:00; Stop 09/16/16 at 07:20; Status DC Divalproex Sodium (Depakote Dr) 500 mg TID PO ; Start 09/11/16 at 18:00; Stop 09/12/16 at 06:34; Status DC Albuterol/ Ipratropium (Duoneb Neb) 1 ampule Q8HR NEB INH Last administered on 09/15/16 14:48; Start 09/11/16 at 16:00; Stop 09/15/16 at 16:00; Status DC Nitrofurantoin Macrocrystals (Macrobid) 100 mg BID PO Last administered on 10:33; Start 09/11/16 at 21:00; Stop 09/15/16 at 22:33; Status DC Non-Formulary Medication 1 puff 1 puff BID INH ; Start 09/11/16 at 21:00; Status UNV Dextrose/Sodium Chloride (D5W-NS 1000 ml Inj) 1,000 ml @ 100 mls/hr Q10H IV Last administered on 09/13/16 08:47; Start 09/11/16 at 16:00; Stop 09/13/16 at 11: 19; Status DC Lorazepam (Ativan Inj) 2 mg STK-MED ONCE .ROUTE ; Start 09/11/16 at 15:39; Stop 09/11/16 at 15:40; Status DC Lorazepam 1 mg 1 mg Q6H PRN IV SEIZURES Last administered on 09/12/16 23:55; Start 09/11/16 at 15:45 Fosphenytoin Sodium/Sodium Chloride (Cerebyx Inj/NS Inj) 70 ml @ 280 mls/hr ONCE ONCE IV Last administered on 09/11/16 16:59; Start 09/11/16 at 16:00; Stop 09/11/16 at 16:14; Status DC Fosphenytoin Sodium (Cerebyx Inj) 100 mgpe Q8HR IV Last administered on 21:54; Start 09/11/16 at 22:00; Status Hold Budesonide/ Formoterol Fumarate (Symbicort 160-4.5 Inh) 2 puff BID INH Last administered on 09/25/16 21:00; Start 09/11/16 at 21:00 Miscellaneous Information ALL NURSING DEPARTME... UNSCH PRN .XX SEE LABEL COMMENTS; Start 09/11/16 at 16:15; Stop 09/12/16 at 16:29; Status DC Nicardipine HCl 25 mg 25 mg STK-MED ONCE .ROUTE ; Start 09/11/16 at 22:47; Stop 09/11/16 at 22:48; Status DC Sodium Chloride (NS 250 ml Inj) 250 ml @ As Directed STK-MED ONCE .ROUTE ; Start 09/11/16 at 22:47; Stop 09/11/16 at 22:48; Status DC Valproic Acid (Depakene Liq) 500 mg Q8H NG ; Start 09/12/16 at 06:34; Stop at 06:35; Status DC Valproic Acid (Depakene Liq) 500 mg Q8H NG Last administered on 09/26/16 00:08 ; Start 09/12/16 at 08:00 Carbamazepine (TEGretol LIQ) 200 mg BID NG ; Start 09/12/16 at 09:00; Stop at 09:00; Status DC Carbamazepine (TEGretol LIQ) 200 mg BID NG Last administered on 09/15/16 21:51 ; Start 09/12/16 at 09:00; Status Hold Fosphenytoin Sodium (Cerebyx Inj) 200 mgpe ONCE ONCE IV Last administered on 11:17; Start 09/12/16 at 08:00; Stop 09/12/16 at 08:03; Status DC Dextrose (D50w (Vial) Inj) 50 ml UNSCH PRN IV HYPOGLYCEMIA-SEE COMMENTS; Start 09/12/16 at 08:00 Glucagon (Glucagon Inj) 1 mg UNSCH PRN OTHER HYPOGLYCEMIA-SEE COMMENTS; Start 09/12/16 at 08:00 Insulin Aspart 1 1 Q6H SQ Last administered on 09/14/16 23:07; Start 09/12/16 at 11:00; Stop 09/25/16 at 10:40; Status DC Potassium Chloride 100 ml @ 50 mls/hr Q2H PRN IV For Potassium 2.8 - 3.2 mEq/L ; Start 09/12/16 at 08:00; Stop 09/20/16 at 07:24; Status DC Potassium Chloride (KCl 20 Meq Premix Inj) 100 ml @ 50 mls/hr Q2H PRN IV For Potassium 2.8 - 3.2 mEq/L; Start 09/12/16 at 08:00; Stop 09/20/16 at 07:24; Status DC Potassium Bicarb/ Potassium Chloride 50 meq 50 meq UNSCH PRN PO For Potassium 3.3 - 3.5 mEq/L Last administered on 09/13/16 08:46; Start 09/12/16 at 08:00; Stop 09/20/16 at 07:24; Status DC Potassium Chloride 100 ml @ 25 mls/hr UNSCH PRN IV For Potassium 3.3 - 3.5 mEq /L Last administered on 09/18/16 09:19; Start 09/12/16 at 08:00; Stop 09/20/16 at 07:24; Status DC Potassium Chloride 100 ml @ 50 mls/hr Q2H PRN IV For Potassium 3.3 - 3.5 mEq/ L Last administered on 09/19/16t 04:18; Start 09/12/16 at 08:00; Stop 09/20/16 at 07:24; Status DC Magnesium Sulfate/ Sodium Chloride (Magnesium Sulfate Inj/NS Inj) 100 ml @ 50 mls/hr UNSCH PRN IV For Magnesium 0.9 - 1.1 mg/dL; Start 09/12/16 at 08:00; Stop 09/20/16 at 07:24; Status DC Magnesium Oxide 800 mg 800 mg UNSCH PRN PO For Magnesium 1.2 - 1.6 mg/dL; Start 09/12/16 at 08:00; Stop 09/20/16 at 07:24; Status DC Magnesium Sulfate/ Sodium Chloride (Magnesium Sulfate Inj/NS Inj) 100 ml @ 50 mls/hr UNSCH PRN IV For Magnesium 1.2 - 1.6 mg/dL; Start 09/12/16 at 08:00; Stop 09/20/16 at 07:23; Status DC Potassium Phosphate 2000 mg 2,000 mg Q4H PRN PO For Phosphorus < 2.5 mg/dL; Start 09/12/16 at 08:00; Stop 09/20/16 at 07:24; Status DC Sodium Phosphate/ Sodium Chloride (Sodium Phosphate Inj/NS 250 ml Inj) 250 ml @ 42 mls/hr UNSCH PRN IV For Phosphorus < 2.5 mg/dL; Start 09/12/16 at 08:00; Stop 09/20/16 at 07:24; Status DC Potassium Phosphate 2000 mg 2,000 mg UNSCH PRN PO/TUBE SEE LABEL COMMENTS; Start 09/12/16 at 07:51; Stop 09/20/16 at 07:24; Status DC Potassium Phosphate/Sodium Chloride (Potassium Phosphate Inj/NS 250 ml Inj) 260 ml @ 42 mls/hr UNSCH PRN IV SEE LABEL COMMENTS; Start 09/12/16 at 07:51; Stop 09/20/16 at 07:24; Status DC Fosphenytoin Sodium 500 mgpe 500 mgpe ONCE ONCE IV ; Start 09/12/16 at 20:45; Stop 09/12/16 at 20:46; Status UNV Fosphenytoin Sodium/Sodium Chloride (Cerebyx Inj/NS Inj) 60 ml @ 240 mls/hr ONCE ONCE IV Last administered on 09/13/16 00:29; Start 09/12/16 at 21:30; Stop 09/12/16 at 21:44; Status DC Amlodipine Besylate (Norvasc) 10 mg DAILY PO Last administered on 09/25/16 10: 13; Start 09/14/16 at 09:00 Labetalol HCl (Trandate Inj) 20 mg Q1H PRN IV SYS BP GREATER THAN 150 MMHG Last administered on 09/13/16 18:32; Start 09/13/16 at 12:15; Stop 09/14/16 at 09: 21; Status DC Amlodipine Besylate (Norvasc) 5 mg ONCE ONCE PO Last administered on 09/13/16 11:59; Start 09/13/16 at 11:15; Stop 09/13/16 at 11:43; Status DC Hydralazine HCl (Apresoline) 100 mg Q8H PO Last administered on 09/23/16 05:18 ; Start 09/13/16 at 12:00; Stop 09/23/16 at 09:01; Status DC Hydralazine HCl (Apresoline Inj) 20 mg Q2H PRN IV PUSH sbp > 150 Last administered on 09/18/16 18:00; Start 09/13/16 at 19:15 Labetalol HCl (Trandate) 200 mg Q8HR PO Last administered on 09/15/16 15:30; Start 09/13/16 at 19:11; Status Hold Dexamethasone Sodium Phosphate (Decadron Inj) 8 mg STK-MED ONCE .ROUTE Last administered on 09/14/16 23:20; Start 09/14/16 at 23:18; Stop 09/14/16 at 23:19; Status DC Racepinephrine (Racepinephrine 2.25% Neb) 0.5 ml STK-MED ONCE .ROUTE Last administered on 09/14/16 23:28; Start 09/14/16 at 23:19; Stop 09/14/16 at 23:20; Status DC Racepinephrine (Racepinephrine 2.25% Neb) 0.5 ml STK-MED ONCE .ROUTE ; Start 09/14/16 at 23:21; Stop 09/14/16 at 23:22; Status DC Racepinephrine (Racepinephrine 2.25% Neb) 0.5 ml STK-MED ONCE .ROUTE ; Start 09/14/16 at 23:22; Stop 09/14/16 at 23:23; Status DC Dexamethasone Sodium Phosphate (Decadron Inj) 8 mg STAT IV ; Start 09/14/16 at 23 :45; Stop 09/15/16 at 02:00; Status DC Racepinephrine (Racepinephrine 2.25% Neb) 0.5 ml UNSCH X1 NEB ; Start 09/14/16 at 23:45; Stop 09/15/16 at 02:00; Status DC Racepinephrine (Racepinephrine 2.25% Neb) 0.5 ml UNSCH X1 NEB ; Start 09/14/16 at 23:45; Stop 09/15/16 at 02:00; Status DC Dexamethasone Sodium Phosphate (Decadron Inj) 4 mg Q6HR IV PUSH Last administered on 09/16/16 23:33; Start 09/15/16 at 02:00; Stop 09/17/16 at 01:59; Status DC Racepinephrine (Racepinephrine 2.25% Neb) 0.5 ml Q2HR NEB PRN NEB stridor; Start 09/15/16 at 00:30 Labetalol HCl 20 mg 20 mg Q4H PRN IV PUSH SYS BP GREATER THAN 160 MMHG; Start 09/15/16 at 00:45 Levetriacetam/ Sodium Chloride (Keppra Inj/NS Inj) 105 ml @ 420 mls/hr Q12H IV Last administered on 09/23/16 14:04; Start 09/16/16 at 15:00; Stop 09/23/16 at 15:27; Status DC Albuterol/ Ipratropium (Duoneb Neb) 1 ampule Q8HR NEB PRN NEB WHEEZING Last administered on 09/23/16 15:32; Start 09/17/16 at 20:00; Stop 09/23/16 at 16:00 ; Status DC Sodium Bicarbonate (Sodium Bicarbonate 8.4% Inj) 50 meq STK-MED ONCE .ROUTE ; Start 09/18/16 at 08:17; Stop 09/18/16 at 08:18; Status DC Enoxaparin Sodium (Lovenox Inj) 30 mg Q12H SQ Last administered on 09/25/16 21 :02; Start 09/19/16 at 21:00 Hyoscyamine Sulfate (Levsin) 0.125 mg Q4H PRN PO SECRETIONS Last administered on 09/23/16 21:28; Start 09/20/16 at 15:15 Hydralazine HCl (Apresoline) 100 mg Q8H PO Last administered on 09/26/16 05:02 ; Start 09/23/16 at 13:00 Miscellaneous (Pill Splitter) 1 ea UNSCH PRN OTHER SEE LABEL COMMENTS; Start at 09:30 Levetriacetam (Keppra) 500 mg Q12HR PO Last administered on 09/25/16 21:02; Start 09/23/16 at 21:00 Albuterol/ Ipratropium (Duoneb Neb) 1 ampule Q4HR WHILE AWAKE NEB NEB Last administered on 09/26/16 07:41; Start 09/23/16 at 20:00 Pantoprazole Sodium (Protonix) 40 mg DAILY PO ; Start 09/25/16 at 10:45 Urinary Catheter: No Vascular Central Line Catheter: No A/P Problem List: (1) COPD exacerbation ICD Code: J44.1 Status: Acute (2) Urinary tract infection ICD Code: N39.0 Status: Acute (3) 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 Patient had perioperative seizures. Some episodes of sinus pauses and bradycardia. She is clinically improving status post ICU course. s/p left craniotomy and temporal lobe tumor resection. Seizures, resolved. history of seizures -Patient is currently on Keppra and valproic acid. Tegretol discontinued. No new seizure activities. Neurosurgery following. - Ativan as needed. - Patient has some expressive aphasia. Speech therapy following. Diet advanced. Advance diet per speech as tolerated. Swallowing deficit - PASSED SWALLOW EVALUATION WITH SPEECH PULLED HER OWN DOBBHOFF TUBE TODAY 8-16 Sinus bradycardia and pause: Patient seen by cardiology. Likely related to medication side effect. Her beta blockers discontinued. Anti-seizure medications being adjusted. Rate is now normal. Continue to monitor on telemetry. Hypertension: Continue amlodipine. BP is labile. If remains persistently hypertensive may need to add second agent. HYDRALAZINE TO 100MG PO TID COPD: Continue Symbicort and breathing treatments. Supplemental oxygen as needed. GI prophylaxis: Stool softener PRN constipation. DVT PPx: Lovenox Discharge Planning DC planning per neurosurgery NEEDS SAFE DC PROBABLY NEEDS inpatient rehabilitation if insurance will authorize Patient needs inpatient rehabilitation for aggressive physical therapy occupational therapy and speech therapy AWAIT SAFE DC- NEEDS INPATIENT REHAB Discharge Planning Will need inpatient rehabilitation at discharge for aggressive physical therapy occupational therapy and speech therapy Yinka Walsh DO Sep 26, 2016 08:22
[2016-09-26] MEDS: levETIRAcetam 500 MG TAB PO SCH ×2 (10:06→20:38)
[2016-09-26] MEDS: DOCUSATE SODIUM 100 MG CAP PO SCH ×2 (10:07→20:38)
[2016-09-26] MEDS: ENOXAPARIN SODIUM 30 MG/0.3 ML SYRINGE SQ SCH ×2 (10:07→20:38)
[2016-09-26] MEDS: PANTOPRAZOLE SOD 40 MG DELAYED RELEASE TAB PO SCH (10:07)
[2016-09-26] MEDS: SODIUM CHLORIDE 0.9% FLUSH 10 ML FLUSH IV FLUSH SCH ×2 (10:07→20:38)
[2016-09-26] MEDS: BUDESONIDE-FORMOTEROL 160/4.5 MCG INHALER INH SCH ×2 (10:08→20:38)
--- NOTE | 2016-09-26 15:23 | HHI.NSPN ---
(Tyrell Shaw) History Chief Complaint: No complaints. (Tyrell Shaw) Interval History 76-year-old female with history of multiple recurrent meningiomas. 09/11/2016: Left craniotomy for recurrent left temporal and left frontoparietal convexity meningiomas. 09/12/16: Positive seizure. Cerebyx started in addition to patient's usual Depakote and Tegretol 09/13/16: following commands, nonverbal. bp elevated, currently on max dose of Cardene 09/14/16: no seizures overnight, bp improved off cardene. remains aphasic but follows commands. f/u CT Head this am completed 09/15: The patient is awake & alert when seen this morning. She is breathing through her mouth with audible adventitious sounds. She is not in any distress. Nursing reports that she did move the toes of both feet to command. 09/16: This afternoon the patient is awake and alert. She attempts to ask a question but is unable to find the words to express her question. She does become slightly flustered by this. Nursing and the Assistant Nurse Manager report that the patient has been having pauses on her EKG. A CT brain, EEG and Neurology consult were ordered by the Assistant Nurse Manager. The CT brain was w/o any new or significant change. The EEG was done this afternoon when the patient was first seen and her evaluation was deferred until this time. 09/17: The patient is awake and alert when seen this afternoon. She had difficulty but was finally able to say that the feeding tube was bothering her. She was evaluated by Cardiology yesterday who felt that her pauses/bradycardia was medication induced with a vagal component. Neurology also evaluated her and made adjustments/recommendations to the patients antiepileptic medications. The EEG demonstrated some continuous left hemisphere slowing with associated frequent sharp/epileptiform discharge which were almost rhythmic but not a definitive ictal pattern and remained focal throughout. 09/18: This morning the patient is awake and alert. It is evident she is frustrated when attempting to ask something and then says "Never mind." Physical Therapy was at the bedside to evaluate the patient. 8/11: The patient is awake and alert this afternoon when seen. She readily interacts and works at saying she sat up in the chair, but was unable to find the word chair. Her sister reports she was up for from about 10 AM to 4 PM. She still has enteral feeds through the feeding tube but has been started on thickened liquids. 09/21: This morning when seen the patient was doing well. She had no complaints. She was noted to have the gown off and a towel over her chest and was able to state that she was getting ready to be cleaned up. 09/22: The patient is watching TV this morning and was doing well. She voiced no complaints but does become frustrated as she tries to find the word she wants. 09/23: The patient continues to do well and had no complaints when seen this afternoon. She went for a MBSS this morning and no aspiration or penetration was noted. Speech Therapy stated that the patient is able to be on a soft diet with regular thin liquids. After the patient was seen the [employer] disability liaison officer notified me that [facility] denied acute rehab. 09/24: The patient is asleep when seen this afternoon but awakens to verbal stimuli. After that she is alert and readily interacts. She states "I am doing good." After being assessed she asks "Did you miss anything?" When I looked at her puzzled and repeated the question she smiles and pointed to her nose to show the feeding tube had been removed. 09/25: The patient is awake and alert when seen this morning. She says she is "comfortable" and had more difficulty with finding words than yesterday. She reports that she is wet because she couldn't get someone to help her to the bathroom but she knew she had to go. She reports that the ENT saw her this morning and said she did have an injury and she then indicated three weeks. The consult note is not in the system yet. 09/26: The patient is awake and alert visiting with her friend when seen this afternoon. She states "I feel good." She is sitting up in the chair and has no complaint. She has some frustration due to her speech difficulties. (Tyrell Shaw) System Review Comments Constitutional: Patient denies any fever or chills. HEENT: Patient with some frustration due to speech. She denies any visual or hearing problems. Neck: Patient denies any neck pain. Respiratory: Patient denies any shortness of breath or productive cough. Cardiovascular: Patient denies any chest pain, palpitations or irregular heartbeat. Gastrointestinal: Patient denies any abdominal pain, nausea, vomiting or incontinence of stool. Genitourinary: Patient denies any incontinence of urine. Musculoskeletal: Patient denies any pain or weakness to the extremities. Neurologic: Patient with some frustration due to speech. She denies any headache, dizziness, numbness or tingling. (Tyrell Shaw) Exam Results Vital Signs Date Time Temp Pulse Resp B/P Pulse Ox O2 Delivery O2 Flow Rate FiO2 09/26/16 12:26 88 09/26/16 12:00 97.6 18 138/59 98 09/25/16 07:50 21 Intake and Output 09/25/16 09/25/16 09/26/16 08:00 16:00 00:00 Intake Total 120 ml Balance 120 ml (Tyrell Shaw) Physical Examination General: Awake & alert, sitting up in the chair visiting with her friend. She readily interacts and smiles. No apparent distress. Skin: Warm, dry & intact except for left craniotomy surgical incision which is well healed & MARTINA drain insertion site, both w/o any signs of infection. HEENT: Normocephalic, atraumatic except for left craniotomy surgical incision & MARTINA drain insertion site. PERRLA. Tongue midline to protrusion, voice hoarse. Neck: No JVD, trachea midline. Respiratory: Slightly coarse breath sounds bilaterally . Intermittent cough, no audible secretions to the back of the throat. Cardiovascular: S1S2 w/RRR w/o M/G/R, cap refill < 2 sec, radial & pedal pulses 2+ bilaterally, cap refill < 2 sec, pedal edema 1+ bilaterally. Gastrointestinal: Abdomen soft, nontender, positive bowel sounds. Musculoskeletal: Spontaneously moves all extremities, no deformity or clubbing. Neuro: AAOx3, expressive aphasia persists, follows commands, GCS 14 (E4 V5 M6). The patient is speaking in a few words sentences. CN II-XII grossly intact. Motor strength LUE 4+ to 5/5, LLE 4+ to 5/5, RUE 4 to 4+/5 except hand squeeze 4 /5, RLE 4+ to 5/5. (Tyrell Shaw) Medical Decision Making Impression and Plan Impression: (1) 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 1. Postoperative craniotomy resection of recurrent meningioma 2 on 09/11/16. 2. Positive postoperative seizure 3. Possible left frontoparietal region ischemia versus postoperative edema on CT scan head 09/12/16 MRI brain stealth (pre-op) demonstrated left parafalcine mass which had increased in size and a left extra-axial lateral dural mass. CT brain demonstrated expected postoperative changes s/p tumor resection w/o evidence of midline shift, some residual gas & hyperdensity at resection sites, no acute finding to the right supratentorial brain. CT brain demonstrated slight increase in subdural blood along the falx near the vertex. CT brain demonstrated expected postoperative changes. CT brain stable exam compared to w/o new or significant changes. EEG demonstrated some continuous left hemisphere slowing with associated frequent sharp/epileptiform discharge which were almost rhythmic but not a definitive ictal pattern and remained focal throughout. Leukocytosis resolved . Haemoglobin level essentially stable (8.5=>9.0). MBSS w/o any aspiration or penetration seen. Patient is doing well, using sentences with a few words. POD #15 () s/p: 1. Left frontotemporoparietal craniotomy, resection of recurrent left frontal parietal neoplasm and 2. Resection of recurrent left temporal neoplasm 3. Left frontotemporoparietal duraplasty Plan: Discussed plan of care with patient. Discussed plan of care with [employer] liaison officer. Continue neuro checks. Antiepileptic drugs per Neurology. Non-chemical DVT prophylaxis. Ulcer prophylaxis. Mobilise patient w/assistance. PT eval & tx. ST eval & tx. Okay for Lovenox. Soft diet w/thin liquids. Mighty Shake supplement w/meals. Patient denied inpatient rehab by [facility] working on SNF placement. (Tyrell Shaw) Attending Statement The exam, history, and the medical decision-making described in the above note were completed with the assistance of the mid-level provider. I reviewed and agree with the findings presented. I attest that I had a [id number] encounter with the patient on the same day, and personally performed and documented my assessment and findings in the medical record. Postoperative seizure control with medications Postoperative hemiparesis Continuing seizure medications Continue therapy Inpatient rehabilitation pending (Michele Galeano MD) Tyrell Shaw Sep 26, 2016 15:23 Michele Galeano MD Nov 17, 2016 07:28
[2016-09-27] VITALS (10 sets, daily range): BP systolic 114–154; BP diastolic 59–75; PULSE 78–93; RESP 17–18; TEMP 95.8–98.6; O2SAT 95–100
[2016-09-27] MEDS: hydrALAZINE HCL 100 MG TAB PO SCH ×3 (05:21→22:00)
[2016-09-27] MEDS: RESP: ALBUTEROL 2.5 MG/IPRATROPIUM 0.5 MG NEB (SCH) NEB ×4 (08:30→19:53)
[2016-09-27] MEDS: PANTOPRAZOLE SOD 40 MG DELAYED RELEASE TAB PO SCH (08:55)
[2016-09-27] MEDS: VALPROIC ACID SYRUP 250 MG/5 ML UDC NG SCH ×2 (08:55→16:24)
[2016-09-27] MEDS: DOCUSATE SODIUM 100 MG CAP PO SCH ×2 (08:56→21:00)
[2016-09-27] MEDS: levETIRAcetam 500 MG TAB PO SCH ×2 (08:56→22:00)
[2016-09-27] MEDS: ENOXAPARIN SODIUM 30 MG/0.3 ML SYRINGE SQ SCH ×2 (08:57→22:01)
[2016-09-27] MEDS: BUDESONIDE-FORMOTEROL 160/4.5 MCG INHALER INH SCH ×2 (08:57→21:00)
[2016-09-27] MEDS: SODIUM CHLORIDE 0.9% FLUSH 10 ML FLUSH IV FLUSH SCH ×2 (08:58→21:00)
--- NOTE | 2016-09-27 11:47 | HHI.PR ---
Subjective Remarks 8-14 Still has Dobbhoff tube in place Having lots of coughing while in the room Denies any pain or shortness of breath 8-15 to go for MODIFIED BARIUM SWALLOW TODAY STILL HAVING DIFFICULT EXPRESSING HERSELF AND APHASIA DHT IN PLACE DW PT AND RN 8-16 PATIENT PASSED SWALLOW EVALUATION YESTERDAY PATIENT PULLED HER OWN DHT HOPEFULLY BETTER APPETITE [facility] NO NEW COMPLAINTS 09-25 "I feel lousy" NO SOB, NO CHEST PAIN, NO PALPITATIONS NEEDS INPATIENT REHAB FOR AGGRESSIVE CARE -18 AWAIT SNF/INPATIENT REHAB APPROVAL- DW PATIENT AND RN NO SOB, NO CHEST NO PALPITATIONS - AWAIT REHAB APPROVAL NO NEW COMPLAINTS DW PT AND RN Objective Vitals Vital Signs Date Time Temp Pulse Resp B/P Pulse Ox O2 Delivery O2 Flow Rate FiO2 09/27/16 08:33 98 21 09/27/16 08:29 84 09/27/16 08:00 97.1 92 17 114/75 97 09/27/16 04:49 98.6 91 18 136/65 100 09/27/16 01:33 98.3 91 18 131/62 100 09/26/16 20:20 98.6 91 18 128/60 100 09/26/16 20:14 86 09/26/16 20:03 96 09/26/16 16:31 98.2 94 18 141/66 98 09/26/16 12:26 88 09/26/16 12:00 97.6 94 18 138/59 98 I/O 09/26/16 09/26/16 09/26/16 09/27/16 09/27/16 09/27/16 07:00 15:00 23:00 07:00 15:00 23:00 Intake Total 360 ml Output Total 1400 ml Balance -1040 ml Intake Oral 360 ml Output Urine Total 1400 ml # Voids 3 7 # Bowel Movements 2 Result Diagram: 09/23/16 1220 09/23/16 1220 Imaging Last Impressions Modified Barium Swallow 09/23/16 0000 Signed Impressions: Service Date/Time: Friday, September 23, 2016 09:33 - CONCLUSION: No aspiration or penetration is seen. Minh Donovan MD Head CT 09/16/16 0000 Signed Impressions: Service Date/Time: Friday, September 16, 2016 12:04 - CONCLUSION: Stable followup CT scan of the brain compared to the prior examination. No new or significant changes. Hilario Vargas MD Abdomen X-Ray 09/15/16 1320 Signed Impressions: Service Date/Time: Thursday, September 15, 2016 13:33 - CONCLUSION: Tip of Dobbhoff catheter is in either the antrum or the duodenal bulb. Antoni Acevedo MD Chest X-Ray 09/14/16 0000 Signed Impressions: Service Date/Time: Wednesday, September 14, 2016 23:21 - CONCLUSION: No acute disease. Jose Torres MD Brain MRI 09/11/16 0717 Signed Impressions: Service Date/Time: September 08:13 - CONCLUSION: 1. 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 This mass has increased in size from the prior study. 2. There is a second extra-axial lateral dural based mass on the left measuring 2.0 x 1.6 cm. Minh Bell MD Objective Remarks GENERAL:is aphasic to some degree SKIN: Warm and dry. HEAD: Atraumatic. Normocephalic. Scars that are obvious on her scalp EYES: Pupils equal and round. No scleral icterus. No injection or drainage. extraocular muscles intact ENT: No nasal bleeding or discharge. Mucous membranes pink and moist. tongue protrudes midline NECK: Trachea midline. No JVD. CARDIOVASCULAR: Regular rate and rhythm. S1-S2 no S3 or S4 no heave or thrill or rub or gallop RESPIRATORY: No accessory muscle use. Breath sounds equal bilaterally. Few scattered rhonchi and coarse GASTROINTESTINAL: Abdomen soft, non-tender, nondistended. Hepatic and splenic margins not palpable. MUSCULOSKELETAL: Extremities without clubbing, cyanosis, or edema. No obvious deformities. NEUROLOGICAL: Awake and alert. Aphasic.No obvious cranial nerve deficits. Motor grossly within normal limits. Five out of 5 muscle strength in the arms and legs. Aphasic speech. PSYCHIATRIC: Appropriate mood and affect; insight and judgment ABnormal. Hard to assess THIS completely due to aphasia Procedures 76-year-old female with history of multiple recurrent meningiomas. 09/11/2016: Left craniotomy for recurrent left temporal and left frontoparietal convexity meningiomas. Medications and IVs Current Medications Lactated Ringer's 1,000 ml @ 0 mls/hr Q24H IV Last administered on 09/11/16 06 :30; Start 09/11/16 at 06:30; Stop 09/11/16 at 15:38; Status DC Cefazolin Sodium 1000 mg/Sodium Chloride 100 ml @ 200 mls/hr PATTERN WORKER IV Last administered on 09/11/16 08:55; Start 09/11/16 at 06:30; Stop 09/14/16 at 06:29; Status DC Lactated Ringer's 1,000 ml @ 30 mls/hr Q24H PRN IV SEE LABEL COMMENTS; Start at 06:30; Stop 09/14/16 at 06:29; Status DC Sodium Chloride (NS 500 ml Inj) 500 ml @ 30 mls/hr [id number] PRN IV SEE LABEL COMMENTS; Start 09/11/16 at 06:30; Stop 09/14/16 at 06:29; Status DC Metoprolol Tartrate (Lopressor) 25 mg PATTERN WORKER PRN PO SEE LABEL COMMENTS; Start 09/11/16 at 06:30; Stop 09/14/16 at 06:29; Status DC Povidone Iodine (Betadine 5% Antisepsis Kit) 1 applic PATTERN WORKER PRN EACH NARE SEE LABEL COMMENTS Last administered on 09/11/16 06:30; Start 09/11/16 at 06:30; Stop 09/14/16 at 06:29; Status DC Chlorhexidine Gluconate (Chlorhexidine 2% Cloth) 3 pack PATTERN WORKER PRN TOPICAL SEE LABEL COMMENTS Last administered on 09/11/16 06:20; Start 09/11/16 at 06:30; Stop 09/14/16 at 06:29; Status DC Insulin Human Regular (NovoLIN R INJ) See Protocol Table ... PATTERN WORKER PRN SQ SEE PROTOCOL TABLE; Start 09/11/16 at 06:30; Stop 09/14/16 at 06:29; Status DC Thrombin (Thrombin Top Soln) 10,000 units STK-MED ONCE .ROUTE Last administered on 09/11/16 10:47; Start 09/11/16 at 07:23; Stop 09/11/16 at 07:24; Status DC Gelatin (Gelfoam 100 Top) 1 foam STK-MED ONCE .ROUTE ; Start 09/11/16 at 07:23; Stop 09/11/16 at 07:24; Status DC Gentamicin Sulfate (Gentamicin Inj) 240 mg STK-MED ONCE .ROUTE Last administered on 09/11/16 10:47; Start 09/11/16 at 07:23; Stop 09/11/16 at 07:24; Status DC Lidocaine/ Epinephrine (Xylocaine-Epi 1%-1:100,000 Inj) 40 ml STK-MED ONCE .ROUTE Last administered on 09/11/16 10:47; Start 09/11/16 at 07:23; Stop at 07:24; Status DC Furosemide (Lasix Inj) 40 mg STK-MED ONCE .ROUTE ; Start 09/11/16 at 07:31; Stop 09/11/16 at 07:32; Status DC Albumin Human 12.5 gm 12.5 gm STK-MED ONCE IV ; Start 09/11/16 at 07:32; Stop 09/11/16 at 07:33; Status DC Nitroglycerin/ Dextrose 250 ml @ As Directed STK-MED ONCE .ROUTE ; Start at 07:32; Stop 09/11/16 at 07:33; Status DC Mannitol (Mannitol Inj) 50 ml @ As Directed STK-MED ONCE .ROUTE ; Start 09/11/16 at 07:32; Stop 09/11/16 at 07:33; Status DC Gadodiamide (Omniscan Pf Inj) 14 ml STK-MED ONCE IV Last administered on 08:35; Start 09/11/16 at 08:35; Stop 09/11/16 at 08:36; Status DC Albuterol Sulfate (Albuterol Concentrated Neb) 2.5 mg STK-MED ONCE .ROUTE ; Start 09/11/16 at 09:03; Stop 09/11/16 at 09:04; Status DC Gelatin (Gelfoam 100 Top) 1 foam STK-MED ONCE .ROUTE Last administered on 10:47; Start 09/11/16 at 09:14; Stop 09/11/16 at 09:15; Status DC Thrombin (Thrombin Top Soln) 10,000 units STK-MED ONCE .ROUTE Last administered on 09/11/16 11:10; Start 09/11/16 at 11:09; Stop 09/11/16 at 11:10; Status DC Gelatin (Gelfoam 100 Top) 1 foam STK-MED ONCE .ROUTE Last administered on 11:10; Start 09/11/16 at 11:09; Stop 09/11/16 at 11:10; Status DC Thrombin (Thrombin Top Soln) 10,000 units STK-MED ONCE .ROUTE Last administered on 09/11/16 12:26; Start 09/11/16 at 12:24; Stop 09/11/16 at 12:25; Status DC Cefazolin Sodium (Ancef Inj) 1,000 mg STK-MED ONCE IV Last administered on 13:00; Start 09/11/16 at 13:00; Stop 09/11/16 at 13:13; Status DC Albuterol Sulfate (*ALBUTEROL NEB PERIprocedure ONLY) 2.5 mg STK-MED ONCE NEB Last administered on 09/11/16 14:57; Start 09/11/16 at 14:57; Stop 09/11/16 at 14: 58; Status DC Labetalol HCl (*TRANDATE INJ PERIprocedural Use ONLY) 100 mg STK-MED ONCE .ROUTE Last administered on 09/11/16 14:59; Start 09/11/16 at 14:59; Stop at 15:00; Status DC Nicardipine HCl (Cardene Inj) 25 mg STK-MED ONCE .ROUTE Last administered on 15:15; Start 09/11/16 at 15:07; Stop 09/11/16 at 15:08; Status DC Fentanyl Citrate (fentaNYL INJ) 250 mcg STK-MED ONCE .ROUTE ; Start 09/11/16 at 15:13; Stop 09/11/16 at 15:14; Status DC Morphine Sulfate (Morphine Inj) 4 mg STK-MED ONCE .ROUTE ; Start 09/11/16 at 15: 13; Stop 09/11/16 at 15:14; Status DC Sodium Chloride (NS Flush) 2 ml UNSCH PRN IV FLUSH FLUSH AFTER USING IV ACCESS ; Start 09/11/16 at 15:15 Sodium Chloride (NS Flush) 2 ml BID IV FLUSH Last administered on 09/27/16 08: 58; Start 09/11/16 at 21:00 Bisacodyl (Dulcolax Supp) 10 mg DAILY PRN RECTAL CONSTIPATION Last administered on 09/16/16 05:23; Start 09/11/16 at 15:15 Docusate Sodium (Colace) 100 mg BID PO Last administered on 09/25/16 21:02; Start 09/11/16 at 21:00 Pantoprazole Sodium (Protonix Inj) 40 mg DAILY IVP Last administered on 10:12; Start 09/12/16 at 09:00; Stop 09/25/16 at 10:40; Status DC Ondansetron HCl (Zofran Inj) 4 mg Q6H PRN IV NAUSEA OR VOMITING; Start 09/11/16 at 15:15 Morphine Sulfate (Morphine Inj) 2 mg Q2H PRN IV PAIN SCALE 1 TO 6 Last administered on 09/14/16 03:00; Start 09/11/16 at 15:15 Morphine Sulfate (Morphine Inj) 4 mg Q2H PRN IV PAIN SCALE 7 TO 10 Last administered on 09/21/16 18:33; Start 09/11/16 at 15:15 Labetalol HCl 10 mg 10 mg Q1H PRN IV SYS BP GREATER THAN 150 MMHG Last administered on 09/13/16 03:00; Start 09/11/16 at 15:15; Stop 09/13/16 at 11:16; Status DC Nicardipine HCl/ Sodium Chloride (Cardene Inj/NS 250 ml Inj) 260 ml @ 0 mls/hr TITRATE IV Last administered on 09/13/16 12:17; Start 09/11/16 at 15:15; Stop at 09:21; Status DC Amlodipine Besylate (Norvasc) 5 mg DAILY PO Last administered on 09/13/16 08:45 ; Start 09/12/16 at 09:00; Stop 09/13/16 at 11:16; Status DC Carbamazepine (TEGretol) 200 mg BID PO ; Start 09/11/16 at 21:00; Stop 09/12/16 at 06:36; Status DC Carvedilol (Coreg) 25 mg BID PO Last administered on 09/15/16 10:33; Start 09/11 at 21:00; Stop 09/16/16 at 07:20; Status DC Divalproex Sodium (Depakote Dr) 500 mg TID PO ; Start 09/11/16 at 18:00; Stop 09/12/16 at 06:34; Status DC Albuterol/ Ipratropium (Duoneb Neb) 1 ampule Q8HR NEB INH Last administered on 09/15/16 14:48; Start 09/11/16 at 16:00; Stop 09/15/16 at 16:00; Status DC Nitrofurantoin Macrocrystals (Macrobid) 100 mg BID PO Last administered on 10:33; Start 09/11/16 at 21:00; Stop 09/15/16 at 22:33; Status DC Non-Formulary Medication 1 puff 1 puff BID INH ; Start 09/11/16 at 21:00; Status UNV Dextrose/Sodium Chloride (D5W-NS 1000 ml Inj) 1,000 ml @ 100 mls/hr Q10H IV Last administered on 09/13/16 08:47; Start 09/11/16 at 16:00; Stop 09/13/16 at 11: 19; Status DC Lorazepam (Ativan Inj) 2 mg STK-MED ONCE .ROUTE ; Start 09/11/16 at 15:39; Stop 09/11/16 at 15:40; Status DC Lorazepam 1 mg 1 mg Q6H PRN IV SEIZURES Last administered on 09/12/16 23:55; Start 09/11/16 at 15:45 Fosphenytoin Sodium/Sodium Chloride (Cerebyx Inj/NS Inj) 70 ml @ 280 mls/hr ONCE ONCE IV Last administered on 09/11/16 16:59; Start 09/11/16 at 16:00; Stop 09/11/16 at 16:14; Status DC Fosphenytoin Sodium (Cerebyx Inj) 100 mgpe Q8HR IV Last administered on 21:54; Start 09/11/16 at 22:00; Status Hold Budesonide/ Formoterol Fumarate (Symbicort 160-4.5 Inh) 2 puff BID INH Last administered on 09/27/16 08:57; Start 09/11/16 at 21:00 Miscellaneous Information ALL NURSING DEPARTME... UNSCH PRN .XX SEE LABEL COMMENTS; Start 09/11/16 at 16:15; Stop 09/12/16 at 16:29; Status DC Nicardipine HCl 25 mg 25 mg STK-MED ONCE .ROUTE ; Start 09/11/16 at 22:47; Stop 09/11/16 at 22:48; Status DC Sodium Chloride (NS 250 ml Inj) 250 ml @ As Directed STK-MED ONCE .ROUTE ; Start 09/11/16 at 22:47; Stop 09/11/16 at 22:48; Status DC Valproic Acid (Depakene Liq) 500 mg Q8H NG ; Start 09/12/16 at 06:34; Stop at 06:35; Status DC Valproic Acid (Depakene Liq) 500 mg Q8H NG Last administered on 09/27/16 08:55 ; Start 09/12/16 at 08:00 Carbamazepine (TEGretol LIQ) 200 mg BID NG ; Start 09/12/16 at 09:00; Stop at 09:00; Status DC Carbamazepine (TEGretol LIQ) 200 mg BID NG Last administered on 09/15/16 21:51 ; Start 09/12/16 at 09:00; Status Hold Fosphenytoin Sodium (Cerebyx Inj) 200 mgpe ONCE ONCE IV Last administered on 11:17; Start 09/12/16 at 08:00; Stop 09/12/16 at 08:03; Status DC Dextrose (D50w (Vial) Inj) 50 ml UNSCH PRN IV HYPOGLYCEMIA-SEE COMMENTS; Start 09/12/16 at 08:00 Glucagon (Glucagon Inj) 1 mg UNSCH PRN OTHER HYPOGLYCEMIA-SEE COMMENTS; Start 09/12/16 at 08:00 Insulin Aspart 1 1 Q6H SQ Last administered on 09/14/16 23:07; Start 09/12/16 at 11:00; Stop 09/25/16 at 10:40; Status DC Potassium Chloride 100 ml @ 50 mls/hr Q2H PRN IV For Potassium 2.8 - 3.2 mEq/L ; Start 09/12/16 at 08:00; Stop 09/20/16 at 07:24; Status DC Potassium Chloride (KCl 20 Meq Premix Inj) 100 ml @ 50 mls/hr Q2H PRN IV For Potassium 2.8 - 3.2 mEq/L; Start 09/12/16 at 08:00; Stop 09/20/16 at 07:24; Status DC Potassium Bicarb/ Potassium Chloride 50 meq 50 meq UNSCH PRN PO For Potassium 3.3 - 3.5 mEq/L Last administered on 09/13/16 08:46; Start 09/12/16 at 08:00; Stop 09/20/16 at 07:24; Status DC Potassium Chloride 100 ml @ 25 mls/hr UNSCH PRN IV For Potassium 3.3 - 3.5 mEq /L Last administered on 09/18/16 09:19; Start 09/12/16 at 08:00; Stop 09/20/16 at 07:24; Status DC Potassium Chloride 100 ml @ 50 mls/hr Q2H PRN IV For Potassium 3.3 - 3.5 mEq/ L Last administered on 09/19/16 04:18; Start 09/12/16 at 08:00; Stop 09/20/16 at 07:24; Status DC Magnesium Sulfate/ Sodium Chloride (Magnesium Sulfate Inj/NS Inj) 100 ml @ 50 mls/hr UNSCH PRN IV For Magnesium 0.9 - 1.1 mg/dL; Start 09/12/16 at 08:00; Stop 09/20/16 at 07:24; Status DC Magnesium Oxide 800 mg 800 mg UNSCH PRN PO For Magnesium 1.2 - 1.6 mg/dL; Start 09/12/16 at 08:00; Stop 09/20/16 at 07:24; Status DC Magnesium Sulfate/ Sodium Chloride (Magnesium Sulfate Inj/NS Inj) 100 ml @ 50 mls/hr UNSCH PRN IV For Magnesium 1.2 - 1.6 mg/dL; Start 09/12/16 at 08:00; Stop 09/20/16 at 07:23; Status DC Potassium Phosphate 2000 mg 2,000 mg Q4H PRN PO For Phosphorus < 2.5 mg/dL; Start 09/12/16 at 08:00; Stop 09/20/16 at 07:24; Status DC Sodium Phosphate/ Sodium Chloride (Sodium Phosphate Inj/NS 250 ml Inj) 250 ml @ 42 mls/hr UNSCH PRN IV For Phosphorus < 2.5 mg/dL; Start 09/12/16 at 08:00; Stop 09/20/16 at 07:24; Status DC Potassium Phosphate 2000 mg 2,000 mg UNSCH PRN PO/TUBE SEE LABEL COMMENTS; Start 09/12/16 at 07:51; Stop 09/20/16 at 07:24; Status DC Potassium Phosphate/Sodium Chloride (Potassium Phosphate Inj/NS 250 ml Inj) 260 ml @ 42 mls/hr UNSCH PRN IV SEE LABEL COMMENTS; Start 09/12/16 at 07:51; Stop 09/20/16 at 07:24; Status DC Fosphenytoin Sodium 500 mgpe 500 mgpe ONCE ONCE IV ; Start 09/12/16 at 20:45; Stop 09/12/16 at 20:46; Status UNV Fosphenytoin Sodium/Sodium Chloride (Cerebyx Inj/NS Inj) 60 ml @ 240 mls/hr ONCE ONCE IV Last administered on 09/13/16 00:29; Start 09/12/16 at 21:30; Stop 09/12/16 at 21:44; Status DC Amlodipine Besylate (Norvasc) 10 mg DAILY PO Last administered on 09/27/16 08: 56; Start 09/14/16 at 09:00 Labetalol HCl (Trandate Inj) 20 mg Q1H PRN IV SYS BP GREATER THAN 150 MMHG Last administered on 09/13/16 18:32; Start 09/13/16 at 12:15; Stop 09/14/16 at 09: 21; Status DC Amlodipine Besylate (Norvasc) 5 mg ONCE ONCE PO Last administered on 09/13/16 11:59; Start 09/13/16 at 11:15; Stop 09/13/16 at 11:43; Status DC Hydralazine HCl (Apresoline) 100 mg Q8H PO Last administered on 09/23/16 05:18 ; Start 09/13/16 at 12:00; Stop 09/23/16 at 09:01; Status DC Hydralazine HCl (Apresoline Inj) 20 mg Q2H PRN IV PUSH sbp > 150 Last administered on 09/18/16 18:00; Start 09/13/16 at 19:15 Labetalol HCl (Trandate) 200 mg Q8HR PO Last administered on 09/15/16 15:30; Start 09/13/16 at 19:11; Status Hold Dexamethasone Sodium Phosphate (Decadron Inj) 8 mg STK-MED ONCE .ROUTE Last administered on 09/14/16 23:20; Start 09/14/16 at 23:18; Stop 09/14/16 at 23:19; Status DC Racepinephrine (Racepinephrine 2.25% Neb) 0.5 ml STK-MED ONCE .ROUTE Last administered on 09/14/16 23:28; Start 09/14/16 at 23:19; Stop 09/14/16 at 23:20; Status DC Racepinephrine (Racepinephrine 2.25% Neb) 0.5 ml STK-MED ONCE .ROUTE ; Start 09/14/16 at 23:21; Stop 09/14/16 at 23:22; Status DC Racepinephrine (Racepinephrine 2.25% Neb) 0.5 ml STK-MED ONCE .ROUTE ; Start 09/14/16 at 23:22; Stop 09/14/16 at 23:23; Status DC Dexamethasone Sodium Phosphate (Decadron Inj) 8 mg STAT IV ; Start 09/14/16 at 23 :45; Stop 09/15/16 at 02:00; Status DC Racepinephrine (Racepinephrine 2.25% Neb) 0.5 ml UNSCH X1 NEB ; Start 09/14/16 at 23:45; Stop 09/15/16 at 02:00; Status DC Racepinephrine (Racepinephrine 2.25% Neb) 0.5 ml UNSCH X1 NEB ; Start 09/14/16 at 23:45; Stop 09/15/16 at 02:00; Status DC Dexamethasone Sodium Phosphate (Decadron Inj) 4 mg Q6HR IV PUSH Last administered on 09/16/16 23:33; Start 09/15/16 at 02:00; Stop 09/17/16 at 01:59; Status DC Racepinephrine (Racepinephrine 2.25% Neb) 0.5 ml Q2HR NEB PRN NEB stridor; Start 09/15/16 at 00:30 Labetalol HCl 20 mg 20 mg Q4H PRN IV PUSH SYS BP GREATER THAN 160 MMHG; Start 09/15/16 at 00:45 Levetriacetam/ Sodium Chloride (Keppra Inj/NS Inj) 105 ml @ 420 mls/hr Q12H IV Last administered on 09/23/16 14:04; Start 09/16/16 at 15:00; Stop 09/23/16 at 15:27; Status DC Albuterol/ Ipratropium (Duoneb Neb) 1 ampule Q8HR NEB PRN NEB WHEEZING Last administered on 09/23/16 15:32; Start 09/17/16 at 20:00; Stop 09/23/16 at 16:00 ; Status DC Sodium Bicarbonate (Sodium Bicarbonate 8.4% Inj) 50 meq STK-MED ONCE .ROUTE ; Start 09/18/16 at 08:17; Stop 09/18/16 at 08:18; Status DC Enoxaparin Sodium (Lovenox Inj) 30 mg Q12H SQ Last administered on 09/27/16 08 :57; Start 09/19/16 at 21:00 Hyoscyamine Sulfate (Levsin) 0.125 mg Q4H PRN PO SECRETIONS Last administered on 09/23/16 21:28; Start 09/20/16 at 15:15 Hydralazine HCl (Apresoline) 100 mg Q8H PO Last administered on 09/27/16 05:21 ; Start 09/23/16 at 13:00 Miscellaneous (Pill Splitter) 1 ea UNSCH PRN OTHER SEE LABEL COMMENTS; Start at 09:30 Levetriacetam (Keppra) 500 mg Q12HR PO Last administered on 09/27/16 08:56; Start 09/23/16 at 21:00 Albuterol/ Ipratropium (Duoneb Neb) 1 ampule Q4HR WHILE AWAKE NEB NEB Last administered on 09/27/16 08:30; Start 09/23/16 at 20:00 Pantoprazole Sodium (Protonix) 40 mg DAILY PO Last administered on 09/27/16 08 :55; Start 09/25/16 at 10:45 A/P Problem List: (1) COPD exacerbation ICD Code: J44.1 Status: Acute (2) Urinary tract infection ICD Code: N39.0 Status: Acute (3) 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 Patient had perioperative seizures. Some episodes of sinus pauses and bradycardia. She is clinically improving status post ICU course. s/p left craniotomy and temporal lobe tumor resection. Seizures, resolved. history of seizures -Patient is currently on Keppra and valproic acid. Tegretol discontinued. No new seizure activities. Neurosurgery following. - Ativan as needed. - Patient has some expressive aphasia. Speech therapy following. Diet advanced. Advance diet per speech as tolerated. Swallowing deficit - PASSED SWALLOW EVALUATION WITH SPEECH PULLED HER OWN DOBBHOFF TUBE TODAY 8-16 Sinus bradycardia and pause: Patient seen by cardiology. Likely related to medication side effect. Her beta blockers discontinued. Anti-seizure medications being adjusted. Rate is now normal. Continue to monitor on telemetry. Hypertension: Continue amlodipine. BP is labile. If remains persistently hypertensive may need to add second agent. HYDRALAZINE TO 100MG PO TID COPD: Continue Symbicort and breathing treatments. Supplemental oxygen as needed. GI prophylaxis: Stool softener PRN constipation. DVT PPx: Lovenox Discharge Planning DC planning per neurosurgery NEEDS SAFE DC PROBABLY NEEDS inpatient rehabilitation if insurance will authorize Patient needs inpatient rehabilitation for aggressive physical therapy occupational therapy and speech therapy AWAIT SAFE DC- NEEDS INPATIENT REHAB Discharge Planning Will need inpatient rehabilitation at discharge for aggressive physical therapy occupational therapy and speech therapy Yinka Walsh DO Sep 27, 2016 11:47
[2016-09-28] MEDS: VALPROIC ACID SYRUP 250 MG/5 ML UDC NG SCH ×3 (00:10→16:16)
[2016-09-28 00:51] VITALS: BP 140/65; PULSE 80; RESP 18; TEMP 95.9; O2SAT 100
[2016-09-28 04:26] VITALS: BP 140/62; PULSE 92; RESP 18; TEMP 95.3; O2SAT 100
[2016-09-28] MEDS: hydrALAZINE HCL 100 MG TAB PO SCH ×3 (05:20→21:02)
[2016-09-28 08:00] VITALS: BP 129/67; PULSE 85; RESP 16; TEMP 98; O2SAT 97
[2016-09-28] MEDS: levETIRAcetam 500 MG TAB PO SCH ×2 (08:30→21:02)
[2016-09-28] MEDS: SODIUM CHLORIDE 0.9% FLUSH 10 ML FLUSH IV FLUSH SCH ×2 (08:30→21:00)
[2016-09-28] MEDS: ENOXAPARIN SODIUM 30 MG/0.3 ML SYRINGE SQ SCH ×2 (08:30→21:02)
[2016-09-28] MEDS: PANTOPRAZOLE SOD 40 MG DELAYED RELEASE TAB PO SCH (08:30)
[2016-09-28] MEDS: BUDESONIDE-FORMOTEROL 160/4.5 MCG INHALER INH SCH ×2 (08:30→21:00)
[2016-09-28] MEDS: DOCUSATE SODIUM 100 MG CAP PO SCH ×2 (09:00→21:02)
[2016-09-28 12:00] VITALS: BP 145/70; PULSE 88; RESP 18; TEMP 97.4; O2SAT 96
--- NOTE | 2016-09-28 15:31 | HHI.PR ---
Subjective Remarks 8-14 Still has Dobbhoff tube in place Having lots of coughing while in the room Denies any pain or shortness of breath 8-15 to go for MODIFIED BARIUM SWALLOW TODAY STILL HAVING DIFFICULT EXPRESSING HERSELF AND APHASIA DHT IN PLACE [facility] PT AND RN 09-24 PATIENT PASSED SWALLOW EVALUATION YESTERDAY PATIENT PULLED HER OWN DHT HOPEFULLY BETTER APPETITE NOT APPROVED FOR SANTO BY RON GOLD PATIENT AND RN NO NEW COMPLAINTS 09-25 "I feel lousy" NO SOB, NO CHEST PAIN, NO PALPITATIONS NEEDS INPATIENT REHAB FOR AGGRESSIVE CARE 09-26 AWAIT SNF/INPATIENT REHAB APPROVAL- DW PATIENT AND RN NO SOB, NO CHEST NO PALPITATIONS 09-27 AWAIT REHAB APPROVAL NO NEW COMPLAINTS DW PT AND RN 09-28 still waiting rehabilitation approval No new complaints Discussed with patient and RN Needs aggressive inpatient rehabilitation Objective Vitals Vital Signs Date Time Temp Pulse Resp B/P (MAP) Pulse Ox O2 Delivery O2 Flow Rate FiO2 09/28/16 12:00 97.4 88 18 145/70 (95) 96 09/28/16 08:00 98.0 85 16 129/67 (87) 97 09/28/16 04:26 95.3 92 18 140/62 (88) 100 09/28/16 00:51 95.9 80 18 140/65 (90) 100 09/27/16 22:05 78 09/27/16 21:10 95.8 87 18 154/72 (99) 100 09/27/16 19:53 95 21 09/27/16 16:02 97.8 93 17 128/59 (82) 96 I/O 09/27/16 09/27/16 09/27/16 09/28/16 09/28/16 09/28/16 07:00 15:00 23:00 07:00 15:00 23:00 Intake Total 480 ml Balance 480 ml Intake Oral 480 ml # Voids 7 2 1 3 # Bowel Movements 0 Imaging Last Impressions Modified Barium Swallow 09/23/16 0000 Signed Impressions: Service Date/Time: Friday, September 23, 2016 09:33 - CONCLUSION: No aspiration or penetration is seen. Minh Donovan MD Head CT 09/16/16 0000 Signed Impressions: Service Date/Time: Friday, September 16, 2016 12:04 - CONCLUSION: Stable followup CT scan of the brain compared to the prior examination. No new or significant changes. Hilario Vargas MD Abdomen X-Ray 09/15/16 1320 Signed Impressions: Service Date/Time: Thursday, September 15, 2016 13:33 - CONCLUSION: Tip of Dobbhoff catheter is in either the antrum or the duodenal bulb. Antoni Acevedo MD Chest X-Ray 09/14/16 0000 Signed Impressions: Service Date/Time: Wednesday, September 14, 2016 23:21 - CONCLUSION: No acute disease. Jose Torres MD Brain MRI 09/11/16 0717 Signed Impressions: Service Date/Time: September 08:13 - CONCLUSION: 1. 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 This mass has increased in size from the prior study. 2. There is a second extra-axial lateral dural based mass on the left measuring 2.0 x 1.6 cm. Minh Bell MD Objective Remarks GENERAL:is aphasic to some degree SKIN: Warm and dry. HEAD: Atraumatic. Normocephalic. Scars that are obvious on her scalp EYES: Pupils equal and round. No scleral icterus. No injection or drainage. extraocular muscles intact ENT: No nasal bleeding or discharge. Mucous membranes pink and moist. tongue protrudes midline NECK: Trachea midline. No JVD. CARDIOVASCULAR: Regular rate and rhythm. S1-S2 no S3 or S4 no heave or thrill or rub or gallop RESPIRATORY: No accessory muscle use. Breath sounds equal bilaterally. Few scattered rhonchi and coarse GASTROINTESTINAL: Abdomen soft, non-tender, nondistended. Hepatic and splenic margins not palpable. MUSCULOSKELETAL: Extremities without clubbing, cyanosis, or edema. No obvious deformities. NEUROLOGICAL: Awake and alert. Aphasic.No obvious cranial nerve deficits. Motor grossly within normal limits. Five out of 5 muscle strength in the arms and legs. Aphasic speech. PSYCHIATRIC: Appropriate mood and affect; insight and judgment ABnormal. Hard to assess THIS completely due to aphasia Procedures 76-year-old female with history of multiple recurrent meningiomas. 09/11/2016: Left craniotomy for recurrent left temporal and left frontoparietal convexity meningiomas. Medications and IVs Inpatient Medications Albuterol/ Ipratropium (Duoneb Neb) 1 ampule Q4HR WHILE AWAKE NEB NEB Last administered on 09/27/16 19:53; Start 09/23/16 at 20:00; Stop 09/27/16 at 20:00 ; Status DC Amlodipine Besylate (Norvasc) 5 mg ONCE ONCE PO Last administered on 09/13/16 11:59; Start 09/13/16 at 11:15; Stop 09/13/16 at 11:43; Status DC Bisacodyl (Dulcolax Supp) 10 mg DAILY PRN RECTAL CONSTIPATION Last administered on 09/16/16 05:23; Start 09/11/16 at 15:15 Budesonide/ Formoterol Fumarate (Symbicort 160-4.5 Inh) 2 puff BID INH Last administered on 09/28/16 08:30; Start 09/11/16 at 21:00 Carbamazepine (TEGretol LIQ) 200 mg BID NG Last administered on 09/15/16 21:51 ; Start 09/12/16 at 09:00; Status Future Hold Carbamazepine (TEGretol) 200 mg BID PO ; Start 09/11/16 at 21:00; Stop 09/12/16 at 06:36; Status DC Carvedilol (Coreg) 25 mg BID PO Last administered on 09/15/16 10:33; Start 09/11 at 21:00; Stop 09/16/16 at 07:20; Status DC Cefazolin Sodium 1000 mg/Sodium Chloride 100 ml @ 200 mls/hr FREIGHT RATE ANALYST IV Last administered on 09/11/16 08:55; Start 09/11/16 at 06:30; Stop 09/14/16 at 06:29; Status DC Chlorhexidine Gluconate (Chlorhexidine 2% Cloth) 3 pack FREIGHT RATE ANALYST PRN TOPICAL SEE LABEL COMMENTS Last administered on 09/11/16 06:20; Start 09/11/16 at 06:30; Stop 09/14/16 at 06:29; Status DC Dexamethasone Sodium Phosphate (Decadron Inj) 4 mg Q6HR IV PUSH Last administered on 09/16/16 23:33; Start 09/15/16 at 02:00; Stop 09/17/16 at 01:59; Status DC Dextrose (D50w (Vial) Inj) 50 ml UNSCH PRN IV HYPOGLYCEMIA-SEE COMMENTS; Start 09/12/16 at 08:00 Dextrose/Sodium Chloride 1,000 ml @ 100 mls/hr Q10H IV Last administered on 08:47; Start 09/11/16 at 16:00; Stop 09/13/16 at 11:19; Status DC Divalproex Sodium (Depakote Dr) 500 mg TID PO ; Start 09/11/16 at 18:00; Stop 09/12/16 at 06:34; Status DC Docusate Sodium (Colace) 100 mg BID PO Last administered on 09/25/16 21:02; Start 09/11/16 at 21:00 Enoxaparin Sodium (Lovenox Inj) 30 mg Q12H SQ Last administered on 09/28/16 08 :30; Start 09/19/16 at 21:00 Fosphenytoin Sodium (Cerebyx Inj) 200 mgpe ONCE ONCE IV Last administered on 11:17; Start 09/12/16 at 08:00; Stop 09/12/16 at 08:03; Status DC Fosphenytoin Sodium 1000 mgpe/ Sodium Chloride 70 ml @ 280 mls/hr ONCE ONCE IV Last administered on 09/11/16 16:59; Start 09/11/16 at 16:00; Stop 09/11/16 at 16:14; Status DC Fosphenytoin Sodium 500 mgpe/ Sodium Chloride 60 ml @ 240 mls/hr ONCE ONCE IV Last administered on 09/13/16 00:29; Start 09/12/16 at 21:30; Stop 09/12/16 at 21:44; Status DC Glucagon (Glucagon Inj) 1 mg UNSCH PRN OTHER HYPOGLYCEMIA-SEE COMMENTS; Start 09/12/16 at 08:00 Hydralazine HCl (Apresoline Inj) 20 mg Q2H PRN IV PUSH sbp > 150 Last administered on 09/18/16 18:00; Start 09/13/16 at 19:15 Hydralazine HCl (Apresoline) 100 mg Q8H PO Last administered on 09/28/16 14:28 ; Start 09/23/16 at 13:00 Hyoscyamine Sulfate (Levsin) 0.125 mg Q4H PRN PO SECRETIONS Last administered on 8/15/17at 21:28; Start 09/20/16 at 15:15 Insulin Aspart (NovoLOG SUPPLEMENTAL SCALE) 1 Q6H SQ Last administered on 23:07; Start 09/12/16 at 11:00; Stop 09/25/16 at 10:40; Status DC Insulin Human Regular (NovoLIN R INJ) See Protocol Table ... FREIGHT RATE ANALYST PRN SQ SEE PROTOCOL TABLE; Start 09/11/16 at 06:30; Stop 09/14/16 at 06:29; Status DC Labetalol HCl (Trandate Inj) 20 mg Q4H PRN IV PUSH SYS BP GREATER THAN 160 MMHG ; Start 09/15/16 at 00:45 Labetalol HCl (Trandate) 200 mg Q8HR PO Last administered on 09/15/16 15:30; Start 09/13/16 at 19:11; Status Future Hold Lactated Ringer's 1,000 ml @ 30 mls/hr Q24H PRN IV SEE LABEL COMMENTS; Start at 06:30; Stop 09/14/16 at 06:29; Status DC Levetriacetam (Keppra) 500 mg Q12HR PO Last administered on 09/28/16 08:30; Start 09/23/16 at 21:00 Levetriacetam 500 mg/Sodium Chloride 105 ml @ 420 mls/hr Q12H IV Last administered on 09/23/16 14:04; Start 09/16/16 at 15:00; Stop 09/23/16 at 15:27 ; Status DC Lorazepam (Ativan Inj) 1 mg Q6H PRN IV SEIZURES Last administered on 09/12/16 23:55; Start 09/11/16 at 15:45 Magnesium Oxide (Mag-Ox) 800 mg UNSCH PRN PO For Magnesium 1.2 - 1.6 mg/dL; Start 09/12/16 at 08:00; Stop 09/20/16 at 07:24; Status DC Magnesium Sulfate 2 gm/Sodium Chloride 100 ml @ 50 mls/hr UNSCH PRN IV For Magnesium 1.2 - 1.6 mg/dL; Start 09/12/16 at 08:00; Stop 09/20/16 at 07:23; Status DC Magnesium Sulfate 4 gm/Sodium Chloride 100 ml @ 50 mls/hr UNSCH PRN IV For Magnesium 0.9 - 1.1 mg/dL; Start 09/12/16 at 08:00; Stop 09/20/16 at 07:24; Status DC Metoprolol Tartrate (Lopressor) 25 mg FREIGHT RATE ANALYST PRN PO SEE LABEL COMMENTS; Start 09/11/16 at 06:30; Stop 09/14/16 at 06:29; Status DC Miscellaneous (Pill Splitter) 1 ea UNSCH PRN OTHER SEE LABEL COMMENTS; Start at 09:30 Miscellaneous Information ALL NURSING DEPARTME... UNSCH PRN .XX SEE LABEL COMMENTS; Start 09/11/16 at 16:15; Stop 09/12/16 at 16:29; Status DC Morphine Sulfate (Morphine Inj) 4 mg Q2H PRN IV PAIN SCALE 7 TO 10 Last administered on 09/21/16 18:33; Start 09/11/16 at 15:15 Nicardipine HCl 25 mg/Sodium Chloride 260 ml @ 0 mls/hr TITRATE IV Last administered on 09/13/16 12:17; Start 09/11/16 at 15:15; Stop 09/14/16 at 09:21; Status DC Nitrofurantoin Macrocrystals (Macrobid) 100 mg BID PO Last administered on 10:33; Start 09/11/16 at 21:00; Stop 09/15/16 at 22:33; Status DC Ondansetron HCl (Zofran Inj) 4 mg Q6H PRN IV NAUSEA OR VOMITING; Start 09/11/16 at 15:15 Pantoprazole Sodium (Protonix Inj) 40 mg DAILY IVP Last administered on 10:12; Start 09/12/16 at 09:00; Stop 09/25/16 at 10:40; Status DC Pantoprazole Sodium (Protonix) 40 mg DAILY PO Last administered on 09/28/16 08 :30; Start 09/25/16 at 10:45 Potassium Phosphate (K-Phos) 2,000 mg UNSCH PRN PO/TUBE SEE LABEL COMMENTS; Start 09/12/16 at 07:51; Stop 09/20/16 at 07:24; Status DC Potassium Phosphate 30 mmol/ Sodium Chloride 260 ml @ 42 mls/hr UNSCH PRN IV SEE LABEL COMMENTS; Start 09/12/16 at 07:51; Stop 09/20/16 at 07:24; Status DC Potassium Bicarb/ Potassium Chloride (K-Lyte Cl Eff) 50 meq UNSCH PRN PO For Potassium 3.3 - 3.5 mEq/L Last administered on 09/13/16 08:46; Start 09/12/16 at 08:00; Stop 09/20/16 at 07:24; Status DC Potassium Chloride 100 ml @ 50 mls/hr Q2H PRN IV For Potassium 3.3 - 3.5 mEq/ L Last administered on 09/19/16 04:18; Start 09/12/16 at 08:00; Stop 09/20/16 at 07:24; Status DC Povidone Iodine (Betadine 5% Antisepsis Kit) 1 applic FREIGHT RATE ANALYST PRN EACH NARE SEE LABEL COMMENTS Last administered on 09/11/16 06:30; Start 09/11/16 at 06:30; Stop 09/14/16 at 06:29; Status DC Racepinephrine (Racepinephrine 2.25% Neb) 0.5 ml Q2HR NEB PRN NEB stridor; Start 09/15/16 at 00:30 Sodium Chloride (NS Flush) 2 ml BID IV FLUSH Last administered on 09/28/16 08: 30; Start 09/11/16 at 21:00 Sodium Phosphate 30 mmol/Sodium Chloride 250 ml @ 42 mls/hr UNSCH PRN IV For Phosphorus < 2.5 mg/dL; Start 09/12/16 at 08:00; Stop 09/20/16 at 07:24; Status DC Valproic Acid (Depakene Liq) 500 mg Q8H NG Last administered on 09/28/16 08:30 ; Start 09/12/16 at 08:00 Urinary Catheter: No Vascular Central Line Catheter: No A/P Problem List: (1) COPD exacerbation ICD Code: J44.1 - Chronic obstructive pulmonary disease with (acute) exacerbation Status: Acute (2) Urinary tract infection ICD Code: N39.0 - Urinary tract infection, site not specified Status: Acute (3) Benign neoplasm of cerebral meninges ICD Code: D32.0 - Benign neoplasm of cerebral meninges Status: Acute (4) Hypertension ICD Code: I10 - Essential (primary) hypertension Status: Acute Assessment and Plan Patient would definitely benefit from acute inpatient rehabilitation Having some issues with difficulty clearing her secretions but passed a swallow ric [id number] female status post left temporal craniotomy for meningioma. Patient had perioperative seizures. Some episodes of sinus pauses and bradycardia. She is clinically improving status post ICU course. s/p left craniotomy and temporal lobe tumor resection. Seizures, resolved. history of seizures -Patient is currently on Keppra and valproic acid. Tegretol discontinued. No new seizure activities. Neurosurgery following. - Ativan as needed. - Patient has some expressive aphasia. Speech therapy following. Diet advanced. Advance diet per speech as tolerated. Swallowing deficit - PASSED SWALLOW EVALUATION WITH SPEECH PULLED HER OWN DOBBHOFF TUBE TODAY 8-16 Sinus bradycardia and pause: Patient seen by cardiology. Likely related to medication side effect. Her beta blockers discontinued. Anti-seizure medications being adjusted. Rate is now normal. Continue to monitor on telemetry. Hypertension: Continue amlodipine. BP is labile. If remains persistently hypertensive may need to add second agent. HYDRALAZINE TO 100MG PO TID COPD: Continue Symbicort and breathing treatments. Supplemental oxygen as needed. GI prophylaxis: Stool softener PRN constipation. DVT PPx: Lovenox Discharge Planning DC planning per neurosurgery NEEDS SAFE DC PROBABLY NEEDS inpatient rehabilitation if insurance will authorize Patient needs inpatient rehabilitation for aggressive physical therapy occupational therapy and speech therapy AWAIT SAFE DC- NEEDS INPATIENT REHAB Discharge Planning Will need inpatient rehabilitation at discharge for aggressive physical therapy occupational therapy and speech therapy Yinka Walsh DO Sep 28, 2016 15:31
[2016-09-28 16:00] VITALS: BP 126/74; PULSE 86; RESP 17; TEMP 97.8; O2SAT 98
[2016-09-28 20:00] VITALS: BP_SYST 130; BP_SYST 137; BP_DIAS 72; BP_DIAS 75; PULSE 83; RESP 16; TEMP 98.2; O2SAT 97
[2016-09-29] VITALS (7 sets, daily range): BP systolic 136–162; BP diastolic 68–89; PULSE 70–96; RESP 18–20; TEMP 97.2–98.9; O2SAT 94–97
[2016-09-29] MEDS: VALPROIC ACID SYRUP 250 MG/5 ML UDC NG SCH ×4 (03:35→23:27)
[2016-09-29] MEDS: hydrALAZINE HCL 100 MG TAB PO SCH ×3 (04:26→20:46)
[2016-09-29] MEDS: levETIRAcetam 500 MG TAB PO SCH ×2 (08:42→20:46)
[2016-09-29] MEDS: PANTOPRAZOLE SOD 40 MG DELAYED RELEASE TAB PO SCH (08:43)
[2016-09-29] MEDS: ENOXAPARIN SODIUM 30 MG/0.3 ML SYRINGE SQ SCH ×2 (08:43→21:00)
[2016-09-29] MEDS: DOCUSATE SODIUM 100 MG CAP PO SCH ×2 (08:43→20:48)
[2016-09-29] MEDS: SODIUM CHLORIDE 0.9% FLUSH 10 ML FLUSH IV FLUSH SCH ×2 (08:44→21:00)
[2016-09-29] MEDS: BUDESONIDE-FORMOTEROL 160/4.5 MCG INHALER INH SCH ×2 (08:44→20:51)
--- NOTE | 2016-09-29 13:39 | HHI.PR ---
Subjective Remarks 8-14 Still has Dobbhoff tube in place Having lots of coughing while in the room Denies any pain or shortness of breath 8-15 to go for MODIFIED BARIUM SWALLOW TODAY STILL HAVING DIFFICULT EXPRESSING HERSELF AND APHASIA DHT IN PLACE [facility] PT AND RN 09-24 PATIENT PASSED SWALLOW EVALUATION YESTERDAY PATIENT PULLED HER OWN DHT HOPEFULLY BETTER APPETITE NOT APPROVED FOR SANTO BY HUMANAnthony GOLD PATIENT AND RN NO NEW COMPLAINTS 09-25 "I feel lousy" NO SOB, NO CHEST PAIN, NO PALPITATIONS NEEDS INPATIENT REHAB FOR AGGRESSIVE CARE 09-26 AWAIT SNF/INPATIENT REHAB APPROVAL- [facility] PATIENT AND RN NO SOB, NO CHEST NO PALPITATIONS 09-27 AWAIT REHAB APPROVAL NO NEW COMPLAINTS DW PT AND RN 09-28 still waiting rehabilitation approval No new complaints Discussed with patient and RN Needs aggressive inpatient rehabilitation 09-29 AWAITS REHAB PLACEMENT NEEDS AGGRESSIVE INPATIENT REHAB NO NEW COMPLAINTS WORKING WITH PT AND OT AND ST Objective Vitals Vital Signs Date Time Temp Pulse Resp B/P (MAP) Pulse Ox O2 Delivery O2 Flow Rate FiO2 09/29/16 08:00 98.0 75 19 143/77 (99) 95 09/29/16 05:46 97.7 83 20 162/76 (104) 94 09/29/16 00:53 98.1 80 20 161/75 (103) 96 09/28/16 20:00 98.2 83 16 137/72 (93) 09/28/16 20:00 98.2 83 16 130/75 (93) 97 09/28/16 16:00 97.8 86 17 126/74 (91) 98 I/O 09/28/16 09/28/16 09/28/16 09/29/16 09/29/16 09/29/16 06:59 14:59 22:59 06:59 14:59 22:59 Intake Total 480 ml Balance 480 ml Intake Oral 480 ml # Voids 3 3 1 # Bowel Movements 0 Imaging Last Impressions Modified Barium Swallow 09/23/16 0000 Signed Impressions: Service Date/Time: Friday, September 23, 2016 09:33 - CONCLUSION: No aspiration or penetration is seen. Minh Donovan MD Head CT 09/16/16 0000 Signed Impressions: Service Date/Time: Friday, September 16, 2016 12:04 - CONCLUSION: Stable followup CT scan of the brain compared to the prior examination. No new or significant changes. Hilario Vargas MD Abdomen X-Ray 09/15/16 1320 Signed Impressions: Service Date/Time: Thursday, September 15, 2016 13:33 - CONCLUSION: Tip of Dobbhoff catheter is in either the antrum or the duodenal bulb. Antoni Acevedo MD Chest X-Ray 09/14/16 0000 Signed Impressions: Service Date/Time: Wednesday, September 14, 2016 23:21 - CONCLUSION: No acute disease. Jose Torres MD Brain MRI 09/11/16 0717 Signed Impressions: Service Date/Time: September 08:13 - CONCLUSION: 1. 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 This mass has increased in size from the prior study. 2. There is a second extra-axial lateral dural based mass on the left measuring 2.0 x 1.6 cm. Minh Bell MD Objective Remarks GENERAL:is aphasic to some degree SKIN: Warm and dry. HEAD: Atraumatic. Normocephalic. Scars that are obvious on her scalp EYES: Pupils equal and round. No scleral icterus. No injection or drainage. extraocular muscles intact ENT: No nasal bleeding or discharge. Mucous membranes pink and moist. tongue protrudes midline NECK: Trachea midline. No JVD. CARDIOVASCULAR: Regular rate and rhythm. S1-S2 no S3 or S4 no heave or thrill or rub or gallop RESPIRATORY: No accessory muscle use. Breath sounds equal bilaterally. Few scattered rhonchi and coarse GASTROINTESTINAL: Abdomen soft, non-tender, nondistended. Hepatic and splenic margins not palpable. MUSCULOSKELETAL: Extremities without clubbing, cyanosis, or edema. No obvious deformities. NEUROLOGICAL: Awake and alert. Aphasic.No obvious cranial nerve deficits. Motor grossly within normal limits. Five out of 5 muscle strength in the arms and legs. Aphasic speech. PSYCHIATRIC: Appropriate mood and affect; insight and judgment ABnormal. Hard to assess THIS completely due to aphasia Procedures 76-year-old female with history of multiple recurrent meningiomas. 09/11/2016: Left craniotomy for recurrent left temporal and left frontoparietal convexity meningiomas. Medications and IVs Current Medications Lactated Ringer's 1,000 ml @ 0 mls/hr Q24H IV Last administered on 09/11/16 06 :30; Start 09/11/16 at 06:30; Stop 09/11/16 at 15:38; Status DC Cefazolin Sodium 1000 mg/Sodium Chloride 100 ml @ 200 mls/hr [employer] IV Last administered on 09/11/16 08:55; Start 09/11/16 at 06:30; Stop 09/14/16 at 06:29; Status DC Lactated Ringer's 1,000 ml @ 30 mls/hr Q24H PRN IV SEE LABEL COMMENTS; Start at 06:30; Stop 09/14/16 at 06:29; Status DC Sodium Chloride 500 ml @ 30 mls/hr [id number] PRN IV SEE LABEL COMMENTS; Start 09/11/16 at 06:30; Stop 09/14/16 at 06:29; Status DC Metoprolol Tartrate (Lopressor) 25 mg [employer] PRN PO SEE LABEL COMMENTS; Start 09/11/16 at 06:30; Stop 09/14/16 at 06:29; Status DC Povidone Iodine (Betadine 5% Antisepsis Kit) 1 applic [employer] PRN EACH NARE SEE LABEL COMMENTS Last administered on 09/11/16 06:30; Start 09/11/16 at 06:30; Stop 09/14/16 at 06:29; Status DC Chlorhexidine Gluconate (Chlorhexidine 2% Cloth) 3 pack [employer] PRN TOPICAL SEE LABEL COMMENTS Last administered on 09/11/16 06:20; Start 09/11/16 at 06:30; Stop 09/14/16 at 06:29; Status DC Insulin Human Regular (NovoLIN R INJ) See Protocol Table ... [employer] PRN SQ SEE PROTOCOL TABLE; Start 09/11/16 at 06:30; Stop 09/14/16 at 06:29; Status DC Thrombin (Thrombin Top Soln) 10,000 units STK-MED ONCE .ROUTE Last administered on 09/11/16 10:47; Start 09/11/16 at 07:23; Stop 09/11/16 at 07:24; Status DC Gelatin (Gelfoam 100 Top) 1 foam STK-MED ONCE .ROUTE ; Start 09/11/16 at 07:23; Stop 09/11/16 at 07:24; Status DC Gentamicin Sulfate (Gentamicin Inj) 240 mg STK-MED ONCE .ROUTE Last administered on 09/11/16 10:47; Start 09/11/16 at 07:23; Stop 09/11/16 at 07:24; Status DC Lidocaine/ Epinephrine (Xylocaine-Epi 1%-1:100,000 Inj) 40 ml STK-MED ONCE .ROUTE Last administered on 09/11/16 10:47; Start 09/11/16 at 07:23; Stop at 07:24; Status DC Furosemide (Lasix Inj) 40 mg STK-MED ONCE .ROUTE ; Start 09/11/16 at 07:31; Stop 09/11/16 at 07:32; Status DC Albumin Human (Albumin 5% Inj) 12.5 gm STK-MED ONCE IV ; Start 09/11/16 at 07:32 ; Stop 09/11/16 at 07:33; Status DC Nitroglycerin/ Dextrose 250 ml @ As Directed STK-MED ONCE .ROUTE ; Start at 07:32; Stop 09/11/16 at 07:33; Status DC Mannitol 50 ml @ As Directed STK-MED ONCE .ROUTE ; Start 09/11/16 at 07:32; Stop 09/11/16 at 07:33; Status DC Gadodiamide (Omniscan Pf Inj) 14 ml STK-MED ONCE IV Last administered on 08:35; Start 09/11/16 at 08:35; Stop 09/11/16 at 08:36; Status DC Albuterol Sulfate (Albuterol Concentrated Neb) 2.5 mg STK-MED ONCE .ROUTE ; Start 09/11/16 at 09:03; Stop 09/11/16 at 09:04; Status DC Gelatin (Gelfoam 100 Top) 1 foam STK-MED ONCE .ROUTE Last administered on 10:47; Start 09/11/16 at 09:14; Stop 09/11/16 at 09:15; Status DC Thrombin (Thrombin Top Soln) 10,000 units STK-MED ONCE .ROUTE Last administered on 09/11/16 11:10; Start 09/11/16 at 11:09; Stop 09/11/16 at 11:10; Status DC Gelatin (Gelfoam 100 Top) 1 foam STK-MED ONCE .ROUTE Last administered on 11:10; Start 09/11/16 at 11:09; Stop 09/11/16 at 11:10; Status DC Thrombin (Thrombin Top Soln) 10,000 units STK-MED ONCE .ROUTE Last administered on 09/11/16 12:26; Start 09/11/16 at 12:24; Stop 09/11/16 at 12:25; Status DC Cefazolin Sodium (Ancef Inj) 1,000 mg STK-MED ONCE IV Last administered on 13:00; Start 09/11/16 at 13:00; Stop 09/11/16 at 13:13; Status DC Albuterol Sulfate (*ALBUTEROL NEB PERIprocedure ONLY) 2.5 mg STK-MED ONCE NEB Last administered on 09/11/16 14:57; Start 09/11/16 at 14:57; Stop 09/11/16 at 14: 58; Status DC Labetalol HCl (*TRANDATE INJ PERIprocedural Use ONLY) 100 mg STK-MED ONCE .ROUTE Last administered on 09/11/16 14:59; Start 09/11/16 at 14:59; Stop at 15:00; Status DC Nicardipine HCl (Cardene Inj) 25 mg STK-MED ONCE .ROUTE Last administered on 15:15; Start 09/11/16 at 15:07; Stop 09/11/16 at 15:08; Status DC Fentanyl Citrate (fentaNYL INJ) 250 mcg STK-MED ONCE .ROUTE ; Start 09/11/16 at 15:13; Stop 09/11/16 at 15:14; Status DC Morphine Sulfate (Morphine Inj) 4 mg STK-MED ONCE .ROUTE ; Start 09/11/16 at 15: 13; Stop 09/11/16 at 15:14; Status DC Sodium Chloride (NS Flush) 2 ml UNSCH PRN IV FLUSH FLUSH AFTER USING IV ACCESS ; Start 09/11/16 at 15:15 Sodium Chloride (NS Flush) 2 ml BID IV FLUSH Last administered on 09/29/16 08: 44; Start 09/11/16 at 21:00 Bisacodyl (Dulcolax Supp) 10 mg DAILY PRN RECTAL CONSTIPATION Last administered on 09/16/16 05:23; Start 09/11/16 at 15:15 Docusate Sodium (Colace) 100 mg BID PO Last administered on 09/29/16 08:43; Start 09/11/16 at 21:00 Pantoprazole Sodium (Protonix Inj) 40 mg DAILY IVP Last administered on 10:12; Start 09/12/16 at 09:00; Stop 09/25/16 at 10:40; Status DC Ondansetron HCl (Zofran Inj) 4 mg Q6H PRN IV NAUSEA OR VOMITING; Start 09/11/16 at 15:15 Morphine Sulfate (Morphine Inj) 2 mg Q2H PRN IV PAIN SCALE 1 TO 6 Last administered on 09/14/16 03:00; Start 09/11/16 at 15:15 Morphine Sulfate (Morphine Inj) 4 mg Q2H PRN IV PAIN SCALE 7 TO 10 Last administered on 09/21/16 18:33; Start 09/11/16 at 15:15 Labetalol HCl (Trandate Inj) 10 mg Q1H PRN IV SYS BP GREATER THAN 150 MMHG Last administered on 09/13/16 03:00; Start 09/11/16 at 15:15; Stop 09/13/16 at 11: 16; Status DC Nicardipine HCl 25 mg/Sodium Chloride 260 ml @ 0 mls/hr TITRATE IV Last administered on 09/13/16 12:17; Start 09/11/16 at 15:15; Stop 09/14/16 at 09:21; Status DC Amlodipine Besylate (Norvasc) 5 mg DAILY PO Last administered on 09/13/16 08:45 ; Start 09/12/16 at 09:00; Stop 09/13/16 at 11:16; Status DC Carbamazepine (TEGretol) 200 mg BID PO ; Start 09/11/16 at 21:00; Stop 09/12/16 at 06:36; Status DC Carvedilol (Coreg) 25 mg BID PO Last administered on 09/15/16 10:33; Start 09/11 at 21:00; Stop 09/16/16 at 07:20; Status DC Divalproex Sodium (Depakote Dr) 500 mg TID PO ; Start 09/11/16 at 18:00; Stop 09/12/16 at 06:34; Status DC Albuterol/ Ipratropium (Duoneb Neb) 1 ampule Q8HR NEB INH Last administered on 09/15/16 14:48; Start 09/11/16 at 16:00; Stop 09/15/16 at 16:00; Status DC Nitrofurantoin Macrocrystals (Macrobid) 100 mg BID PO Last administered on 10:33; Start 09/11/16 at 21:00; Stop 09/15/16 at 22:33; Status DC Non-Formulary Medication 1 puff BID INH ; Start 09/11/16 at 21:00; Status UNV Dextrose/Sodium Chloride 1,000 ml @ 100 mls/hr Q10H IV Last administered on 08:47; Start 09/11/16 at 16:00; Stop 09/13/16 at 11:19; Status DC Lorazepam (Ativan Inj) 2 mg STK-MED ONCE .ROUTE ; Start 09/11/16 at 15:39; Stop 09/11/16 at 15:40; Status DC Lorazepam (Ativan Inj) 1 mg Q6H PRN IV SEIZURES Last administered on 09/12/16 23:55; Start 09/11/16 at 15:45 Fosphenytoin Sodium 1000 mgpe/ Sodium Chloride 70 ml @ 280 mls/hr ONCE ONCE IV Last administered on 09/11/16 16:59; Start 09/11/16 at 16:00; Stop 09/11/16 at 16:14; Status DC Fosphenytoin Sodium (Cerebyx Inj) 100 mgpe Q8HR IV Last administered on 21:54; Start 09/11/16 at 22:00; Status Future Hold Budesonide/ Formoterol Fumarate (Symbicort 160-4.5 Inh) 2 puff BID INH Last administered on 09/29/16 08:44; Start 09/11/16 at 21:00 Miscellaneous Information ALL NURSING DEPARTME... UNSCH PRN .XX SEE LABEL COMMENTS; Start 09/11/16 at 16:15; Stop 09/12/16 at 16:29; Status DC Nicardipine HCl (Cardene Inj) 25 mg STK-MED ONCE .ROUTE ; Start 09/11/16 at 22:47 ; Stop 09/11/16 at 22:48; Status DC Sodium Chloride 250 ml @ As Directed STK-MED ONCE .ROUTE ; Start 09/11/16 at 22: 47; Stop 09/11/16 at 22:48; Status DC Valproic Acid (Depakene Liq) 500 mg Q8H NG ; Start 09/12/16 at 06:34; Stop at 06:35; Status DC Valproic Acid (Depakene Liq) 500 mg Q8H NG Last administered on 09/29/16 08:42 ; Start 09/12/16 at 08:00 Carbamazepine (TEGretol LIQ) 200 mg BID NG ; Start 09/12/16 at 09:00; Stop at 09:00; Status DC Carbamazepine (TEGretol LIQ) 200 mg BID NG Last administered on 09/15/16 21:51 ; Start 09/12/16 at 09:00; Status Future Hold Fosphenytoin Sodium (Cerebyx Inj) 200 mgpe ONCE ONCE IV Last administered on 11:17; Start 09/12/16 at 08:00; Stop 09/12/16 at 08:03; Status DC Dextrose (D50w (Vial) Inj) 50 ml UNSCH PRN IV HYPOGLYCEMIA-SEE COMMENTS; Start 09/12/16 at 08:00 Glucagon (Glucagon Inj) 1 mg UNSCH PRN OTHER HYPOGLYCEMIA-SEE COMMENTS; Start 09/12/16 at 08:00 Insulin Aspart (NovoLOG SUPPLEMENTAL SCALE) 1 Q6H SQ Last administered on 23:07; Start 09/12/16 at 11:00; Stop 09/25/16 at 10:40; Status DC Potassium Chloride 100 ml @ 50 mls/hr Q2H PRN IV For Potassium 2.8 - 3.2 mEq/L ; Start 09/12/16 at 08:00; Stop 09/20/16 at 07:24; Status DC Potassium Chloride 100 ml @ 50 mls/hr Q2H PRN IV For Potassium 2.8 - 3.2 mEq/L ; Start 09/12/16 at 08:00; Stop 09/20/16 at 07:24; Status DC Potassium Bicarb/ Potassium Chloride (K-Lyte Cl Eff) 50 meq UNSCH PRN PO For Potassium 3.3 - 3.5 mEq/L Last administered on 09/13/16 08:46; Start 09/12/16 at 08:00; Stop 09/20/16 at 07:24; Status DC Potassium Chloride 100 ml @ 25 mls/hr UNSCH PRN IV For Potassium 3.3 - 3.5 mEq /L Last administered on 09/18/16 09:19; Start 09/12/16 at 08:00; Stop 09/20/16 at 07:24; Status DC Potassium Chloride 100 ml @ 50 mls/hr Q2H PRN IV For Potassium 3.3 - 3.5 mEq/ L Last administered on 09/19/16 04:18; Start 09/12/16 at 08:00; Stop 09/20/16 at 07:24; Status DC Magnesium Sulfate 4 gm/Sodium Chloride 100 ml @ 50 mls/hr UNSCH PRN IV For Magnesium 0.9 - 1.1 mg/dL; Start 09/12/16 at 08:00; Stop 09/20/16 at 07:24; Status DC Magnesium Oxide (Mag-Ox) 800 mg UNSCH PRN PO For Magnesium 1.2 - 1.6 mg/dL; Start 09/12/16 at 08:00; Stop 09/20/16 at 07:24; Status DC Magnesium Sulfate 2 gm/Sodium Chloride 100 ml @ 50 mls/hr UNSCH PRN IV For Magnesium 1.2 - 1.6 mg/dL; Start 09/12/16 at 08:00; Stop 09/20/16 at 07:23; Status DC Potassium Phosphate (K-Phos) 2,000 mg Q4H PRN PO For Phosphorus < 2.5 mg/dL; Start 09/12/16 at 08:00; Stop 09/20/16 at 07:24; Status DC Sodium Phosphate 30 mmol/Sodium Chloride 250 ml @ 42 mls/hr UNSCH PRN IV For Phosphorus < 2.5 mg/dL; Start 09/12/16 at 08:00; Stop 09/20/16 at 07:24; Status DC Potassium Phosphate (K-Phos) 2,000 mg UNSCH PRN PO/TUBE SEE LABEL COMMENTS; Start 09/12/16 at 07:51; Stop 09/20/16 at 07:24; Status DC Potassium Phosphate 30 mmol/ Sodium Chloride 260 ml @ 42 mls/hr UNSCH PRN IV SEE LABEL COMMENTS; Start 09/12/16 at 07:51; Stop 09/20/16 at 07:24; Status DC Fosphenytoin Sodium (Cerebyx Inj) 500 mgpe ONCE ONCE IV ; Start 09/12/16 at 20: 45; Stop 09/12/16 at 20:46; Status UNV Fosphenytoin Sodium 500 mgpe/ Sodium Chloride 60 ml @ 240 mls/hr ONCE ONCE IV Last administered on 09/13/16 00:29; Start 09/12/16 at 21:30; Stop 09/12/16 at 21:44; Status DC Amlodipine Besylate (Norvasc) 10 mg DAILY PO Last administered on 09/29/16 08: 43; Start 09/14/16 at 09:00 Labetalol HCl (Trandate Inj) 20 mg Q1H PRN IV SYS BP GREATER THAN 150 MMHG Last administered on 09/13/16 18:32; Start 09/13/16 at 12:15; Stop 09/14/16 at 09: 21; Status DC Amlodipine Besylate (Norvasc) 5 mg ONCE ONCE PO Last administered on 09/13/16 11:59; Start 09/13/16 at 11:15; Stop 09/13/16 at 11:43; Status DC Hydralazine HCl (Apresoline) 100 mg Q8H PO Last administered on 09/23/16 05:18 ; Start 09/13/16 at 12:00; Stop 09/23/16 at 09:01; Status DC Hydralazine HCl (Apresoline Inj) 20 mg Q2H PRN IV PUSH sbp > 150 Last administered on 09/18/16 18:00; Start 09/13/16 at 19:15 Labetalol HCl (Trandate) 200 mg Q8HR PO Last administered on 09/15/16 15:30; Start 09/13/16 at 19:11; Status Future Hold Dexamethasone Sodium Phosphate (Decadron Inj) 8 mg STK-MED ONCE .ROUTE Last administered on 09/14/16 23:20; Start 09/14/16 at 23:18; Stop 09/14/16 at 23:19; Status DC Racepinephrine (Racepinephrine 2.25% Neb) 0.5 ml STK-MED ONCE .ROUTE Last administered on 09/14/16 23:28; Start 09/14/16 at 23:19; Stop 09/14/16 at 23:20; Status DC Racepinephrine (Racepinephrine 2.25% Neb) 0.5 ml STK-MED ONCE .ROUTE ; Start 09/14/16 at 23:21; Stop 09/14/16 at 23:22; Status DC Racepinephrine (Racepinephrine 2.25% Neb) 0.5 ml STK-MED ONCE .ROUTE ; Start 09/14/16 at 23:22; Stop 09/14/16 at 23:23; Status DC Dexamethasone Sodium Phosphate (Decadron Inj) 8 mg STAT IV ; Start 09/14/16 at 23 :45; Stop 09/15/16 at 02:00; Status DC Racepinephrine (Racepinephrine 2.25% Neb) 0.5 ml UNSCH X1 NEB ; Start 09/14/16 at 23:45; Stop 09/15/16 at 02:00; Status DC Racepinephrine (Racepinephrine 2.25% Neb) 0.5 ml UNSCH X1 NEB ; Start 09/14/16 at 23:45; Stop 09/15/16 at 02:00; Status DC Dexamethasone Sodium Phosphate (Decadron Inj) 4 mg Q6HR IV PUSH Last administered on 09/16/16 23:33; Start 09/15/16 at 02:00; Stop 09/17/16 at 01:59; Status DC Racepinephrine (Racepinephrine 2.25% Neb) 0.5 ml Q2HR NEB PRN NEB stridor; Start 09/15/16 at 00:30 Labetalol HCl (Trandate Inj) 20 mg Q4H PRN IV PUSH SYS BP GREATER THAN 160 MMHG ; Start 09/15/16 at 00:45 Levetriacetam 500 mg/Sodium Chloride 105 ml @ 420 mls/hr Q12H IV Last administered on 09/23/16 14:04; Start 09/16/16 at 15:00; Stop 09/23/16 at 15:27 ; Status DC Albuterol/ Ipratropium (Duoneb Neb) 1 ampule Q8HR NEB PRN NEB WHEEZING Last administered on 09/23/16 15:32; Start 09/17/16 at 20:00; Stop 09/23/16 at 16:00 ; Status DC Sodium Bicarbonate (Sodium Bicarbonate 8.4% Inj) 50 meq STK-MED ONCE .ROUTE ; Start 09/18/16 at 08:17; Stop 09/18/16 at 08:18; Status DC Enoxaparin Sodium (Lovenox Inj) 30 mg Q12H SQ Last administered on 09/29/16 08 :43; Start 09/19/16 at 21:00 Hyoscyamine Sulfate (Levsin) 0.125 mg Q4H PRN PO SECRETIONS Last administered on 09/23/16 21:28; Start 09/20/16 at 15:15 Hydralazine HCl (Apresoline) 100 mg Q8H PO Last administered on 09/29/16 04:26 ; Start 09/23/16 at 13:00 Miscellaneous (Pill Splitter) 1 ea UNSCH PRN OTHER SEE LABEL COMMENTS; Start at 09:30 Levetriacetam (Keppra) 500 mg Q12HR PO Last administered on 09/29/16 08:42; Start 09/23/16 at 21:00 Albuterol/ Ipratropium (Duoneb Neb) 1 ampule Q4HR WHILE AWAKE NEB NEB Last administered on 09/27/16 19:53; Start 09/23/16 at 20:00; Stop 09/27/16 at 20:00 ; Status DC Pantoprazole Sodium (Protonix) 40 mg DAILY PO Last administered on 09/29/16 08 :43; Start 09/25/16 at 10:45 Urinary Catheter: No Vascular Central Line Catheter: No A/P Problem List: (1) COPD exacerbation ICD Code: J44.1 - Chronic obstructive pulmonary disease with (acute) exacerbation Status: Acute (2) Urinary tract infection ICD Code: N39.0 - Urinary tract infection, site not specified Status: Acute (3) Benign neoplasm of cerebral meninges ICD Code: D32.0 - Benign neoplasm of cerebral meninges Status: Acute (4) Hypertension ICD Code: I10 - Essential (primary) hypertension Status: Acute Assessment and Plan Patient would definitely benefit from acute inpatient rehabilitation Having some issues with difficulty clearing her secretions but passed a swallow ric [id number] female status post left temporal craniotomy for meningioma. Patient had perioperative seizures. Some episodes of sinus pauses and bradycardia. She is clinically improving status post ICU course. s/p left craniotomy and temporal lobe tumor resection. Seizures, resolved. history of seizures -Patient is currently on Keppra and valproic acid. Tegretol discontinued. No new seizure activities. Neurosurgery following. - Ativan as needed. - Patient has some expressive aphasia. Speech therapy following. Diet advanced. Advance diet per speech as tolerated. Swallowing deficit - PASSED SWALLOW EVALUATION WITH SPEECH PULLED HER OWN DOBBHOFF TUBE TODAY 8-16 Sinus bradycardia and pause: Patient seen by cardiology. Likely related to medication side effect. Her beta blockers discontinued. Anti-seizure medications being adjusted. Rate is now normal. Continue to monitor on telemetry. Hypertension: Continue amlodipine. BP is labile. If remains persistently hypertensive may need to add second agent. HYDRALAZINE TO 100MG PO TID COPD: Continue Symbicort and breathing treatments. Supplemental oxygen as needed. GI prophylaxis: Stool softener PRN constipation. DVT PPx: Lovenox Discharge Planning DC planning per neurosurgery NEEDS SAFE DC PROBABLY NEEDS inpatient rehabilitation if insurance will authorize Patient needs inpatient rehabilitation for aggressive physical therapy occupational therapy and speech therapy AWAIT SAFE DC- NEEDS INPATIENT REHAB Discharge Planning Will need inpatient rehabilitation at discharge for aggressive physical therapy occupational therapy and speech therapy Yinka Walsh DO Sep 29, 2016 13:39
--- NOTE | 2016-09-29 16:25 | HHI.NSPN ---
(Tyrell Shaw) History Chief Complaint: No complaints. (Tyrell Shaw) Interval History 76-year-old female with history of multiple recurrent meningiomas. 09/11/2016: Left craniotomy for recurrent left temporal and left frontoparietal convexity meningiomas. 09/12/16: Positive seizure. Cerebyx started in addition to patient's usual Depakote and Tegretol 09/13/16: following commands, nonverbal. bp elevated, currently on max dose of Cardene 09/14/16: no seizures overnight, bp improved off cardene. remains aphasic but follows commands. f/u CT Head this am completed 09/15: The patient is awake & alert when seen this morning. She is breathing through her mouth with audible adventitious sounds. She is not in any distress. Nursing reports that she did move the toes of both feet to command. 09/16: This afternoon the patient is awake and alert. She attempts to ask a question but is unable to find the words to express her question. She does become slightly flustered by this. Nursing and the Belt Line Feeder report that the patient has been having pauses on her EKG. A CT brain, EEG and Neurology consult were ordered by the Belt Line Feeder. The CT brain was w/o any new or significant change. The EEG was done this afternoon when the patient was first seen and her evaluation was deferred until this time. 09/17: The patient is awake and alert when seen this afternoon. She had difficulty but was finally able to say that the feeding tube was bothering her. She was evaluated by Cardiology yesterday who felt that her pauses/bradycardia was medication induced with a vagal component. Neurology also evaluated her and made adjustments/recommendations to the patients antiepileptic medications. The EEG demonstrated some continuous left hemisphere slowing with associated frequent sharp/epileptiform discharge which were almost rhythmic but not a definitive ictal pattern and remained focal throughout. 09/18: This morning the patient is awake and alert. It is evident she is frustrated when attempting to ask something and then says "Never mind." Physical Therapy was at the bedside to evaluate the patient. 8/11: The patient is awake and alert this afternoon when seen. She readily interacts and works at saying she sat up in the chair, but was unable to find the word chair. Her sister reports she was up for from about 10 AM to 4 PM. She still has enteral feeds through the feeding tube but has been started on thickened liquids. 09/21: This morning when seen the patient was doing well. She had no complaints. She was noted to have the gown off and a towel over her chest and was able to state that she was getting ready to be cleaned up. 09/22: The patient is watching TV this morning and was doing well. She voiced no complaints but does become frustrated as she tries to find the word she wants. 09/23: The patient continues to do well and had no complaints when seen this afternoon. She went for a MBSS this morning and no aspiration or penetration was noted. Speech Therapy stated that the patient is able to be on a soft diet with regular thin liquids. After the patient was seen the [place] operations liaison notified me that [facility] denied acute rehab. 09/24: The patient is asleep when seen this afternoon but awakens to verbal stimuli. After that she is alert and readily interacts. She states "I am doing good." After being assessed she asks "Did you miss anything?" When I looked at her puzzled and repeated the question she smiles and pointed to her nose to show the feeding tube had been removed. 09/25: The patient is awake and alert when seen this morning. She says she is "comfortable" and had more difficulty with finding words than yesterday. She reports that she is wet because she couldn't get someone to help her to the bathroom but she knew she had to go. She reports that the ENT saw her this morning and said she did have an injury and she then indicated three weeks. The consult note is not in the system yet. 09/26: The patient is awake and alert visiting with her friend when seen this afternoon. She states "I feel good." She is sitting up in the chair and has no complaint. She has some frustration due to her speech difficulties. 09/29: The patient is sitting in the chair this afternoon visiting with her sister. She says yes when asked if she is doing good. The Physical Therapy note states the patient is able to ambulate 250 feet with a wheeled walker. Case Management reports the patient is getting herself up to the bathroom on her own with standby assistance. Case Management did provide the sister with information on calling [facility] to see who they contract with for further Speech Therapy while this practitioner is in the room. The patient indicates she is ready to go home and her sister is going to have her stay with her. The sister says they have all the equipment they could possibly need. (Tyrell Shaw) System Review Comments Constitutional: Patient denies any fever or chills. HEENT: Patient denies any visual or hearing problems, improved swallowing. Neck: Patient denies any neck pain. Respiratory: Patient denies any shortness of breath or productive cough. Cardiovascular: Patient denies any chest pain, palpitations or irregular heartbeat. Gastrointestinal: Patient denies any abdominal pain, nausea, vomiting or incontinence of stool. Genitourinary: Patient denies any incontinence of urine. Musculoskeletal: Patient denies any pain or weakness to the extremities. Neurologic: Patient denies any headache, dizziness, numbness or tingling. (Tyrell Shaw) Exam Results Vital Signs Date Time Temp Pulse Resp B/P (MAP) Pulse Ox O2 Delivery O2 Flow Rate FiO2 09/29/16 15:33 70 09/29/16 08:00 98.0 19 143/77 (99) 95 09/27/16 19:53 21 (Tyrell Shaw) Physical Examination General: Awake & alert, sitting up in the chair visiting with her sister. She readily interacts and smiles. No apparent distress. Skin: Warm, dry & intact except for left craniotomy surgical incision which is well healed & MARTINA drain insertion site, both w/o any signs of infection. HEENT: Normocephalic, atraumatic except for left craniotomy surgical incision & MARTINA drain insertion site. PERRLA. Tongue midline to protrusion, voice hoarse. Neck: No JVD, trachea midline. Respiratory: Essentially clear breath sounds bilaterally except slight wheeze on right. Slight cough, no audible secretions to the back of the throat. Cardiovascular: S1S2 w/RRR w/o M/G/R, cap refill < 2 sec, radial & pedal pulses 2+ bilaterally, cap refill < 2 sec, pedal edema 1+ bilaterally. Gastrointestinal: Abdomen soft, nontender, bowel sounds not appreciated. Musculoskeletal: Spontaneously moves all extremities, no deformity or clubbing. Neuro: AAOx3, expressive aphasia persists, follows commands, GCS 14 (E4 V5 M6). The patient is speaking with 1 or 2 words. Motor strength LUE 5/5, LLE 5/5, RUE 4+/5, RLE 5/5. (Tyrell Shaw) Medical Decision Making Impression and Plan Impression: (1) 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 1. Postoperative craniotomy resection of recurrent meningioma 2 on 09/11/16. 2. Positive postoperative seizure 3. Possible left frontoparietal region ischemia versus postoperative edema on CT scan head 09/12/16 MRI brain stealth (pre-op) demonstrated left parafalcine mass which had increased in size and a left extra-axial lateral dural mass. CT brain demonstrated expected postoperative changes s/p tumor resection w/o evidence of midline shift, some residual gas & hyperdensity at resection sites, no acute finding to the right supratentorial brain. CT brain demonstrated slight increase in subdural blood along the falx near the vertex. CT brain demonstrated expected postoperative changes. CT brain stable exam compared to w/o new or significant changes. EEG demonstrated some continuous left hemisphere slowing with associated frequent sharp/epileptiform discharge which were almost rhythmic but not a definitive ictal pattern and remained focal throughout. Leukocytosis resolved . Haemoglobin level essentially stable . MBSS w/o any aspiration or penetration seen. Patient continues doing well,still w/expressive aphasia and responding w/1-2 words. POD #18 () s/p: 1. Left frontotemporoparietal craniotomy, resection of recurrent left frontal parietal neoplasm and 2. Resection of recurrent left temporal neoplasm 3. Left frontotemporoparietal duraplasty Plan: Discussed plan of care with patient & sister. Discussed plan of care with Case Management. Continue neuro checks. Antiepileptic drugs per Neurology. Non-chemical DVT prophylaxis. Ulcer prophylaxis. Mobilise patient w/assistance. PT eval & tx. ST eval & tx. Okay for Lovenox. Soft diet w/thin liquids. Mighty Shake supplement w/meals. Plan to discharge the patient home tomorrow w/outpatient Speech Therapy. (Tyrell Shaw) Attending Statement The exam, history, and the medical decision-making described in the above note were completed with the assistance of the mid-level provider. I reviewed and agree with the findings presented. I attest that I had a [id number] encounter with the patient on the same day, and personally performed and documented my assessment and findings in the medical record. (Jayy Watts MD) Tyrell Shaw Sep 29, 2016 16:25 Jayy Watts MD Oct 05, 2016 17:54
[2016-09-29] MEDS: HYOSCYAMINE 0.125 MG TAB PO PRN (20:46)
[2016-09-30] VITALS: BP 143/72; PULSE 88; RESP 18; TEMP 98.4; O2SAT 97
[2016-09-30 04:00] VITALS: BP 146/74; PULSE 86; RESP 18; TEMP 98.2; O2SAT 97
[2016-09-30] MEDS: hydrALAZINE HCL 100 MG TAB PO SCH ×2 (05:10→13:52)
[2016-09-30 08:00] VITALS: BP 140/66; PULSE 84; RESP 20; TEMP 97.6; O2SAT 97
[2016-09-30] MEDS: BUDESONIDE-FORMOTEROL 160/4.5 MCG INHALER INH SCH (09:00)
[2016-09-30] MEDS: DOCUSATE SODIUM 100 MG CAP PO SCH (09:00)
[2016-09-30] MEDS: ENOXAPARIN SODIUM 30 MG/0.3 ML SYRINGE SQ SCH (09:00)
[2016-09-30] MEDS: levETIRAcetam 500 MG TAB PO SCH (09:16)
[2016-09-30] MEDS: PANTOPRAZOLE SOD 40 MG DELAYED RELEASE TAB PO SCH (09:16)
[2016-09-30] MEDS: VALPROIC ACID SYRUP 250 MG/5 ML UDC NG SCH (09:17)
[2016-09-30] MEDS: SODIUM CHLORIDE 0.9% FLUSH 10 ML FLUSH IV FLUSH SCH (09:18)
[2016-09-30 12:00] VITALS: BP 128/75; PULSE 88; RESP 20; TEMP 97.6; O2SAT 98
--- NOTE | 2016-09-30 12:05 | HHI.NSPN ---
History Chief Complaint: No complaints. Interval History 76-year-old female with history of multiple recurrent meningiomas. 09/11/2016: Left craniotomy for recurrent left temporal and left frontoparietal convexity meningiomas. 09/12/16: Positive seizure. Cerebyx started in addition to patient's usual Depakote and Tegretol 09/13/16: following commands, nonverbal. bp elevated, currently on max dose of Cardene 09/14/16: no seizures overnight, bp improved off cardene. remains aphasic but follows commands. f/u CT Head this am completed 09/15: The patient is awake & alert when seen this morning. She is breathing through her mouth with audible adventitious sounds. She is not in any distress. Nursing reports that she did move the toes of both feet to command. 09/16: This afternoon the patient is awake and alert. She attempts to ask a question but is unable to find the words to express her question. She does become slightly flustered by this. Nursing and the Apprentice Cook report that the patient has been having pauses on her EKG. A CT brain, EEG and Neurology consult were ordered by the Apprentice Cook. The CT brain was w/o any new or significant change. The EEG was done this afternoon when the patient was first seen and her evaluation was deferred until this time. 09/17: The patient is awake and alert when seen this afternoon. She had difficulty but was finally able to say that the feeding tube was bothering her. She was evaluated by Cardiology yesterday who felt that her pauses/bradycardia was medication induced with a vagal component. Neurology also evaluated her and made adjustments/recommendations to the patients antiepileptic medications. The EEG demonstrated some continuous left hemisphere slowing with associated frequent sharp/epileptiform discharge which were almost rhythmic but not a definitive ictal pattern and remained focal throughout. 09/18: This morning the patient is awake and alert. It is evident she is frustrated when attempting to ask something and then says "Never mind." Physical Therapy was at the bedside to evaluate the patient. 09/19: The patient is awake and alert this afternoon when seen. She readily interacts and works at saying she sat up in the chair, but was unable to find the word chair. Her sister reports she was up for from about 10 AM to 4 PM. She still has enteral feeds through the feeding tube but has been started on thickened liquids. 09/21: This morning when seen the patient was doing well. She had no complaints. She was noted to have the gown off and a towel over her chest and was able to state that she was getting ready to be cleaned up. 09/22: The patient is watching TV this morning and was doing well. She voiced no complaints but does become frustrated as she tries to find the word she wants. 09/23: The patient continues to do well and had no complaints when seen this afternoon. She went for a MBSS this morning and no aspiration or penetration was noted. Speech Therapy stated that the patient is able to be on a soft diet with regular thin liquids. After the patient was seen the [place] revenue liaison notified me that [facility] denied acute rehab. 09/24: The patient is asleep when seen this afternoon but awakens to verbal stimuli. After that she is alert and readily interacts. She states "I am doing good." After being assessed she asks "Did you miss anything?" When I looked at her puzzled and repeated the question she smiles and pointed to her nose to show the feeding tube had been removed. 09/25: The patient is awake and alert when seen this morning. She says she is "comfortable" and had more difficulty with finding words than yesterday. She reports that she is wet because she couldn't get someone to help her to the bathroom but she knew she had to go. She reports that the ENT saw her this morning and said she did have an injury and she then indicated three weeks. The consult note is not in the system yet. 09/26: The patient is awake and alert visiting with her friend when seen this afternoon. She states "I feel good." She is sitting up in the chair and has no complaint. She has some frustration due to her speech difficulties. 09/29: The patient is sitting in the chair this afternoon visiting with her sister. She says yes when asked if she is doing good. The Physical Therapy note states the patient is able to ambulate 250 feet with a wheeled walker. Case Management reports the patient is getting herself up to the bathroom on her own with standby assistance. Case Management did provide the sister with information on calling [facility] to see who they contract with for further Speech Therapy while this practitioner is in the room. The patient indicates she is ready to go home and her sister is going to have her stay with her. The sister says they have all the equipment they could possibly need. 09/30: The patient is sitting on the couch in her room and says she is doing good when seen. Her clothes are laid out around her and she states she was picking lint off them. She had no complaints. System Review Comments Constitutional: Patient denies any fever or chills. HEENT: Patient denies any visual or hearing problems, improved swallowing. Neck: Patient denies any neck pain. Respiratory: Patient denies any shortness of breath or productive cough. Cardiovascular: Patient denies any chest pain, palpitations or irregular heartbeat. Gastrointestinal: Patient denies any abdominal pain, nausea, vomiting or incontinence of stool. Genitourinary: Patient denies any incontinence of urine. Musculoskeletal: Patient denies any pain or weakness to the extremities. Neurologic: Patient denies any headache, dizziness, numbness or tingling. Exam Results Vital Signs Date Time Temp Pulse Resp B/P (MAP) Pulse Ox O2 Delivery O2 Flow Rate FiO2 09/30/16 08:00 97.6 84 20 140/66 (90) 97 09/27/16 19:53 21 Physical Examination General: Awake & alert, sitting up on the couch getting her clothes ready for discharge. She readily interacts and smiles. No apparent distress. Skin: Warm, dry & intact except for left craniotomy surgical incision which is well healed & MARTINA drain insertion site, both w/o any signs of infection. HEENT: Normocephalic, atraumatic except for left craniotomy surgical incision & MARTINA drain insertion site. PERRLA. Voice hoarse still. Neck: No JVD, trachea midline. Respiratory: Essentially clear breath sounds bilaterally. No cough. Cardiovascular: S1S2 w/RRR w/o M/G/R, cap refill < 2 sec, radial & pedal pulses 2+ bilaterally, cap refill < 2 sec, pedal edema 1+ bilaterally. Gastrointestinal: Abdomen soft, nontender, bowel sounds not appreciated. Musculoskeletal: Spontaneously moves all extremities, no deformity or clubbing. Neuro: AAOx3, expressive aphasia persists, follows commands, GCS 14 (E4 V5 M6). The patient is speaking with 2 to 3 word answers or statements. Motor strength LUE 5/5, LLE 5/5, RUE 4+/5, RLE 5/5. Medical Decision Making Impression and Plan Impression: (1) 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 1. Postoperative craniotomy resection of recurrent meningioma 2 on 09/11/16. 2. Positive postoperative seizure 3. Possible left frontoparietal region ischemia versus postoperative edema on CT scan head 09/12/16 MRI brain stealth (pre-op) demonstrated left parafalcine mass which had increased in size and a left extra-axial lateral dural mass. CT brain demonstrated expected postoperative changes s/p tumor resection w/o evidence of midline shift, some residual gas & hyperdensity at resection sites, no acute finding to the right supratentorial brain. CT brain demonstrated slight increase in subdural blood along the falx near the vertex. CT brain demonstrated expected postoperative changes. CT brain stable exam compared to w/o new or significant changes. EEG demonstrated some continuous left hemisphere slowing with associated frequent sharp/epileptiform discharge which were almost rhythmic but not a definitive ictal pattern and remained focal throughout. Leukocytosis resolved . Haemoglobin level essentially stable . MBSS w/o any aspiration or penetration seen. Patient continues doing well,still w/expressive aphasia and responding w/2-3 words. POD #19 () s/p: 1. Left frontotemporoparietal craniotomy, resection of recurrent left frontal parietal neoplasm and 2. Resection of recurrent left temporal neoplasm 3. Left frontotemporoparietal duraplasty Plan: Discussed plan of care with patient. Continue neuro checks. Antiepileptic drugs per Neurology. Non-chemical DVT prophylaxis. Ulcer prophylaxis. Mobilise patient w/assistance. PT eval & tx. ST eval & tx. Okay for Lovenox. Soft diet w/thin liquids. Mighty Shake supplement w/meals. Plan to discharge home this afternoon w/outpatient Speech Therapy. Tyrell Shaw Sep 30, 2016 12:05
--- NOTE | 2016-09-30 12:49 | HHI.PR ---
Subjective Remarks Plan for dc today per primary team. She has no complaints except for feeling tired. Objective Vitals Vital Signs Date Time Temp Pulse Resp B/P (MAP) Pulse Ox O2 Delivery O2 Flow Rate FiO2 09/30/16 08:00 97.6 84 20 140/66 (90) 97 09/30/16 04:00 98.2 86 18 146/74 (98) 97 09/30/16 00:00 98.4 88 18 143/72 (95) 97 09/29/16 20:00 98.9 96 18 153/73 (99) 97 09/29/16 20:00 83 09/29/16 16:00 97.2 87 18 136/68 (90) 97 09/29/16 15:33 70 I/O 09/29/16 09/29/16 09/29/16 09/30/16 09/30/16 09/30/16 07:00 15:00 23:00 07:00 15:00 23:00 Intake Total 360 ml Balance 360 ml Intake Oral 360 ml # Voids 1 2 # Bowel Movements 1 Objective Remarks GENERAL: Patient is status post craniotomy. In no acute distress.. CARDIOVASCULAR: Normal rate and regular rhythm without murmurs, gallops, or rubs. RESPIRATORY: Good respiratory efforts. Breath sounds equal and clear to auscultation bilaterally. GASTROINTESTINAL: Abdomen soft, non-tender, non-distended. Normal active bowel sounds MUSCULOSKELETAL: Extremities without cyanosis, or edema. NEURO: Alert & Oriented x4 to person, place, time, situation. Moves all ext x4 PSYCH: Appropriate mood and affect. Procedures multiple recurrent meningiomas. 09/11/2016: Left craniotomy for recurrent left temporal and left frontoparietal convexity meningiomas. A/P Problem List: (1) COPD exacerbation ICD Code: J44.1 - Chronic obstructive pulmonary disease with (acute) exacerbation Status: Acute (2) Urinary tract infection ICD Code: N39.0 - Urinary tract infection, site not specified Status: Acute (3) Benign neoplasm of cerebral meninges ICD Code: D32.0 - Benign neoplasm of cerebral meninges Status: Acute (4) Hypertension ICD Code: I10 - Essential (primary) hypertension Status: Acute Assessment and Plan 76-year-old female status post left temporal craniotomy for meningioma. Patient had perioperative seizures. Some episodes of sinus pauses and bradycardia. She is clinically improving status post ICU course. s/p left craniotomy and temporal lobe tumor resection. Seizures, resolved. history of seizures -Patient is currently on Keppra and valproic acid. Tegretol discontinued. No new seizure activities. Neurosurgery following. - Ativan as needed. - Patient has some expressive aphasia. Speech therapy following. Diet advanced. Sinus bradycardia and pause: Patient seen by cardiology. Likely related to medication side effect. Her beta blockers discontinued. Anti-seizure medications adjusted. Rate is now normal. Continue to monitor on telemetry. Hypertension: Continue amlodipine. BP is labile. If remains persistently hypertensive may need to add second agent. Hydralazine 100 mg TID. COPD: Continue Symbicort and breathing treatments. Supplemental oxygen as needed. GI prophylaxis: Stool softener PRN constipation. DVT PPx: Lovenox Discharge Planning DC planning per neurosurgery/primary. Sayra Linda MD Sep 30, 2016 12:49
[2016-09-30] MEDS ORDERED: HYDR-3801 PO (13:18)
[2016-09-30] MEDS ORDERED: LEVE500 PO (13:18)
--- NOTE | 2016-09-30 14:06 | HHI.DCPOC ---
Discharge Care Plan Diagnosis: (1) Benign neoplasm of cerebral meninges Your Health Problems Are: Difficulty to Swallow Difficulty with Speech Goals to Promote Your Health * To prevent worsening of your condition and complications Follow up with Speech Therapy. Contact your insurance company to see who it has a contract with for Speech Therapy in your area. * To maintain your health at the optimal level No strenuous activity, bending over, etc. Use the wheeled walker when ambulating. Directions to Meet Your Goals Take your medications as prescribed Avoid any medication containing aspirin or NSAIDs (ibuprofen, Aleve, Motrin, Naproxen, etc.). Follow your dietary instruction Soft diet with thin liquids Follow activity as directed Avoid bending over, lifting, pushing or pulling or other strenuous activity. Use the wheeled walker for ambulation. Keep your appointments as scheduled Take your immunizations and boosters as scheduled If your symptoms worsen call your PCP, if no PCP go to Urgent Care Center or Emergency Room Smoking is Dangerous to Your Health. Avoid second hand smoke Call the 24-hour hour crisis hotline for domestic abuse at Tyrell Shaw Sep 30, 2016 14:06 Michele Galeano MD Nov 17, 2016 07:26
--- NOTE | 2016-09-30 14:12 | HHI.DS ---
Tyrell Shaw [facility] 09/30/16 1412: Discharge Summary Admission Date Sep 11, 2016 at 05:55 Discharge Date: Sep 30, 2016 Admitting Diagnosis (1) Benign neoplasm of cerebral meninges Diagnosis: Principal ICD Code: D32.0 - Benign neoplasm of cerebral meninges Status: Acute (2) Urinary tract infection Diagnosis: Secondary ICD Code: N39.0 - Urinary tract infection, site not specified Status: Acute (3) COPD exacerbation Diagnosis: Secondary ICD Code: J44.1 - Chronic obstructive pulmonary disease with (acute) exacerbation Status: Acute (4) Hypertension Diagnosis: Secondary ICD Code: I10 - Essential (primary) hypertension Status: Acute Procedures : 1. Left frontotemporoparietal craniotomy, resection of recurrent left frontal parietal neoplasm and 2. Resection of recurrent left temporal neoplasm 3. Left frontotemporoparietal duraplasty Hospital Course 76-year-old female with history of multiple recurrent meningiomas. 09/11/2016: Left craniotomy for recurrent left temporal and left frontoparietal convexity meningiomas. 09/12/16: Positive seizure. Cerebyx started in addition to patient's usual Depakote and Tegretol 09/13/16: following commands, nonverbal. bp elevated, currently on max dose of Cardene 09/14/16: no seizures overnight, bp improved off cardene. remains aphasic but follows commands. f/u CT Head this am completed 09/15: The patient is awake & alert when seen this morning. She is breathing through her mouth with audible adventitious sounds. She is not in any distress. Nursing reports that she did move the toes of both feet to command. 09/16: This afternoon the patient is awake and alert. She attempts to ask a question but is unable to find the words to express her question. She does become slightly flustered by this. Nursing and the Wholesale Account Executive report that the patient has been having pauses on her EKG. A CT brain, EEG and Neurology consult were ordered by the Wholes[employer] Account Executive. The CT brain was w/o any new or significant change. The EEG was done this afternoon when the patient was first seen and her evaluation was deferred until this time. 09/17: The patient is awake and alert when seen this afternoon. She had difficulty but was finally able to say that the feeding tube was bothering her. She was evaluated by Cardiology yesterday who felt that her pauses/bradycardia was medication induced with a vagal component. Neurology also evaluated her and made adjustments/recommendations to the patients antiepileptic medications. The EEG demonstrated some continuous left hemisphere slowing with associated frequent sharp/epileptiform discharge which were almost rhythmic but not a definitive ictal pattern and remained focal throughout. 09/18: This morning the patient is awake and alert. It is evident she is frustrated when attempting to ask something and then says "Never mind." Physical Therapy was at the bedside to evaluate the patient. 09/19: The patient is awake and alert this afternoon when seen. She readily interacts and works at saying she sat up in the chair, but was unable to find the word chair. Her sister reports she was up for from about 10 AM to 4 PM. She still has enteral feeds through the feeding tube but has been started on thickened liquids. 09/21: This morning when seen the patient was doing well. She had no complaints. She was noted to have the gown off and a towel over her chest and was able to state that she was getting ready to be cleaned up. 09/22: The patient is watching TV this morning and was doing well. She voiced no complaints but does become frustrated as she tries to find the word she wants. 09/23: The patient continues to do well and had no complaints when seen this afternoon. She went for a MBSS this morning and no aspiration or penetration was noted. Speech Therapy stated that the patient is able to be on a soft diet with regular thin liquids. After the patient was seen the [facility] managed care liaison notified me that [facility] denied acute rehab. 09/24: The patient is asleep when seen this afternoon but awakens to verbal stimuli. After that she is alert and readily interacts. She states "I am doing good." After being assessed she asks "Did you miss anything?" When I looked at her puzzled and repeated the question she smiles and pointed to her nose to show the feeding tube had been removed. 09/25: The patient is awake and alert when seen this morning. She says she is "comfortable" and had more difficulty with finding words than yesterday. She reports that she is wet because she couldn't get someone to help her to the bathroom but she knew she had to go. She reports that the ENT saw her this morning and said she did have an injury and she then indicated three weeks. The consult note is not in the system yet. 09/26: The patient is awake and alert visiting with her friend when seen this afternoon. She states "I feel good." She is sitting up in the chair and has no complaint. She has some frustration due to her speech difficulties. 09/29: The patient is sitting in the chair this afternoon visiting with her sister. She says yes when asked if she is doing good. The Physical Therapy note states the patient is able to ambulate 250 feet with a wheeled walker. Case Management reports the patient is getting herself up to the bathroom on her own with standby assistance. Case Management did provide the sister with information on calling [facility] to see who they contract with for further Speech Therapy while this practitioner is in the room. The patient indicates she is ready to go home and her sister is going to have her stay with her. The sister says they have all the equipment they could possibly need. 09/30: The patient is sitting on the couch in her room and says she is doing good when seen. Her clothes are laid out around her and she states she was picking lint off them. She had no complaints. Pt Condition on Discharge: Good Discharge Disposition: Discharge Home Discharge Instructions DIET: Follow Instructions for: Soft Diet ACTIVITIES You can perform: Shower/Bath, Full Weight Bearing Activities to Avoid: Lifting/Bending, Strenuous Activity Additional Information Avoid any products containing aspirin or NSAIDs (ibuprofen, Motrin, Aleve, Naproxen, etc.). Michele Galeano MD 11/17/16 0727: Tyrell Shaw Sep 30, 2016 14:12 Michele Galeano MD Nov 17, 2016 07:27
[2016-11-04] MEDS ORDERED: DEPA500T PO (13:55)
[2016-11-04] MEDS ORDERED: LEVE500 PO (13:55)
== END 2016-09-30 15:12 | disposition home or self-care (01) | DRG 25 ==
LOC: HSDI 09-11 05:55 → N03B 09-11 15:33 → N05A 09-19 18:00
PROVIDERS: ADMIT Neurological Surgery; ATTEND Neurological Surgery
PROC: 30233N1 Transfusion of Nonautologous Red Blood Cells into Peripheral Vein, Percutaneous Approach (ICD-10-PCS; 2016-09-11)
PROC: 00B10ZZ Excision of Cerebral Meninges, Open Approach (ICD-10-PCS; principal; 2016-09-11 09:13)
PROC: 00U20JZ Supplement Dura Mater with Synthetic Substitute, Open Approach (ICD-10-PCS; 2016-09-11 09:13)
DX: D32.0 Benign neoplasm of cerebral meninges (principal); G93.40 Encephalopathy, unspecified; N17.9 Acute kidney failure, unspecified; I49.5 Sick sinus syndrome; J44.1 Chronic obstructive pulmonary disease with (acute) exacerbation; R47.01 Aphasia; R13.10 Dysphagia, unspecified; N39.0 Urinary tract infection, site not specified; R00.1 Bradycardia, unspecified; G40.909 Epilepsy, unspecified, not intractable, without status epilepticus; R06.1 Stridor; I16.0 Hypertensive urgency; T50.905A Adverse effect of unspecified drugs, medicaments and biological substances, initial encounter; I10 Essential (primary) hypertension; R05 Cough; Z75.1 Person awaiting admission to adequate facility elsewhere; Z86.011 Personal history of benign neoplasm of the brain; Z85.828 Personal history of other malignant neoplasm of skin; Z88.5 Allergy status to narcotic agent; Z88.8 Allergy status to other drugs, medicaments and biological substances; R91.8 Other nonspecific abnormal finding of lung field; R94.31 Abnormal electrocardiogram [ECG] [EKG]; B96.20 Unspecified Escherichia coli [E. coli] as the cause of diseases classified elsewhere; E78.00 Pure hypercholesterolemia, unspecified; G47.30 Sleep apnea, unspecified
CPT/HCPCS: 36430; 36600; 70450; 70552; 71010; 71275; 74000; 74230; 76937; 80048; 80053; 80185; 81001; 82550; 82805; 82948; 83036; 83735; 83880; 84100; 84132; 84155; 84439; 84443; 84484; 85025; 85027; 85379; 85610; 86850; 86900; 86901; 86920; 87077; 87086; 87186; 87641; 88305; 88307; 88331; 93005; 93306; 94640; 94664; 95819; 96374; A9579; C1713; C1781; C9113; J0360; J0690; J1100; J1580; J1650; J1815; J1940; J1953; J2060; J2150; J2270; J2370; J2405; J2930; J3010; J3480; J7030; J7042; J7050; J7120; J7611; J7613; P9016; P9045; Q2009; Q9967

== ENCOUNTER 2016-09-09 15:01 | Emergency (ER) | payer OTHER ==
[~2016-09-09] VITALS: Ht 152.4 cm; Wt 75.0 kg
[2016-09-09 15:06] VITALS: BP 187/87; PULSE 65; RESP 16; TEMP 97.5; O2SAT 98
--- NOTE | 2016-09-09 15:19 | PD ---
HPI Chief Complaint: Respiratory Symptoms Time Seen by Provider: 15:18 Travel History International Travel<30 days: No Contact w/Intl Traveler<30days: No Traveled to known affect area: No History of Present Illness HPI 76-year-old female came to the emergency room brought by her friend for shortness of breath. Patient was getting her preop testing done for a craniotomy on for a brain tumor. That she started getting short of breath. They sent her to the emergency room. Patient says she has history of COPD but she feels really bad. She usually does not require oxygen at home. Here her oxygen saturation appears to be within acceptable limit. She does appear anxious. Patient is not a smoker. No history of fever or cough. PFSH Past Medical History Narrative Medical List of her past medical, surgical, social and family history was reviewed from the nursing note. Arthritis: Yes Asthma: Yes Autoimmune Disease: Yes (lupus) Cancer: Yes (skin, brain) Cardiovascular Problems: Yes High Cholesterol: Yes COPD: Yes Diabetes: No Endocrine: No Genitourinary: No Hepatitis: No Hiatal Hernia: No Immune Disorder: No Musculoskeletal: Yes (ARTHRITIS IN HANDS) Neurologic: Yes (PREVIOUS BRAIN TUMORS) Psychiatric: No Reproductive: No Respiratory: Yes (COPD) Seizures: Yes Sleep Apnea: Yes Thyroid Disease: No Past Surgical History Abdominal Surgery: Yes (cholecystectomy) Body Medical Devices: left ankle and right upper leg Joint Replacement: No Oral Surgery: Yes (t and a) Pacemaker: No Thoracic Surgery: Yes (bronch) Social History Tobacco Use: No Substance Use: No Allergies-Medications (Allergen,Severity, Reaction): Coded Allergies: Codeine (Verified Allergy, Severe, 09/09/16) nausea Lipitor (Verified Allergy, Severe, MUSCLE WEAKNESS, 09/09/16) Uncoded Allergies: NSAIDS (Allergy, Unknown, 03/09/12) Comments List of her allergies reviewed from the nursing note. Reported Meds & Prescriptions Reported Meds & Active Scripts Active Macrobid (Nitrofurantoin Monoh/Nitrofur Macro) 100 Mg Cap 100 Mg PO BID Medrol Dosepak (Methylprednisolone) 4 Mg Dspk 4 Mg PO DIRECTED Per Pharmacist direction Reported Carvedilol 25 Mg Tab 25 Mg PO BID Depakote DR (Divalproex Sodium) 500 Mg Tabdr 500 Mg PO TID Amlodipine (Amlodipine Besylate) 5 Mg Tab 5 Mg PO DAILY Carbamazepine 200 Mg Tab 200 Mg PO BID Duoneb (Ipratropium-Albuterol Neb) 0.5-2.5 Mg/3 Ml Neb 1 Nebule INH Q8HR NEB Advair Diskus Inh (Fluticasone-Salmeterol Inh) 250-50 Mcg/Blist Aer 1 Puff INH BID Rinse mouth after use. Narrative Medication List of her home medications reviewed from the nursing note. Review of Systems Except as stated in HPI: all other systems reviewed are Neg Physical Exam Narrative GENERAL: Awake, alert, elderly, moderate distress, anxious SKIN: Focused skin assessment warm/dry. HEAD: Atraumatic. Normocephalic. EYES: Pupils equal and round. No scleral icterus. No injection or drainage. ENT: No nasal bleeding or discharge. Mucous membranes pink and moist. NECK: Trachea midline. No JVD. CARDIOVASCULAR: Regular rate and rhythm. No murmur appreciated. RESPIRATORY: Decreased air entry bilaterally. End expiratory wheeze. GASTROINTESTINAL: Abdomen soft, non-tender, nondistended. Hepatic and splenic margins not palpable. MUSCULOSKELETAL: No obvious deformities. No clubbing. No cyanosis. No edema. NEUROLOGICAL: Awake and alert. No obvious cranial nerve deficits. Motor grossly within normal limits. Normal speech. PSYCHIATRIC: Appropriate mood and affect; insight and judgment normal. Data Data Last Documented VS Vital Signs Date Time Temp Pulse Resp B/P Pulse Ox O2 Delivery O2 Flow Rate FiO2 09/09/16 15:42 98 Room Air 09/09/16 15:25 97.7 64 22 191/87 Orders Complete Blood Count With Diff (09/09/16 15:35) Basic Metabolic Panel (Bmp) (09/09/16 15:35) B-Type Natriuretic Peptide (09/09/16 15:35) Prothrombin Time / Inr (Pt) (09/09/16 15:35) Troponin I (09/09/16 15:35) Urinalysis - C+S If Indicated (09/09/16 15:35) Iv Access Insert/Monitor (09/09/16 15:35) Electrocardiogram (09/09/16 15:35) Ecg Monitoring (09/09/16 15:35) Oximetry (09/09/16 15:35) Oxygen Administration (09/09/16 15:35) Chest, Single Ap (09/09/16 15:35) Sodium Chloride 0.9% Flush (Ns Flush) (09/09/16 15:45) Methylprednisolone So Succ Inj (Solumedr (09/09/16 15:45) Albuterol-Ipratropium Neb (Duoneb Neb) (09/09/16 15:45) Urine Culture (09/09/16 16:25) Nitrofurantoin Monohyd Macrocr (Macrobid (09/09/16 17:30) D-Dimer (09/09/16 17:31) Albuterol Neb (Albuterol Neb) (09/09/16 18:15) Ct Pulmonary Angiogram (09/09/16 ) Iohexol 350 Inj (Omnipaque 350 Inj) (09/09/16 19:52) Labs Laboratory Tests Test 09/09/16 09/09/16 09/09/16 15:45 16:25 16:50 Sodium Level 140 MEQ/L Potassium Level 5.4 MEQ/L Chloride Level 109 MEQ/L Carbon Dioxide Level 27.0 MEQ/L Anion Gap 4 MEQ/L Blood Urea Nitrogen 26 MG/DL Creatinine 1.25 MG/DL Estimat Glomerular Filtration 42 ML/MIN Rate Random Glucose 91 MG/DL Calcium Level 8.7 MG/DL Troponin I LESS THAN 0.02 NG/ML B-Type Natriuretic Peptide 92 PG/ML White Blood Count 11.8 TH/MM3 Red Blood Count 3.64 MIL/MM3 Hemoglobin 10.8 GM/DL Hematocrit 33.2 % Mean Corpuscular Volume 91.2 FL Mean Corpuscular Hemoglobin 29.6 PG Mean Corpuscular Hemoglobin 32.4 % Concent Red Cell Distribution Width 13.4 % Platelet Count 328 TH/MM3 Mean Platelet Volume 8.5 FL Neutrophils (%) (Auto) 65.4 % Lymphocytes (%) (Auto) 21.0 % Monocytes (%) (Auto) 7.8 % Eosinophils (%) (Auto) 4.9 % Basophils (%) (Auto) 0.9 % Neutrophils # (Auto) 7.7 TH/MM3 Lymphocytes # (Auto) 2.5 TH/MM3 Monocytes # (Auto) 0.9 TH/MM3 Eosinophils # (Auto) 0.6 TH/MM3 Basophils # (Auto) 0.1 TH/MM3 CBC Comment DIFF FINAL Differential Comment Urine Color YELLOW Urine Turbidity CLEAR Urine pH 6.5 Urine Specific [place] 1.016 Urine Protein TRACE mg/dL Urine Glucose (UA) NEG mg/dL Urine Ketones NEG mg/dL Urine Occult Blood NEG Urine Nitrite POS Urine Bilirubin NEG Urine Urobilinogen LESS THAN 2.0 MG/DL Urine Leukocyte Esterase SMALL Urine RBC LESS THAN 1 /hpf Urine WBC 12 /hpf Urine Squamous Epithelial 1 /hpf Cells Urine Bacteria MOD /hpf Urine Mucus FEW /lpf Microscopic Urinalysis Comment CULTURE INDICATED Prothrombin Time 11.0 SEC Prothromb Time International 1.0 RATIO Ratio D-Dimer Quantitative (PE/DVT) 1.48 MG/L FEU MDM Medical Decision Making Medical Screen Exam Complete: Yes Emergency Medical Condition: Yes Medical Record Reviewed: Yes Interpretation(s) Twelve-lead EKG was reviewed by me. Normal sinus rhythm, normal axis, nonspecific ST-T wave changes. Heart rate of 64 bpm. Differential Diagnosis COPD exacerbation, pneumonia, pleural effusion, CHF exacerbation, lung mass Narrative Course 3:51 PM awaiting for the chest x-ray and blood test results to be done and resulted. I have given her 3-duo nebs along with IV Solu-Medrol bolus. I will reassess her in a bit. 6:39 PM I went back and reassess patient and her air entry was better even though there was some end expiratory wheeze. I've ordered 2 more albuterol nebulizer. Blood test results came back and they were within acceptable limits except for d-dimer which is elevated. I've ordered a CT pulmonary angiogram. Awaiting for the CT to be done and resulted. Case will be signed over to the oncoming ER physician at 7 PM. Procedures EKG Prior to Arrival: No Scripts Nitrofurantoin Monohydrate Macrocrystals (Macrobid)100 Mg Tsr099 Mg PO BID #19 CAP Ref 0 Prov:Chaparrita Arauz MD 09/09/16 Methylprednisolone Dosepak (Medrol Dosepak)4 Mg Dspk4 Mg PO DIRECTED #1 DSPK Ref 0 Per Pharmacist direction Prov:Chaparrita Arauz MD 09/09/16 César Staton MD Sep 09, 2016 15:18
[2016-09-09 15:25] VITALS: BP 191/87; PULSE 64; RESP 22; TEMP 97.7; O2SAT 99
[2016-09-09] MEDS ORDERED: DEPA500T PO (15:34)
[2016-09-09] MEDS ORDERED: LABE200T2 PO (15:34)
[2016-09-09 15:42] VITALS: O2SAT 98
[2016-09-09] MEDS ORDERED: methylPREDNISolone SOD SUCC 125 MG/2 ML VIAL IVP ONE (15:45)
[2016-09-09] MEDS ORDERED: SODIUM CHLORIDE 0.9% FLUSH 10 ML FLUSH IVF PRN (15:45)
--- NOTE | 2016-09-09 16:12 | RADRPT ---
EXAM DATE/TIME: 09/09/2016 15:38 [facility] COMPARISON: No previous studies available for comparison. INDICATIONS : Shortness of breath. MEDICAL HISTORY : None. SURGICAL HISTORY : None. ENCOUNTER: Initial ACUITY: 1 day PAIN SCORE: 0/10 LOCATION: Bilateral chest FINDINGS: Underinflated AP view of the chest demonstrates a normal-sized cardiac silhouette. There is atelectas is at the lung bases. No effusion, consolidation, or pneumothorax is visualized. Bones and soft tissu es demonstrate no acute finding. CONCLUSION: Underinflated examination with atelectasis at the lung bases. Otherwise, no acute finding is identifi ed. Minh Bell MD on September 09, 2016 at 16:09 Board Certified Radiologist. This report was verified electronically.
[2016-09-09 16:31] LABS: AUTOMATED NEUTROPHIL # 7.7 TH/MM3 (1.8-7.7); BASOPHIL # 0.1 TH/MM3 (0-0.2); BASOPHIL % 0.9 % (0.0-2.0); EOSINOPHIL # 0.6 TH/MM3 (0-0.4); EOSINOPHIL % 4.9 % (0.0-4.0); HEMATOCRIT 33.2 % (35.0-46.0); HEMO FLAGS DIFF FINAL; LYMPHOCYTE # 2.5 TH/MM3 (1.0-4.8); MEAN CELL VOLUME 91.2 FL (80.0-100.0); MEAN CORPUSCULAR HEMOGLOBIN 29.6 PG (27.0-34.0); MEAN CORPUSCULAR HGB CONC 32.4 % (32.0-36.0); MONO % 7.8 % (0.0-8.0); NEUT % 65.4 % (16.0-70.0); PLATELET COUNT 328 TH/MM3 (150-450); RED BLOOD COUNT 3.64 MIL/MM3 (4.00-5.30); RED CELL DISTRIBUTION WIDTH 13.4 % (11.6-17.2); WHITE BLOOD COUNT 11.8 TH/MM3 (4.0-11.0)
[2016-09-09] MEDS: RESP: ALBUTEROL 2.5 MG/IPRATROPIUM 0.5 MG NEB (SCH) INH (16:39)
[2016-09-09 16:53] LABS: ANION GAP 4 MEQ/L (5-15); BLOOD UREA NITROGEN 26 MG/DL (7-18); CHLORIDE 109 MEQ/L (98-107); GLOMERULAR FILTRATION RATE 42 ML/MIN (>89); POTASSIUM 5.4 MEQ/L (3.5-5.1); SODIUM (NA) 140 MEQ/L (136-145)
[2016-09-09 17:10] LABS: BACTERIA, URINE MOD /hpf; BLOOD, URINE NEG (NEG); COMMENT (UR) CULTURE INDICATED; CULTURE IF INDICATED CULTURE INDICATED; GLUCOSE,URINE NEG (NEG); KETONE, URINE NEG (NEG); MUCUS URINE FEW /lpf (OCC); PH, URINE 6.5 (5.0-8.5); SQUAMOUS EPITHELIAL CELL URINE 1 /hpf (0-5); URINE COLOR YELLOW (YELLW/STRAW)
[2016-09-09 17:14] LABS: NITRITE,URINE POS (NEG)
[2016-09-09] MEDS ORDERED: NITROFURANTOIN MONOHYD MACROCR 100 MG CAP PO ONE (17:30)
[2016-09-09] MEDS: RESP: ALBUTEROL 2.5 MG/3 ML NEB (SCH) INH ×2 (18:24→18:25)
[2016-09-09] MEDS ORDERED: IOHEXOL 350 MG/ML 10 ML VIAL (for RAD DIAG) IV ONE (19:52)
--- NOTE | 2016-09-09 20:28 | RADRPT ---
EXAM DATE/TIME: 09/09/2016 19:36 [facility] COMPARISON: No previous studies available for comparison. INDICATIONS : Patient complains of shortness of breath, evaluate for pulmonary emboli. IV CONTRAST: 50 cc Omnipaque 350 (iohexol) IV RADIATION DOSE: 5.10 CTDIvol (mGy) MEDICAL HISTORY : Cardiovascular disease. Lupus. brain tumors SURGICAL HISTORY : Lobectomy. Appendectomy.Cholecystectomy.brain tumors removed ENCOUNTER: Initial ACUITY: 1 day PAIN SCALE: 4/10 LOCATION: Bilateral chest TECHNIQUE: Volumetric scanning of the chest was performed using a pulmonary embolism protocol MIP images were re constructed. Using automated exposure control and adjustment of the mA and/or kV according to patien t size, radiation dose was kept as low as reasonably achievable to obtain optimal diagnostic quality images. DICOM format image data is available electronically for review and comparison. Follow-up recommendations for incidentally detected pulmonary nodules are based at a minimum on nodul e size and patient risk factors according to Fleischner Society Guidelines. FINDINGS: PULMONARY ARTERIES: No filling defects are seen in the pulmonary arteries through the segmental level. LUNGS: Abnormal appearance of the lungs with too numerous to count small nodules scattered throughout multip le regions of the lung. In addition, there are several spiculated masses, the largest anterior to th e major fissure lower lateral right lung measuring 1.4 cm. Similar-appearing spiculated mass lateral left midlung measures 8 mm and in the posterior medial left lower lung measures 9 mm. The nodular d ensities aren't greatest concentration in the posterior right lower lung. PLEURAE: There is no pleural thickening or pleural effusion. MEDIASTINUM: Several prominent mediastinal lymph nodes including subcarinal (1.8 cm and 1.2 cm), AP window (1.6 cm ) and right hilum (1.6 cm). Coronary artery calcifications in the LAD. MUSCULOSKELETAL: Probable hemangioma of T7. No sclerotic or lytic lesions to suggest bony metastatic disease. MISCELLANEOUS: Examination include part of the upper abdomen and there is a 2.9 cm right adrenal mass, low density w ith mean CT density 9 Hounsfield units. CONCLUSION: 1. Study is negative for pulmonary embolism. 2. Numerous bilateral varying size lung nodules, with the largest ones having spiculated margins, alexandru picious for bilateral pulmonary metastases. There is also several enlarged middle mediastinal nodes. 3. 2.9 cm right adrenal mass is nonspecific since it is low density. Differential considerations inc lude metastasis and adenoma. Chris Douglas MD on September 09, 2016 at 20:20 Board Certified Radiologist. This report was verified electronically.
[2016-09-09] MEDS ORDERED: MEDR4PAK PO (20:55)
[2016-09-09] MEDS ORDERED: MACR100C2 PO (20:55)
--- NOTE | 2016-09-09 20:56 | PD ---
Physical Exam Narrative GENERAL: A well-developed well-nourished female in no acute distress SKIN: Focused skin assessment warm/dry. HEAD: Atraumatic. Normocephalic. EYES: Pupils equal and round. No scleral icterus. No injection or drainage. ENT: No nasal bleeding or discharge. Mucous membranes pink and moist. NECK: Trachea midline. No JVD. CARDIOVASCULAR: Regular rate and rhythm. No murmur appreciated. RESPIRATORY: No accessory muscle use. Clear to auscultation. Breath sounds equal bilaterally. GASTROINTESTINAL: Abdomen soft, non-tender, nondistended. Normal bowel sounds are audible. Data Data Last Documented VS Vital Signs Date Time Temp Pulse Resp B/P Pulse Ox O2 Delivery O2 Flow Rate FiO2 09/09/16 15:42 98 Room Air 09/09/16 15:25 97.7 64 22 191/87 Orders Complete Blood Count With Diff (09/09/16 15:35) Basic Metabolic Panel (Bmp) (09/09/16 15:35) B-Type Natriuretic Peptide (09/09/16 15:35) Prothrombin Time / Inr (Pt) (09/09/16 15:35) Troponin I (09/09/16 15:35) Urinalysis - C+S If Indicated (09/09/16 15:35) Iv Access Insert/Monitor (09/09/16 15:35) Electrocardiogram (09/09/16 15:35) Ecg Monitoring (09/09/16 15:35) Oximetry (09/09/16 15:35) Oxygen Administration (09/09/16 15:35) Chest, Single Ap (09/09/16 15:35) Sodium Chloride 0.9% Flush (Ns Flush) (09/09/16 15:45) Methylprednisolone So Succ Inj (Solumedr (09/09/16 15:45) Albuterol-Ipratropium Neb (Duoneb Neb) (09/09/16 15:45) Urine Culture (09/09/16 16:25) Nitrofurantoin Monohyd Macrocr (Macrobid (09/09/16 17:30) D-Dimer (09/09/16 17:31) Albuterol Neb (Albuterol Neb) (09/09/16 18:15) Ct Pulmonary Angiogram (09/09/16 ) Iohexol 350 Inj (Omnipaque 350 Inj) (09/09/16 19:52) Labs Laboratory Tests Test 09/09/16 09/09/16 09/09/16 15:45 16:25 16:50 White Blood Count 11.8 TH/MM3 Red Blood Count 3.64 MIL/MM3 Hemoglobin 10.8 GM/DL Hematocrit 33.2 % Mean Corpuscular Volume 91.2 FL Mean Corpuscular Hemoglobin 29.6 PG Mean Corpuscular Hemoglobin 32.4 % Concent Red Cell Distribution Width 13.4 % Platelet Count 328 TH/MM3 Mean Platelet Volume 8.5 FL Neutrophils (%) (Auto) 65.4 % Lymphocytes (%) (Auto) 21.0 % Monocytes (%) (Auto) 7.8 % Eosinophils (%) (Auto) 4.9 % Basophils (%) (Auto) 0.9 % Neutrophils # (Auto) 7.7 TH/MM3 Lymphocytes # (Auto) 2.5 TH/MM3 Monocytes # (Auto) 0.9 TH/MM3 Eosinophils # (Auto) 0.6 TH/MM3 Basophils # (Auto) 0.1 TH/MM3 CBC Comment DIFF FINAL Differential Comment Sodium Level 140 MEQ/L Potassium Level 5.4 MEQ/L Chloride Level 109 MEQ/L Carbon Dioxide Level 27.0 MEQ/L Anion Gap 4 MEQ/L Blood Urea Nitrogen 26 MG/DL Creatinine 1.25 MG/DL Estimat Glomerular Filtration 42 ML/MIN Rate Random Glucose 91 MG/DL Calcium Level 8.7 MG/DL Troponin I LESS THAN 0.02 NG/ML B-Type Natriuretic Peptide 92 PG/ML Urine Color YELLOW Urine Turbidity CLEAR Urine pH 6.5 Urine Specific [place] 1.016 Urine Protein TRACE mg/dL Urine Glucose (UA) NEG mg/dL Urine Ketones NEG mg/dL Urine Occult Blood NEG Urine Nitrite POS Urine Bilirubin NEG Urine Urobilinogen LESS THAN 2.0 MG/DL Urine Leukocyte Esterase SMALL Urine RBC LESS THAN 1 /hpf Urine WBC 12 /hpf Urine Squamous Epithelial 1 /hpf Cells Urine Bacteria MOD /hpf Urine Mucus FEW /lpf Microscopic Urinalysis Comment CULTURE INDICATED Prothrombin Time 11.0 SEC Prothromb Time International 1.0 RATIO Ratio D-Dimer Quantitative (PE/DVT) 1.48 MG/L FEU [facility] Medical Record Reviewed: Yes Supervised Visit with LEON: No Interpretation(s) Last Impressions Chest X-Ray 09/09/16 [id number] Signed Impressions: Service Date/Time: Friday, September 09, 2016 15:38 - CONCLUSION: Underinflated examination with atelectasis at the lung bases. Otherwise, no acute finding is identified. Minh Bell MD CT Angiography 09/09/16 0000 Signed Impressions: Service Date/Time: Friday, September 09, 2016 19:36 - CONCLUSION: 1. Study is negative for pulmonary embolism. 2. Numerous bilateral varying size lung nodules, with the largest ones having spiculated margins, suspicious for bilateral pulmonary metastases. There is also several enlarged middle mediastinal nodes. 3. 2.9 cm right adrenal mass is nonspecific since it is low density. Differential considerations include metastasis and adenoma. Chris Douglas MD Narrative Course During the course of the patients emergency department visit, the patients history, examination, and differential diagnosis were reviewed with the patient. The patient had IV access obtained and blood work sent for analysis. The patient's was on a cardiac specialist with oximetry and blood pressure monitoring. The patient was initially evaluated by Dr. Staton. She checked the patient's case out to me at the conclusion of her shift. The patient had a CTA pending to rule out pulmonary embolism. She recommended that the patient be discharged home with a diagnosis of a COPD exacerbation of her CTA was negative for PE. The patient was provided by Dr. Staton, Solu-Medrol 125 mg IV, DuoNebs for wheezing, Macrobid 100 mg by mouth 1. The patients laboratory studies were reviewed and remarkable for a urinalysis that shows positive nitrite, small leukocyte esterase, 12 WBCs, moderate bacteria, these metabolic profile is remarkable for a potassium of 5.4, chloride 109, BUN 26, creatinine 1.25, troponin I less than 0.02, BNP is 92, INR 1.0, d-dimer 1.48, CBC shows white count 11.8, hemoglobin 10.8, platelets 328 with 4.9 eosinophils Radiology studies were reviewed and remarkable for a chest x-ray that shows under inflated examination with atelectasis at the lung bases, otherwise unremarkable. CTA to rule out PE shows that the study is negative for PE, however the patient has numerous bilateral varying size lung nodules with the largest ones having spiculated margins, suspicious for bilateral pulmonary metastasis. There is also several enlarged mediastinal lymph nodes, at 2.9 cm right adrenal mass is nonspecific sense that his low density, differential considerations include metastasis and adenoma. The patient will be discharged home with a Medrol Dosepak taper, Macrobid for a urinary tract infection. The patient was provided a copy of her CT scan findings to discuss further with her physicians. The patient reports that she has been diagnosed with lung nodules in the past approximately 7 years ago. She reports that she did have a biopsy done that was unremarkable. I recommended that she discuss this further with her java developer architect, Dr. Sawyer, her primary care physician, and of course her neurosurgeon that is planning on doing a craniotomy with surgical resection of a mass later this week. The patient is resting comfortably and feels better, is alert and in no distress. The patients results and examination findings were discussed with the patient. The repeat examination is unremarkable and benign. The history, exam, diagnostic testing, and current condition do not suggest any significant pathology to warrant further testing, continued ED treatment, admission, or surgical evaluation at this point. The vital signs have been stable. The patient does not have uncontrollable pain, intractable vomiting, or other significant symptoms. The patient's condition is stable and appropriate for discharge. The patient will pursue further outpatient evaluation with a primary care physician or other designated or consulting physician as indicated in the discharge instructions. The patient expressed understanding and was agreeable with this plan. Diagnosis Primary Impression: COPD exacerbation Additional Impressions: Urinary tract infection Qualified Code: N39.0 - Urinary tract infection without hematuria, site unspecified Pulmonary nodules/lesions, multiple Referrals: Michele Galeano MD 1 day Cheyenne Quinn MD 2 days Primary Care Physician 2 days Patient Instructions: COPD (Chronic Obstructive Pulmonary Disease) (ED), General Instructions, Urinary Tract Infection in Women (ED) Med/Other Pt SpecificInfo: Prescription(s) given Scripts Nitrofurantoin Monohydrate Macrocrystals (Macrobid)100 Mg Txy881 Mg PO BID #19 CAP Ref 0 Prov:Chaparrita Arauz MD 09/09/16 Methylprednisolone Dosepak (Medrol Dosepak)4 Mg Dspk4 Mg PO DIRECTED #1 DSPK Ref 0 Per Pharmacist direction Prov:Chaparrita Arauz MD 09/09/16 Disposition: 01 DISCHARGE HOME Condition: Stable Chaparrita Arauz MD Sep 09, 2016 20:56
--- NOTE | 2016-09-10 10:44 | EKG ---
Date Performed: 09/09/2016 Time Performed: 16:00:55 PTAGE: 76 years EKG: Sinus rhythm LOW QRS VOLTAGE IN PRECORDIAL LEADS BORDERLINE ECG PREVIOUS TRACING : 09/09/2016 14.16 DOCTOR: Morro Pascal Interpretating Date/Time 09/10/2016 10:42:18
== END 2016-09-09 21:35 | disposition home or self-care (01) ==
LOC: NEPE 15:01
DX: J44.1 Chronic obstructive pulmonary disease with (acute) exacerbation (principal); N39.0 Urinary tract infection, site not specified; R91.8 Other nonspecific abnormal finding of lung field; R94.31 Abnormal electrocardiogram [ECG] [EKG]; B96.20 Unspecified Escherichia coli [E. coli] as the cause of diseases classified elsewhere; E78.00 Pure hypercholesterolemia, unspecified; G47.30 Sleep apnea, unspecified; Z87.39 Personal history of other diseases of the musculoskeletal system and connective tissue; Z87.09 Personal history of other diseases of the respiratory system; Z86.2 Personal history of diseases of the blood and blood-forming organs and certain disorders involving the immune mechanism; Z85.828 Personal history of other malignant neoplasm of skin; Z85.841 Personal history of malignant neoplasm of brain; Z86.79 Personal history of other diseases of the circulatory system; Z86.69 Personal history of other diseases of the nervous system and sense organs
CPT/HCPCS: 71010; 71275; 80048; 81001; 83880; 84484; 85025; 85379; 85610; 87077; 87086; 87186; 93005; 94640; 94664; 96374; 99285; J2930; J7613; Q9967

== ENCOUNTER → 2016-09-09 | Outpatient (CLI) | payer OTHER ==
[~2016-09-09] MED LIST: ADVA250A INH; AMLO5TAB2 PO; CARB200T PO; CARV12.52 PO; CARV25TA PO; DEPA500T PO; HYDR-3801 PO; IPRASOL INH; LABE200T2 PO; LEVE500 PO; MACR100C2 PO; MEDR4PAK PO
--- NOTE | 2016-09-10 11:16 | EKG ---
Date Performed: 09/09/2016 Time Performed: 14:16:27 PTAGE: 76 years EKG: Sinus rhythm LOW QRS VOLTAGE IN PRECORDIAL LEADS BORDERLINE ECG PREVIOUS TRACING : 03/08/2012 10.22 DOCTOR: Morro Pascal Interpretating Date/Time 09/10/2016 11:15:19
== END ==
LOC: CPRE 13:52
PROVIDERS: ATTEND Neurological Surgery
DX: Z01.810 Encounter for preprocedural cardiovascular examination (principal); D33.2 Benign neoplasm of brain, unspecified; Z79.01 Long term (current) use of anticoagulants; R94.31 Abnormal electrocardiogram [ECG] [EKG]
CPT/HCPCS: 93005